=== PATIENT | female | born 1940 | race Caucasian/White ===

== ENCOUNTER 2018-09-27 16:54 | Inpatient (IN) | payer MEDICARE, OTHER ==
[~2018-09-27] VITALS: Ht 157.5 cm; Wt 61.4 kg
[~2018-09-27 16:54] MED LIST: ASPIRIN EC81 MG PO; CITALOPRAM HBR20 MG PO; DILTIAZEM HCL30 MG PO; FOLIC ACID1 MG PO; FUROSEMIDE40 MG PO; KEFLEX250 MG PO; LEVOTHYROXINE50 MCG PO; LISINOPRIL2.5 MG PO; LOPRESSOR25 MG PO; NORCO 5-325 TA1 EACH PO; OS-CAL 500+D T1 EACH PO; PANTOPRAZOLE SO40 MG PO; POTASSIUM CHLO20 ME1 PO; PREDNISONE5 MG PO; RANITIDINE HCL150 MG PO
--- OUTSIDE RECORDS SUMMARY | 2018-09-27 16:59 | XMS REPORT | Continuity of Care Document ---
Author Author [facility] Interface Address Unknown Phone Unavailable Problems Problem Status Onset Date Classification Date Reported Comments Source Chronic diastolic heart failure 12/30/2017 04/03/2018 [place] Influenza due to unidentified influenza virus with unspecified type of pneumonia 12/30/2017 04/03/2018 [facility] Hypertensive heart disease with heart failure 12/28/2017 03/30/2018 [facility] FOLLOW UP Active 12/26/2017 [facility] HSOPITAL FOLLOW UP Active 12/06/2017 [facility] Discharge Diagnosis: Influenza 11/10/2017 11/20/2017 [facility] INFLUENZA Active 11/10/2017 [facility] FLU Active 11/10/2017 [facility] RIGHT KNEE PAIN Active 07/08/2017 [facility] ELEVATED INR RT KNEE Active 07/08/2017 [facility] SHORT OF BREATH Active 06/08/2017 [facility] J98.11 - ATELECTASIS Active 05/16/2017 [place] FOLLWO UP Active 04/25/2017 [facility] TAVR HOSPITAL FOLLOW UP Active 04/10/2017 [facility] AORTIC STENOSIS Active 04/06/2017 [facility] PRE ADMIT/*GEN ANESTHESIA*/TAVR CASE/*3D Active 04/06/2017 [facility] F/U Active 04/04/2017 [facility] AORTIC STEONOSIS; NICMP Active 03/21/2017 [facility] LUNG OPACITIES, PULM NODULE Active 03/20/2017 [facility] CHF Active 03/08/2017 [facility] Aortic stenosis Active Problem 05/11/2018 [facility], [facility] Atrial fibrillation Resolved Problem 05/11/2018 [facility], [place] [place] [facility] Cardiomyopathy Resolved Problem 05/11/2018 [facility], [facility] [place] [facility] History of breast cancer Active Problem 05/11/2018 [facility] Hypertension Active Problem 05/11/2018 [facility], [place], [facility] Hypothyroidism Active Problem 05/11/2018 [facility], [place], [facility] Rheumatoid arthritis Active Problem 05/11/2018 [facility] Scoliosis Resolved Problem 05/11/2018 [facility] HTN (<span ID="[id number]">Confirmed</span>) Resolved Problem 05/11/2018 [place],[facility] Hypothyroid Resolved Problem 05/11/2018 [place],[facility] Breast cancer Resolved Problem 05/11/2018 [place],[facility] RA (<span ID="[id number]">Confirmed</span>) Resolved Problem 05/11/2018 [place],[facility] Allergic rhinitis Active Problem 05/11/2018 [facility] Chronic heart failure Active Problem 05/11/2018 [facility] Pneumonia Active Problem 05/11/2018 [facility] Mild protein-calorie malnutrition Active Problem 05/11/2018 [facility] Restrictive lung disease Active Problem 05/11/2018 [facility] Tracheobronchopathia-osteochondroplastica Active Problem 05/11/2018 [facility] Aortic stenosis<sup>1</sup> Resolved Problem 05/11/2018 TAVR done march [facility] CHF (<span ID="[id number]">Confirmed</span>) Resolved Problem 05/11/2018 [facility] Sjogrens syndrome<sup>2</sup> Resolved Problem 05/11/2018 Dry eyes and mouth [facility], [place],[facility] Sjogren's syndrome Resolved Problem 05/11/2018 [facility], [place] Rheumatoid arthritis, unspecified 04/03/2018 [facility] Personal history of malignant neoplasm of breast 04/03/2018 [facility] Personal history of antineoplastic chemotherapy 04/03/2018 [facility] Acute on chronic diastolic heart failure 03/30/2018 [facility] Acute respiratory failure with hypoxia 03/30/2018 [facility] Dependence on supplemental oxygen 03/30/2018 [facility] skilled nursing use of anticoagulants 03/30/2018 [facility] Persistent atrial fibrillation 03/30/2018 [facility] Chronic atrial fibrillation 03/30/2018 [facility] Iron deficiency anemia, unspecified 03/30/2018 [facility] Final: Influenza due to unidentified influenza virus with other respiratory manifestations 11/20/2017 [facility] NONRHEUMATIC AORTIC (VALVE) STENOSIS Active [facility] ENCNTR FOR GENERAL ADULT MEDICAL EXAM W/ Active [facility] HEART FAILURE, UNSPECIFIED Active [facility] ABNORMAL COAGULATION PROFILE Active [facility] FLU DUE TO UNIDENTIFIED INFLUENZA VIRUS Active [facility] Medications Medication Details Route Status Patient Instructions Ordering Provider Order Date Source temazepam 15 mg oral capsule 15 mg=1 cap, PO, Bedtime, 0 Refill(s) Active 05/08/2018 [facility] potassium chloride 20 mEq oral tablet, extended release 20 mEq=1 tab, PO, BID, 0 Refill(s) Active 05/08/2018 [facility] Furosemide 40 MG Oral Tablet 40 mg=1 tab, PO, TID, 0 Refill(s) Active 05/08/2018 [facility] apixaban 5 MG Oral Tablet [Eliquis] 5 mg, PO, Q12H, 0 Refill(s) Active 05/08/2018 [facility] torsemide 20 mg oral tablet See Instructions, Take two tabs in the morning and one tab in the evening., # 90 tab, 1 Refill(s), Pharmacy: [facility] #[id number] Active 02/22/2018 [facility] metoprolol 25 mg oral tablet, extended release 25 mg=1 tab, PO, Daily, # 30 tab, 3 Refill(s), Pharmacy: [facility] #[id number] Active 02/19/2018 [facility] Symbicort 160/4.5 inhalation aerosol with adapter 2 puff, INHALER, BID, rinse mouth and throat after use, # 1 ea, 11 Refill(s), Pharmacy: [facility] #[id number] Active 12/26/2017 [facility] ferrous gluconate 325 mg oral tablet 325 mg=1 tab, PO, BID, # 60 tab, 5 Refill(s), Pharmacy: [facility] #[id number] Active 12/24/2017 [facility] torsemide 20 mg oral tablet See Instructions, Take two tabs in the morning and one tab in the evening., # 90 tab, 1 Refill(s), Pharmacy: [facility] #[id number] No Longer Active 12/22/2017 [facility] budesonide-formoterol 80 mcg-4.5 mcg/inh inhalation aerosol with adapter 2 inhalation, Route: INHALATION, Drug Form: AERO/A, RBID, Start date: 11/17/17 18:14:00 RN DIABETES, Duration: 30 day, Stop date: 12/17/17 8:00:00 CSTNotes: (Same as: Symbicort) WASTE: Aerosol - Return to Pharmacy Inactive 11/18/2017 [facility] Fluticasone propionate 0.1 MG/ACTUAT / salmeterol 0.05 MG/ACTUAT Dry Powder Inhaler 1 inhalation, INHALER, RBID, # 60 ea, 1 Refill(s) Active 11/18/2017 [facility] Fluticasone propionate 0.1 MG/ACTUAT / salmeterol 0.05 MG/ACTUAT Dry Powder Inhaler 1 inhalation, INHALER, RBID, # 28 ea, 1 Refill(s) Inactive 11/18/2017 [facility] Fluticasone propionate 0.1 MG/ACTUAT / salmeterol 0.05 MG/ACTUAT Dry Powder Inhaler 1 inhalation, Route: INHALER, Dosing Weight 53.818, kg, RBID, Start date: 11/17/17 18:01:00 RN DIABETES, Duration: 30 day, Stop date: 12/17/17 8:00:00 RN DIABETES Inactive 11/18/2017 [facility] Warfarin 4 mg, Route: PO, Drug form: TAB, Q5PM, Dosing Weight 53.818, kg, Start date: 11/15/17 17:00:00 RN DIABETES, Duration: 1 doses or times, Stop date: 11/15/17 17:00:00 RN DIABETES Inactive 11/15/2017 [facility] Dextromethorphan Hydrobromide 2 MG/ML / Guaifenesin 20 MG/ML Oral Solution 10 mL, PO, Q6H, X 7 day, # 280 mL, 0 Refill(s) Active 11/15/2017 [facility] Acetaminophen 325 MG / Hydrocodone Bitartrate 5 MG Oral Tablet [[place] 5/325] 1 tab, Route: PO, Drug Form: TAB, Dosing Weight 53.818, kg, ONCE, Start date: 11/14/17 22:12:00 RN DIABETES, Stop date: 11/14/17 22:12:00 CSTNotes: (Same as: [place] 325/5) Do not exceed 4gm/day of acetaminophen. Inactive 11/15/2017 [facility] Acetaminophen 325 MG / Oxycodone Hydrochloride 5 MG Oral Tablet 1 tab, Route: PO, Drug Form: TAB, Dosing Weight 53.818, kg, ONCE, PRN Pain Score 1-3, Start date: 11/13/17 22:46:00 CSTNotes: Do not exceed 4gm/day of acetaminophen. (Same as: Percocet-5/325) Inactive 11/14/2017 [facility] Warfarin 3 mg, 1 tab, Route: PO, Drug form: TAB, Q5PM, Dosing Weight 53.818, kg, Start date: 11/13/17 17:00:00 RN DIABETES, Duration: 1 doses or times, Stop date: 11/13/17 17:00:00 CSTNotes: Nurse to ensure documentation of patient education per anticoagulation policy. Avoid large intake of vitamin-K containing foods diet. (Same As: Coumadin) WASTE: F/P - P Waste Black; E - P Waste Black Inactive 11/13/2017 [facility] Ciprofloxacin 500 mg, Route: PO, Daily, Dosing Weight 53.818, kg, Start date: 11/13/17 9:00:00 RN DIABETES, Duration: 3 day, Stop date: 11/15/17 9:00:00 RN DIABETES, ABX Indication: Urinary Tract Infection No Longer Active 11/13/2017 [facility] Benadryl 25 mg, 1 cap, Route: PO, Drug form: CAP, ONCE, Dosing Weight 53.818, kg, Start date: 11/13/17 0:53:00 RN DIABETES, Stop date: 11/13/17 0:53:00 CSTNotes: (Same as: Benadryl) Inactive 11/13/2017 [facility] dextromethorphan extended release 60 mg, Route: PO, Drug form: ER Suspension, Q12H, Dosing Weight 53.818, kg, Start date: 11/12/17 21:00:00 RN DIABETES, Duration: 30 day, Stop date: 12/12/17 9:00:00 RN DIABETES Inactive 11/13/2017 [facility] Mucinex 600 mg, 1 tab, Route: PO, Drug form: ERTAB, Q12H, Dosing Weight 53.818, kg, Start date: 11/12/17 21:00:00 RN DIABETES, Duration: 30 day, Stop date: 12/12/17 9:00:00 CSTNotes: (Same as: Guaifenesin LA, Humibid LA, Mucinex) "Do Not Crush" Take medication with plenty of water. Inactive 11/13/2017 [facility] Acetaminophen 325 MG / Hydrocodone Bitartrate 5 MG Oral Tablet [[place] 5/325] 1 tab, Route: PO, Drug Form: TAB, Dosing Weight 53.818, kg, ONCE, Start date: 11/12/17 20:57:00 RN DIABETES, Stop date: 11/12/17 20:57:00 CSTNotes: (Same as: [place] 325/5) Do not exceed 4gm/day of acetaminophen. Inactive 11/13/2017 [facility] Robitussin DM 10 ml, Route: PO, Drug Form: SYRP, Dosing Weight 53.818, kg, Q6H, Start date: 11/12/17 20:00:00 RN DIABETES, Duration: 30 day, Stop date: 12/12/17 18:00:00 CSTNotes: (dextromethorphan-guaifenesin 10-100mg/5m l 10 ml oral SOLN ud) (Same as: Robitussin DM) No Longer Active 11/13/2017 [facility] Budesonide 0.25 mg, 2 mL, Route: NEB, Drug form: SUSP, RBID, Dosing Weight 53.818, kg, Start date: 11/12/17 17:22:00 RN DIABETES, Duration: 30 day, Stop date: 12/12/17 8:00:00 CSTNotes: (Same As: Pulmicort respule). No Longer Active 11/12/2017 [facility] Warfarin 3 mg, 1 tab, Route: PO, Drug form: TAB, Q5PM, Dosing Weight 53.818, kg, Start date: 11/12/17 17:00:00 RN DIABETES, Duration: 1 doses or times, Stop date: 11/12/17 17:00:00 CSTNotes: Nurse to ensure documentation of patient education per anticoagulation policy. Avoid large intake of vitamin-K containing foods diet. (Same As: Coumadin) WASTE: F/P - P Waste Black; E - P Waste Black Inactive 11/12/2017 [facility] Tamiflu 75 mg, 1 cap, Route: PO, Drug form: CAP, BID, Dosing Weight 53.818, kg, Start date: 11/12/17 17:00:00 RN DIABETES, Duration: 3 day, Stop date: 11/15/17 9:00:00 CSTNotes: Take with food. Same as: Tamiflu) No Longer Active 11/12/2017 [facility] Tylenol 325 mg, 1 tab, Route: PO, Drug form: TAB, Q6H, Dosing Weight 53.818, kg, PRN Pain Score 1-3, Start date: 11/12/17 13:39:00 RN DIABETES, Duration: 30 day, Stop date: 12/12/17 13:38:00 CSTNotes: Do not exceed 4 gm/day. (Same as: Tylenol) No Longer Active 11/12/2017 [facility] Cipro 250 mg, 1 tab, Route: PO, Drug form: TAB, [id number], Start date: 11/12/17 12:00:00 RN DIABETES, Duration: 3 day, Stop date: 11/15/17 0:00:00 RN DIABETES, ABX Indication: Urinary Tract InfectionNotes: May interfere w/enteral feedings - Take 1 hr before or 2 hrs after antacids, dairy pdt & minerals. On empty stomach. No Longer Active 11/12/2017 [facility] Albuterol 0.833 MG/ML / Ipratropium [place] 0.167 MG/ML Inhalant Solution [DuoNeb] 3 ml, Route: NEB, Drug Form: SOLN, Dosing Weight 53.818, kg, RQ6H, PRN Respiratory Protocol, Start date: 11/12/17 11:32:00 RN DIABETES, Duration: 30 day, Stop date: 12/12/17 11:31:00 CSTNotes: (Same as: Duoneb) No Longer Active 11/12/2017 [facility] Acetaminophen 325 MG / Hydrocodone Bitartrate 5 MG Oral Tablet [[place] 5/325] 1 tab, Route: PO, Drug Form: TAB, Dosing Weight 53.818, kg, ONCE, PRN Pain Score 1-3, Start date: 11/11/17 22:59:00 CSTNotes: (Same as: [place] 325/5) Do not exceed 4gm/day of acetaminophen. Inactive 11/12/2017 [facility] Warfarin 2 mg, 1 tab, Route: PO, Drug form: TAB, Q5PM, Dosing Weight 53.818, kg, Start date: 11/11/17 17:00:00 RN DIABETES, Duration: 1 doses or times, Stop date: 11/11/17 17:00:00 CSTNotes: Nurse to ensure documentation of patient education per anticoagulation policy. Avoid large intake of vitamin-K containing foods diet. (Same As: Coumadin) WASTE: F/P - P Waste Black; E - P Waste Black Inactive 11/11/2017 [facility] Prednisone 5 mg, 1 tab, Route: PO, Drug form: TAB, Daily, Dosing Weight 54.545, kg, Start date: 11/11/17 9:00:00 RN DIABETES, Duration: 30 day, Stop date: 12/10/17 9:00:00 CSTNotes: Take with food. No Longer Active 11/11/2017 [facility] potassium chloride 20 mEq oral tablet, extended release 20 mEq, 1 tab, Route: PO, Drug form: ERTAB, Daily, Dosing Weight 54.545, kg, Start date: 11/11/17 9:00:00 RN DIABETES, Duration: 30 day, Stop date: 12/10/17 9:00:00 CSTNotes: (Same as: K-Dur 20) "Do Not Crush" With food and full glass of water No Longer Active 11/11/2017 [facility] pantoprazole 40 mg, 1 tab, Route: PO, Drug form: ECTAB, Daily, Dosing Weight 54.545, kg, Start date: 11/11/17 9:00:00 RN DIABETES, Duration: 30 day, Stop date: 12/10/17 9:00:00 CSTNotes: Tablet should not be chewed or cr ushed. (Same as: Protonix) No Longer Active 11/11/2017 [facility] Azithromycin 500 mg, 2 tab, Route: PO, Drug form: TAB, Daily, Dosing Weight 54.545, kg, Start date: 11/11/17 9:00:00 RN DIABETES, Stop date: 11/14/17 9:00:00 RN DIABETES, ABX Indication: BacteremiaNotes: Take 1 hour before or 2 hours after meals. (Same As: Zithromax) No Longer Active 11/11/2017 [facility] 24 HR Metoprolol Tartrate 25 MG Extended Release Tablet [Toprol] 25 mg, 1 tab, Route: PO, Drug form: ERTAB, Daily, Start date: 11/11/17 9:00:00 RN DIABETES, Duration: 30 day, Stop date: 12/10/17 9:00:00 CSTNotes: (Same as: Toprol XL) Do Not Crush No Longer Active 11/11/2017 [facility] Thyroxine 25 microgram, 1 tab, Route: PO, Drug form: TAB, Daily, Dosing Weight 54.545, kg, Start date: 11/11/17 9:00:00 RN DIABETES, Duration: 30 day, Stop date: 12/10/17 9:00:00 CSTNotes: Take 1 hour before or 2 hours after meal; Enteral feeds may interefere with the absorption of this medication. (Same as:Levothroid) No Longer Active 11/11/2017 [facility] Folic Acid 1 mg, 1 tab, Route: PO, Drug form: TAB, Daily, Dosing Weight 54.545, kg, Start date: 11/11/17 9:00:00 RN DIABETES, Duration: 30 day, Stop date: 12/10/17 9:00:00 CSTNotes: (Same as: Folvite) No Longer Active 11/11/2017 [facility] Citalopram 10 mg, 1 tab, Route: PO, Drug form: TAB, Daily, Dosing Weight 54.545, kg, Start date: 11/11/17 9:00:00 RN DIABETES, Duration: 30 day, Stop date: 12/10/17 9:00:00 RN DIABETES No Longer Active 11/11/2017 [facility] calcium-vitamin D 500 mg-200 intl units oral tablet 1 tab, Route: PO, Drug Form: TAB, Dosing Weight 54.545, kg, BID, Start date: 11/11/17 9:00:00 RN DIABETES, Duration: 30 day, Stop date: 12/10/17 17:00:00 CSTNotes: (Same As: Ana-D, OsCal-D, Oyster Calcium) No Longer Active 11/11/2017 [facility] aspirin 81 mg tablet, enteric coated 81 mg, 1 tab, Route: PO, Drug form: ECTAB, Daily, Dosing Weight 54.545, kg, Start date: 11/11/17 9:00:00 RN DIABETES, Duration: 30 day, Stop date: 12/10/17 9:00:00 CSTNotes: Do not crush or chew. (Same As: Ecotrin) No Longer Active 11/11/2017 [facility] Amiodarone 200 mg, 1 tab, Route: PO, Drug form: TAB, Daily, Dosing Weight 54.545, kg, Start date: 11/11/17 9:00:00 RN DIABETES, Duration: 30 day, Stop date: 12/10/17 9:00:00 CSTNotes: (Same as: Cordarone) No Longer Active 11/11/2017 [facility] Acetaminophen 325 MG / Hydrocodone Bitartrate 5 MG Oral Tablet [[place] 5/325] 1 tab, Route: PO, Drug Form: TAB, Dosing Weight 53.818, kg, ONCE, PRN Pain Score 1-3, Start date: 11/11/17 2:15:00 CSTNotes: (Same as: [place] 325/5) Do not exceed 4gm/day of acetaminophen. Inactive 11/11/2017 [facility] Acetaminophen 325 MG / Hydrocodone Bitartrate 5 MG Oral Tablet [[place] 5/325] 1 tab, Route: PO, Drug Form: TAB, Dosing Weight 53.818, kg, ONCE, Start date: 11/11/17 1:43:00 RN DIABETES, Stop date: 11/11/17 1:43:00 CSTNotes: (Same as: [place] 325/5) Do not exceed 4gm/day of acetaminophen. Inactive 11/11/2017 [facility] Tamiflu 30 mg, 1 cap, Route: PO, Drug form: CAP, Daily, Dosing Weight 54.545, kg, CrCl > 30 to 60 ml/hr, Start date: 11/10/17 18:30:00 RN DIABETES, Duration: 5 day, Stop date: 11/15/17 9:00:00 CSTNotes: Same as: Tamilfu Take with Food No Longer Active 11/11/2017 [facility] azithromycin 500 mg oral tablet 500 mg, 2 tab, Route: PO, Drug form: TAB, ONCE, Dosing Weight 54.545, kg, Start date: 11/10/17 18:09:00 RN DIABETES, Stop date: 11/10/17 18:09:00 RN DIABETES, ABX Indication: ED - Suspected SepsisNotes: Take 1 hour before or 2 hours after meals. (Same As: Zithromax) Inactive 11/11/2017 [facility] Coumadin 2 mg, 1 tab, Route: PO, Drug form: TAB, ONCE, Dosing Weight 54.545, kg, Start date: 11/10/17 17:59:00 RN DIABETES, Stop date: 11/10/17 17:59:00 CSTNotes: Nurse to ensure documentation of patient education per a nticoagulation policy. Avoid large intake of vitamin-K containing foods diet. (Same As: Coumadin) WASTE: F/P - P Waste Black; E - P Waste Black Inactive 11/10/2017 [facility] Levofloxacin 750 mg, 150 mL, Route: IVPB, Drug form: SOLN, ONCE, Dosing Weight 54.545, kg, Start date: 11/10/17 16:52:00 RN DIABETES, Stop date: 11/10/17 16:52:00 RN DIABETES, ABX Indication: PneumoniaNotes: (Same as:Levaquin) Inactive 11/10/2017 [facility] Calcium Chloride 0.0014 MEQ/ML / Potassium Chloride 0.004 MEQ/ML / Sodium Chloride 0.103 MEQ/ML / Sodium Lactate 0.028 MEQ/ML Injectable Solution 500 mL, 500 ml/hr, Infuse Over: 1 hr, Route: IV, 500, Drug form: INJ, ONCE, Priority: STAT, Dosing Weight 54.545 kg, Start date: 11/10/17 16:52:00 RN DIABETES, Stop date: 11/10/17 16:52:00 RN DIABETES Inactive 11/10/2017 [facility] Saline Flush 0.9% 10 mL, Route: IVP, Drug Form: INJ, Dosing Weight 54.545, kg, PRN, PRN Line Flush, Start date: 11/10/17 15:56:00 RN DIABETES, Duration: 30 day, Stop date: 12/10/17 15:55:00 CSTNotes: (Same as: BD Posiflush) No Longer Active 11/10/2017 [facility] metoprolol 25 mg oral tablet, extended release 25 mg=1 tab, PO, Daily, X 30 day, # 30 tab, 3 Refill(s), Pharmacy: [facility] #[id number] No Longer Active 10/25/2017 [facility] warfarin 2 mg oral tablet 1 tab ud pharmacy clinic; use dosing paper, PO, Daily, # 30 tab, 2 Refill(s), Pharmacy: [facility] #[id number] Active 10/25/2017 [facility] potassium chloride 20 mEq oral tablet, extended release 20 mEq=1 tab, PO, Daily, # 30 tab, 3 Refill(s), other Active 07/10/2017 [facility] metoprolol 25 mg oral tablet, extended release 25 mg=1 tab, PO, Daily, # 30 tab, 3 Refill(s) Active 07/10/2017 [facility] warfarin 2 mg oral tablet 2 mg=1 tab, PO, Daily, # 30 tab, 3 Refill(s) Active 07/10/2017 [facility] Acetaminophen 325 MG / Hydrocodone Bitartrate 5 MG Oral Tablet [[place] 5/325] 1 tab, Route: PO, Drug Form: TAB, Dosing Weight 55.409, kg, Q6H, PRN Pain Score 1-3, Start date: 07/09/17 17:13:00 CDT, Duration: 30 day, Stop date: 08/08/17 17:12:00 CDTNotes: (Same as: [place] 325/5) Do not exceed 4gm/day of acetaminophen. No Longer Active 07/09/2017 [facility] Demadex 10 mg, 1 tab, Route: PO, Drug form: TAB, QPM, Start date: 07/09/17 17:00:00 CDT, Duration: 30 day, Stop date: 08/07/17 17:00:00 CDTNotes: (Same As: Demadex) No Longer Active 07/09/2017 [facility] Demadex 20 mg, 2 tab, Route: PO, Drug form: TAB, QAM, Start date: 07/09/17 9:00:00 CDT, Duration: 30 day, Stop date: 08/07/17 9:00:00 CDTNotes: (Same As: Demadex) No Longer Active 07/09/2017 [facility] torsemide Route: PO, Drug form: TAB, BID, Dosing Weight 56.364, kg, Start date: 07/09/17 9:00:00 CDT, Duration: 30 day, Stop date: 08/07/17 17:00:00 CDT No Longer Active 07/09/2017 [facility] Prednisone 5 mg, 1 tab, Route: PO, Drug form: TAB, Daily, Dosing Weight 56.364, kg, Start date: 07/09/17 9:00:00 CDT, Duration: 30 day, Stop date: 08/07/17 9:00:00 CDTNotes: Take with food. No Longer Active 07/09/2017 [facility] potassium chloride 20 mEq oral tablet, extended release 20 mEq, 1 tab, Route: PO, Drug form: ERTAB, BID, Dosing Weight 56.364, kg, Start date: 07/09/17 9:00:00 CDT, Duration: 30 day, Stop date: 08/07/17 17:00:00 CDTNotes: (Same as: K-Dur 20) "Do Not Crush" With food and full glass of water No Longer Active 07/09/2017 [facility] pantoprazole 40 mg, 1 tab, Route: PO, Drug form: ECTAB, Daily, Dosing Weight 56.364, kg, Start date: 07/09/17 9:00:00 CDT, Duration: 30 day, Stop date: 08/07/17 9:00:00 CDTNotes: Tablet should not be chewed or cr ushed. (Same as: Protonix) No Longer Active 07/09/2017 [facility] 24 HR Metoprolol Tartrate 25 MG Extended Release Tablet [Toprol] 25 mg, 1 tab, Route: PO, Drug form: ERTAB, Daily, Start date: 07/09/17 9:00:00 CDT, Duration: 30 day, Stop date: 08/07/17 9:00:00 CDTNotes: (Same as: Toprol XL) Do Not Crush No Longer Active 07/09/2017 [facility] Folic Acid 1 mg, 1 tab, Route: PO, Drug form: TAB, Daily, Dosing Weight 56.364, kg, Start date: 07/09/17 9:00:00 CDT, Duration: 30 day, Stop date: 08/07/17 9:00:00 CDTNotes: (Same as: Folvite) No Longer Active 07/09/2017 [facility] Citalopram 10 mg, 1 tab, Route: PO, Drug form: TAB, Daily, Dosing Weight 56.364, kg, Start date: 07/09/17 9:00:00 CDT, Duration: 30 day, Stop date: 08/07/17 9:00:00 CDT No Longer Active 07/09/2017 [facility] Amiodarone 200 mg, 1 tab, Route: PO, Drug form: TAB, Daily, Dosing Weight 56.364, kg, Start date: 07/09/17 9:00:00 CDT, Duration: 30 day, Stop date: 08/07/17 9:00:00 CDTNotes: (Same as: Cordarone) No Longer Active 07/09/2017 [facility] calcium (as carbonate)-vitamin D 500 mg-400 intl units oral tablet 1 tab, Route: PO, Drug Form: TAB, Dosing Weight 56.364, kg, BID-Meals, Start date: 07/09/17 8:00:00 CDT, Duration: 30 day, Stop date: 08/07/17 17:00:00 CDTNotes: (calcium carbonate-vit D 500mg-400unit TAB) Same as: Oyster- D, OsCal-D No Longer Active 07/09/2017 [facility] Thyroxine 25 microgram, 1 tab, Route: PO, Drug form: TAB, Q630AM, Dosing Weight 56.364, kg, Start date: 07/09/17 6:30:00 CDT, Duration: 30 day, Stop date: 08/07/17 6:30:00 CDTNotes: Take 1 hour before or 2 hours after meal; Enteral feeds may interefere with the absorption of this medication. (Same as:Levothroid) No Longer Active 07/09/2017 [facility] magic mouth wash 15 mL, Route: PO, Drug Form: SUSP, Dosing Weight 55.256, kg, BID, PRN Mouth Pain, Start date: 07/08/17 22:54:00 CDT, Duration: 30 day, Stop date: 08/07/17 22:53:00 CDTNotes: diphen elix/mag-al liq/lido visc 1:1:1 90ml susp No Longer Active 07/09/2017 [facility] Blistex Lip [place] 1 appl, Route: TOP, Drug Form: STIC, Dosing Weight 55.256, kg, BID, PRN Mouth Pain, Start date: 07/08/17 22:53:00 CDT, Duration: 30 day, Stop date: 08/07/17 22:52:00 CDT No Longer Active 07/09/2017 [facility] Ambien 5 mg, 1 tab, Route: PO, Drug form: TAB, Bedtime, Dosing Weight 55.256, kg, PRN Insomnia, Start date: 07/08/17 21:26:00 CDT, Duration: 30 day, Stop date: 08/07/17 21:25:00 CDTNotes: (Same As: Ambien) No Longer Active 07/09/2017 [facility] melatonin 5 mg tablet 5 mg, 1 tab, Route: PO, Drug Form: TAB, Dosing Weight 56.364, kg, Bedtime, Start date: 07/08/17 21:00:00 CDT, Duration: 30 day, Stop date: 08/06/17 21:00:00 CDTNotes: (Same as: Melatonin) Inactive 07/09/2017 [facility] Calcium Gluconate 3 gm, 30 mL, Route: IVPB, PRN, Dosing Weight 56.364, kg, PRN Abnormal Lab Result, For NON-ICU Patients Only., Start date: 07/08/17 20:38:00 CDT, Duration: 30 day, Stop date: 08/07/17 20:37:00 CDTNotes: WASTE: F/P - Sink; E - Municipal Trash Bin No Longer Active 07/09/2017 [facility] Magnesium Sulfate 2 gm, 50 mL, Route: IVPB, Drug form: INJ, PRN, Dosing Weight 56.364, kg, PRN Abnormal Lab Result, For NON-ICU Patients Only., Start date: 07/08/17 20:38:00 CDT, Duration: 30 day, Stop date: 08/07/17 20:37:00 CDTNotes: WASTE: F/P - Sink; E - Municipal Trash Bin No Longer Active 07/09/2017 [facility] sodium phosphate 30 mmol, 10 mL, Route: IVPB, PRN, Dosing Weight 56.364, kg, PRN Abnormal Lab Result, For NON-ICU Patients Only., Start date: 07/08/17 20:38:00 CDT, Duration: 30 day, Stop date: 08/07/17 20:37:00 CDT No Longer Active 07/09/2017 [facility] Magnesium Oxide 800 mg, 2 tab, Route: PO, Drug form: TAB, PRN, Dosing Weight 56.364, kg, PRN Abnormal Lab Result, For NON-ICU Patients Only., Start date: 07/08/17 20:38:00 CDT, Duration: 30 day, Stop date: 08/07/17 20:37:00 CDTNotes: (Same as: Mag-Ox 400) Magnesium oxide [id number] elemental magnesium Dose=____mg magnesium oxide (___mg elemental magnesium) No Longer Active 07/09/2017 [facility] potassium phosphate 15 mmol, 5 mL, Route: IVPB, PRN, Dosing Weight 56.364, kg, PRN Abnormal Lab Result, For NON-ICU Patients Only., Start date: 07/08/17 20:38:00 CDT, Duration: 30 day, Stop date: 08/07/17 20:37:00 CDTNotes: (Same as: K Phosphate.) 1 mMol phoshate has 1.47 mEq potassium Infuse over 4 hours No Longer Active 07/09/2017 [facility] potassium phosphate-sodium phosphate 250 mg-280 mg-160 mg oral powder for reconstitution 2 pkt, Route: PO, Drug Form: PDR/REC, Dosing Weight 56.364, kg, PRN, PRN Abnormal Lab Result, For NON-ICU Patients Only, Start date: 07/08/17 20:38:00 CDT, Duration: 30 day, Stop date: 08/07/17 20:37:00 CDTNotes: (Same as: Phos-NaK) Each 1.5 gm pkt has 250mg phosphorous. Mix w/2.5oz water and stir. No Longer Active 07/09/2017 [facility] Potassium Chloride 10 mEq, 50 mL, Route: IVPB, Drug form: INJ, PRN, Dosing Weight 56.364, kg, PRN Abnormal Lab Result, For NON-ICU Patients Only, Start date: 07/08/17 20:38:00 CDT, Duration: 30 day, Stop date: 08/07/17 20:37:00 CDTNotes: (Same as: KCL) Infuse over 2 hours. No Longer Active 07/09/2017 [facility] Acetaminophen 325 MG / Hydrocodone Bitartrate 5 MG Oral Tablet [[place] 5/325] 1 tab, Route: PO, Drug Form: TAB, Dosing Weight 56.364, kg, ONCE, Start date: 07/08/17 18:01:00 CDT, Stop date: 07/08/17 18:01:00 CDT Inactive 07/08/2017 [facility] Vitamin K1 1 mg, 1 mL, Route: PO, Drug form: SUSP, ONCE, Dosing Weight 56.364, kg, Start date: 07/08/17 15:26:00 CDT, Duration: 1 doses or times, Stop date: 07/08/17 15:26:00 CDTNotes: Same as: Vitamin K, [place] Combine FILTERED phytonadione injection (total 50 mg/5 mL)with Simple Syrup (45mL) in roc bottle. Shake well prior to dispensing. Expiration: 90 days at [facility] Inactive 07/08/2017 [facility] metoprolol 25 mg oral tablet, extended release 25 mg=1 tab, PO, Daily, # 30 tab, 3 Refill(s), Pharmacy: [id number] Active 06/27/2017 [facility] torsemide 10 mg, 1 tab, Route: PO, Drug form: TAB, Q5PM, Dosing Weight 56.989, kg, Start date: 06/12/17 17:00:00 CDT, Duration: 30 day, Stop date: 07/11/17 17:00:00 CDTNotes: (Same As: Demadex) Inactive 06/12/2017 [facility] Coumadin 4 mg, 2 tab, Route: PO, Drug form: TAB, Q5PM, Dosing Weight 56.989, kg, Start date: 06/12/17 17:00:00 CDT, Duration: 1 doses or times, Stop date: 06/12/17 17:00:00 CDTNotes: Nurse to ensure documentation of patient education per anticoagulation policy. Avoid large intake of vitamin-K containing foods diet. (Same As: Coumadin) WASTE: F/P - P Waste Black; E - P Waste Black Inactive 06/12/2017 [facility] AMIODarone 200 mg oral tablet 200 mg=1 tab, PO, BID, # 60 tab, 3 Refill(s) Active 06/12/2017 [facility] potassium chloride 20 mEq oral tablet, extended release 20 mEq=1 tab, PO, BID, # 60 tab, 2 Refill(s) Active 06/12/2017 [facility] predniSONE 5 mg oral tablet 5 mg=1 tab, PO, Daily, 0 Refill(s) Active 06/12/2017 [facility] torsemide 10 mg oral tablet See Instructions, 2 tab (20mg QAM) 1 tab (10mg PO QPM), # 90 tab, 2 Refill(s) Active 06/12/2017 [facility] Warfarin Sodium 4 MG Oral Tablet [Coumadin] 4 mg, PO, Q5PM, # 60 tab, 1 Refill(s) Active 06/12/2017 [facility] torsemide 20 mg, 1 tab, Route: PO, Drug form: TAB, Daily, Dosing Weight 56.989, kg, Start date: 06/12/17 9:00:00 CDT, Duration: 30 day, Stop date: 07/11/17 9:00:00 CDTNotes: (Same As: Demadex) Inactive 06/12/2017 [facility] magic mouth wash 15 mL, Route: S&SPIT, Drug Form: SUSP, Dosing Weight 56.989, kg, Q6H, PRN Mouth Pain, Start date: 06/12/17 8:34:00 CDT, Duration: 30 day, Stop date: 07/12/17 8:33:00 CDTNotes: diphen elix/mag-al liq/lido visc 1:1:1 90ml susp Inactive 06/12/2017 [facility] Diphenhydramine 25 mg, 0.5 mL, Route: IVP, Drug form: INJ, ONCE, Dosing Weight 56.989, kg, PRN Itching, Start date: 06/11/17 23:58:00 CDTNotes: (Same as: Benadryl) No Longer Active 06/12/2017 [facility] Warfarin 4 mg, 2 tab, Route: PO, Drug form: TAB, Q5PM, Dosing Weight 56.989, kg, Start date: 06/11/17 17:00:00 CDT, Duration: 1 doses or times, Stop date: 06/11/17 17:00:00 CDTNotes: Nurse to ensure documentation of patient education per anticoagulation policy. Avoid large intake of vitamin-K containing foods diet. (Same As: Coumadin) WASTE: F/P - P Waste Black; E - P Waste Black Inactive 06/11/2017 [facility] Amiodarone 200 mg, 1 tab, Route: PO, Drug form: TAB, BID, Dosing Weight 56.989, kg, Start date: 06/11/17 17:00:00 CDT, Duration: 30 day, Stop date: 07/11/17 9:00:00 CDTNotes: (Same as: Cordarone) No Longer Active 06/11/2017 [facility] Furosemide 60 mg, 6 mL, Route: IVP, Drug form: INJ, BID, Dosing Weight 56.989, kg, Start date: 06/11/17 9:00:00 CDT, Duration: 30 day, Stop date: 07/10/17 17:00:00 CDTNotes: (Same as: Lasix) Inactive 06/11/2017 [facility] Warfarin 2.5 mg, 1 tab, Route: PO, Drug form: TAB, Q5PM, Dosing Weight 56.989, kg, Start date: 06/10/17 21:00:00 CDT, Duration: 1 doses or times, Stop date: 06/10/17 21:00:00 CDTNotes: Nurse to ensure documentation of patient education per anticoagulation policy. Avoid large intake of vitamin-K containing foods diet. (Same As: Coumadin) WASTE: F/P - P Waste Black; E - P Waste Black Inactive 06/11/2017 [facility] AMIODarone INJ 900 mg + D5W 500 ml INJ 482 mL 900 mg, 18 mL, Rate: 1 mg/min for 6 hours, then reduce to 0.5 mg/min, Dosing Weight 56.989, kg, Route: IV, Total Volume: 500, Start Date: 06/10/17 12:54:00 CDT, Duration: 30 day, Stop date: 07/10/17 12:53:00 CDT, Replace Every: 24 hrNotes: Central administration only for concentration > 2 mg/ml. Use Glass Bottle or Non PVC Bag "Use 0.22 micron in-line filter" MEDICATION WASTE Product Size: 900 mg Product Wasted: ___ mg No Longer Active 06/10/2017 [facility] Amiodarone 150 mg, 3 mL, Route: IVPB, Drug form: INJ, ONCE, Dosing Weight 56.989, kg, Start date: 06/10/17 12:53:00 CDT, Stop date: 06/10/17 12:53:00 CDTNotes: Central administration only for concentrations > 2 mg/ml. "Recommendation: Use an in-line filter during administration for continuous infusions to reduce the incidence of phlebitis" (Same as Codarone) MEDICATION WASTE Product Size: 150 mg Product Wasted: ___ mg Inactive 06/10/2017 [facility] Docusate 100 mg, 1 cap, Route: PO, Drug form: CAP, BID, Dosing Weight 56.989, kg, Start date: 06/09/17 17:00:00 CDT, Duration: 30 day, Stop date: 07/09/17 9:00:00 CDTNotes: (Same as: Colace) (Do Not Crush) No Longer Active 06/09/2017 [facility] Thyroxine 25 microgram, 1 tab, Route: PO, Drug form: TAB, Q630AM, Dosing Weight 56.989, kg, Start date: 06/09/17 16:30:00 CDT, Duration: 30 day, Stop date: 07/09/17 6:30:00 CDTNotes: Take 1 hour before or 2 hours after meal; Enteral feeds may interefere with the absorption of this medication. (Same as:Levothroid) No Longer Active 06/09/2017 [facility] Folic Acid 1 mg, 1 tab, Route: PO, Drug form: TAB, Daily, Dosing Weight 56.989, kg, Start date: 06/09/17 16:30:00 CDT, Duration: 30 day, Stop date: 07/09/17 9:00:00 CDTNotes: (Same as: Folvite) No Longer Active 06/09/2017 [facility] pantoprazole 40 mg, 1 tab, Route: PO, Drug form: ECTAB, Before Breakfast, Dosing Weight 56.989, kg, Start date: 06/09/17 16:30:00 CDT, Duration: 30 day, Stop date: 07/09/17 7:30:00 CDTNotes: Tablet should not be chewed or crushed. (Same as: Protonix) No Longer Active 06/09/2017 [facility] sennosides, [facility] 17.2 mg, 2 tab, Route: PO, Drug Form: TAB, Dosing Weight 56.989, kg, Daily, Start date: 06/09/17 13:00:00 CDT, Duration: 30 day, Stop date: 07/09/17 9:00:00 CDTNotes: (Same as: Senokot) No Longer Active 06/09/2017 [facility] Bisacodyl 10 mg, 1 supp, Route: MA, Drug form: SUPP, Daily, Dosing Weight 56.989, kg, PRN Constipation, Start date: 06/09/17 10:38:00 CDT, Duration: 30 day, Stop date: 07/09/17 10:37:00 CDTNotes: (Same As: Dulcolax, Bisco-Lax) No Longer Active 06/09/2017 [facility] Streptococcus pneumoniae serotype 1 capsular antigen diphtheria [id number] protein conjugate vaccine / Streptococcus pneumoniae serotype 14 capsular antigen diphtheria [id number] protein conjugate vaccine / Streptococcus pneumoniae serotype 18C capsular antigen d 0.5 mL, Route: IM, Drug Form: INJ, Daily, Start date: 06/09/17 9:00:00 CDT, Duration: 1 doses or times, Stop date: 06/09/17 9:00:00 CDTNotes: Shake well prior to use (Same as: Prevnar 13) Inactive 06/09/2017 [facility] Prednisone 5 mg, 1 tab, Route: PO, Drug form: TAB, Daily, Dosing Weight 58.182, kg, Start date: 06/09/17 9:00:00 CDT, Duration: 30 day, Stop date: 07/08/17 9:00:00 CDTNotes: Take with food. No Longer Active 06/09/2017 [facility] aspirin 81 mg tablet, enteric coated 81 mg, 1 tab, Route: PO, Drug form: ECTAB, Daily, Dosing Weight 58.182, kg, Start date: 06/09/17 9:00:00 CDT, Duration: 30 day, Stop date: 07/08/17 9:00:00 CDTNotes: Do not crush or chew. (Same As: Ecotrin) No Longer Active 06/09/2017 [facility] Atenolol 25 mg, Route: PO, Daily, Dosing Weight 58.182, kg, Start date: 06/09/17 9:00:00 CDT, Duration: 30 day, Stop date: 07/08/17 9:00:00 CDT No Longer Active 06/09/2017 [facility] Acetaminophen 325 MG / Hydrocodone Bitartrate 5 MG Oral Tablet [[place] 5/325] 1 tab, Route: PO, Drug Form: TAB, Dosing Weight 56.989, kg, Q6H, PRN Pain Score 1-3, Start date: 06/09/17 1:09:00 CDT, Duration: 30 day, Stop date: 07/09/17 1:08:00 CDTNotes: (Same as: [place] 325/5) Do not exceed 4gm/day of acetaminophen. No Longer Active 06/09/2017 [facility] Eliquis 5 mg, 1 tab, Route: PO, Drug form: TAB, BID, Dosing Weight 58.182, kg, Start date: 06/08/17 21:00:00 CDT, Duration: 30 day, Stop date: 07/08/17 9:00:00 CDTNotes: Same as: Eliquis No Longer Active 06/09/2017 [facility] Lasix 60 mg, 6 mL, Route: IV, Drug form: INJ, TID, Dosing Weight 58.182, kg, Start date: 06/08/17 17:00:00 CDT, Duration: 30 day, Stop date: 07/08/17 13:00:00 CDTNotes: (Same as: Lasix) MEDICATION WASTE Product Size: 40 mg Product Wasted: ___ mg No Longer Active 06/08/2017 [facility] Magnesium Sulfate 1 gm, 100 mL, Route: IVPB, Drug form: INJ, PRN, Dosing Weight 58.182, kg, PRN Abnormal Lab Result, For NON-ICU Patients Only., Start date: 06/08/17 16:01:00 CDT, Duration: 30 day, Stop date: 07/08/17 16:00:00 CDTNotes: WASTE: F/P - Sink; E - Municipal Trash Bin No Longer Active 06/08/2017 [facility] potassium phosphate 15 mmol, 5 mL, Route: IVPB, PRN, Dosing Weight 58.182, kg, PRN Abnormal Lab Result, For NON-ICU Patients Only., Start date: 06/08/17 16:01:00 CDT, Duration: 30 day, Stop date: 07/08/17 16:00:00 CDTNotes: (Same as: K Phosphate.) 1 mMol phoshate has 1.47 mEq potassium Infuse over 4 hours No Longer Active 06/08/2017 [facility] sodium phosphate 15 mmol, 5 mL, Route: IVPB, PRN, Dosing Weight 58.182, kg, PRN Abnormal Lab Result, For NON-ICU Patients Only., Start date: 06/08/17 16:01:00 CDT, Duration: 30 day, Stop date: 07/08/17 16:00:00 CDT No Longer Active 06/08/2017 [facility] potassium phosphate-sodium phosphate 250 mg-280 mg-160 mg oral powder for reconstitution 2 pkt, Route: PO, Drug Form: PDR/REC, Dosing Weight 58.182, kg, PRN, PRN Abnormal Lab Result, For NON-ICU Patients Only, Start date: 06/08/17 16:01:00 CDT, Duration: 30 day, Stop date: 07/08/17 16:00:00 CDTNotes: (Same as: Phos-NaK) Each 1.5 gm pkt has 250mg phosphorous. Mix w/2.5oz water and stir. No Longer Active 06/08/2017 [facility] Potassium Chloride 20 mEq, 1 tab, Route: PO, Drug form: ERTAB, PRN, Dosing Weight 58.182, kg, PRN Abnormal Lab Result, For NON-ICU Patients Only, Start date: 06/08/17 16:01:00 CDT, Duration: 30 day, Stop date: 07/08/17 16:00:00 CDTNotes: (Same as: K-Dur 20) "Do Not Crush" With food and full glass of water No Longer Active 06/08/2017 [facility] Magnesium Oxide 800 mg, 2 tab, Route: PO, Drug form: TAB, PRN, Dosing Weight 58.182, kg, PRN Abnormal Lab Result, For NON-ICU Patients Only., Start date: 06/08/17 16:01:00 CDT, Duration: 30 day, Stop date: 07/08/17 16:00:00 CDTNotes: (Same as: Mag-Ox 400) Magnesium oxide [id number] elemental magnesium Dose=____mg magnesium oxide (___mg elemental magnesium) No Longer Active 06/08/2017 [facility] Calcium Gluconate 2 gm, 20 mL, Route: IVPB, PRN, Dosing Weight 58.182, kg, PRN Abnormal Lab Result, For NON-ICU Patients Only., Start date: 06/08/17 16:01:00 CDT, Duration: 30 day, Stop date: 07/08/17 16:00:00 CDTNotes: WASTE: F/P - Sink; E - Municipal Trash Bin No Longer Active 06/08/2017 [facility] Lasix 40 mg, 4 mL, Route: IVP, Drug form: INJ, ONCE, Dosing Weight 58.182, kg, Priority: STAT, Start date: 06/08/17 14:38:00 CDT, Stop date: 06/08/17 14:38:00 CDTNotes: (Same as: Lasix) MEDICATION WASTE Product Size: 40 mg Product Wasted: _0__ mg Inactive 06/08/2017 [facility] melatonin 5 mg tablet 5 mg, 1 tab, Route: PO, Drug Form: TAB, Dosing Weight 57.727, kg, Bedtime, Start date: 04/08/17 21:00:00 CDT, Duration: 30 day, Stop date: 05/07/17 21:00:00 CDTNotes: (Same as: Melatonin) Inactive 04/09/2017 [facility] apixaban 5 MG Oral Tablet [Eliquis] 5 mg=1 tab, PO, BID, # 60 tab, 3 Refill(s) Active 04/08/2017 [facility] clopidogrel 75 mg oral tablet 75 mg=1 tab, PO, Daily, # 30 tab, 2 Refill(s) Inactive 04/08/2017 [facility] aspirin 81 mg tablet, enteric coated 81 mg=1 tab, PO, Daily, # 30 tab, 3 Refill(s) Active 04/08/2017 [facility] heparin 5,000 unit, 1 mL, Route: SUB-Q, Drug form: INJ, BID, Dosing Weight 57.727, kg, Start date: 04/08/17 9:00:00 CDT, Duration: 30 day, Stop date: 05/07/17 17:00:00 CDTNotes: porcine heparin Inactive 04/08/2017 [facility] Folic Acid 1 mg, 1 tab, Route: PO, Drug form: TAB, Daily, Dosing Weight 57.727, kg, Start date: 04/08/17 9:00:00 CDT, Stop date: 05/07/17 9:00:00 CDTNotes: (Same as: Folvite) Inactive 04/08/2017 [facility] Citalopram 10 mg, 1 tab, Route: PO, Drug form: TAB, Daily, Dosing Weight 57.727, kg, Start date: 04/08/17 9:00:00 CDT, Stop date: 05/07/17 9:00:00 CDT Inactive 04/08/2017 [facility] Atenolol 25 mg, 1 tab, Route: PO, Drug form: TAB, Daily, Dosing Weight 57.727, kg, Start date: 04/08/17 9:00:00 CDT, Stop date: 05/07/17 9:00:00 CDTNotes: (Same As:Tenormin) Inactive 04/08/2017 [facility] Prednisone 5 mg, 1 tab, Route: PO, Drug form: TAB, Daily, Dosing Weight 57.727, kg, Start date: 04/08/17 9:00:00 CDT, Stop date: 05/07/17 9:00:00 CDTNotes: Take with food. Inactive 04/08/2017 [facility] aspirin 81 mg tablet, enteric coated 81 mg, 1 tab, Route: PO, Drug form: ECTAB, Daily, Dosing Weight 57.727, kg, Start date: 04/08/17 9:00:00 CDT, Duration: 30 day, Stop date: 05/07/17 9:00:00 CDTNotes: Do not crush or chew. (Same As: Ecotrin) Inactive 04/08/2017 [facility] clopidogrel 75 mg, 1 tab, Route: PO, Drug form: TAB, Daily, Dosing Weight 57.727, kg, Start date: 04/08/17 9:00:00 CDT, Duration: 30 day, Stop date: 05/07/17 9:00:00 CDTNotes: (Same As: Plavix) Inactive 04/08/2017 [facility] Lisinopril 2.5 mg, 1 tab, Route: PO, Drug form: TAB, Daily, Dosing Weight 57.727, kg, Start date: 04/08/17 9:00:00 CDT, Stop date: 05/07/17 9:00:00 CDTNotes: (Same as: Prinivil) Inactive 04/08/2017 [facility] pantoprazole 40 mg, 1 tab, Route: PO, Drug form: ECTAB, Before Breakfast, Dosing Weight 57.727, kg, Start date: 04/08/17 7:30:00 CDT, Stop date: 05/07/17 7:30:00 CDTNotes: Tablet should not be chewed or crushed. (Same as: Protonix) Inactive 04/08/2017 [facility] Thyroxine 25 microgram, 1 tab, Route: PO, Drug form: TAB, Q630AM, Dosing Weight 57.727, kg, Start date: 04/08/17 6:30:00 CDT, Stop date: 05/07/17 6:30:00 CDTNotes: Take 1 hour before or 2 hours after meal; Enteral feeds may interefere with the absorption of this medication. (Same as:Levothroid) Inactive 04/08/2017 [facility] Nicardipine 40 mg, 200 mL, Rate: Titrate, Start Dose: 5 mg/hr, Titration: 2mg every 15 minutes PRN, Goal(s): maintain SBP 90 - 150 mmHg, Max Dose: 15mg/hr, Route: IV, Dosing Weight 57.727 kg, Total Volume: 200, Start date: 04/07/17 19:38:00 CDT, Duration: 30 day,...Notes: Same as: Cardene Concentration: (0.2 mg /1 ml ) No Longer Active 04/08/2017 [facility] Acetaminophen 325 mg, 1 tab, Route: PO, Drug form: TAB, Q4H, Dosing Weight 57.727, kg, PRN Pain 1-3/Temp > 100.4 F, Start date: 04/07/17 19:38:00 CDT, Duration: 30 day, Stop date: 05/07/17 19:37:00 CDTNotes: Do not exceed 4 gm/day. (Same as: Tylenol) No Longer Active 04/08/2017 [facility] Acetaminophen 325 MG / Hydrocodone Bitartrate 5 MG Oral Tablet 2 tab, Route: PO, Drug Form: TAB, Dosing Weight 57.727, kg, Q4H, PRN Pain Score 7-10, Start date: 04/07/17 19:38:00 CDT, Duration: 30 day, Stop date: 05/07/17 19:37:00 CDTNotes: (Same as: [place] 325/5) Do not exceed 4gm/day of acetaminophen. No Longer Active 04/08/2017 [facility] Sodium Chloride 0.154 MEQ/ML Injectable Solution 250 mL, 250 ml/hr, Infuse Over: 1 hr, Route: IV, 250, Drug form: INJ, ONCE, Dosing Weight 57.727 kg, Start date: 04/07/17 19:38:00 CDT, Duration: 1 doses or times, Stop date: 04/07/17 19:38:00 CDT Inactive 04/08/2017 [facility] Ondansetron 4 mg, 2 mL, Route: IVP, Drug form: INJ, ONCE, Dosing Weight 57.727, kg, PRN Nausea & Vomiting, Start date: 04/07/17 19:05:00 CDTNotes: (Same as: Zofran) MEDICATION WASTE Product Size: 4 mg Product Wasted: _0__ mg Inactive 04/08/2017 [facility] Naloxone 0.4 mg, 1 mL, Route: IVP, Drug form: INJ, Q2MIN, Dosing Weight 57.727, kg, PRN Narcotic Reversal, Start date: 04/07/17 19:05:00 CDT, Duration: 8 doses or times, Stop date: Limited # of timesNotes: Same as Narcan Inactive 04/08/2017 [facility] Flumazenil 0.2 mg, 2 mL, Route: IVP, Drug form: INJ, PRN, Dosing Weight 57.727, kg, PRN Benzodiazepine Reversal, Initial dose, Start date: 04/07/17 19:05:00 CDT, Duration: 30 day, Stop date: 05/07/17 19:04:00 C DTNotes: (Same as: Romazicon) Inactive 04/08/2017 [facility] Acetaminophen 1,000 mg, 100 mL, Route: IV, Drug form: INJ, ONCE, Dosing Weight 57.727, kg, PRN Pain Score 1-3, Start date: 04/07/17 19:05:00 CDT, Duration: 1 doses or times, Stop date: Limited # of timesNotes: Infuse over 15 minutes Do not exceed 4gm/day of acetaminophen MEDICATION WASTE Product Size: 1000 mg Product Wasted: _0__ mg Inactive 04/08/2017 [facility] sodium chloride 0.9% 1000 ml INJ 1,000 mL 1,000 mL, Rate: 75 ml/hr, Infuse over: 13.3 hr, Route: IV, Dosing Weight 57.727 kg, Total Volume: 1,000, Start date: 04/07/17 11:11:00 CDT, Duration: 30 day, Stop date: 05/07/17 11:10:00 CDT No Longer Active 04/07/2017 [facility] predniSONE 5 mg oral tablet 5 mg=1 tab, PO, Daily, Give with food., # 7 tab, 0 Refill(s) Active 03/21/2017 [facility] pantoprazole 40 mg oral enteric coated tablet 40 mg=1 tab, PO, Daily, # 30 tab, 0 Refill(s) Active 03/21/2017 [facility] Melatonin 5 mg oral capsule 5 mg=1 cap, PO, Bedtime, 0 Refill(s) Active 03/21/2017 [facility] Calcium 600 +D oral tablet 1 tab, PO, BID, # 90 tab, 0 Refill(s) Active 03/21/2017 [facility] Hydroco/Apap Hydroco/Apap, 5/325 mg, PRN, Refill(s) 0 Active 03/21/2017 [facility] levothyroxine 25 mcg (0.025 mg) oral tablet 25 microgram=1 tab, PO, Daily, # 30 tab, 0 Refill(s) Active 03/21/2017 [facility] potassium chloride 20 mEq oral tablet, extended release 20 mEq=1 tab, PO, Daily, # 30 tab, 3 Refill(s) Active 03/21/2017 [facility] Furosemide 20 MG Oral Tablet 20 mg=1 tab, PO, Daily, # 30 tab, 0 Refill(s) Active 03/21/2017 [facility] lisinopril 2.5 mg oral tablet 2.5 mg=1 tab, PO, PRN, # 30 tab, 0 Refill(s) Active 03/21/2017 [facility] Citalopram 10 mg oral tablet 10 mg=1 tab, PO, Daily, 0 Refill(s) Active 03/21/2017 [facility] Atenolol 25 mg, PO, Daily, 0 Refill(s) Active 03/21/2017 [facility] Folic Acid 1 MG Oral Tablet 1 mg=1 tab, PO, Daily, # 30 tab, 0 Refill(s) Active 03/21/2017 [facility] Allergies, Adverse Reactions, Alerts Substance Category Reaction Severity Reaction type Status Date Reported Comments Source penicillins Assertion Drug allergy Active [facility] Immunizations Immunization Date Given Site Status Last Updated Comments Source influenza virus vaccine, inactivated 09/03/2017 completed Gundermann- [place]attig [facility], [place] pneumococcal 13-valent vaccine 06/12/2017 Left deltoid completed Malia [facility], [place],[facility] Heart Failure Results Order Name Results Value Reference Range Date Interpretation Comments Source Chest 2 views DX Chest 2 views DX EXAM: XR CHEST 2 VIEWS DATE: 12/26/2017 1:40 PM RN DIABETES INDICATION: - I50.32 Chronic diastolic (congestive) heart failure COMPARISON: CXR 12/22/2017 TECHNIQUE: PA and lateral chest radiographs FINDINGS: Lines and tubes: Redemonstrated prosthetic aortic valve. Lungs and pleura: No significant change in loss of left hemithorax volume with elevation of left hemidiaphragm. Persistent patchy perihilar opacities. Blunting of the bilateral costophrenic angles. No definite pneumothorax. Heart and mediastinum: The cardiac silhouette is unchanged. Bones: Persistent degenerative changes of the thoracolumbar spine with kyphoplasty changes. Soft tissues: Bilateral axillary surgical clips. IMPRESSION: No significant interval changes in prominent perihilar opacities, which could represent chronic edema and fibrotic changes vs infectious/inflammatory changes. Mild blunting of the bilateral costophrenic angles could relate to pleural thickening versus a component of possible trace effusion. 12/26/2017 - - Read by: Harvey Oviedo MD Dictated Date/time: 12/26/17 13:56 Electronically Signed by: Harvey Oviedo MD 12/26/17 14:01 FINAL REPORT [place] Chest 2 views DX Chest 2 views DX EXAM: XR CHEST 2 VIEWS DATE: 12/22/2017 5:38 PM RN DIABETES INDICATION: - I50.32 Chronic diastolic (congestive) heart failure COMPARISON: None. TECHNIQUE: PA and lateral chest radiographs FINDINGS: Lines, tubes and hardware: Unchanged surgical clip. Lungs and pleura: No significant change in patchy perihilar predominantly interstitial opacities, which may be infectious/inflammatory or fibrotic. Scarring at the left lung base is also again seen. Pulmonary vascularity is normal. Heart and mediastinum: Unchanged. Bones: No acute bony abnormality is identified. IMPRESSION: Unchanged patchy perihilar predominantly interstitial opacities, which may be infectious/inflammatory or fibrotic. 12/22/2017 - - Read by: Zane Currie MD Dictated Date/time: 12/23/17 07:39 Electronically Signed by: Zane Currie MD 12/23/17 07:41 FINAL REPORT [place] Chest 1view DX Chest 1view DX EXAM: XR CHEST 1 VIEW DATE: 11/17/2017 9:39 AM RN DIABETES INDICATION: - destaturation, COPD TECHNIQUE: AP chest DISCUSSION: Small pleural effusions. Patchy perihilar alveolar and interstitial opacities are again demonstrated, which could represent edema, inflammatory changes or infection. The cardiac silhouette is stable; a TAVR is in place. Augmentation of the spine at multiple levels. IMPRESSION: No significant interval changes 11/17/2017 - - Read by: Phu Myles MD Dictated Date/time: 11/17/17 13:42 Electronically Signed by: Phu Myles MD 11/17/17 13:49 FINAL REPORT [facility] CHEM PANEL Phosphorus 2.5 mg/dL 2.5 - 4.5 11/17/2017 [facility] CHEM PANEL Magnesium Lvl 2.1 mg/dL 1.8 - 2.4 11/17/2017 [facility] ELECTROLYTES AGAP 9.8 meq/L 10.0 - 20.0 11/17/2017 [facility] ELECTROLYTES eGFR 87 mL/min/1.73m2 11/17/2017 Result Comment: The eGFR is calculated using the CKD-EPI formula. In most young, healthy individuals the eGFR will be >90 mL/min/1.73m2. The eGFR declines with age. An eGFR of 60-89 may be normal in some populations, particularly the elderly, for whom the CKD-EPI formula has not been extensively validated. Use of the eGFR is not recommended in the following populations: Individuals with unstable creatinine concentrations, including patients and those with serious co-morbid conditions. Patients with extremes in muscle mass or diet. The data above are obtained from the National Kidney Disease Education Program (NKDEP) which additionally recommends that when the eGFR is used in patients with extremes of body mass index for purposes of drug dosing, the eGFR should be multiplied by the estimated BMI. [facility] ELECTROLYTES CO2 30 meq/L 24 - 32 11/17/2017 [facility] ELECTROLYTES Calcium Lvl 8.2 mg/dL 8.5 - 10.5 11/17/2017 [facility] ELECTROLYTES Glucose Lvl 81 mg/dL 70 - 99 11/17/2017 [facility] ELECTROLYTES BUN 16 mg/dL 7 - 22 11/17/2017 [facility] ELECTROLYTES Creatinine Lvl 0.60 mg/dL 0.50 - 1.40 11/17/2017 [facility] ELECTROLYTES Sodium Lvl 139 meq/L 135 - 145 11/17/2017 [facility] ELECTROLYTES Potassium Lvl 3.8 meq/L 3.5 - 5.1 11/17/2017 [facility] ELECTROLYTES Chloride Lvl 103 meq/L 95 - 109 11/17/2017 [facility] HEMATOLOGY MPV 8.7 fL 7.4 - 10.4 11/17/2017 [facility] HEMATOLOGY Platelet 193 K/CMM 133 - 450 11/17/2017 [facility] HEMATOLOGY WBC 3.6 K/CMM 3.7 - 10.4 11/17/2017 [facility] HEMATOLOGY RBC 4.35 M/CMM 4.20 - 5.40 11/17/2017 [facility] HEMATOLOGY Hgb 10.1 g/dL 12.0 - 16.0 11/17/2017 [facility] HEMATOLOGY Hct 32.1 % 36.0 - 48.0 11/17/2017 [facility] HEMATOLOGY MCH 23.1 pg 27.0 - 31.0 11/17/2017 [facility] HEMATOLOGY MCV 73.8 fL 80.0 - 98.0 11/17/2017 [facility] HEMATOLOGY RDW 21.2 % 11.5 - 14.5 11/17/2017 [facility] HEMATOLOGY MCHC 31.3 g/dL 32.0 - 36.0 11/17/2017 [facility] HEMATOLOGY Microcyte 2+ *ABN* (11/17/17 2:26 AM) None Seen 11/17/2017 [facility] HEMATOLOGY Monocytes # 0.4 K/CMM 0.0 - 0.8 11/17/2017 [facility] HEMATOLOGY Anisocyte 1+ *ABN* (11/17/17 2:26 AM) None Seen 11/17/2017 [facility] HEMATOLOGY Lymphocytes # 0.5 K/CMM 1.0 - 5.5 11/17/2017 [facility] HEMATOLOGY Segs-Bands # 2.7 K/CMM 1.5 - 8.1 11/17/2017 [facility] HEMATOLOGY Basophils 0.6 % 0.0 - 1.0 11/17/2017 [facility] HEMATOLOGY Eosinophils 1.1 % 0.0 - 4.0 11/17/2017 [facility] HEMATOLOGY Segs 75.0 % 45.0 - 75.0 11/17/2017 [facility] HEMATOLOGY Lymphocytes 13.5 % 20.0 - 40.0 11/17/2017 [facility] HEMATOLOGY Monocytes 9.8 % 2.0 - 12.0 11/17/2017 [facility] HEMATOLOGY PTT 57.9 s 22.9 - 35.8 11/16/2017 [facility] HEMATOLOGY INR 3.03 0.85 - 1.17 11/16/2017 [facility] HEMATOLOGY PT 31.8 s 12.0 - 14.7 11/16/2017 [facility] ELECTROLYTES AGAP 9.1 meq/L 10.0 - 20.0 11/16/2017 [facility] ELECTROLYTES eGFR 88 mL/min/1.73m2 11/16/2017 Result Comment: The eGFR is calculated using the CKD-EPI formula. In most young, healthy individuals the eGFR will be >90 mL/min/1.73m2. The eGFR declines with age. An eGFR of 60-89 may be normal in some populations, particularly the elderly, for whom the CKD-EPI formula has not been extensively validated. Use of the eGFR is not recommended in the following populations: Individuals with unstable creatinine concentrations, including patients and those with serious co-morbid conditions. Patients with extremes in muscle mass or diet. The data above are obtained from the National Kidney Disease Education Program (NKDEP) which additionally recommends that when the eGFR is used in patients with extremes of body mass index for purposes of drug dosing, the eGFR should be multiplied by the estimated BMI. [facility] ELECTROLYTES Calcium Lvl 8.3 mg/dL 8.5 - 10.5 11/16/2017 [facility] ELECTROLYTES CO2 33 meq/L 24 - 32 11/16/2017 [facility] ELECTROLYTES Chloride Lvl 102 meq/L 95 - 109 11/16/2017 [facility] ELECTROLYTES Glucose Lvl 72 mg/dL 70 - 99 11/16/2017 [facility] ELECTROLYTES Creatinine Lvl 0.58 mg/dL 0.50 - 1.40 11/16/2017 [facility] ELECTROLYTES BUN 14 mg/dL 7 - 22 11/16/2017 [facility] ELECTROLYTES Potassium Lvl 4.1 meq/L 3.5 - 5.1 11/16/2017 [facility] ELECTROLYTES Sodium Lvl 140 meq/L 135 - 145 11/16/2017 [facility] HEMATOLOGY RDW 21.1 % 11.5 - 14.5 11/16/2017 [facility] HEMATOLOGY MCH 23.1 pg 27.0 - 31.0 11/16/2017 [facility] HEMATOLOGY MCHC 31.4 g/dL 32.0 - 36.0 11/16/2017 [facility] HEMATOLOGY Platelet 150 K/CMM 133 - 450 11/16/2017 [facility] HEMATOLOGY MPV 8.7 fL 7.4 - 10.4 11/16/2017 [facility] HEMATOLOGY RBC 4.51 M/CMM 4.20 - 5.40 11/16/2017 [facility] HEMATOLOGY Hgb 10.4 g/dL 12.0 - 16.0 11/16/2017 [facility] HEMATOLOGY WBC 2.9 K/CMM 3.7 - 10.4 11/16/2017 [facility] HEMATOLOGY MCV 73.7 fL 80.0 - 98.0 11/16/2017 [facility] HEMATOLOGY Hct 33.2 % 36.0 - 48.0 11/16/2017 [facility] HEMATOLOGY Anisocyte 1+ *ABN* (11/16/17 3:29 AM) None Seen 11/16/2017 [facility] HEMATOLOGY Microcyte 2+ *ABN* (11/16/17 3:29 AM) None Seen 11/16/2017 [facility] HEMATOLOGY Lymphocytes # 0.4 K/CMM 1.0 - 5.5 11/16/2017 [facility] HEMATOLOGY Monocytes # 0.3 K/CMM 0.0 - 0.8 11/16/2017 [facility] HEMATOLOGY Segs-Bands # 2.1 K/CMM 1.5 - 8.1 11/16/2017 [facility] HEMATOLOGY Monocytes 10.7 % 2.0 - 12.0 11/16/2017 [facility] HEMATOLOGY Eosinophils 0.7 % 0.0 - 4.0 11/16/2017 [facility] HEMATOLOGY Basophils 0.6 % 0.0 - 1.0 11/16/2017 [facility] HEMATOLOGY Lymphocytes 14.3 % 20.0 - 40.0 11/16/2017 [facility] HEMATOLOGY Segs 73.7 % 45.0 - 75.0 11/16/2017 [facility] HEMATOLOGY INR 3.03 0.85 - 1.17 11/15/2017 [facility] HEMATOLOGY PT 31.8 s 12.0 - 14.7 11/15/2017 [facility] CHEM PANEL Magnesium Lvl 2.0 mg/dL 1.8 - 2.4 11/15/2017 [facility] CHEM PANEL eGFR 87 mL/min/1.73m2 11/15/2017 Result Comment: The eGFR is calculated using the CKD-EPI formula. In most young, healthy individuals the eGFR will be >90 mL/min/1.73m2. The eGFR declines with age. An eGFR of 60-89 may be normal in some populations, particularly the elderly, for whom the CKD-EPI formula has not been extensively validated. Use of the eGFR is not recommended in the following populations: Individuals with unstable creatinine concentrations, including patients and those with serious co-morbid conditions. Patients with extremes in muscle mass or diet. The data above are obtained from the National Kidney Disease Education Program (NKDEP) which additionally recommends that when the eGFR is used in patients with extremes of body mass index for purposes of drug dosing, the eGFR should be multiplied by the estimated BMI. [facility] CHEM PANEL Calcium Lvl 8.0 mg/dL 8.5 - 10.5 11/15/2017 [facility] CHEM PANEL CO2 31 meq/L 24 - 32 11/15/2017 [facility] CHEM PANEL Creatinine Lvl 0.60 mg/dL 0.50 - 1.40 11/15/2017 [facility] CHEM PANEL Sodium Lvl 138 meq/L 135 - 145 11/15/2017 [facility] CHEM PANEL Glucose Lvl 76 mg/dL 70 - 99 11/15/2017 [facility] CHEM PANEL BUN 15 mg/dL 7 - 22 11/15/2017 [facility] CHEM PANEL Potassium Lvl 4.3 meq/L 3.5 - 5.1 11/15/2017 [facility] CHEM PANEL Chloride Lvl 101 meq/L 95 - 109 11/15/2017 [facility] CHEM PANEL AGAP 10.3 meq/L 10.0 - 20.0 11/15/2017 [facility] CHEM PANEL Phosphorus 2.4 mg/dL 2.5 - 4.5 11/15/2017 [facility] HEMATOLOGY MCH 23.0 pg 27.0 - 31.0 11/15/2017 [facility] HEMATOLOGY MCV 74.3 fL 80.0 - 98.0 11/15/2017 [facility] HEMATOLOGY MCHC 30.9 g/dL 32.0 - 36.0 11/15/2017 [facility] HEMATOLOGY Hct 33.7 % 36.0 - 48.0 11/15/2017 [facility] HEMATOLOGY RBC 4.54 M/CMM 4.20 - 5.40 11/15/2017 [facility] HEMATOLOGY WBC 3.2 K/CMM 3.7 - 10.4 11/15/2017 [facility] HEMATOLOGY MPV 8.7 fL 7.4 - 10.4 11/15/2017 [facility] HEMATOLOGY Platelet 138 K/CMM 133 - 450 11/15/2017 [facility] HEMATOLOGY RDW 21.0 % 11.5 - 14.5 11/15/2017 [facility] HEMATOLOGY Hgb 10.4 g/dL 12.0 - 16.0 11/15/2017 [facility] HEMATOLOGY Microcyte 1+ *ABN* (11/15/17 4:58 AM) None Seen 11/15/2017 [facility] HEMATOLOGY Monocytes # 0.4 K/CMM 0.0 - 0.8 11/15/2017 [facility] HEMATOLOGY Basophils 0.7 % 0.0 - 1.0 11/15/2017 [facility] HEMATOLOGY Lymphocytes # 0.4 K/CMM 1.0 - 5.5 11/15/2017 [facility] HEMATOLOGY Segs-Bands # 2.4 K/CMM 1.5 - 8.1 11/15/2017 [facility] HEMATOLOGY Segs 75.0 % 45.0 - 75.0 11/15/2017 [facility] HEMATOLOGY Monocytes 11.7 % 2.0 - 12.0 11/15/2017 [facility] HEMATOLOGY Lymphocytes 12.2 % 20.0 - 40.0 11/15/2017 [facility] HEMATOLOGY Eosinophils 0.4 % 0.0 - 4.0 11/15/2017 [facility] Chest 1view DX Chest 1view DX EXAM: XR CHEST 1 VIEW DATE: 11/15/2017 4:55 AM RN DIABETES INDICATION: - shortness of breath COMPARISON: 11/10/2017 TECHNIQUE: AP chest FINDINGS: Lines, tubes and hardware: Changes of TAVR are noted. Lungs and pleura: Small bilateral pleural effusions are present, greater on the right. Bilateral interstitial and airspace opacities are seen in both lower lungs, possibly representing edema, atelectasis, aspiration, or infection. A chronic process is suspected given the similar appearance compared to prior studies dated back from May 2017. The upper lungs are grossly clear. No definite pneumothorax is seen. Heart and mediastinum: The cardiomediastinal silhouette is stable. Bones: The osseous structures are demineralized. Chronic right-sided rib fractures are noted. Changes of kyphoplasty are seen in the lower thoracic spine. IMPRESSION: 1. Bibasilar interstitial and airspace opacities, possibly representing edema, atelectasis, aspiration, or infection. A chronic process is suspected given the similar appearance dating back to May 2017. 2. Small bilateral pleural effusions, greater on the right. 11/15/2017 - - Read by: Mike Rojo MD Dictated Date/time: 11/15/17 11:14 Electronically Signed by: Mike Rojo MD 11/15/17 11:16 FINAL REPORT [facility] CHEM PANEL Phosphorus 2.6 mg/dL 2.5 - 4.5 11/13/2017 [facility] CHEM PANEL Magnesium Lvl 2.3 mg/dL 1.8 - 2.4 11/13/2017 [facility] HEMATOLOGY Anisocyte 1+ *ABN* (11/13/17 1:05 AM) None Seen 11/13/2017 [facility] HEMATOLOGY INR 2.00 0.85 - 1.17 11/13/2017 [facility] HEMATOLOGY PT 22.9 s 12.0 - 14.7 11/13/2017 [facility] PARATHYROID PROFILE Ca Ion WB 1.12 mMol/L 1.05 - 1.25 11/13/2017 [facility] PARATHYROID PROFILE Ca Norm WB 1.06 mMol/L 1.05 - 1.25 11/13/2017 [facility] HEMATOLOGY PTT 52.7 s 22.9 - 35.8 11/11/2017 [facility] VIRAL - SEROLOGY Influ A Positive 1 *ABN* (11/10/17 6:02 PM) Negative 11/11/2017 Result Comment: "Significant Findings called to JUAN FISCHER_ at 11/10/2017 19:13_ by VN_. Read Back OK." [facility] VIRAL - SEROLOGY Influ B Negative (11/10/17 6:02 PM) Negative 11/11/2017 [facility] URINE AND STOOL UA Bacteria Many /HPF None Seen /HPF 11/10/2017 [facility] URINE AND STOOL UA Mucus Rare /LPF None Seen /LPF 11/10/2017 [facility] URINE AND STOOL UA RBC 6-10 /HPF 0 - 2 11/10/2017 [facility] URINE AND STOOL UA WBC 21-50 /HPF None Seen /HPF 11/10/2017 [facility] URINE AND STOOL UA Sq Epi Rare /LPF Few /LPF 11/10/2017 [facility] URINE AND STOOL UA Urobilinogen 0.2 EU/dL 0.1 - 1.0 11/10/2017 [facility] URINE AND STOOL UA Nitrite Negative (11/10/17 5:48 PM) Negative 11/10/2017 [facility] URINE AND STOOL UA Ketones Negative *NA* (11/10/17 5:48 PM) Negative 11/10/2017 [facility] URINE AND STOOL UA Bili Negative *NA* (11/10/17 5:48 PM) Negative 11/10/2017 [facility] URINE AND STOOL UA Blood Large *ABN* (11/10/17 5:48 PM) Negative 11/10/2017 [facility] URINE AND STOOL UA Leuk Est Large *ABN* (11/10/17 5:48 PM) Negative 11/10/2017 [facility] URINE AND STOOL UA Turbidity Slight Cloudy (11/10/17 5:48 PM) Clear 11/10/2017 [facility] URINE AND STOOL UA Protein Negative (11/10/17 5:48 PM) Negative 11/10/2017 [facility] URINE AND STOOL UA Glucose Negative (11/10/17 5:48 PM) Negative 11/10/2017 [facility] URINE AND STOOL UA Color Yellow *NA* (11/10/17 5:48 PM) Yellow 11/10/2017 [facility] URINE AND STOOL UA Spec Grav 1.020 <=1.030 11/10/2017 [facility] URINE AND STOOL UA pH 6.0 5.0 - 8.0 11/10/2017 [facility] CARDIAC ENZYMES Total CK 56 unit/L 12 - 191 11/10/2017 [facility] CARDIAC ENZYMES Troponin-I null 0.00 - 0.40 11/10/2017 [facility] CHEM PANEL Lactic Acid Lvl 1.3 mMol/L 0.5 - 2.2 11/10/2017 [facility] CHEM PANEL Bili Total 0.6 mg/dL 0.2 - 1.3 11/10/2017 [facility] CHEM PANEL AST 81 unit/L 0 - 37 11/10/2017 [facility] CHEM PANEL ALT 47 unit/L 0 - 65 11/10/2017 [facility] CHEM PANEL Alk Phos 172 unit/L 39 - 136 11/10/2017 [facility] CHEM PANEL Albumin Lvl 2.6 g/dL 3.5 - 5.0 11/10/2017 [facility] CHEM PANEL Total Protein 8.0 g/dL 6.4 - 8.4 11/10/2017 [facility] CHEM PANEL Globulin 5.4 g/dL 2.7 - 4.2 11/10/2017 [facility] CHEM PANEL A/G Ratio 0.5 0.7 - 1.6 11/10/2017 [facility] CHEM PANEL B/C Ratio 23 6 - 25 11/10/2017 [facility] CHEM PANEL Procalcitonin Lvl 0.66 ng/mL 0.00 - 0.10 11/10/2017 [facility] HEMATOLOGY Hypochrom 1+ (11/10/17 4:09 PM) None Seen 11/10/2017 [facility] HEMATOLOGY Target Cell Moderate *ABN* (11/10/17 4:09 PM) None Seen 11/10/2017 [facility] HEMATOLOGY Plt Morph Normal (11/10/17 4:09 PM) 11/10/2017 [facility] HEMATOLOGY PTT 50.7 s 22.9 - 35.8 11/10/2017 [facility] Chest 1view DX Chest 1view DX EXAM: XR CHEST 1 VIEW DATE: 11/10/2017 3:56 PM RN DIABETES INDICATION: Shortness of breath COMPARISON: CXR 1 view 07/08/2017; chest CT 06/10/2017 TECHNIQUE: AP chest FINDINGS: TAVR noted. Cardiac silhouette is mildly enlarged. Pericardial calcifications present on the right inferior margin. Mild prominence of the central pulmonary vasculature is identified. Mild atherosclerotic disease of the thoracic aorta is present. Ectatic and tortuous thoracic aorta is unchanged. Mediastinal and hilar contours are stable. Bronchial thickening and diffuse interstitial prominence in the mid and lower lung zones noted. Peripheral septal thickening present. Mild bibasilar subsegmental atelectasis present. Possible trace pleural effusions noted. No pneumothorax identified. Mild elevation of the left hemidiaphragm noted. Osteopenia present. Vertebroplasty noted in the thoracic spine with chronic compression fractures. Moderate-severe degenerative disc disease noted. IMPRESSION: Interval increased mild interstitial pulmonary edema. Minor bibasilar subsegmental atelectasis. Stable cardiomegaly. Pericardial calcifications. 11/10/2017 - - This report was dictated by a [employer] Preparer/Fellow. I have personally reviewed the images as well as the Resident's interpretation and agree with the findings. Read by: David Granda MD Resident: David Granda MD Dictated Date/time: 11/10/17 16:36 Electronically Signed by: David Tesfaye MD 11/10/17 17:20 FINAL REPORT [facility] CHEM PANEL Magnesium Lvl 2.5 mg/dL 1.8 - 2.4 07/10/2017 [facility] CHEM PANEL eGFR 45 mL/min/1.73m2 07/10/2017 Result Comment: The eGFR is calculated using the CKD-EPI formula. In most young, healthy individuals the eGFR will be >90 mL/min/1.73m2. The eGFR declines with age. An eGFR of 60-89 may be normal in some populations, particularly the elderly, for whom the CKD-EPI formula has not been extensively validated. Use of the eGFR is not recommended in the following populations: Individuals with unstable creatinine concentrations, including patients and those with serious co-morbid conditions. Patients with extremes in muscle mass or diet. The data above are obtained from the National Kidney Disease Education Program (NKDEP) which additionally recommends that when the eGFR is used in patients with extremes of body mass index for purposes of drug dosing, the eGFR should be multiplied by the estimated BMI. [facility] CHEM PANEL Bili Total 0.5 mg/dL 0.2 - 1.3 07/10/2017 [facility] CHEM PANEL Albumin Lvl 2.3 g/dL 3.5 - 5.0 07/10/2017 [facility] CHEM PANEL Total Protein 7.1 g/dL 6.4 - 8.4 07/10/2017 [facility] CHEM PANEL Calcium Lvl 8.8 mg/dL 8.5 - 10.5 07/10/2017 [facility] CHEM PANEL Alk Phos 62 unit/L 39 - 136 07/10/2017 [facility] CHEM PANEL AST 20 unit/L 0 - 37 07/10/2017 [facility] CHEM PANEL ALT 13 unit/L 0 - 65 07/10/2017 [facility] CHEM PANEL Potassium Lvl 4.5 meq/L 3.5 - 5.1 07/10/2017 [facility] CHEM PANEL CO2 30 meq/L 24 - 32 07/10/2017 [facility] CHEM PANEL Chloride Lvl 104 meq/L 95 - 109 07/10/2017 [facility] CHEM PANEL Sodium Lvl 140 meq/L 135 - 145 07/10/2017 [facility] CHEM PANEL Creatinine Lvl 1.16 mg/dL 0.50 - 1.40 07/10/2017 [facility] CHEM PANEL BUN 25 mg/dL 7 - 22 07/10/2017 [facility] CHEM PANEL Glucose Lvl 81 mg/dL 70 - 99 07/10/2017 [facility] CHEM PANEL B/C Ratio 22 6 - 25 07/10/2017 [facility] CHEM PANEL AGAP 10.5 meq/L 10.0 - 20.0 07/10/2017 [facility] CHEM PANEL A/G Ratio 0.5 0.7 - 1.6 07/10/2017 [facility] CHEM PANEL Globulin 4.8 g/dL 2.7 - 4.2 07/10/2017 [facility] CHEM PANEL Phosphorus 2.6 mg/dL 2.5 - 4.5 07/10/2017 [facility] HEMATOLOGY RBC 4.03 M/CMM 4.20 - 5.40 07/10/2017 [facility] HEMATOLOGY MCV 73.3 fL 80.0 - 98.0 07/10/2017 [facility] HEMATOLOGY Hct 29.5 % 36.0 - 48.0 07/10/2017 [facility] HEMATOLOGY Hgb 9.5 g/dL 12.0 - 16.0 07/10/2017 [facility] HEMATOLOGY WBC 5.0 K/CMM 3.7 - 10.4 07/10/2017 [facility] HEMATOLOGY RDW 19.3 % 11.5 - 14.5 07/10/2017 [facility] HEMATOLOGY MCHC 32.2 g/dL 32.0 - 36.0 07/10/2017 [facility] HEMATOLOGY MPV 7.4 fL 7.4 - 10.4 07/10/2017 [facility] HEMATOLOGY Platelet 185 K/CMM 133 - 450 07/10/2017 [facility] HEMATOLOGY MCH 23.6 pg 27.0 - 31.0 07/10/2017 [facility] HEMATOLOGY PT 28.8 s 12.0 - 14.7 07/10/2017 [facility] HEMATOLOGY INR 2.66 0.85 - 1.17 07/10/2017 [facility] HEMATOLOGY PTT 52.7 s 22.9 - 35.8 07/10/2017 [facility] HEMATOLOGY Monocytes # 0.6 K/CMM 0.0 - 0.8 07/10/2017 [facility] HEMATOLOGY Eosinophils # 0.1 K/CMM 0.0 - 0.5 07/10/2017 [facility] HEMATOLOGY Lymphocytes # 0.6 K/CMM 1.0 - 5.5 07/10/2017 [facility] HEMATOLOGY Segs-Bands # 3.7 K/CMM 1.5 - 8.1 07/10/2017 [facility] HEMATOLOGY Basophils 0.6 % 0.0 - 1.0 07/10/2017 [facility] HEMATOLOGY Microcyte 2+ *ABN* (07/10/17 4:07 AM) None Seen 07/10/2017 [facility] HEMATOLOGY Eosinophils 2.3 % 0.0 - 4.0 07/10/2017 [facility] HEMATOLOGY Monocytes 11.9 % 2.0 - 12.0 07/10/2017 [facility] HEMATOLOGY Lymphocytes 11.0 % 20.0 - 40.0 07/10/2017 [facility] HEMATOLOGY Segs 74.2 % 45.0 - 75.0 07/10/2017 [facility] ANEMIA STUDY Ferritin Lvl 36 ng/mL 5 - 204 07/09/2017 [facility] ANEMIA STUDY UIBC 224 ug/dl 110 - 370 07/09/2017 [facility] ANEMIA STUDY % Satur Fe 12 % 12 - 57 07/09/2017 [facility] ANEMIA STUDY TIBC 254 ug/dl 228 - 428 07/09/2017 [facility] ANEMIA STUDY Iron 30 ug/dl 30 - 160 07/09/2017 [facility] CHEM PANEL Phosphorus 2.8 mg/dL 2.5 - 4.5 07/09/2017 [facility] CHEM PANEL Magnesium Lvl 2.3 mg/dL 1.8 - 2.4 07/09/2017 [facility] CHEM PANEL eGFR 58 mL/min/1.73m2 07/09/2017 Result Comment: The eGFR is calculated using the CKD-EPI formula. In most young, healthy individuals the eGFR will be >90 mL/min/1.73m2. The eGFR declines with age. An eGFR of 60-89 may be normal in some populations, particularly the elderly, for whom the CKD-EPI formula has not been extensively validated. Use of the eGFR is not recommended in the following populations: Individuals with unstable creatinine concentrations, including patients and those with serious co-morbid conditions. Patients with extremes in muscle mass or diet. The data above are obtained from the National Kidney Disease Education Program (NKDEP) which additionally recommends that when the eGFR is used in patients with extremes of body mass index for purposes of drug dosing, the eGFR should be multiplied by the estimated BMI. [facility] CHEM PANEL AST 23 unit/L 0 - 37 07/09/2017 [facility] CHEM PANEL ALT 16 unit/L 0 - 65 07/09/2017 [facility] CHEM PANEL Sodium Lvl 138 meq/L 135 - 145 07/09/2017 [facility] CHEM PANEL Potassium Lvl 4.1 meq/L 3.5 - 5.1 07/09/2017 [facility] CHEM PANEL Total Protein 7.2 g/dL 6.4 - 8.4 07/09/2017 [facility] CHEM PANEL Albumin Lvl 2.3 g/dL 3.5 - 5.0 07/09/2017 [facility] CHEM PANEL Calcium Lvl 8.7 mg/dL 8.5 - 10.5 07/09/2017 [facility] CHEM PANEL B/C Ratio 28 6 - 25 07/09/2017 [facility] CHEM PANEL AGAP 11.1 meq/L 10.0 - 20.0 07/09/2017 [facility] CHEM PANEL Alk Phos 66 unit/L 39 - 136 07/09/2017 [facility] CHEM PANEL Bili Total 0.5 mg/dL 0.2 - 1.3 07/09/2017 [facility] CHEM PANEL Globulin 4.9 g/dL 2.7 - 4.2 07/09/2017 [facility] CHEM PANEL A/G Ratio 0.5 0.7 - 1.6 07/09/2017 [facility] CHEM PANEL BUN 26 mg/dL 7 - 22 07/09/2017 [facility] CHEM PANEL Creatinine Lvl 0.94 mg/dL 0.50 - 1.40 07/09/2017 [facility] CHEM PANEL Glucose Lvl 76 mg/dL 70 - 99 07/09/2017 [facility] CHEM PANEL Chloride Lvl 101 meq/L 95 - 109 07/09/2017 [facility] CHEM PANEL CO2 30 meq/L 24 - 32 07/09/2017 [facility] HEMATOLOGY Microcyte 2+ *ABN* (07/09/17 5:09 AM) None Seen 07/09/2017 [facility] HEMATOLOGY Lymphocytes # 0.6 K/CMM 1.0 - 5.5 07/09/2017 [facility] HEMATOLOGY Eosinophils # 0.1 K/CMM 0.0 - 0.5 07/09/2017 [facility] HEMATOLOGY Basophils 0.4 % 0.0 - 1.0 07/09/2017 [facility] HEMATOLOGY Eosinophils 2.0 % 0.0 - 4.0 07/09/2017 [facility] HEMATOLOGY Segs-Bands # 4.0 K/CMM 1.5 - 8.1 07/09/2017 [facility] HEMATOLOGY Monocytes # 0.5 K/CMM 0.0 - 0.8 07/09/2017 [facility] HEMATOLOGY Lymphocytes 11.5 % 20.0 - 40.0 07/09/2017 [facility] HEMATOLOGY Segs 76.3 % 45.0 - 75.0 07/09/2017 [facility] HEMATOLOGY Monocytes 9.8 % 2.0 - 12.0 07/09/2017 [facility] HEMATOLOGY PTT 72.1 s 22.9 - 35.8 07/09/2017 [facility] HEMATOLOGY INR 4.81 0.85 - 1.17 07/09/2017 Result Comment: Critical Result(s) called to wilberbry geiger at 07/09/2017 06:46 bysss. Read back OK. [facility] HEMATOLOGY PT 45.7 s 12.0 - 14.7 07/09/2017 [facility] HEMATOLOGY MPV 7.5 fL 7.4 - 10.4 07/09/2017 [facility] HEMATOLOGY Platelet 200 K/CMM 133 - 450 07/09/2017 [facility] HEMATOLOGY WBC 5.2 K/CMM 3.7 - 10.4 07/09/2017 [facility] HEMATOLOGY MCV 73.5 fL 80.0 - 98.0 07/09/2017 [facility] HEMATOLOGY RDW 19.1 % 11.5 - 14.5 07/09/2017 [facility] HEMATOLOGY MCHC 31.4 g/dL 32.0 - 36.0 07/09/2017 [facility] HEMATOLOGY Hgb 9.7 g/dL 12.0 - 16.0 07/09/2017 [facility] HEMATOLOGY Hct 31.0 % 36.0 - 48.0 07/09/2017 [facility] HEMATOLOGY RBC 4.22 M/CMM 4.20 - 5.40 07/09/2017 [facility] HEMATOLOGY MCH 23.1 pg 27.0 - 31.0 07/09/2017 [facility] CARDIAC ENZYMES BNP 215 pg/mL <=100 pg/mL 07/09/2017 [facility] CHEM PANEL eGFR 37 mL/min/1.73m2 07/08/2017 Result Comment: The eGFR is calculated using the CKD-EPI formula. In most young, healthy individuals the eGFR will be >90 mL/min/1.73m2. The eGFR declines with age. An eGFR of 60-89 may be normal in some populations, particularly the elderly, for whom the CKD-EPI formula has not been extensively validated. Use of the eGFR is not recommended in the following populations: Individuals with unstable creatinine concentrations, including patients and those with serious co-morbid conditions. Patients with extremes in muscle mass or diet. The data above are obtained from the National Kidney Disease Education Program (NKDEP) which additionally recommends that when the eGFR is used in patients with extremes of body mass index for purposes of drug dosing, the eGFR should be multiplied by the estimated BMI. [facility] CHEM PANEL CO2 32 meq/L 24 - 32 07/08/2017 [facility] CHEM PANEL Calcium Lvl 9.3 mg/dL 8.5 - 10.5 07/08/2017 [facility] CHEM PANEL Chloride Lvl 98 meq/L 95 - 109 07/08/2017 [facility] CHEM PANEL Potassium Lvl 4.7 meq/L 3.5 - 5.1 07/08/2017 Result Comment: Specimen Slightly Hemolyzed. [facility] CHEM PANEL Creatinine Lvl 1.35 mg/dL 0.50 - 1.40 07/08/2017 [facility] CHEM PANEL Sodium Lvl 137 meq/L 135 - 145 07/08/2017 [facility] CHEM PANEL BUN 33 mg/dL 7 - 22 07/08/2017 [facility] CHEM PANEL Glucose Lvl 101 mg/dL 70 - 99 07/08/2017 [facility] CHEM PANEL AGAP 11.7 meq/L 10.0 - 20.0 07/08/2017 [facility] HEMATOLOGY PTT 84.9 s 22.9 - 35.8 07/08/2017 [facility] HEMATOLOGY INR 7.25 0.85 - 1.17 07/08/2017 Result Comment: Rechecked, Critical Result(s) called to Floyd Sanon at 07/08/2017 14:05_ by TC_. Read back OK. [facility] HEMATOLOGY PT 63.0 s 12.0 - 14.7 07/08/2017 [facility] HEMATOLOGY MCV 73.1 fL 80.0 - 98.0 07/08/2017 [facility] HEMATOLOGY Hct 33.5 % 36.0 - 48.0 07/08/2017 [facility] HEMATOLOGY Hgb 10.3 g/dL 12.0 - 16.0 07/08/2017 [facility] HEMATOLOGY MPV 7.5 fL 7.4 - 10.4 07/08/2017 [facility] HEMATOLOGY Platelet 210 K/CMM 133 - 450 07/08/2017 [facility] HEMATOLOGY RDW 18.9 % 11.5 - 14.5 07/08/2017 [facility] HEMATOLOGY RBC 4.58 M/CMM 4.20 - 5.40 07/08/2017 [facility] HEMATOLOGY MCHC 30.9 g/dL 32.0 - 36.0 07/08/2017 [facility] HEMATOLOGY MCH 22.6 pg 27.0 - 31.0 07/08/2017 [facility] HEMATOLOGY WBC 7.2 K/CMM 3.7 - 10.4 07/08/2017 [facility] HEMATOLOGY Microcyte 2+ *ABN* (07/08/17 1:34 PM) None Seen 07/08/2017 [facility] HEMATOLOGY Target Cell See Note 2 (07/08/17 1:34 PM) None Seen 07/08/2017 Result Comment: Few [facility] HEMATOLOGY Hypochrom See Note 1 (07/08/17 1:34 PM) None Seen 07/08/2017 Result Comment: Slight [facility] HEMATOLOGY Plt Morph Normal (07/08/17 1:34 PM) 07/08/2017 [facility] HEMATOLOGY Lymphocytes 6.0 % 20.0 - 40.0 07/08/2017 [facility] HEMATOLOGY Segs 83.0 % 45.0 - 75.0 07/08/2017 [facility] HEMATOLOGY Lymphocytes # 0.4 K/CMM 1.0 - 5.5 07/08/2017 [facility] HEMATOLOGY Segs-Bands # 6.0 K/CMM 1.5 - 8.1 07/08/2017 [facility] HEMATOLOGY Eosinophils # 0.1 K/CMM 0.0 - 0.5 07/08/2017 [facility] HEMATOLOGY Monocytes # 0.7 K/CMM 0.0 - 0.8 07/08/2017 [facility] HEMATOLOGY Anisocyte 1+ *ABN* (07/08/17 1:34 PM) None Seen 07/08/2017 [facility] HEMATOLOGY Monocytes 9.5 % 2.0 - 12.0 07/08/2017 [facility] HEMATOLOGY Eosinophils 0.9 % 0.0 - 4.0 07/08/2017 [facility] HEMATOLOGY Basophils 0.6 % 0.0 - 1.0 07/08/2017 [facility] Wrist complete DX Wrist complete DX EXAM: XR WRIST 3 VIEWS DATE: 07/08/2017 2:45 PM CDT INDICATION: - pain, swelling COMPARISON: None TECHNIQUE: PA, lateral and oblique radiographs of the wrist Laterality: Left FINDINGS: Generalized diminished bone mineral density. No acute bone abnormality identified. No arthritic changes identified. Soft tissue swelling of the wrist. IMPRESSION: Soft tissue swelling without acute bone abnormality identified. 07/08/2017 - - Read by: Floyd Rahman MD Dictated Date/time: 07/08/17 15:55 Electronically Signed by: Floyd Rahman MD 07/08/17 15:56 FINAL REPORT [facility] Knee 3 views DX Knee 3 views DX EXAM: XR RIGHT KNEE 3 VIEWS DATE: 07/08/2017 1:28 PM CDT INDICATION: - pain, swelling COMPARISON: None. TECHNIQUE: 3 views of the knee. FINDINGS: No acute fracture or malalignment is identified. Severe joint space narrowing, lateral compartment greater than medial with remodeling of the left tibial plateau articular surface and subchondral sclerosis. Small tricompartmental osteophytes. Small suprapatellar joint space fluid. Mild medial knee soft tissue swelling. IMPRESSION: 1. No acute fracture or malalignment. 2. Severe osteoarthrosis of the knee. 3. Small supra patellar joint space fluid. 4. Mild medial knee soft tissue swelling. [place] SECTION: ER 07/08/2017 - - This report was dictated by a [employer] Preparer/Fellow. I have personally reviewed the images as well as the Resident's interpretation and agree with the findings. Read by: Tj Cox MD Resident: González Morales (Fellow Dictated Date/time: 07/08/17 14:33 Electronically Signed by: James Anthony MD 07/08/17 15:07 FINAL REPORT [facility] Chest 1view DX Chest 1view DX EXAM: XR CHEST 1 VIEW DATE: 07/08/2017 1:41 PM CDT INDICATION: - crackles COMPARISON: CT chest 06/10/2017 and chest x-ray 06/08/2017 TECHNIQUE: AP chest FINDINGS: Lines, tubes and hardware: Status post TAVR. Surgical clips are present within the bilateral axilla. Lungs and pleura: Low lung volumes. Bilateral interstitial opacities, slightly improved from the prior chest x-ray. No acute focal consolidation. Chronic blunting of the bilateral costophrenic sulci is unchanged consistent with scarring versus pleural thickening. Heart and mediastinum: The cardiomediastinal silhouette is stable. The aorta is tortuous. Calcifications are present in the aortic knob. Bones: No acute bony abnormality is identified. IMPRESSION: 1. No acute cardiopulmonary abnormality. 2. Slight interval improvement in the bilateral interstitial opacities which may represent chronic interstitial edema. [place] SECTION: ER 07/08/2017 - - This report was dictated by a [employer] Preparer/Fellow. I have personally reviewed the images as well as the Resident's interpretation and agree with the findings. Read by: Tj Cox MD Resident: Tj Cox MD Dictated Date/time: 07/08/17 14:05 Electronically Signed by: James Anthony MD 07/08/17 14:17 FINAL REPORT [facility] ELECTROLYTES AGAP 10.8 meq/L 10.0 - 20.0 06/12/2017 [facility] ELECTROLYTES Creatinine Lvl 0.99 mg/dL 0.50 - 1.40 06/12/2017 [facility] ELECTROLYTES Chloride Lvl 95 meq/L 95 - 109 06/12/2017 [facility] ELECTROLYTES Potassium Lvl 3.8 meq/L 3.5 - 5.1 06/12/2017 [facility] ELECTROLYTES Glucose Lvl 82 mg/dL 70 - 99 06/12/2017 [facility] ELECTROLYTES BUN 37 mg/dL 7 - 22 06/12/2017 [facility] ELECTROLYTES eGFR 54 mL/min/1.73m2 06/12/2017 Result Comment: The eGFR is calculated using the CKD-EPI formula. In most young, healthy individuals the eGFR will be >90 mL/min/1.73m2. The eGFR declines with age. An eGFR of 60-89 may be normal in some populations, particularly the elderly, for whom the CKD-EPI formula has not been extensively validated. Use of the eGFR is not recommended in the following populations: Individuals with unstable creatinine concentrations, including patients and those with serious co-morbid conditions. Patients with extremes in muscle mass or diet. The data above are obtained from the National Kidney Disease Education Program (NKDEP) which additionally recommends that when the eGFR is used in patients with extremes of body mass index for purposes of drug dosing, the eGFR should be multiplied by the estimated BMI. [facility] ELECTROLYTES Sodium Lvl 136 meq/L 135 - 145 06/12/2017 [facility] ELECTROLYTES Calcium Lvl 8.9 mg/dL 8.5 - 10.5 06/12/2017 [facility] ELECTROLYTES CO2 34 meq/L 24 - 32 06/12/2017 [facility] HEMATOLOGY Eosinophils 2.6 % 0.0 - 4.0 06/12/2017 [facility] HEMATOLOGY Basophils 0.5 % 0.0 - 1.0 06/12/2017 [facility] HEMATOLOGY Eosinophils # 0.1 K/CMM 0.0 - 0.5 06/12/2017 [facility] HEMATOLOGY Monocytes # 0.7 K/CMM 0.0 - 0.8 06/12/2017 [facility] HEMATOLOGY Lymphocytes # 0.6 K/CMM 1.0 - 5.5 06/12/2017 [facility] HEMATOLOGY Monocytes 14.5 % 2.0 - 12.0 06/12/2017 [facility] HEMATOLOGY Segs-Bands # 3.2 K/CMM 1.5 - 8.1 06/12/2017 [facility] HEMATOLOGY Lymphocytes 12.3 % 20.0 - 40.0 06/12/2017 [facility] HEMATOLOGY Microcyte 1+ *ABN* (06/12/17 5:14 AM) None Seen 06/12/2017 [facility] HEMATOLOGY Segs 70.1 % 45.0 - 75.0 06/12/2017 [facility] HEMATOLOGY MPV 7.3 fL 7.4 - 10.4 06/12/2017 [facility] HEMATOLOGY Platelet 153 K/CMM 133 - 450 06/12/2017 [facility] HEMATOLOGY RDW 19.4 % 11.5 - 14.5 06/12/2017 [facility] HEMATOLOGY Hgb 10.4 g/dL 12.0 - 16.0 06/12/2017 [facility] HEMATOLOGY RBC 4.36 M/CMM 4.20 - 5.40 06/12/2017 [facility] HEMATOLOGY MCH 23.8 pg 27.0 - 31.0 06/12/2017 [facility] HEMATOLOGY MCV 75.2 fL 80.0 - 98.0 06/12/2017 [facility] HEMATOLOGY MCHC 31.6 g/dL 32.0 - 36.0 06/12/2017 [facility] HEMATOLOGY Hct 32.8 % 36.0 - 48.0 06/12/2017 [facility] HEMATOLOGY WBC 4.6 K/CMM 3.7 - 10.4 06/12/2017 [facility] HEMATOLOGY PTT 32.7 s 22.9 - 35.8 06/12/2017 [facility] HEMATOLOGY PT 15.1 s 12.0 - 14.7 06/12/2017 [facility] HEMATOLOGY INR 1.17 0.85 - 1.17 06/12/2017 [facility] CHEM PANEL eGFR 53 mL/min/1.73m2 06/11/2017 Result Comment: The eGFR is calculated using the CKD-EPI formula. In most young, healthy individuals the eGFR will be >90 mL/min/1.73m2. The eGFR declines with age. An eGFR of 60-89 may be normal in some populations, particularly the elderly, for whom the CKD-EPI formula has not been extensively validated. Use of the eGFR is not recommended in the following populations: Individuals with unstable creatinine concentrations, including patients and those with serious co-morbid conditions. Patients with extremes in muscle mass or diet. The data above are obtained from the National Kidney Disease Education Program (NKDEP) which additionally recommends that when the eGFR is used in patients with extremes of body mass index for purposes of drug dosing, the eGFR should be multiplied by the estimated BMI. [facility] CHEM PANEL Creatinine Lvl 1.01 mg/dL 0.50 - 1.40 06/11/2017 [facility] CHEM PANEL CO2 35 meq/L 24 - 32 06/11/2017 [facility] CHEM PANEL Chloride Lvl 89 meq/L 95 - 109 06/11/2017 [facility] CHEM PANEL Potassium Lvl 3.6 meq/L 3.5 - 5.1 06/11/2017 [facility] CHEM PANEL BUN 38 mg/dL 7 - 22 06/11/2017 [facility] CHEM PANEL Glucose Lvl 88 mg/dL 70 - 99 06/11/2017 [facility] CHEM PANEL Sodium Lvl 130 meq/L 135 - 145 06/11/2017 [facility] CHEM PANEL Albumin Lvl 2.6 g/dL 3.5 - 5.0 06/11/2017 [facility] CHEM PANEL Total Protein 7.8 g/dL 6.4 - 8.4 06/11/2017 [facility] CHEM PANEL Calcium Lvl 8.9 mg/dL 8.5 - 10.5 06/11/2017 [facility] CHEM PANEL Bili Total 0.6 mg/dL 0.2 - 1.3 06/11/2017 [facility] CHEM PANEL Alk Phos 87 unit/L 39 - 136 06/11/2017 [facility] CHEM PANEL AST 29 unit/L 0 - 37 06/11/2017 [facility] CHEM PANEL ALT 17 unit/L 0 - 65 06/11/2017 [facility] CHEM PANEL A/G Ratio 0.5 0.7 - 1.6 06/11/2017 [facility] CHEM PANEL Globulin 5.2 g/dL 2.7 - 4.2 06/11/2017 [facility] CHEM PANEL B/C Ratio 38 6 - 25 06/11/2017 [facility] CHEM PANEL AGAP 9.6 meq/L 10.0 - 20.0 06/11/2017 [facility] CHEM PANEL Magnesium Lvl 2.4 mg/dL 1.8 - 2.4 06/11/2017 [facility] CHEM PANEL Phosphorus 3.3 mg/dL 2.5 - 4.5 06/11/2017 [facility] HEMATOLOGY Monocytes 12.4 % 2.0 - 12.0 06/11/2017 [facility] HEMATOLOGY Eosinophils 2.0 % 0.0 - 4.0 06/11/2017 [facility] HEMATOLOGY Segs 72.6 % 45.0 - 75.0 06/11/2017 [facility] HEMATOLOGY Lymphocytes 12.4 % 20.0 - 40.0 06/11/2017 [facility] HEMATOLOGY Lymphocytes # 0.6 K/CMM 1.0 - 5.5 06/11/2017 [facility] HEMATOLOGY Basophils 0.6 % 0.0 - 1.0 06/11/2017 [facility] HEMATOLOGY Eosinophils # 0.1 K/CMM 0.0 - 0.5 06/11/2017 [facility] HEMATOLOGY Segs-Bands # 3.7 K/CMM 1.5 - 8.1 06/11/2017 [facility] HEMATOLOGY Microcyte 1+ *ABN* (06/11/17 4:30 AM) None Seen 06/11/2017 [facility] HEMATOLOGY Monocytes # 0.6 K/CMM 0.0 - 0.8 06/11/2017 [facility] HEMATOLOGY PTT 29.8 s 22.9 - 35.8 06/11/2017 [facility] HEMATOLOGY PT 18.2 s 12.0 - 14.7 06/11/2017 [facility] HEMATOLOGY INR 1.48 0.85 - 1.17 06/11/2017 [facility] HEMATOLOGY MPV 7.5 fL 7.4 - 10.4 06/11/2017 [facility] HEMATOLOGY Platelet 144 K/CMM 133 - 450 06/11/2017 [facility] HEMATOLOGY MCHC 32.4 g/dL 32.0 - 36.0 06/11/2017 [facility] HEMATOLOGY RDW 19.4 % 11.5 - 14.5 06/11/2017 [facility] HEMATOLOGY MCV 74.9 fL 80.0 - 98.0 06/11/2017 [facility] HEMATOLOGY MCH 24.3 pg 27.0 - 31.0 06/11/2017 [facility] HEMATOLOGY Hct 33.4 % 36.0 - 48.0 06/11/2017 [facility] HEMATOLOGY RBC 4.46 M/CMM 4.20 - 5.40 06/11/2017 [facility] HEMATOLOGY Hgb 10.8 g/dL 12.0 - 16.0 06/11/2017 [facility] HEMATOLOGY WBC 5.1 K/CMM 3.7 - 10.4 06/11/2017 [facility] CHEM PANEL Magnesium Lvl 2.3 mg/dL 1.8 - 2.4 06/10/2017 [facility] CHEM PANEL Phosphorus 3.4 mg/dL 2.5 - 4.5 06/10/2017 [facility] ELECTROLYTES AGAP 11.0 meq/L 10.0 - 20.0 06/10/2017 [facility] ELECTROLYTES Globulin 5.4 g/dL 2.7 - 4.2 06/10/2017 [facility] ELECTROLYTES A/G Ratio 0.5 0.7 - 1.6 06/10/2017 [facility] ELECTROLYTES B/C Ratio 37 6 - 25 06/10/2017 [facility] ELECTROLYTES eGFR 53 mL/min/1.73m2 06/10/2017 Result Comment: The eGFR is calculated using the CKD-EPI formula. In most young, healthy individuals the eGFR will be >90 mL/min/1.73m2. The eGFR declines with age. An eGFR of 60-89 may be normal in some populations, particularly the elderly, for whom the CKD-EPI formula has not been extensively validated. Use of the eGFR is not recommended in the following populations: Individuals with unstable creatinine concentrations, including patients and those with serious co-morbid conditions. Patients with extremes in muscle mass or diet. The data above are obtained from the National Kidney Disease Education Program (NKDEP) which additionally recommends that when the eGFR is used in patients with extremes of body mass index for purposes of drug dosing, the eGFR should be multiplied by the estimated BMI. [facility] ELECTROLYTES Bili Total 0.6 mg/dL 0.2 - 1.3 06/10/2017 [facility] ELECTROLYTES Potassium Lvl 4.0 meq/L 3.5 - 5.1 06/10/2017 [facility] ELECTROLYTES Calcium Lvl 9.0 mg/dL 8.5 - 10.5 06/10/2017 [facility] ELECTROLYTES Chloride Lvl 94 meq/L 95 - 109 06/10/2017 [facility] ELECTROLYTES CO2 34 meq/L 24 - 32 06/10/2017 [facility] ELECTROLYTES Sodium Lvl 135 meq/L 135 - 145 06/10/2017 [facility] ELECTROLYTES Glucose Lvl 75 mg/dL 70 - 99 06/10/2017 [facility] ELECTROLYTES Creatinine Lvl 1.01 mg/dL 0.50 - 1.40 06/10/2017 [facility] ELECTROLYTES BUN 37 mg/dL 7 - 22 06/10/2017 [facility] ELECTROLYTES Alk Phos 94 unit/L 39 - 136 06/10/2017 [facility] ELECTROLYTES Total Protein 8.0 g/dL 6.4 - 8.4 06/10/2017 [facility] ELECTROLYTES Albumin Lvl 2.6 g/dL 3.5 - 5.0 06/10/2017 [facility] ELECTROLYTES ALT 20 unit/L 0 - 65 06/10/2017 [facility] ELECTROLYTES AST 35 unit/L 0 - 37 06/10/2017 [facility] HEMATOLOGY MPV 7.3 fL 7.4 - 10.4 06/10/2017 [facility] HEMATOLOGY MCHC 32.8 g/dL 32.0 - 36.0 06/10/2017 [facility] HEMATOLOGY Platelet 164 K/CMM 133 - 450 06/10/2017 [facility] HEMATOLOGY RDW 19.6 % 11.5 - 14.5 06/10/2017 [facility] HEMATOLOGY WBC 5.4 K/CMM 3.7 - 10.4 06/10/2017 [facility] HEMATOLOGY Hct 33.5 % 36.0 - 48.0 06/10/2017 [facility] HEMATOLOGY Hgb 11.0 g/dL 12.0 - 16.0 06/10/2017 [facility] HEMATOLOGY MCV 74.7 fL 80.0 - 98.0 06/10/2017 [facility] HEMATOLOGY MCH 24.5 pg 27.0 - 31.0 06/10/2017 [facility] HEMATOLOGY RBC 4.49 M/CMM 4.20 - 5.40 06/10/2017 [facility] HEMATOLOGY PTT 34.9 s 22.9 - 35.8 06/10/2017 [facility] HEMATOLOGY PT 21.7 s 12.0 - 14.7 06/10/2017 [facility] HEMATOLOGY INR 1.85 0.85 - 1.17 06/10/2017 [facility] HEMATOLOGY Segs 75.3 % 45.0 - 75.0 06/10/2017 [facility] HEMATOLOGY Microcyte 1+ *ABN* (06/10/17 4:17 AM) None Seen 06/10/2017 [facility] HEMATOLOGY Segs-Bands # 4.1 K/CMM 1.5 - 8.1 06/10/2017 [facility] HEMATOLOGY Monocytes # 0.6 K/CMM 0.0 - 0.8 06/10/2017 [facility] HEMATOLOGY Lymphocytes # 0.7 K/CMM 1.0 - 5.5 06/10/2017 [facility] HEMATOLOGY Eosinophils # 0.1 K/CMM 0.0 - 0.5 06/10/2017 [facility] HEMATOLOGY Monocytes 10.7 % 2.0 - 12.0 06/10/2017 [facility] HEMATOLOGY Lymphocytes 12.1 % 20.0 - 40.0 06/10/2017 [facility] HEMATOLOGY Eosinophils 1.6 % 0.0 - 4.0 06/10/2017 [facility] HEMATOLOGY Basophils 0.3 % 0.0 - 1.0 06/10/2017 [facility] Chest wo contrast CT Chest wo contrast CT EXAM: CT CHEST WITHOUT CONTRAST DATE: 06/09/2017 2:41 PM CDT INDICATION: Dyspnea on exertion - evaluation of JOSE R consolidation TECHNIQUE: Volumetric CT acquisition of the chest without contrast. Axial, sagittal and coronal reconstructions. Axial MIP images included. COMPARISON: CT chest, abdomen, pelvis dated 03/29/2017. DISCUSSION: A previous left upper lobe consolidation (03/29/2017) has resolved, consistent with resolution of pneumonia. No thoracic mass nor suspicious nodules identified at this time. Generalized prominence of the interstitial markings and trace pleural effusions, likely representing chronic interstitial edema. A couple of tiny nodules in the right middle lobe are demonstrated, which could represent intrapulmonary lymph nodes. Enlarged cardiac silhouette. Extensive coronary artery calcifications. No significant pericardial effusion. A TAVR is in place. Dilated ascending thoracic aorta and main pulmonary trunk. Stable appearance of the partially imaged upper abdomen compared to other prior exams. Small adrenal adenomas. Limited assessment of the abdomen without intravenous contrast. No thoracic lymphadenopathy. Markedly decreased bone mineral density with multilevel thoracic and lumbar spine compression deformities as well as evidence of prior vertebroplasty or kyphoplasty at multiple levels. Punctate thyroid calcification. IMPRESSION: 1. A previous left upper lobe consolidation (pneumonia) has resolved. 2. No evidence of intrathoracic mass. 3. Cardiomegaly. TAVR in place. 4. Prominent interstitial markings, which could represent chronic interstitial edema. RECOMMENDATIONS: None. 06/10/2017 - - Read by: Phu Myles MD Dictated Date/time: 06/11/17 06:38 Electronically Signed by: Phu Myles MD 06/11/17 06:48 FINAL REPORT [facility] CHEM PANEL ALT 18 unit/L 0 - 65 06/09/2017 [facility] CHEM PANEL Albumin Lvl 2.4 g/dL 3.5 - 5.0 06/09/2017 [facility] CHEM PANEL Alk Phos 83 unit/L 39 - 136 06/09/2017 [facility] CHEM PANEL AST 29 unit/L 0 - 37 06/09/2017 [facility] CHEM PANEL Total Protein 6.9 g/dL 6.4 - 8.4 06/09/2017 [facility] CHEM PANEL Bili Total 0.6 mg/dL 0.2 - 1.3 06/09/2017 [facility] CHEM PANEL B/C Ratio 36 6 - 25 06/09/2017 [facility] CHEM PANEL A/G Ratio 0.5 0.7 - 1.6 06/09/2017 [facility] CHEM PANEL Globulin 4.5 g/dL 2.7 - 4.2 06/09/2017 [facility] CHEM PANEL Magnesium Lvl 2.1 mg/dL 1.8 - 2.4 06/09/2017 [facility] CHEM PANEL Phosphorus 3.6 mg/dL 2.5 - 4.5 06/09/2017 [facility] CARDIAC ENZYMES BNP 367 pg/mL <=100 pg/mL 06/08/2017 [facility] CARDIAC ENZYMES Troponin-I null 0.00 - 0.40 06/08/2017 [facility] Chest 1view DX Chest 1view DX EXAM: XR CHEST 1 VIEW DATE: 06/08/2017 1:45 PM CDT INDICATION: Shortness of breath COMPARISON: None. TECHNIQUE: AP chest UT SECTION: ER FINDINGS: Lines, tubes and hardware: Postoperative changes related to prior TAVR are again noted. Again noted is cardiomegaly and tortuous aorta. Low lung volumes.. Extensive bilateral pulmonary interstitial opacities are again visualized not significantly changed since the earliest available chest radiograph dated 04/07/2017. This likely represents chronic interstitial lung disease. However superimposed acute process like edema or multifocal infection cannot be excluded. No pleural effusions. No definite pneumothorax. Bones and soft tissues are unchanged. Multiple surgical clips project over the axillary soft tissues. IMPRESSION: 1. Unchanged cardiomegaly and tortuous aorta 2. Low lung volumes with extensive bilateral pulmonary interstitial opacities, stable since 04/07/2017 likely represents chronic interstitial lung disease. However a superimposed acute process like edema or multifocal infection cannot be excluded. Please correlate clinically 06/08/2017 - - This report was dictated by a [employer] Preparer/Fellow. I have personally reviewed the images as well as the Resident's interpretation and agree with the findings. Read by: Tarun Yap MD Resident: Tarun Yap MD Dictated Date/time: 06/08/17 14:27 Electronically Signed by: Chino Pederson MD 06/08/17 14:37 FINAL REPORT [facility] Chest 2 views DX Chest 2 views DX EXAM: XR CHEST 2 VIEWS DATE: 05/16/2017 11:00 AM CDT INDICATION: - STAT Chest x-ray on 05/16/17 @ 11:00a.m. DX: atelectasis: Ordering pHysician: Dr. Ramirez / J98.11 Atelectasis ADDITIONAL INFORMATION: None. COMPARISON: Chest x-ray 04/25/2017. TECHNIQUE: PA and lateral chest radiographs. Number of images: 2 FINDINGS: Lines and tubes: None. Lungs and pleura: There is bilateral perihilar increased interstitial changes. There is elevation of left hemidiaphragm. Surgical clips overlie the right costophrenic angle with minimal blunting of the right costophrenic angle. There is a prosthetic aortic valve in place. There is stable right lower lobe increased vascular markings. Heart and mediastinum: The heart size is mildly enlarged The mediastinal contours are normal. There are dense distal RCA calcifications Bones: No acute bony abnormality is identified. Dense calcification is seen within the thoracolumbar vertebral bodies with associated collapse consistent with vertebroplasty. Soft Tissues: Unremarkable. IMPRESSION: 1. Stable bilateral perihilar interstitial changes with mild cardiomegaly and dense distal RCA calcifications. 2. Stable right costophrenic angle blunting that may represent pleural thickening. 3. Stable elevation of the left hemidiaphragm. 4. Mild pulmonary venous congestion. 05/16/2017 - - Read by: Gino Walls MD Dictated Date/time: 05/16/17 10:31 Electronically Signed by: Gino Walls MD 05/16/17 10:37 [facility]AL [facility] Chest 2 views DX Chest 2 views DX EXAM: XR CHEST 2 VIEWS DATE: 04/25/2017 12:00 PM CDT INDICATION: - STAT Chest x-ray : DX: short of breath: Ordering Physician: Dr. Ramirez COMPARISON: Chest radiograph dated 04/07/2017 TECHNIQUE: PA and lateral chest radiographs FINDINGS: Low lung volumes are present resulting in artifactual crowding of bronchovascular markings. Bilateral perihilar and lower lung zone streaky airspace opacities appear stable to slightly improved compared to the prior study of 04/07/2017. No new pulmonary or pleural-based abnormality is identified. The cardiomediastinal silhouette is normal. Atherosclerotic calcifications of the aortic arch. Status post total aortic valve replacement. No acute osseous abnormality is identified. Kyphotic configuration of the spine with multilevel vertebroplasty. Multilevel compression deformities are noted. IMPRESSION: 1. Slightly improved streaky perihilar and lower lung zone airspace opacities when compared to prior study of 04/07/2017. This may represent resolving pneumonia or other consolidation, but is nonspecific. Follow-up chest radiograph recommended in 4-6 weeks to document complete resolution. 2. Elevated left hemidiaphragm causing volume loss of the left lung. 04/25/2017 - - Read by: Joel Hernandez MD Dictated Date/time: 04/25/17 14:56 Electronically Signed by: Joel Hernandez MD 04/25/17 15:03 FINAL REPORT [facility] CARDIAC ENZYMES BNP 440 pg/mL <=100 pg/mL 04/08/2017 [facility] CHEM PANEL Magnesium Lvl 2.1 mg/dL 1.8 - 2.4 04/08/2017 [facility] ELECTROLYTES AGAP 13.1 meq/L 10.0 - 20.0 04/08/2017 [facility] ELECTROLYTES eGFR 88 mL/min/1.73m2 04/08/2017 Result Comment: The eGFR is calculated using the CKD-EPI formula. In most young, healthy individuals the eGFR will be >90 mL/min/1.73m2. The eGFR declines with age. An eGFR of 60-89 may be normal in some populations, particularly the elderly, for whom the CKD-EPI formula has not been extensively validated. Use of the eGFR is not recommended in the following populations: Individuals with unstable creatinine concentrations, including patients and those with serious co-morbid conditions. Patients with extremes in muscle mass or diet. The data above are obtained from the National Kidney Disease Education Program (NKDEP) which additionally recommends that when the eGFR is used in patients with extremes of body mass index for purposes of drug dosing, the eGFR should be multiplied by the estimated BMI. [facility] ELECTROLYTES Glucose Lvl 57 mg/dL 70 - 99 04/08/2017 [facility] ELECTROLYTES Calcium Lvl 7.6 mg/dL 8.5 - 10.5 04/08/2017 [facility] ELECTROLYTES Creatinine Lvl 0.59 mg/dL 0.50 - 1.40 04/08/2017 [facility] ELECTROLYTES Potassium Lvl 4.1 meq/L 3.5 - 5.1 04/08/2017 [facility] ELECTROLYTES Sodium Lvl 141 meq/L 135 - 145 04/08/2017 [facility] ELECTROLYTES CO2 24 meq/L 24 - 32 04/08/2017 [facility] ELECTROLYTES Chloride Lvl 108 meq/L 95 - 109 04/08/2017 [facility] ELECTROLYTES BUN 20 mg/dL 7 - 22 04/08/2017 [facility] HEMATOLOGY MPV 7.4 fL 7.4 - 10.4 04/08/2017 [facility] HEMATOLOGY Platelet 189 K/CMM 133 - 450 04/08/2017 [facility] HEMATOLOGY RDW 19.9 % 11.5 - 14.5 04/08/2017 [facility] HEMATOLOGY MCH 23.1 pg 27.0 - 31.0 04/08/2017 [facility] HEMATOLOGY MCHC 29.9 g/dL 32.0 - 36.0 04/08/2017 [facility] HEMATOLOGY MCV 77.4 fL 80.0 - 98.0 04/08/2017 [facility] HEMATOLOGY Hgb 9.4 g/dL 12.0 - 16.0 04/08/2017 [facility] HEMATOLOGY Hct 31.4 % 36.0 - 48.0 04/08/2017 [facility] HEMATOLOGY RBC 4.05 M/CMM 4.20 - 5.40 04/08/2017 [facility] HEMATOLOGY WBC 5.2 K/CMM 3.7 - 10.4 04/08/2017 [facility] HEMATOLOGY INR 1.13 0.85 - 1.17 04/08/2017 [facility] HEMATOLOGY PT 14.7 s 12.0 - 14.7 04/08/2017 [facility] HEMATOLOGY PTT 28.6 s 22.9 - 35.8 04/08/2017 [facility] HEMATOLOGY Basophils 0.6 % 0.0 - 1.0 04/08/2017 [facility] HEMATOLOGY Segs-Bands # 3.7 K/CMM 1.5 - 8.1 04/08/2017 [facility] HEMATOLOGY Microcyte 1+ *ABN* (04/08/17 5:13 AM) None Seen 04/08/2017 [facility] HEMATOLOGY Lymphocytes # 0.8 K/CMM 1.0 - 5.5 04/08/2017 [facility] HEMATOLOGY Monocytes # 0.6 K/CMM 0.0 - 0.8 04/08/2017 [facility] HEMATOLOGY Lymphocytes 14.6 % 20.0 - 40.0 04/08/2017 [facility] HEMATOLOGY Eosinophils 0.9 % 0.0 - 4.0 04/08/2017 [facility] HEMATOLOGY Monocytes 12.1 % 2.0 - 12.0 04/08/2017 [facility] HEMATOLOGY Segs 71.8 % 45.0 - 75.0 04/08/2017 [facility] CHEM PANEL Magnesium Lvl 2.1 mg/dL 1.8 - 2.4 04/08/2017 [facility] ELECTROLYTES AGAP 10.3 meq/L 10.0 - 20.0 04/08/2017 [facility] ELECTROLYTES eGFR 80 mL/min/1.73m2 04/08/2017 Result Comment: The eGFR is calculated using the CKD-EPI formula. In most young, healthy individuals the eGFR will be >90 mL/min/1.73m2. The eGFR declines with age. An eGFR of 60-89 may be normal in some populations, particularly the elderly, for whom the CKD-EPI formula has not been extensively validated. Use of the eGFR is not recommended in the following populations: Individuals with unstable creatinine concentrations, including patients and those with serious co-morbid conditions. Patients with extremes in muscle mass or diet. The data above are obtained from the National Kidney Disease Education Program (NKDEP) which additionally recommends that when the eGFR is used in patients with extremes of body mass index for purposes of drug dosing, the eGFR should be multiplied by the estimated BMI. [facility] ELECTROLYTES CO2 28 meq/L 24 - 32 04/08/2017 [facility] ELECTROLYTES Calcium Lvl 7.7 mg/dL 8.5 - 10.5 04/08/2017 [facility] ELECTROLYTES Sodium Lvl 143 meq/L 135 - 145 04/08/2017 [facility] ELECTROLYTES BUN 23 mg/dL 7 - 22 04/08/2017 [facility] ELECTROLYTES Creatinine Lvl 0.72 mg/dL 0.50 - 1.40 04/08/2017 [facility] ELECTROLYTES Potassium Lvl 4.3 meq/L 3.5 - 5.1 04/08/2017 [facility] ELECTROLYTES Chloride Lvl 109 meq/L 95 - 109 04/08/2017 [facility] ELECTROLYTES Glucose Lvl 74 mg/dL 70 - 99 04/08/2017 [facility] HEMATOLOGY MCHC 31.3 g/dL 32.0 - 36.0 04/08/2017 [facility] HEMATOLOGY MCH 23.4 pg 27.0 - 31.0 04/08/2017 [facility] HEMATOLOGY MCV 74.8 fL 80.0 - 98.0 04/08/2017 [facility] HEMATOLOGY Hct 30.7 % 36.0 - 48.0 04/08/2017 [facility] HEMATOLOGY RDW 19.8 % 11.5 - 14.5 04/08/2017 [facility] HEMATOLOGY MPV 7.0 fL 7.4 - 10.4 04/08/2017 [facility] HEMATOLOGY Platelet 205 K/CMM 133 - 450 04/08/2017 [facility] HEMATOLOGY WBC 5.9 K/CMM 3.7 - 10.4 04/08/2017 [facility] HEMATOLOGY RBC 4.11 M/CMM 4.20 - 5.40 04/08/2017 [facility] HEMATOLOGY Hgb 9.6 g/dL 12.0 - 16.0 04/08/2017 [facility] HEMATOLOGY PTT 31.3 s 22.9 - 35.8 04/08/2017 [facility] HEMATOLOGY PT 15.5 s 12.0 - 14.7 04/08/2017 [facility] HEMATOLOGY INR 1.20 0.85 - 1.17 04/08/2017 [facility] HEMATOLOGY Segs 73.3 % 45.0 - 75.0 04/08/2017 [facility] HEMATOLOGY Monocytes 11.7 % 2.0 - 12.0 04/08/2017 [facility] HEMATOLOGY Lymphocytes 13.4 % 20.0 - 40.0 04/08/2017 [facility] HEMATOLOGY Eosinophils 1.0 % 0.0 - 4.0 04/08/2017 [facility] HEMATOLOGY Segs-Bands # 4.4 K/CMM 1.5 - 8.1 04/08/2017 [facility] HEMATOLOGY Basophils 0.6 % 0.0 - 1.0 04/08/2017 [facility] HEMATOLOGY Microcyte 1+ *ABN* (04/07/17 8:43 PM) None Seen 04/08/2017 [facility] HEMATOLOGY Eosinophils # 0.1 K/CMM 0.0 - 0.5 04/08/2017 [facility] HEMATOLOGY Lymphocytes # 0.8 K/CMM 1.0 - 5.5 04/08/2017 [facility] HEMATOLOGY Monocytes # 0.7 K/CMM 0.0 - 0.8 04/08/2017 [facility] Chest 1view DX Chest 1view DX EXAM: XR CHEST 1 VIEW DATE: 04/07/2017 INDICATION: Arrhythmias - s/p TAVR . No prior radiographs are available for comparison. Comparison is made with a CTA of the chest dated 03/29/2017. FINDINGS: The patient has had vertebroplasties at several thoracic levels. She has a TAVR. Cardiac silhouette is enlarged. There is atherosclerotic calcification of the left sided aorta. Lung volumes are low. This produces spurious widening of the transverse diameter of the heart and mediastinum and crowding of the basal lung markings. This produces platelike atelectasis at both lung bases. Underlying consolidation is not excluded.. There is a poorly defined left perihilar alveolar opacity which on the prior chest CT was a regularly marginated and malignancy could not be excluded. I refer you to the chest CT report for further comments. IMPRESSION: There is a poorly defined left perihilar alveolar opacity which on the prior chest CT was a regularly marginated and malignancy could not be excluded. I refer you to the chest CT report for further comments. 04/07/2017 - - Read by: Anabel Davis MD Dictated Date/time: 04/08/17 11:11 Electronically Signed by: Anabel Davis MD 04/08/17 11:15 FINAL REPORT [facility] BLOOD BANK RESULTS RBC product Product available (04/07/17 11:29 AM) 04/07/2017 [facility] BLOOD BANK RESULTS FFP product Product available (04/07/17 11:29 AM) 04/07/2017 [facility] BLOOD BANK RESULTS Antibody Scrn Negative (04/07/17 11:29 AM) 04/07/2017 [facility] BLOOD BANK RESULTS ABO/Rh A POS 04/07/2017 [facility] CHEM PANEL eGFR 61 mL/min/1.73m2 04/07/2017 Result Comment: The eGFR is calculated using the CKD-EPI formula. In most young, healthy individuals the eGFR will be >90 mL/min/1.73m2. The eGFR declines with age. An eGFR of 60-89 may be normal in some populations, particularly the elderly, for whom the CKD-EPI formula has not been extensively validated. Use of the eGFR is not recommended in the following populations: Individuals with unstable creatinine concentrations, including patients and those with serious co-morbid conditions. Patients with extremes in muscle mass or diet. The data above are obtained from the National Kidney Disease Education Program (NKDEP) which additionally recommends that when the eGFR is used in patients with extremes of body mass index for purposes of drug dosing, the eGFR should be multiplied by the estimated BMI. [facility] CHEM PANEL CO2 33 meq/L 24 - 32 04/07/2017 [facility] CHEM PANEL Calcium Lvl 9.0 mg/dL 8.5 - 10.5 04/07/2017 [facility] CHEM PANEL Potassium Lvl 4.7 meq/L 3.5 - 5.1 04/07/2017 [facility] CHEM PANEL Chloride Lvl 103 meq/L 95 - 109 04/07/2017 [facility] CHEM PANEL Sodium Lvl 141 meq/L 135 - 145 04/07/2017 [facility] CHEM PANEL BUN 28 mg/dL 7 - 22 04/07/2017 [facility] CHEM PANEL Creatinine Lvl 0.91 mg/dL 0.50 - 1.40 04/07/2017 [facility] CHEM PANEL Glucose Lvl 99 mg/dL 70 - 99 04/07/2017 [facility] CHEM PANEL AST 23 unit/L 0 - 37 04/07/2017 [facility] CHEM PANEL Total Protein 8.0 g/dL 6.4 - 8.4 04/07/2017 [facility] CHEM PANEL Bili Total 0.5 mg/dL 0.2 - 1.3 04/07/2017 [facility] CHEM PANEL Alk Phos 81 unit/L 39 - 136 04/07/2017 [facility] CHEM PANEL Albumin Lvl 3.4 g/dL 3.5 - 5.0 04/07/2017 [facility] CHEM PANEL ALT 21 unit/L 0 - 65 04/07/2017 [facility] CHEM PANEL B/C Ratio 31 6 - 25 04/07/2017 [facility] CHEM PANEL AGAP 9.7 meq/L 10.0 - 20.0 04/07/2017 [facility] CHEM PANEL A/G Ratio 0.7 0.7 - 1.6 04/07/2017 [facility] CHEM PANEL Globulin 4.6 g/dL 2.7 - 4.2 04/07/2017 [facility] HEMATOLOGY Microcyte 1+ *ABN* (04/07/17 11:29 AM) None Seen 04/07/2017 [facility] HEMATOLOGY Lymphocytes # 0.8 K/CMM 1.0 - 5.5 04/07/2017 [facility] HEMATOLOGY Monocytes # 0.4 K/CMM 0.0 - 0.8 04/07/2017 [facility] HEMATOLOGY Segs-Bands # 3.5 K/CMM 1.5 - 8.1 04/07/2017 [facility] HEMATOLOGY Lymphocytes 17.0 % 20.0 - 40.0 04/07/2017 [facility] HEMATOLOGY Segs 73.3 % 45.0 - 75.0 04/07/2017 [facility] HEMATOLOGY Basophils 0.8 % 0.0 - 1.0 04/07/2017 [facility] HEMATOLOGY Monocytes 8.5 % 2.0 - 12.0 04/07/2017 [facility] HEMATOLOGY Eosinophils 0.4 % 0.0 - 4.0 04/07/2017 [facility] HEMATOLOGY Platelet 290 K/CMM 133 - 450 04/07/2017 [facility] HEMATOLOGY MPV 6.8 fL 7.4 - 10.4 04/07/2017 [facility] HEMATOLOGY RDW 20.0 % 11.5 - 14.5 04/07/2017 [facility] HEMATOLOGY MCH 23.4 pg 27.0 - 31.0 04/07/2017 [facility] HEMATOLOGY MCHC 31.3 g/dL 32.0 - 36.0 04/07/2017 [facility] HEMATOLOGY MCV 74.7 fL 80.0 - 98.0 04/07/2017 [facility] HEMATOLOGY Hgb 11.2 g/dL 12.0 - 16.0 04/07/2017 [facility] HEMATOLOGY Hct 35.9 % 36.0 - 48.0 04/07/2017 [facility] HEMATOLOGY WBC 4.8 K/CMM 3.7 - 10.4 04/07/2017 [facility] HEMATOLOGY RBC 4.81 M/CMM 4.20 - 5.40 04/07/2017 [facility] HEMATOLOGY PT 14.1 s 12.0 - 14.7 04/07/2017 [facility] HEMATOLOGY PTT 27.7 s 22.9 - 35.8 04/07/2017 [facility] HEMATOLOGY INR 1.07 0.85 - 1.17 04/07/2017 [facility] Chest/Abd/Pelvis TAVR CTA Chest/Abd/Pelvis TAVR CTA EXAM: CTA CHEST WITH AND WITHOUT CONTRAST EXAM: CTA ABDOMEN AND PELVIS WITH AND WITHOUT CONTRAST DATE: 03/29/2017 8:18 AM CDT INDICATION: Chest pain - Aortic Stenosis ADDITIONAL INFORMATION: The patient has a history of breast carcinoma and is status post bilateral mastectomy. COMPARISON: None. TECHNIQUE: Volumetric CT acquisition of the chest, abdomen and pelvis during precontrast, arterial and venous phases. Axial, coronal and sagittal reconstructions. MIP reformats are created at the acquisition workstation. FINDINGS: Aorta and proximal branches: There is no evidence of intramural or periaortic hematoma. The innominate, proximal subclavian, and common carotid arteries are normal in branching order and size. There is a common origin of the right the brachiocephalic artery and left common carotid artery. The celiac trunk, SMA, and JACKELIN are patent. Single renal arteries are present bilaterally both of which are patent. The infrarenal abdominal aorta is within normal limits. The iliac vessels and proximal femoral arteries are normal. The aorta contains extensive atherosclerotic plaque, and measures: 3.7 cm at the ascending aorta at the level of the pulmonary artery, 2.4 cm at the mid arch, 2.6 cm at the descending aorta at the level of the main pulmonary artery, 2.4 cm at the level of the aortic hiatus, 1.9 cm at the level of the renal arteries 1.5 cm just proximal to the iliac bifurcation Right pelvis: 0.8 cm at the mid right common iliac 0.7 cm at the right external iliac artery 0.7 cm at the right common femoral artery at the level of the femoral head Left pelvis: 0.9 cm at the mid left common iliac 0.7 cm at the left external iliac artery 0.7 cm left femoral artery at the level of the femoral head Lines/tubes: None. Heart and mediastinum: There is a calcified nodule in the right thyroid. No mediastinal, hilar or axillary lymphadenopathy is seen. There is cardiomegaly and calcifications of the pericardium. Pleura: The pleural spaces are clear. Lungs and Airways: There is a 4.7 x 2.7 cm upper lobe opacity in the left lung with ill-defined margins. There is also a smaller opacity which measures 0.7 cm at the right lower lobe best seen on image 56, series 9 and another small nodule 2mm seen on image 38, series 9. There are also diffuse side interstitial haziness at the lung bases bilaterally and a calcified granuloma in the right lower lobe. ABDOMEN/PELVIS: Hepatobiliary: There is a small 0.9 cm lesion which is seen on the early arterial phase on the image 154, series 8. It is not visible in the venous phase and is suggestive of a hemangioma. There is a 1.9 x 1.0 ill-defined lesion in the left lobe of the liver. No biliary ductal dilatation. There are also postoperative changes compatible with a cholecystectomy. Spleen: No splenomegaly. Pancreas: No focal masses or ductal dilatation. Adrenals: There are bilateral adrenal nodules, the right one measures 0.9 cm and the left one 1.0 cm. Kidneys/Ureters: No hydronephrosis, stones, or solid mass lesions. Pelvic Organs/Bladder: Unremarkable. Peritoneum/Retroperitoneum: No free air or fluid. Lymph nodes: No lymphadenopathy. Vessels: Unremarkable. Patent main portal vein measuring up to 1.3 cm. GastrointestinaI Tract: No distention. BONES AND SOFT TISSUE: There are postoperative changes compatible with bilateral mastectomy. There is diffuse osteopenia, multiple chronic compression fractures and status post kyphoplasty at multiple thoracic vertebral bodies and scoliosis. IMPRESSION: 1. Atherosclerotic disease of the aorta without aneurysmal dilatation or dissection. 2. Calcification of the aortic valve, calcification of the coronary arteries and pericardium. 3. Left upper lobe lung opacity and right lower lobe opacity and small nodule. These could represent infection or malignancy. If clinically there is no suspicion for infection then endobronchial biopsy of the left upper lobe opacity should be considered as an upper lobe bronchus is directed towards this area. If this would fail then percutaneous biopsy should be considered. 4. Small liver lesion seen only on the arterial phase is suggestive of a hemangioma. 5. Ill-defined lesion at the left lobe of the liver seen in the venous phase but has some nodular enhancement. For further evaluation an ultrasound should be considered to rule out a vascular lesion versus a malignant lesion such as metastasis. 6. Small bilateral adrenal nodules most likely representing adenomas. 7. Status post bilateral mastectomy. 8. Diffuse osteopenia, scoliosis, degenerative changes in the spine and chronic compression fractures and status post kyphoplasty at multiple levels. 9. Calcified right thyroid nodule. For further evaluation an ultrasound of the thyroid is recommended. 10. Status post cholecystectomy. 03/29/2017 - - Read by: Susan Concepcion MD Dictated Date/time: 03/29/17 11:02 Electronically Signed by: Susan Concepcion MD 03/29/17 11:56 FINAL REPORT [facility] Heart/coronary art TAVR CTA Heart/coronary art TAVR CTA EXAM: CARDIAC COMPUTED TOMOGRAPHY ANGIOGRAPHY DATE: March 29, 2017 INDICATION: Aortic stenosis. COMPARISON: None TECHNIQUE: Contrast imaging was performed on a [employer] Aqu[employer] [address] scanner utilizing a single breath hold. Retrospective ECG gating was performed. Images were reformatted at 0.5 mm intervals and sent to an independent workstation for interpretation. 90 ml of Visipaque 320 IV contrast was delivered via an 18 gauge IV catheter utilizing a power injector at 5 cc/sec and followed by 50 cc of normal saline bolus as a chaser. OVERALL STUDY QUALITY: Fair FINDINGS: Aortic valve: Trileaflet, symmetrically and heavily calcified. Coronary Arteries: This patient has a right dominant system with the origin of the coronary arteries being normal. Left main: Normal caliber vessel, free of atheroma, bifurcating normally into the LAD and left circumflex arteries. LAD: Normal caliber vessel, with single calcified atheroma noted in the proximal segment, not resulting into a flow-limiting stenosis. The remaining of the vessel and its branches are free of atheroma. LCx: Normal caliber vessel, nondominant, with mild, partially calcified atheroma of the proximal segment of the vessel, not resulting into a flow-limiting stenosis.. The remaining of the vessel and its branches are free of atheroma. RCA: Relatively large caliber vessel, dominant, bifurcating normally into the PDA and posterolateral branches. There is partially calcified atheroma noted in the proximal segment of the vessel, which is not resulting into a flow-limiting stenosis. The remaining of the vessel and its branches are free of atheroma. Myocardium Appearance \\T\\ Function: Left ventricle is dilated, with moderate impairment of systolic function. Ejection Fraction: 35% KEW=151 cc DKQ=786 cc SV=78 cc Lung snow to the extent visualized in limited study: Please see radiologist interpretation for extra cardiac findings. IMPRESSION: Aortic valve disease. Nonobstructive coronary artery disease. 03/29/2017 - - Read by: Dre Oleary MD Dictated Date/time: 03/29/17 18:33 Electronically Signed by: Dre Oleary MD 03/29/17 18:36 FINAL REPORT [facility] Vital Signs Vital Sign Value Date Comments Source Height 152.4 cm 05/08/2018 [facility] BMI Calculated 24.74 05/08/2018 [facility] Weight 57.472 05/08/2018 [facility] Temperature Oral (F) 98.0 F 05/08/2018 [facility] Heart Rate 18 05/08/2018 [facility] Respitory Rate 67 05/08/2018 [facility] Height 58 cm 12/26/2017 [facility] BMI Calculated 164.31 12/26/2017 [facility] Weight 55.273 12/26/2017 [facility] Respitory Rate 18 12/26/2017 [facility] Temperature Oral (F) 97.8 F 12/26/2017 [facility] Heart Rate 72 12/26/2017 [facility] Systolic (mm Hg) 106 12/26/2017 [facility] Diastolic (mm Hg) 72 12/26/2017 [facility] Weight 56.364 12/22/2017 [facility] Height 152.4 cm 12/22/2017 [facility] BMI Calculated 24.27 12/22/2017 [facility] Systolic (mm Hg) 103 12/22/2017 [facility] Diastolic (mm Hg) 63 12/22/2017 [facility] Temperature Oral (F) 98.1 F 12/22/2017 [facility] Respitory Rate 17 12/22/2017 [facility] Heart Rate 71 12/22/2017 [facility] Systolic (mm Hg) 126 11/18/2017 [facility] Diastolic (mm Hg) 74 11/18/2017 [facility] Respitory Rate 18 11/18/2017 [facility] Temperature Oral (F) 97.3 F 11/17/2017 [facility] Systolic (mm Hg) 125 11/17/2017 [facility] Diastolic (mm Hg) 74 11/17/2017 [facility] Respitory Rate 20 11/17/2017 [facility] Systolic (mm Hg) 110 11/17/2017 [facility] Diastolic (mm Hg) 67 11/17/2017 [facility] Respitory Rate 18 11/17/2017 [facility] Temperature Oral (F) 98.7 F 11/17/2017 [facility] Temperature Oral (F) 97.8 F 11/17/2017 [facility] BMI Calculated 23.17 11/11/2017 [facility] Weight 53.818 11/11/2017 [facility] Height 152.4 cm 11/11/2017 [facility] BMI Calculated 21.99 11/10/2017 [facility] Weight 54.545 11/10/2017 [facility] Height 157.48 cm 11/10/2017 [facility] Heart Rate 59 11/10/2017 [facility] BMI Calculated 22.95 09/11/2017 [facility] Height 152.4 cm 09/11/2017 [facility] Weight 53.295 09/11/2017 [facility] Systolic (mm Hg) 123 09/11/2017 [facility] Diastolic (mm Hg) 74 09/11/2017 [facility] Temperature Oral (F) 97.1 F 09/11/2017 [facility] Respitory Rate 16 09/11/2017 [facility] Heart Rate 78 09/11/2017 [facility] Respitory Rate 31 07/10/2017 [facility] Systolic (mm Hg) 135 07/10/2017 [facility] Diastolic (mm Hg) 65 07/10/2017 [facility] Systolic (mm Hg) 135 07/10/2017 [facility] Diastolic (mm Hg) 65 07/10/2017 [facility] Respitory Rate 30 07/10/2017 [facility] Systolic (mm Hg) 121 07/10/2017 [facility] Diastolic (mm Hg) 50 07/10/2017 [facility] Respitory Rate 33 07/10/2017 [facility] Temperature Oral (F) 97.3 F 07/10/2017 [facility] Temperature Oral (F) 97.1 F 07/10/2017 [facility] Temperature Oral (F) 97.4 F 07/10/2017 [facility] BMI Calculated 23.86 07/09/2017 [facility] Height 152.4 cm 07/09/2017 [facility] Weight 55.409 07/09/2017 [facility] BMI Calculated 23.79 07/09/2017 [facility] Height 152.4 cm 07/09/2017 [facility] Weight 55.256 07/09/2017 [facility] Heart Rate 67 07/08/2017 [facility] Height 152.4 cm 06/27/2017 [facility] BMI Calculated 24.27 06/27/2017 [facility] Weight 56.364 06/27/2017 [facility] Heart Rate 76 06/27/2017 [facility] Respitory Rate 16 06/27/2017 [facility] Temperature Oral (F) 98 F 06/27/2017 [facility] Systolic (mm Hg) 115 06/27/2017 [facility] Diastolic (mm Hg) 61 06/27/2017 [facility] Respitory Rate 20 06/12/2017 [facility] Systolic (mm Hg) 117 06/12/2017 [facility] Diastolic (mm Hg) 58 06/12/2017 [facility] Systolic (mm Hg) 96 06/12/2017 [facility] Diastolic (mm Hg) 64 06/12/2017 [facility] Respitory Rate 18 06/12/2017 [facility] Systolic (mm Hg) 108 06/12/2017 [facility] Diastolic (mm Hg) 65 06/12/2017 [facility] Temperature Oral (F) 98.1 F 06/12/2017 [facility] Respitory Rate 16 06/12/2017 [facility] Temperature Oral (F) 98.7 F 06/12/2017 [facility] Temperature Oral (F) 97.8 F 06/12/2017 [facility] BMI Calculated 24.54 06/08/2017 [facility] Weight 56.989 06/08/2017 [facility] Height 152.4 cm 06/08/2017 [facility] BMI Calculated 25.05 06/08/2017 [facility] Weight 58.182 06/08/2017 [facility] Height 152.4 cm 06/08/2017 [facility] Heart Rate 92 06/08/2017 [facility] Height 152.91 cm 05/16/2017 [facility] Weight 60.045 05/16/2017 [facility] BMI Calculated 25.68 05/16/2017 [facility] Temperature Oral (F) 98.3 F 05/16/2017 [facility] Respitory Rate 18 05/16/2017 [facility] Heart Rate 88 05/16/2017 [facility] Systolic (mm Hg) 111 05/16/2017 [facility] Diastolic (mm Hg) 77 05/16/2017 [facility] Systolic (mm Hg) 108 04/25/2017 [facility] Diastolic (mm Hg) 65 04/25/2017 [facility] Respitory Rate 16 04/25/2017 [facility] Temperature Oral (F) 97.9 F 04/25/2017 [facility] Heart Rate 82 04/25/2017 [facility] BMI Calculated 25.55 04/25/2017 [facility] Weight 59.347 04/25/2017 [facility] Height 152.4 cm 04/25/2017 [facility] Systolic (mm Hg) 108 04/08/2017 [facility] Diastolic (mm Hg) 60 04/08/2017 [facility] Respitory Rate 21 04/08/2017 [facility] Systolic (mm Hg) 93 04/08/2017 [facility] Diastolic (mm Hg) 61 04/08/2017 [facility] Respitory Rate 22 04/08/2017 [facility] Temperature Oral (F) 98.3 F 04/08/2017 [facility] Respitory Rate 17 04/08/2017 [facility] Systolic (mm Hg) 97 04/08/2017 [facility] Diastolic (mm Hg) 52 04/08/2017 [facility] Temperature Oral (F) 97.1 F 04/08/2017 [facility] Temperature Oral (F) 97.6 F 04/08/2017 [facility] Height 152.4 cm 04/07/2017 [facility] Weight 57.727 04/07/2017 [facility] BMI Calculated 24.85 04/07/2017 [facility] Weight 56.818 04/04/2017 [facility] BMI Calculated 24.46 04/04/2017 [facility] Height 152.4 cm 04/04/2017 [facility] Systolic (mm Hg) 120 04/04/2017 [facility] Diastolic (mm Hg) 71 04/04/2017 [facility] Respitory Rate 19 04/04/2017 [facility] Heart Rate 95 04/04/2017 [facility] Temperature Oral (F) 97.8 F 04/04/2017 [facility] Systolic (mm Hg) 88 03/21/2017 [facility] Diastolic (mm Hg) 55 03/21/2017 [facility] Heart Rate 75 03/21/2017 [facility] Respitory Rate 16 03/21/2017 [facility] Temperature Oral (F) 96.8 F 03/21/2017 [facility] Height 152.4 cm 03/21/2017 [facility] BMI Calculated 25.44 03/21/2017 [facility] Weight 59.091 03/21/2017 [facility] Encounters Location Location Details Encounter Type Encounter Number Reason For Visit Attending Provider ADM Date DC Date Status Source [facility] Outpatient [id number] Fabianowajigustavo Damian 03/21/2017 03/22/2017 [facility] Outpatient [id number] Esperanza James 04/04/2017 04/05/2017 [facility] Inpatient [id number] Fabianowaalexei Damian 04/07/2017 04/08/2017 [facility] [id number] Esperanza James 04/25/2017 04/26/2017 [facility] Outpatient [id number] Fabianowajigustavo Damian 04/25/2017 04/26/2017 [facility] [id number] Esperanza James 05/16/2017 05/17/2017 [facility] Outpatient [id number] Fabianowajigustavo Damian 05/16/2017 05/17/2017 [facility] Inpatient [id number] Bradford Butler 06/08/2017 06/13/2017 [facility] Outpatient [id number] Biswajit Rickie 06/27/2017 06/28/2017 [facility] Inpatient [id number] Biswajit Rickie 07/08/2017 07/11/2017 [facility] Outpatient [id number] Biswajit Rickie 09/11/2017 09/12/2017 [facility] Phone Message [id number] 10/25/2017 10/27/2017 [facility] Inpatient [id number] Bradford Luke 11/10/2017 11/18/2017 [facility] Outpatient [id number] Bradford Luke 12/22/2017 12/23/2017 [facility] [id number] Sissy Villalba 12/22/2017 12/23/2017 [facility] [id number] Sissy Villalba 12/26/2017 12/27/2017 [facility] Outpatient [id number] Esperanza Aknti 12/26/2017 12/27/2017 [facility] Outpatient [id number] Esperanza [facility] 05/08/2018 05/09/2018 [facility] Procedures Procedure Code Date Perfomer Comments Source Cardiac catheterisation, left heart [id number] [facility] Cardiac catheterisation, right heart [id number] [facility] [place] Cardiac catheterisation, left heart [id number] [facility] Cardiac catheterisation, right heart [id number] [facility] Abdominal hysterectomy [id number] [facility] AVR - Aortic valve replacement [id number] [facility] Bilateral mastectomy [id number] [facility] Abdominal hysterectomy [id number] [facility] [place] AVR - Aortic valve replacement [id number] [facility] [place] Bilateral mastectomy [id number] [facility] [place] Abdominal hysterectomy [id number] [facility] AVR - Aortic valve replacement [id number] [facility] Bilateral mastectomy [id number] [facility] Cardiac catheterisation, left heart [id number] [facility] Cardiac catheterisation, right heart [id number] [facility]
--- OUTSIDE RECORDS SUMMARY | 2018-09-27 16:59 | XMS REPORT | Summary of Care ---
Author Author [facility] Organization [facility] Address Unknown Phone Unavailable Encounter KATIA Saxena(WILL) [id number] Date(s): 03/21/17 - 03/21/17 [facility] [address], [address] [place], [place] [address] Discharge Disposition: Home or Self Care Attending Physician: Marko Damian MD Referring Physician: Marko Damian MD Vital Signs Most recent to 1 oldest [Reference Range]: Height 152.4 cm (03/21/17 8:43 AM) Temperature Oral 96.8 DegF [96.4-99.1 DegF] (03/21/17 8:43 AM) Blood Pressure 88/55 mmHg [90-140/60-90 mmHg] *LOW* (03/21/17 8:43 AM) Respiratory Rate 16 BRMIN [14-20 BRMIN] (03/21/17 8:43 AM) Peripheral Pulse 75 bpm Rate [60-100 bpm] (03/21/17 8:43 AM) Weight 59.091 kg (03/21/17 8:43 AM) Body Mass Index 25.44 m2 (03/21/17 8:43 AM) Problem List Condition Effective Dates Status Health Status Informant Aortic Active stenosis(Confirmed) Atrial Active fibrillation(Confirm ed) Cardiomyopathy(Confi Active rmed) History of breast Active cancer(Confirmed) Hypertension(Confirm Active ed) Hypothyroidism(Confi Active rmed) Rheumatoid Active arthritis(Confirmed) Scoliosis(Confirmed) Active Allergies, Adverse Reactions, Alerts Substance Reaction Severity Status NKDA Active Medications atenolol 25 mg, PO, Daily, 0 Refill(s) Start Date: 03/21/17 Status: Ordered Calcium 600 +D oral tablet 1 tab, PO, BID, # 90 tab, 0 Refill(s) Start Date: 03/21/17 Status: Ordered Citalopram 10 mg oral tablet 10 mg=1 tab, PO, Daily, 0 Refill(s) Start Date: 03/21/17 Status: Ordered folic acid 1 mg oral tablet 1 mg=1 tab, PO, Daily, # 30 tab, 0 Refill(s) Start Date: 03/21/17 Status: Ordered furosemide 20 mg oral tablet 20 mg=1 tab, PO, Daily, # 30 tab, 0 Refill(s) Start Date: 03/21/17 Status: Ordered Hydroco/Apap Hydroco/Apap, 5/325 mg, PRN, Refill(s) 0 Start Date: 03/21/17 Status: Ordered levothyroxine 25 mcg (0.025 mg) oral tablet 25 microgram=1 tab, PO, Daily, # 30 tab, 0 Refill(s) Start Date: 03/21/17 Status: Ordered lisinopril 2.5 mg oral tablet 2.5 mg=1 tab, PO, PRN, # 30 tab, 0 Refill(s) Start Date: 03/21/17 Status: Ordered Melatonin 5 mg oral capsule 5 mg=1 cap, PO, Bedtime, 0 Refill(s) Start Date: 03/21/17 Status: Ordered pantoprazole 40 mg oral enteric coated tablet 40 mg=1 tab, PO, Daily, # 30 tab, 0 Refill(s) Start Date: 03/21/17 Status: Ordered potassium chloride 20 mEq oral tablet, extended release 20 mEq=1 tab, PO, Daily, # 30 tab, 3 Refill(s) Start Date: 03/21/17 Status: Ordered predniSONE 5 mg oral tablet 5 mg=1 tab, PO, Daily, Give with food., # 7 tab, 0 Refill(s) Start Date: 03/21/17 Stop Date: 03/28/17 Status: Ordered Results No data available for this section Immunizations No data available for this section Procedures No data available for this section Social History Social History Type Response Smoking Status Former smoker; Ready to change: No; Concerns about tobacco use in household: No; Exposure to Tobacco Smoke None; Cigarette Smoking Last 365 Days No; Reg Smoking Cessation Counseling No1 1Patient quit smoking in 1975 Assessment and Plan No data available for this section
--- OUTSIDE RECORDS SUMMARY | 2018-09-27 16:59 | XMS REPORT | Summary of Care ---
Author Author [facility] Organization [facility] Address Unknown Phone Unavailable Encounter KAITA Saxena(WILL) [id number] Date(s): 04/04/17 - 04/04/17 [facility] [address], [address] [place], [place] [address] Discharge Disposition: Home or Self Care Attending Physician: Esperanza Ramirez MD Referring Physician: Esperanza Ramirez MD Vital Signs Most recent to 1 oldest [Reference Range]: Height 152.4 cm (04/04/17 5:13 PM) Temperature Oral 97.8 DegF [96.4-99.1 DegF] (04/04/17 5:13 PM) Blood Pressure 120/71 mmHg [90-140/60-90 mmHg] (04/04/17 5:13 PM) Respiratory Rate 19 BRMIN [14-20 BRMIN] (04/04/17 5:13 PM) Peripheral Pulse 95 bpm Rate [60-100 bpm] (04/04/17 5:13 PM) Weight 56.818 kg (04/04/17 5:13 PM) Body Mass Index 24.46 m2 (04/04/17 5:13 PM) Problem List Condition Effective Dates Status Health Status Informant Aortic Active stenosis(Confirmed) Atrial Active fibrillation(Confirm ed) Cardiomyopathy(Confi Active rmed) History of breast Active cancer(Confirmed) Hypertension(Confirm Active ed) Hypothyroidism(Confi Active rmed) Rheumatoid Active arthritis(Confirmed) Scoliosis(Confirmed) Active Allergies, Adverse Reactions, Alerts Substance Reaction Severity Status NKDA Active Medications No data available for this section Results No data available for this section [...]
--- OUTSIDE RECORDS SUMMARY | 2018-09-27 17:00 | XMS REPORT | Summary of Care ---
Author Author [facility] Organization [facility] Address Unknown Phone Unavailable Encounter KATIA Saxena(WILL) [id number] Date(s): 04/07/17 - 04/08/17 [facility] [address] provided by [facility] [place] [address]- Discharge Disposition: Home or Self Care Attending Physician: Marko Damian MD Admitting Physician: Marko Damian MD Referring Physician: Marko Damian MD Vital Signs 1 2 3 Most recent to oldest [Reference Range]: 152.4 cm (04/07/17 11:09 AM) Height 60.545 kg (04/08/17 5:52 AM) Current Weight 98.3 DegF (04/08/17 11:54 AM) 97.1 DegF (04/08/17 7:51 AM) 97.6 DegF (04/08/17 5:52 AM) Temperature Oral [96.4-99.1 DegF] 108/60 mmHg (04/08/17 1:28 PM) 93/61 mmHg (04/08/17 12:00 PM) 97/52 mmHg (04/08/17 11:00 AM) Blood Pressure [90-140/60-90 mmHg] 21 BRMIN *HI* (04/08/17 1:28 PM) 22 BRMIN *HI* (04/08/17 12:00 PM) 17 BRMIN (04/08/17 11:00 AM) Respiratory Rate [14-20 BRMIN] 57.727 kg (04/07/17 11:09 AM) Weight 24.85 m2 (04/07/17 11:09 AM) Body Mass Index Problem List Condition Effective Dates Status Health Status Informant Atrial Resolved fibrillation(Confirm ed) Aortic Active stenosis(Confirmed) Aortic Resolved stenosis(Confirmed) Atrial Active fibrillation(Confirm ed) Cardiomyopathy(Confi Resolved rmed) Cardiomyopathy(Confi Active rmed) History of breast Active cancer(Confirmed) Hypertension(Confirm Active ed) HTN Resolved (hypertension)(Confi rmed) Hypothyroid(Confirme Resolved d) Hypothyroidism(Confi Active rmed) Breast Resolved cancer(Confirmed) RA (rheumatoid Resolved arthritis)(Confirmed ) Rheumatoid Active arthritis(Confirmed) Scoliosis(Confirmed) Resolved Scoliosis(Confirmed) Active Allergies, Adverse Reactions, Alerts Substance Reaction Severity Status penicillins Active Medications acetaminophen 325 mg, 1 tab, Route: PO, Drug form: TAB, Q4H, Dosing Weight 57.727, kg, PRN Sotero n 1-3/Temp > 100.4 F, Start date: 04/07/17 19:38:00 CDT, Duration: 30 day, Stop date: 05/07/17 19:37:00 CDT Notes: Do not exceed 4 gm/day. (Same as: Tylenol) Start Date: 04/07/17 Stop Date: 04/08/17 Status: Discontinued acetaminophen-hydrocodone 325 mg-5 mg oral tablet 2 tab, Route: PO, Drug Form: TAB, Dosing Weight 57.727, kg, Q4H, PRN Pain Score 7-10, Start date: 04/07/17 19:38:00 CDT, Duration: 30 day, Stop date: 05/07/17 1 9:37:00 CDT Notes: (Same as: [place] 325/5) Do not exceed 4gm/day of acetaminophen. Start Date: 04/07/17 Stop Date: 04/08/17 Status: Discontinued acetaminophen-hydrocodone 325 mg-5 mg oral tablet 1 tab, Route: PO, Drug Form: TAB, Dosing Weight 57.727, kg, Q4H, PRN Pain Score 4-6, Start date: 04/07/17 19:38:00 CDT, Duration: 30 day, Stop date: 05/07/17 19 :37:00 CDT Notes: (Same as: [place] 325/5) Do not exceed 4gm/day of acetaminophen. Start Date: 04/07/17 Stop Date: 04/08/17 Status: Discontinued ANES acetaminophen 1,000 mg, 100 mL, Route: IV, Drug form: INJ, ONCE, Dosing Weight 57.727, kg, PRN Pain Score 1-3, Start date: 04/07/17 19:05:00 CDT, Duration: 1 doses or times, Stop date: Limited # of times Notes: Infuse over 15 minutesDo not exceed 4gm/day of acetaminophen MEDICAT ION WASTE Product Size: 1000 mgProduct Wasted: _0__ mg Start Date: 04/07/17 Stop Date: 04/07/17 Status: Discontinued ANES flumazenil 0.2 mg, 2 mL, Route: IVP, Drug form: INJ, PRN, Dosing Weight 57.727, kg, PRN Ozzy zodiazepine Reversal, Initial dose, Start date: 04/07/17 19:05:00 CDT, Duration: 30 day, Stop date: 05/07/17 19:04:00 CDT Notes: (Same as: Romazicon) Start Date: 04/07/17 Stop Date: 04/07/17 Status: Discontinued ANES naloxone 0.4 mg, 1 mL, Route: IVP, Drug form: INJ, Q2MIN, Dosing Weight 57.727, kg, PRN N arcotic Reversal, Start date: 04/07/17 19:05:00 CDT, Duration: 8 doses or times, Stop date: Limited # of times Notes: Same as Narcan Start Date: 04/07/17 Stop Date: 04/07/17 Status: Discontinued ANES ondansetron 4 mg, 2 mL, Route: IVP, Drug form: INJ, ONCE, Dosing Weight 57.727, kg, PRN Naus ea & Vomiting, Start date: 04/07/17 19:05:00 CDT Notes: (Same as: Reed) MEDICATION WASTE Product Size: 4 mgProduct Was era: _0__ mg Start Date: 04/07/17 Stop Date: 04/07/17 Status: Discontinued aspirin 81 mg tablet, enteric coated 81 mg=1 tab, PO, Daily, # 30 tab, 3 Refill(s) Start Date: 04/08/17 Stop Date: 08/06/17 Status: Ordered aspirin 81 mg tablet, enteric coated 81 mg, 1 tab, Route: PO, Drug form: ECTAB, Daily, Dosing Weight 57.727, kg, Star t date: 04/08/17 9:00:00 CDT, Duration: 30 day, Stop date: 05/07/17 9:00:00 CDT Notes: Do not crush or chew.(Same As: Ecotrin) Start Date: 04/08/17 Stop Date: 04/08/17 Status: Discontinued atenolol 25 mg, 1 tab, Route: PO, Drug form: TAB, Daily, Dosing Weight 57.727, kg, Start date: 04/08/17 9:00:00 CDT, Stop date: 05/07/17 9:00:00 CDT Notes: (Same As:Tenormin) Start Date: 04/08/17 Stop Date: 04/08/17 Status: Discontinued citalopram 10 mg, 1 tab, Route: PO, Drug form: TAB, Daily, Dosing Weight 57.727, kg, Start date: 04/08/17 9:00:00 CDT, Stop date: 05/07/17 9:00:00 CDT Start Date: 04/08/17 Stop Date: 04/08/17 Status: Discontinued clopidogrel 75 mg, 1 tab, Route: PO, Drug form: TAB, Daily, Dosing Weight 57.727, kg, Start date: 04/08/17 9:00:00 CDT, Duration: 30 day, Stop date: 05/07/17 9:00:00 CDT Notes: (Same As: Plavix) Start Date: 04/08/17 Stop Date: 04/08/17 Status: Discontinued clopidogrel 75 mg oral tablet 75 mg=1 tab, PO, Daily, # 30 tab, 2 Refill(s) Start Date: 04/08/17 Stop Date: 04/08/17 Status: Discontinued Eliquis 5 mg oral tablet 5 mg=1 tab, PO, BID, # 60 tab, 3 Refill(s) Start Date: 04/08/17 Stop Date: 08/06/17 Status: Ordered folic acid 1 mg, 1 tab, Route: PO, Drug form: TAB, Daily, Dosing Weight 57.727, kg, Start d ate: 04/08/17 9:00:00 CDT, Stop date: 05/07/17 9:00:00 CDT Notes: (Same as: Folvite) Start Date: 04/08/17 Stop Date: 04/08/17 Status: Discontinued heparin 5,000 unit, 1 mL, Route: SUB-Q, Drug form: INJ, BID, Dosing Weight 57.727, kg, S tart date: 04/08/17 9:00:00 CDT, Duration: 30 day, Stop date: 05/07/17 17:00:00 CDT Notes: porcine heparin Start Date: 04/08/17 Stop Date: 04/08/17 Status: Discontinued levothyroxine 25 microgram, 1 tab, Route: PO, Drug form: TAB, Q630AM, Dosing Weight 57.727, kg , Start date: 04/08/17 6:30:00 CDT, Stop date: 05/07/17 6:30:00 CDT Notes: Take 1 hour before or 2 hours after meal; Enteral feeds may interefere wi th the absorption of this medication. (Same as:Levothroid) Start Date: 04/08/17 Stop Date: 04/08/17 Status: Discontinued lisinopril 2.5 mg, 1 tab, Route: PO, Drug form: TAB, Daily, Dosing Weight 57.727, kg, Start date: 04/08/17 9:00:00 CDT, Stop date: 05/07/17 9:00:00 CDT Notes: (Same as: Prinivil) Start Date: 04/08/17 Stop Date: 04/08/17 Status: Discontinued melatonin 5 mg tablet 5 mg, 1 tab, Route: PO, Drug Form: TAB, Dosing Weight 57.727, kg, Bedtime, Start date: 04/08/17 21:00:00 CDT, Duration: 30 day, Stop date: 05/07/17 21:00:00 CDT Notes: (Same as: Melatonin) Start Date: 04/08/17 Stop Date: 04/08/17 Status: Canceled niCARdipine 40 mg/ NS 200 ml IV Soln (premix) 40 mg 40 mg, 200 mL, Rate: Titrate, Start Dose: 5 mg/hr, Titration: 2mg every 15 minut es PRN, Goal(s): maintain SBP 90 - 150 mmHg, Max Dose: 15mg/hr, Route: IV, Dosin g Weight 57.727 kg, Total Volume: 200, Start date: 04/07/17 19:38:00 CDT, Durati on: 30 day,... Notes: Same as: CardeneConcentration: (0.2 mg /1 ml ) Start Date: 04/07/17 Stop Date: 04/08/17 Status: Discontinued pantoprazole 40 mg, 1 tab, Route: PO, Drug form: ECTAB, Before Breakfast, Dosing Weight 57.72 7, kg, Start date: 04/08/17 7:30:00 CDT, Stop date: 05/07/17 7:30:00 CDT Notes: Tablet should not be chewed or crushed.(Same as: Protonix) Start Date: 04/08/17 Stop Date: 04/08/17 Status: Discontinued predniSONE 5 mg, 1 tab, Route: PO, Drug form: TAB, Daily, Dosing Weight 57.727, kg, Start d ate: 04/08/17 9:00:00 CDT, Stop date: 05/07/17 9:00:00 CDT Notes: Take with food. Start Date: 04/08/17 Stop Date: 04/08/17 Status: Discontinued Sodium Chloride 0.9% (Bolus) IV 250 mL, 250 ml/hr, Infuse Over: 1 hr, Route: IV, 250, Drug form: INJ, ONCE, Dosi ng Weight 57.727 kg, Start date: 04/07/17 19:38:00 CDT, Duration: 1 doses or gina es, Stop date: 04/07/17 19:38:00 CDT Start Date: 04/07/17 Stop Date: 04/07/17 Status: Completed sodium chloride 0.9% 1000 ml INJ 1,000 mL 1,000 mL, Rate: 75 ml/hr, Infuse over: 13.3 hr, Route: IV, Dosing Weight 57.727 kg, Total Volume: 1,000, Start date: 04/07/17 11:11:00 CDT, Duration: 30 day, St op date: 05/07/17 11:10:00 CDT Start Date: 04/07/17 Stop Date: 04/08/17 Status: Discontinued sodium chloride 0.9% 1000 ml INJ 750 mL 750 mL, Rate: 75 ml/hr, Infuse over: 10 hr, Route: IV, Dosing Weight 57.727 kg, Total Volume: 750, Start date: 04/07/17 19:38:00 CDT, Duration: 10 hr, Stop date : 04/08/17 5:37:00 CDT Start Date: 04/07/17 Stop Date: 04/08/17 Status: Completed Results BLOOD BANK RESULTS 1 2 3 Most recent to oldest [Reference Range]: A POS *Unknown* (04/07/17 11:29 AM) ABO/Rh Negative (04/07/17 11:29 AM) Antibody Scrn Product available (04/07/17 11:29 AM) FFP product Product available (04/07/17 11:29 AM) RBC product ELECTROLYTES 1 2 3 Most recent to oldest [Reference Range]: 141 mEq/L (04/08/17 5:13 AM) 143 mEq/L (04/07/17 8:43 PM) 141 mEq/L (04/07/17 11:29 AM) Sodium Lvl [135-145 mEq/L] 4.1 mEq/L (04/08/17 5:13 AM) 4.3 mEq/L (04/07/17 8:43 PM) 4.7 mEq/L (04/07/17 11:29 AM) Potassium Lvl [3.5-5.1 mEq/L] 108 mEq/L (04/08/17 5:13 AM) 109 mEq/L (04/07/17 8:43 PM) 103 mEq/L (04/07/17 11:29 AM) Chloride Lvl [95-109 mEq/L] 24 mEq/L (04/08/17 5:13 AM) 28 mEq/L (04/07/17 8:43 PM) 33 mEq/L *HI* (04/07/17 11:29 AM) CO2 [24-32 mEq/L] 13.1 mEq/L (04/08/17 5:13 AM) 10.3 mEq/L (04/07/17 8:43 PM) 9.7 mEq/L *LOW* (04/07/17 11:29 AM) AGAP [10.0-20.0 mEq/L] CHEM PANEL 1 2 3 Most recent to oldest [Reference Range]: 0.59 mg/dL (04/08/17 5:13 AM) 0.72 mg/dL (04/07/17 8:43 PM) 0.91 mg/dL (04/07/17 11:29 AM) Creatinine Lvl [0.50-1.40 mg/dL] 88 mL/min/1.73m2 1 *NA* (04/08/17 5:13 AM) 80 mL/min/1.73m2 2 *NA* (04/07/17 8:43 PM) 61 mL/min/1.73m2 3 *NA* (04/07/17 11:29 AM) eGFR 20 mg/dL (04/08/17 5:13 AM) 23 mg/dL *HI* (04/07/17 8:43 PM) 28 mg/dL *HI* (04/07/17 11:29 AM) BUN [7-22 mg/dL] 31 *HI* (04/07/17 11:29 AM) B/C Ratio [6-25] 57 mg/dL *LOW* (04/08/17 5:13 AM) 74 mg/dL (04/07/17 8:43 PM) 99 mg/dL (04/07/17 11:29 AM) Glucose Lvl [70-99 mg/dL] 8.0 g/dL (04/07/17 11:29 AM) Total Protein [6.4-8.4 g/dL] 3.4 g/dL *LOW* (04/07/17 11:29 AM) Albumin Lvl [3.5-5.0 g/dL] 4.6 g/dL *HI* (04/07/17 11:29 AM) Globulin [2.7-4.2 g/dL] 0.7 (04/07/17 11:29 AM) A/G Ratio [0.7-1.6] 7.6 mg/dL *LOW* (04/08/17 5:13 AM) 7.7 mg/dL *LOW* (04/07/17 8:43 PM) 9.0 mg/dL (04/07/17 11:29 AM) Calcium Lvl [8.5-10.5 mg/dL] 2.1 mg/dL (04/08/17 5:13 AM) 2.1 mg/dL (04/07/17 8:43 PM) Magnesium Lvl [1.8-2.4 mg/dL] 21 unit/L (04/07/17 11:29 AM) ALT [0-65 unit/L] 23 unit/L (04/07/17 11:29 AM) AST [0-37 unit/L] 81 unit/L (04/07/17 11:29 AM) Alk Phos [39-136 unit/L] 0.5 mg/dL (04/07/17 11:29 AM) Bili Total [0.2-1.3 mg/dL] 1Result Comment: The eGFR is calculated using the [...] from the National Kidney Disease Education Program ( NKDEP) which additionally recommends that when the eGFR is used in patients with extremes of body mass index for purposes of drug dosing, the eGFR should be mul tiplied by the estimated BMI. 2Result Comment: The eGFR is calculated using the [...] from the National Kidney Disease Education Program ( NKDEP) which additionally recommends that when the eGFR is used in patients with extremes of body mass index for purposes of drug dosing, the eGFR should be mul tiplied by the estimated BMI. 3Result Comment: The eGFR is calculated using the [...] from the National Kidney Disease Education Program ( NKDEP) which additionally recommends that when the eGFR is used in patients with extremes of body mass index for purposes of drug dosing, the eGFR should be mul tiplied by the estimated BMI. CARDIAC ENZYMES 1 2 3 Most recent to oldest [Reference Range]: 440 pg/mL *HI* (04/08/17 5:13 AM) BNP [<=100 pg/mL] HEMATOLOGY 1 2 3 Most recent to oldest [Reference Range]: 5.2 K/CMM (04/08/17 5:13 AM) 5.9 K/CMM (04/07/17 8:43 PM) 4.8 K/CMM (04/07/17 11:29 AM) WBC [3.7-10.4 K/CMM] 4.05 M/CMM *LOW* (04/08/17 5:13 AM) 4.11 M/CMM *LOW* (04/07/17 8:43 PM) 4.81 M/CMM (04/07/17 11:29 AM) RBC [4.20-5.40 M/CMM] 9.4 g/dL *LOW* (04/08/17 5:13 AM) 9.6 g/dL *LOW* (04/07/17 8:43 PM) 11.2 g/dL *LOW* (04/07/17 11:29 AM) Hgb [12.0-16.0 g/dL] 31.4 % *LOW* (04/08/17 5:13 AM) 30.7 % *LOW* (04/07/17 8:43 PM) 35.9 % *LOW* (04/07/17 11:29 AM) Hct [36.0-48.0 %] 77.4 fL *LOW* (04/08/17 5:13 AM) 74.8 fL *LOW* (04/07/17 8:43 PM) 74.7 fL *LOW* (04/07/17 11:29 AM) MCV [80.0-98.0 fL] 23.1 pg *LOW* (04/08/17 5:13 AM) 23.4 pg *LOW* (04/07/17 8:43 PM) 23.4 pg *LOW* (04/07/17 11:29 AM) MCH [27.0-31.0 pg] 29.9 g/dL *LOW* (04/08/17 5:13 AM) 31.3 g/dL *LOW* (04/07/17 8:43 PM) 31.3 g/dL *LOW* (04/07/17 11:29 AM) MCHC [32.0-36.0 g/dL] 19.9 % *HI* (04/08/17 5:13 AM) 19.8 % *HI* (04/07/17 8:43 PM) 20.0 % *HI* (04/07/17 11:29 AM) RDW [11.5-14.5 %] 189 K/CMM (04/08/17 5:13 AM) 205 K/CMM (04/07/17 8:43 PM) 290 K/CMM (04/07/17 11:29 AM) Platelet [133-450 K/CMM] 7.4 fL (04/08/17 5:13 AM) 7.0 fL *LOW* (04/07/17 8:43 PM) 6.8 fL *LOW* (04/07/17 11:29 AM) MPV [7.4-10.4 fL] 71.8 % (04/08/17 5:13 AM) 73.3 % (04/07/17 8:43 PM) 73.3 % (04/07/17 11:29 AM) Segs [45.0-75.0 %] 14.6 % *LOW* (04/08/17 5:13 AM) 13.4 % *LOW* (04/07/17 8:43 PM) 17.0 % *LOW* (04/07/17 11:29 AM) Lymphocytes [20.0-40.0 %] 12.1 % *HI* (04/08/17 5:13 AM) 11.7 % (04/07/17 8:43 PM) 8.5 % (04/07/17 11:29 AM) Monocytes [2.0-12.0 %] 0.9 % (04/08/17 5:13 AM) 1.0 % (04/07/17 8:43 PM) 0.4 % (04/07/17 11:29 AM) Eosinophils [0.0-4.0 %] 0.6 % (04/08/17 5:13 AM) 0.6 % (04/07/17 8:43 PM) 0.8 % (04/07/17 11:29 AM) Basophils [0.0-1.0 %] 3.7 K/CMM (04/08/17 5:13 AM) 4.4 K/CMM (04/07/17 8:43 PM) 3.5 K/CMM (04/07/17 11:29 AM) Segs-Bands # [1.5-8.1 K/CMM] 0.8 K/CMM *LOW* (04/08/17 5:13 AM) 0.8 K/CMM *LOW* (04/07/17 8:43 PM) 0.8 K/CMM *LOW* (04/07/17 11:29 AM) Lymphocytes # [1.0-5.5 K/CMM] 0.6 K/CMM (04/08/17 5:13 AM) 0.7 K/CMM (04/07/17 8:43 PM) 0.4 K/CMM (04/07/17 11:29 AM) Monocytes # [0.0-0.8 K/CMM] 0.1 K/CMM (04/07/17 8:43 PM) Eosinophils # [0.0-0.5 K/CMM] 1+ *ABN* (04/08/17 5:13 AM) 1+ *ABN* (04/07/17 8:43 PM) 1+ *ABN* (04/07/17 11:29 AM) Microcyte [None Seen] 14.7 seconds (04/08/17 5:13 AM) 15.5 seconds *HI* (04/07/17 8:43 PM) 14.1 seconds (04/07/17 11:29 AM) PT [12.0-14.7 seconds] 1.13 (04/08/17 5:13 AM) 1.20 *HI* (04/07/17 8:43 PM) 1.07 (04/07/17 11:29 AM) INR [0.85-1.17] 28.6 seconds (04/08/17 5:13 AM) 31.3 seconds (04/07/17 8:43 PM) 27.7 seconds (04/07/17 11:29 AM) PTT [22.9-35.8 seconds] Immunizations No data available for this section Procedures Procedure Date Related Diagnosis Body Site Cardiac catheterisation, left heart Cardiac catheterisation, right heart Social History Social History Type Response Smoking Status Former smoker; Ready to change: No; Concerns about tobacco use in household: No; Exposure to Tobacco Smoke None; Cigarette Smoking Last 365 Days No; Reg Smoking Cessation Counseling No1 1Patient quit smoking in 1975 Assessment and Plan Extracted from: Title: Cardiovascular Admission H&P Author: Simran Lima MD Date: 04/08/17 * Patient: KATHY CLEMENTS Age: 76 years Sex: Female : 1940 Associated Diagnoses: None Author: Simran Lima MD Basic Information Source of history: Self, Medical record. History limitation: None. Chief Complaint Pt. here for planned TAVR. Underwent procedure this afternoon. History of Present Illness 76-year-old woman with NICMP (LVEF 25-30%), permanent atrial fibrillation, h/o breast cancer status post chemotherapy (last treatment in 05/2016; no radiation) and double mastectomy in 02/2016, rheumatoid arthritis on prednisone, hypertension, hypothyroidism, and scoliosis, found to have symptomatic aortic stenosis (TITI 0.8 cm, mean gradient 35 mmHg), admitted for planned TAVR procedure. As ouptatinet was having progressive shortness of breath and associated orthopnea and leg edema. ECHO showed severe aortic stenosis as well as reduced EF 25-30%. She underwent dobutamine echo which showed elevated gradients across aortic valve, qualifying her for TAVR. She underwent tavr today, uneventful with 26mm Yuliet 3 valve. Patient seen on the floor. Wants to sleep. C/o some back pain. She was evaluated preop by pulm for a left upper lobe consolidation, likely pneumonia. No fevers/chills or cough. Review of Systems Constitutional: Negative. Ear/Nose/Mouth/Throat: Negative. Respiratory: Negative. Cardiovascular: Negative. Gastrointestinal: Negative. Hematology/Lymphatics: Negative. Immunologic: Negative. Musculoskeletal: Back pain. Neurologic: Negative. Psychiatric: Negative. Health Status Allergies: Allergic Reactions (All) Severity Not Documented Penicillins- No reactions were documented. Canceled/Inactive Reactions (All) Severity Not Documented NKDA- No reactions were documented., Allergies (1) ActiveReaction penicillinsNone Documented Current medications: (Selected) Inpatient Medications Ordered acetaminophen-hydrocodone 325 mg-5 mg oral tablet: 1 tab, PO, Q4H, PRN: Pain Score 4-6 acetaminophen-hydrocodone 325 mg-5 mg oral tablet: 2 tab, PO, Q4H, PRN: Pain Score 7-10 acetaminophen: 325 mg, 1 tab, PO, Q4H, PRN: Pain 1-3/Temp > 100.4 F aspirin 81 mg tablet, enteric coated: 81 mg, 1 tab, PO, Daily atenolol: 25 mg, 1 tab, PO, Daily citalopram: 10 mg, 1 tab, PO, Daily clopidogrel: 75 mg, 1 tab, PO, Daily folic acid: 1 mg, 1 tab, PO, Daily levothyroxine: 25 microgram, 1 tab, PO, Q630AM melatonin 5 mg tablet: 5 mg, 1 tab, PO, Bedtime pantoprazole: 40 mg, 1 tab, PO, Before Breakfast sodium chloride 0.9% 1000 ml INJ 1,000 mL: 75 ml/hr, IV, Stop: 05/07/17 11:10:00 CDT sodium chloride 0.9% 1000 ml INJ 750 mL: 75 ml/hr, IV, Stop: 04/08/17 5:37:00 CDT Documented Medications Suspended Calcium 600 +D oral tablet: 1 tab, PO, BID, 90 tab, 0 Refill(s) Citalopram 10 mg oral tablet: 10 mg, 1 tab, PO, Daily, 0 Refill(s) Hydroco/Apap: 5/325 mg, PRN, 0 Refill(s) Melatonin 5 mg oral capsule: 5 mg, 1 cap, PO, Bedtime, 0 Refill(s) atenolol: 25 mg, PO, Daily, 0 Refill(s) folic acid 1 mg oral tablet: 1 mg, 1 tab, PO, Daily, 30 tab, 0 Refill(s) furosemide 20 mg oral tablet: 20 mg, 1 tab, PO, Daily, 30 tab, 0 Refill(s) levothyroxine 25 mcg (0.025 mg) oral tablet: 25 microgram, 1 tab, PO, Daily, 30 tab, 0 Refill(s) lisinopril 2.5 mg oral tablet: 2.5 mg, 1 tab, PO, PRN, 30 tab, 0 Refill(s) pantoprazole 40 mg oral enteric coated tablet: 40 mg, 1 tab, PO, Daily, 30 tab, 0 Refill(s) potassium chloride 20 mEq oral tablet, extended release: 20 mEq, 1 tab, PO, Daily, 30 tab, 3 Refill(s) predniSONE 5 mg oral tablet: 5 mg, 1 tab, PO, Daily, for 7 day, Give with food., 7 tab, 0 Refill(s), Medications (13) Active Scheduled: (8) aspirin 81 mg ECT 81 mg 1 tab, PO, Daily atenolol 25 mg tab 25 mg 1 tab, PO, Daily citalopram 10 mg TAB 10 mg 1 tab, PO, Daily clopidogrel 75 mg TAB 75 mg 1 tab, PO, Daily folic acid 1 mg TAB 1 mg 1 tab, PO, Daily levothyroxine 25 microgram TAB 25 microgram 1 tab, PO, Q630AM melatonin 5 mg tab 5 mg 1 tab, PO, Bedtime pantoprazole 40 mg ECT 40 mg 1 tab, PO, Before Breakfast Continuous: (2) sodium chloride 0.9% 1000 ml INJ 1,000 mL 1,000 mL, IV, 75 ml/hr sodium chloride 0.9% 1000 ml INJ 750 mL 750 mL, IV, 75 ml/hr PRN: (3) acetaminophen 325 mg TABLET 325 mg 1 tab, PO, Q4H acetaminophen-hydrocodone 325 mg-5 mg tab 1 tab, PO, Q4H acetaminophen-hydrocodone 325 mg-5 mg tab 2 tab, PO, Q4H Problem list: All Problems Aortic stenosis / SNOMED CT 1735075447 / Confirmed Atrial fibrillation / SNOMED CT 55533781 / Confirmed Cardiomyopathy / SNOMED CT 448989490 / Confirmed History of breast cancer / SNOMED CT 9632321314 / Confirmed Hypertension / SNOMED CT 84566982 / Confirmed Hypothyroidism / SNOMED CT 80403872 / Confirmed Rheumatoid arthritis / SNOMED CT 785481640 / Confirmed Scoliosis / SNOMED CT 091906347 / Confirmed, Active Problems (8) Aortic stenosis Atrial fibrillation Cardiomyopathy History of breast cancer Hypertension Hypothyroidism Rheumatoid arthritis Scoliosis Physical Examination VS/Measurements Measurements from flowsheet : Measurements 04/07/2017 11:09 Heparin Dosing Weight (kg) 50.39 04/07/2017 11:09 Height 152.4 cm Height Collection Method Stated Weight 57.727 kg Dosing Weight Difference Percent 1.6 % Dosing Weight Collection Method Measured Body Surface Area 1.5633 m2 Body Mass Index 24.85 m2 , Vital Signs (last 24 hrs) Last Charted Temp Abaaxewb38.9 DegF (APRIL 07 23:00) Heart Rate Cbhrzz79 bpm (APRIL 07:41) Resp Rate 17 BRMIN (APRIL 07:41) SBPL 84mmHg (APRIL 07:) DBPL 52mmHg (APRIL 07:41) DlN963 % (APRIL 07:) Clkgft68.727 kg (APRIL 07:) Nwvzvj685.4 cm (APRIL 07 11:) BMI24.85 (APRIL 07 11:) General: Alert and oriented, No acute distress. Eye: Pupils are equal, round and reactive to light. HENT: Normocephalic. Neck: Supple, Non-tender. Respiratory: Bibasilar crackles. Cardiovascular: Normal rate, Regular rhythm, Normal peripheral perfusion, No edema. Gastrointestinal: Soft, Non-tender. Integumentary: Warm, [place], B/L groin sites - soft. no ecchymosis.. Neurologic: Alert, Oriented. Psychiatric: Cooperative. Review / Management Results review: Labs (Last four charted values) WBC 5.9(APRIL 07)4.8(APRIL 07) Hgb L 9.6(APRIL 07)L 11.2(APRIL 07) Hct L 30.7(APRIL 07)L 35.9(APRIL 07) Plt 205(APRIL 07)290(APRIL 07) Na 143(APRIL 07)141(APRIL 07) K 4.3(APRIL 07)4.7(APRIL 07) CO2 28(APRIL 07)H 33(APRIL 07) Cl 109(APRIL 07)103(APRIL 07) Cr 0.72(APRIL 07)0.91(APRIL 07) BUN H 23(APRIL 07)H 28(APRIL 07) Glucose Random 74(APRIL 07)99(APRIL 07) Mg 2.1(APRIL 07) Ca L 7.7(APRIL 07)9.0(APRIL 07) PT H 15.5(APRIL 07)14.1(APRIL 07) INR H 1.20(APRIL 07)1.07(APRIL 07) PTT 31.3(APRIL 07)27.7(APRIL 07). Impression and Plan 76-year-old woman with NICMP (LVEF 25-30%), permanent atrial fibrillation, h/o breast cancer status post chemotherapy (last treatment in 05/2016; no radiation) and double mastectomy in 02/2016, rheumatoid arthritis on prednisone, hypertension, hypothyroidism, severe aortic stenosis, admitted for TAVR - #Severe aortic stenosis s/p TAVR with 26mm Yuliet 3 valve - uncomplicated procedure. - c/w ASA and Plavix. - ECHO in AM to evaluate valve position and function. - monitor groin sites overnight. - BP control. #Permanent Atrial fibrillation - on atenolol. Restart with holding parameter. Is rate controlled. #NICMP 25-30% - compensated on exam. - Will evaluate in am to resum diuretics. - on atenolol and lisinopril low dose. #Rheumatoid arthritis - c/w PO prednisone. #Hypothyroidism - Synthroid 25mcg daily. #dvt ppx - sq heparin. PT/OT. Addendum Staff: by I have seen and examined the patient on 04/08/17 as well as formulated the assessment and shanti Christensen above with Dr. Paul. Christophe LAWSON I have reviewed all pertinent laboratory and imaging studies. on 04/08/2017 Christophe Christensen MD 08:28 Extracted from: Title: TAVR Operative Report Author: Chauncey Morin MD Date: 04/07/17 PROCEDURES PERFORMED: 1. Transcatheter aortic valve replacement with an 26mm Connor Yuliet 3 pericardial tissue heart valve via the right femoral artery. 2. Ascending aortic angiogram. 3. Placement of temporary pacing wire. 4. Abdominal aortic angiogram. 5. Proglide closure of the right femoral artery. 6. A 5-Kittitian Mynx closure of the left femoral arteriotomy. INDICATIONS FOR PROCEDURE: Patient is an 76-year-old female with severe symptomatic aortic stenosis who was referred to Dr. Damian for transcatheter aortic valve replacement. Patient currently has [place] Heart Association class III symptoms. PREPROCEDURE DIAGNOSIS: Severe symptomatic aortic stenosis. POSTPROCEDURE DIAGNOSIS: Successful placement of an Connor [employer] 26mm Yuliet 3 bioprosthetic aortic valve. OPERATORS: 1. Compounder, Dr. Marko Damian. 2. Cardiac surgeon, Dr. Lisy Castillo. 3. Interventional Replenisher, Dr. Chauncey Morin. PROCEDURE NOTE: After obtaining informed consent, patient was brought to the cardiac catheterization laboratory where patient was placed under monitored anesthesia care. The patient was prepped and draped in normal sterile fashion. After this, using 20 mL of 1% Xylocaine, both groins were locally anesthetized. Using a micropuncture needle, the left femoral artery was cannulated with a 5-Kittitian sheath and the left femoral veins were cannulated twice with two 6-Kittitian sheaths. The right femoral artery was cannulated with a 6-Kittitian sheath. After this, a wire was placed through the 6-Kittitian sheath. The sheath was then removed and a two Proglide devices were used to predeploy sutures into the artery. These sutures were mated and placed to the side. After this, a wire was placed through the Proglide device, the Proglide device was removed and exchanged for a 14-Kittitian [employer] sheath. After the sheath was sutured in place dilator was removed. Heparin was then given to achieve a therapeutic ACT. On the left femoral venous sheath, a 6-Kittitian pacing wire was placed on the intraventricular septum. Pacing thresholds and capture were confirmed. After this, a pigtail catheter was then taken up the 5-Kittitian sheath, placed in the noncoronary cusp and then an ascending aortic angiogram was done aligning all 3 cusps. After this, through the 14-Kittitian sheath, an AL1 catheter was taken to the aortic root and used to cross the aortic valve and exchanged over a J-wire. Over this J-wire, a pigtail catheter was placed. Simultaneous aortic and left ventricular pressures were measured and the mean gradient across the aortic valve was 37.68mmHg. The catheter was removed over an extra stiff Amplatz wire. After this, a 26 mm [employer] pericardial tissue heart valve, serial #[id number], model #[id number], was then advanced across the valve and under rapid ventricular pacing the valve was deployed. After this, delivery system was removed. An aortic angiogram demonstrated excellent placement of the valve. After this, the previous placed Perclose sutures were used to close the arteriotomy. Abdominal aortic angiogram from the left femoral artery through the pigtail was performed to demonstrate no residual leak. Prior to removing the catheters simultaneous pressures were remeasured across the aortic valve and the mean gradient across the aortic valve was 1.62 mmHg. After this, the left femoral artery had a 5-Kittitian Mynx placed with removal of venous sheaths after protamine was given for heparin reversal. There were no complications. Estimated blood loss was less than 30 cc. IMPRESSION: Successful placement of a 26mm [employer] Yuliet 3 pericardial tissue heart valve. PLAN: Patient will go to the post-anesthesia care unit for recovery and then taken to the HF IMU. Dr. Damian was present for the entire procedure and assisted in the critical portions of the procedure. Addendum Staff: I was present during the entire procedure on 04/07/17, performed all ross/critical by Rickie, slime and agree with the assessment and plan above. Marko Damian MD MD on 04/09/2017 11:32
--- OUTSIDE RECORDS SUMMARY | 2018-09-27 17:00 | XMS REPORT | Summary of Care ---
Author Author [facility] Organization [facility] Address Unknown Phone Unavailable Encounter KATIA Saxena(WILL) [id number] Date(s): 06/27/17 - 06/27/17 [facility] [address], [address] [place], [place] [address] Discharge Disposition: Home or Self Care Attending Physician: Marko Damian MD Referring Physician: Marko Damian MD Vital Signs Most recent to 1 oldest [Reference Range]: Height 152.4 cm (06/27/17 11:49 AM) Temperature Oral 98 DegF [96.4-99.1 DegF] (06/27/17 11:49 AM) Blood Pressure 115/61 mmHg [90-140/60-90 mmHg] (06/27/17 11:49 AM) Respiratory Rate 16 BRMIN [14-20 BRMIN] (06/27/17 11:49 AM) Peripheral Pulse 76 bpm Rate [60-100 bpm] (06/27/17 11:49 AM) Weight 56.364 kg (06/27/17 11:49 AM) Body Mass Index 24.27 m2 (06/27/17 11:49 AM) Problem List Condition Effective Dates Status Health Status Informant Atrial Resolved fibrillation(Confirm ed) Allergic Active rhinitis(Confirmed) Aortic Active stenosis(Confirmed) Aortic Resolved stenosis(Confirmed) Atrial Active fibrillation(Confirm ed) Cardiomyopathy(Confi Resolved rmed) Cardiomyopathy(Confi Active rmed) Chronic heart Active failure(Confirmed) History of breast Active cancer(Confirmed) Hypertension(Confirm Active ed) HTN Resolved (hypertension)(Confi rmed) Hypothyroid(Confirme Resolved d) Hypothyroidism(Confi Active rmed) Breast Resolved cancer(Confirmed) Pneumonia(Confirmed) Active Mild protein-calorie Active malnutrition(Confirm ed) Restrictive lung Active disease(Confirmed) RA (rheumatoid Resolved arthritis)(Confirmed ) Rheumatoid Active arthritis(Confirmed) Scoliosis(Confirmed) Resolved Scoliosis(Confirmed) Active Tracheobronchopathia Active -osteochondroplastic a(Confirmed) Allergies, Adverse Reactions, Alerts Substance Reaction Severity Status penicillins Active Medications metoprolol 25 mg oral tablet, extended release 25 mg=1 tab, PO, Daily, # 30 tab, 3 Refill(s), Pharmacy: [id number] Start Date: 06/27/17 Stop Date: 10/25/17 Status: Ordered Results No data available for this section Immunizations Given and Recorded Vaccine Date Status Refusal Reason pneumococcal 13-valent vaccine 06/12/17 Given Procedures Procedure Date Related Diagnosis Body Site Abdominal hysterectomy AVR - Aortic valve replacement Bilateral mastectomy Cardiac catheterisation, left heart Cardiac catheterisation, right heart Social History Social History Type Response Smoking Status Former smoker; Type: Cigarettes; Ready to change: No; Concerns about tobacco use in household: No; Exposure to Tobacco Smoke None; Cigarette Smoking Last 365 Days No; Reg Smoking Cessation Counseling No1 1Patient quit smoking in 1975 Assessment and Plan No data available for this section
--- OUTSIDE RECORDS SUMMARY | 2018-09-27 17:00 | XMS REPORT | Summary of Care ---
Author Author [facility] Organization [facility] Address Unknown Phone Unavailable Encounter KATIA Saxena(WILL) [id number] Date(s): 04/25/17 - 04/25/17 [facility] [address], [address] [place], [place] [address] Discharge Disposition: Home or Self Care Attending Physician: Esperanza Ramirez MD Referring Physician: Marko Damian MD Vital Signs Most recent to 1 oldest [Reference Range]: Height 152.4 cm (04/25/17 12:40 PM) Temperature Oral 97.9 DegF [96.4-99.1 DegF] (04/25/17 12:40 PM) Blood Pressure 108/65 mmHg [90-140/60-90 mmHg] (04/25/17 12:40 PM) Respiratory Rate 16 BRMIN [14-20 BRMIN] (04/25/17 12:40 PM) Peripheral Pulse 82 bpm Rate [60-100 bpm] (04/25/17 12:40 PM) Weight 59.347 kg (04/25/17 12:40 PM) Body Mass Index 25.55 m2 (04/25/17 12:40 PM) Problem List Condition Effective Dates Status [...] Substance Reaction Severity Status penicillins Active Medications No Known Medications Results No data available for this section [...]
--- OUTSIDE RECORDS SUMMARY | 2018-09-27 17:00 | XMS REPORT | Summary of Care ---
Author Author [facility] Organization [facility] Address Unknown Phone Unavailable Encounter KATIA Saxena(WILL) [id number] Date(s): 09/11/17 - 09/11/17 [facility] [address], [address] [place], [place] [address] Discharge Disposition: Home or Self Care Attending Physician: Marko Damian MD Referring Physician: Marko Damian MD Vital Signs Most recent to 1 oldest [Reference Range]: Height 152.4 cm (09/11/17 12:53 PM) Temperature Oral 97.1 DegF [96.4-99.1 DegF] (09/11/17 12:53 PM) Blood Pressure 123/74 mmHg [90-140/60-90 mmHg] (09/11/17 12:53 PM) Respiratory Rate 16 BRMIN [14-20 BRMIN] (09/11/17 12:53 PM) Peripheral Pulse 78 bpm Rate [60-100 bpm] (09/11/17 12:53 PM) Weight 53.295 kg (09/11/17 12:53 PM) Body Mass Index 22.95 m2 (09/11/17 12:53 PM) Problem List Condition Effective Dates Status Health Status Informant Atrial Resolved fibrillation(Confirm ed) Allergic Active rhinitis(Confirmed) Aortic Active stenosis(Confirmed) Aortic Resolved stenosis(Confirmed)1 Atrial Active fibrillation(Confirm ed) Cardiomyopathy(Confi Resolved rmed) Cardiomyopathy(Confi Active rmed) Chronic heart Active failure(Confirmed) CHF (congestive Resolved heart failure)(Confirmed) History of breast Active cancer(Confirmed) Hypertension(Confirm Active ed) HTN Resolved (hypertension)(Confi rmed) Hypothyroid(Confirme Resolved d) Hypothyroidism(Confi Active rmed) Breast Resolved cancer(Confirmed) Pneumonia(Confirmed) Active Mild protein-calorie Active malnutrition(Confirm ed) Restrictive lung Active disease(Confirmed) RA (rheumatoid Resolved arthritis)(Confirmed ) Rheumatoid Active arthritis(Confirmed) Scoliosis(Confirmed) Resolved Scoliosis(Confirmed) Active Sjogrens Resolved syndrome(Confirmed)2 Sjogren's Resolved syndrome(Confirmed) Tracheobronchopathia Active -osteochondroplastic a(Confirmed) 1TAVR done march 2Dry eyes and mouth Allergies, Adverse Reactions, Alerts Substance Reaction Severity [...]
--- OUTSIDE RECORDS SUMMARY | 2018-09-27 17:00 | XMS REPORT | Summary of Care ---
Author Author [facility] [place] Organization [facility] [place] Address Unknown Phone Unavailable Encounter HQ Hemanth(FIN) [id number] Date(s): 04/25/17 - 04/25/17 [facility] [place] [address] [place] [phone] Discharge Disposition: Home or Self Care Attending Physician: Esperanza Ramirez MD Vital Signs No data available for this section Problem List Condition Effective Dates Status Health [...] Reaction Severity Status penicillins Active Medications No data available for this [...]
--- OUTSIDE RECORDS SUMMARY | 2018-09-27 17:00 | XMS REPORT | Summary of Care ---
Author Author [facility] [place] Organization [facility] [place] Address Unknown Phone Unavailable Encounter [facility] Hemanth(FIN) [id number] Date(s): 05/16/17 - 05/16/17 [facility] [place] [address] [place] [phone] Discharge Disposition: Home or Self Care Attending [...]
--- OUTSIDE RECORDS SUMMARY | 2018-09-27 17:00 | XMS REPORT | Summary of Care ---
Author Author [facility] Organization [facility] Address Unknown Phone Unavailable Encounter KATIA Saxena(WILL) [id number] Date(s): 05/16/17 - 05/16/17 [facility] [address], [address] [place], [place] [address] Discharge Disposition: Home or Self Care Attending Physician: Marko Damian MD Referring Physician: Marko Damian MD Vital Signs Most recent to 1 oldest [Reference Range]: Height 152.91 cm (05/16/17 6:34 PM) Temperature Oral 98.3 DegF [96.4-99.1 DegF] (05/16/17 6:34 PM) Blood Pressure 111/77 mmHg [90-140/60-90 mmHg] (05/16/17 6:34 PM) Respiratory Rate 18 BRMIN [14-20 BRMIN] (05/16/17 6:34 PM) Peripheral Pulse 88 bpm Rate [60-100 bpm] (05/16/17 6:34 PM) Weight 60.045 kg (05/16/17 6:34 PM) Body Mass Index 25.68 m2 (05/16/17 6:34 PM) Problem List Condition Effective Dates Status [...]
--- OUTSIDE RECORDS SUMMARY | 2018-09-27 17:00 | XMS REPORT | Summary of Care ---
Author Author [facility] Organization [facility] Address Unknown Phone Unavailable Encounter KATIA Saxena(WILL) [id number] Date(s): 06/08/17 - 06/12/17 [facility] [address] [employer] provided by [employer] [facility] [employer] [place] [address]- Discharge Disposition: Home or Self Care Attending Physician: Bradford Butler MD Admitting Physician: Bradford Butler MD Vital Signs 1 2 3 Most recent to oldest [Reference Range]: 152.4 cm (06/08/17 6:46 PM) 152.4 cm (06/08/17 12:15 PM) Height 55.994 kg (06/12/17 5:04 AM) 58.835 kg (06/09/17 5:14 AM) 56.989 kg (06/08/17 6:41 PM) Current Weight 98.1 DegF (06/12/17 4:00 PM) 98.7 DegF (06/12/17 11:00 AM) 97.8 DegF (06/12/17 7:00 AM) Temperature Oral [96.4-99.1 DegF] 117/58 mmHg (06/12/17 6:00 PM) 96/64 mmHg (06/12/17 5:00 PM) 108/65 mmHg (06/12/17 4:00 PM) Blood Pressure [90-140/60-90 mmHg] 20 BRMIN (06/12/17 6:00 PM) 18 BRMIN (06/12/17 4:00 PM) 16 BRMIN (06/12/17 2:00 PM) Respiratory Rate [14-20 BRMIN] 92 bpm (06/08/17 12:15 PM) Peripheral Pulse Rate [60-100 bpm] 56.989 kg (06/08/17 6:46 PM) 58.182 kg (06/08/17 12:15 PM) Weight 24.54 m2 (06/08/17 6:46 PM) 25.05 m2 (06/08/17 12:15 PM) Body Mass Index Problem List Condition Effective Dates Status Health Status Informant Atrial Resolved fibrillation(Confirm ed) Aortic Active stenosis(Confirmed) Aortic Resolved stenosis(Confirmed) Atrial Active fibrillation(Confirm ed) Cardiomyopathy(Confi Resolved rmed) Cardiomyopathy(Confi Active rmed) History of breast Active cancer(Confirmed) Hypertension(Confirm Active ed) HTN Resolved (hypertension)(Confi rmed) Hypothyroid(Confirme Resolved d) Hypothyroidism(Confi Active rmed) Breast Resolved cancer(Confirmed) Mild protein-calorie Active malnutrition(Confirm ed) RA (rheumatoid Resolved arthritis)(Confirmed ) Rheumatoid Active arthritis(Confirmed) Scoliosis(Confirmed) Resolved Scoliosis(Confirmed) Active Allergies, Adverse Reactions, Alerts Substance Reaction Severity Status penicillins Active Medications AMIODarone 200 mg, 1 tab, Route: PO, Drug form: TAB, BID, Dosing Weight 56.989, kg, Start d ate: 06/11/17 17:00:00 CDT, Duration: 30 day, Stop date: 07/11/17 9:00:00 CDT Notes: (Same as: Cordarone) Start Date: 06/11/17 Stop Date: 06/12/17 Status: Discontinued AMIODarone + D5W 97 mL 150 mg, 3 mL, Route: IVPB, Drug form: INJ, ONCE, Dosing Weight 56.989, kg, Start date: 06/10/17 12:53:00 CDT, Stop date: 06/10/17 12:53:00 CDT Notes: Central administration only for concentrations > 2 mg/ml."Recommendation: Use an in-line filter during administration for continuous infusions to reduce the incidence of phlebitis"(Same as Codarone) MEDICATION WASTE Product Size: 150 mgProduct Wasted: ___ mg Start Date: 06/10/17 Stop Date: 06/10/17 Status: Completed AMIODarone 200 mg oral tablet 200 mg=1 tab, PO, BID, # 60 tab, 3 Refill(s) Start Date: 06/12/17 Stop Date: 10/10/17 Status: Ordered AMIODarone INJ 900 mg + D5W 500 ml INJ 482 mL 900 mg, 18 mL, Rate: 1 mg/min for 6 hours, then reduce to 0.5 mg/min, Dosing Richard ght 56.989, kg, Route: IV, Total Volume: 500, Start Date: 06/10/17 12:54:00 CDT, Duration: 30 day, Stop date: 07/10/17 12:53:00 CDT, Replace Every: 24 hr Notes: Central administration only for concentration > 2 mg/ml. Use Glass Bottle or Non PVC Bag"Use 0.22 micron in-line filter" MEDICATION WASTE Product Size: 900 mgProduct Wasted: ___ mg Start Date: 06/10/17 Stop Date: 06/11/17 Status: Discontinued aspirin 81 mg tablet, enteric coated 81 mg, 1 tab, Route: PO, Drug form: ECTAB, Daily, Dosing Weight 58.182, kg, Star t date: 06/09/17 9:00:00 CDT, Duration: 30 day, Stop date: 07/08/17 9:00:00 CDT Notes: Do not crush or chew.(Same As: Ecotrin) Start Date: 06/09/17 Stop Date: 06/12/17 Status: Discontinued atenolol 25 mg, Route: PO, Daily, Dosing Weight 58.182, kg, Start date: 06/09/17 9:00:00 CDT, Duration: 30 day, Stop date: 07/08/17 9:00:00 CDT Start Date: 06/09/17 Stop Date: 06/08/17 Status: Canceled bisacodyl 10 mg, 1 supp, Route: AL, Drug form: SUPP, Daily, Dosing Weight 56.989, kg, PRN Constipation, Start date: 06/09/17 10:38:00 CDT, Duration: 30 day, Stop date: 10:37:00 CDT Notes: (Same As: Dulcolax, Bisco-Lax) Start Date: 06/09/17 Stop Date: 06/12/17 Status: Discontinued calcium gluconate + sodium chloride 0.9% INJ 80 mL 2 gm, 20 mL, Route: IVPB, PRN, Dosing Weight 58.182, kg, PRN Abnormal Lab Result , For NON-ICU Patients Only., Start date: 06/08/17 16:01:00 CDT, Duration: 30 da y, Stop date: 07/08/17 16:00:00 CDT Notes: WASTE: F/P - Sink; E - Municipal Trash Bin Start Date: 06/08/17 Stop Date: 06/12/17 Status: Discontinued calcium gluconate + sodium chloride 0.9% INJ 80 mL 3 gm, 30 mL, Route: IVPB, PRN, Dosing Weight 58.182, kg, PRN Abnormal Lab Result , For NON-ICU Patients Only., Start date: 06/08/17 16:01:00 CDT, Duration: 30 da y, Stop date: 07/08/17 16:00:00 CDT Notes: WASTE: F/P - Sink; E - Municipal Trash Bin Start Date: 06/08/17 Stop Date: 06/12/17 Status: Discontinued Coumadin 4 mg, 2 tab, Route: PO, Drug form: TAB, Q5PM, Dosing Weight 56.989, kg, Start da te: 06/12/17 17:00:00 CDT, Duration: 1 doses or times, Stop date: 06/12/17 17:00 :00 CDT Notes: Nurse to ensure documentation of patient education per anticoagulation po licy.Avoid large intake of vitamin-K containing foods diet.(Same As: Coumadin)WA FABIAN: F/P - P Waste Black; E - P Waste Black Start Date: 06/12/17 Stop Date: 06/12/17 Status: Completed Coumadin 4 mg oral tablet 4 mg, PO, Q5PM, # 60 tab, 1 Refill(s) Start Date: 06/12/17 Status: Ordered diphenhydrAMINE 25 mg, 0.5 mL, Route: IVP, Drug form: INJ, ONCE, Dosing Weight 56.989, kg, PRN I tching, Start date: 06/11/17 23:58:00 CDT Notes: (Same as: Benadryl) Start Date: 06/11/17 Stop Date: 06/12/17 Status: Completed docusate 100 mg, 1 cap, Route: PO, Drug form: CAP, BID, Dosing Weight 56.989, kg, Start d ate: 06/09/17 17:00:00 CDT, Duration: 30 day, Stop date: 07/09/17 9:00:00 CDT Notes: (Same as: Colace) (Do Not Crush) Start Date: 06/09/17 Stop Date: 06/12/17 Status: Discontinued Eliquis 5 mg, 1 tab, Route: PO, Drug form: TAB, BID, Dosing Weight 58.182, kg, Start vishal e: 06/08/17 21:00:00 CDT, Duration: 30 day, Stop date: 07/08/17 9:00:00 CDT Notes: Same as: Eliquis Start Date: 06/08/17 Stop Date: 06/10/17 Status: Discontinued folic acid 1 mg, 1 tab, Route: PO, Drug form: TAB, Daily, Dosing Weight 56.989, kg, Start d ate: 06/09/17 16:30:00 CDT, Duration: 30 day, Stop date: 07/09/17 9:00:00 CDT Notes: (Same as: Folvite) Start Date: 06/09/17 Stop Date: 06/12/17 Status: Discontinued furosemide 60 mg, 6 mL, Route: IVP, Drug form: INJ, BID, Dosing Weight 56.989, kg, Start da te: 06/11/17 9:00:00 CDT, Duration: 30 day, Stop date: 07/10/17 17:00:00 CDT Notes: (Same as: Lasix) Start Date: 06/11/17 Stop Date: 06/11/17 Status: Discontinued Lasix 40 mg, 4 mL, Route: IVP, Drug form: INJ, ONCE, Dosing Weight 58.182, kg, Priorit y: STAT, Start date: 06/08/17 14:38:00 CDT, Stop date: 06/08/17 14:38:00 CDT Notes: (Same as: Lasix) MEDICATION WASTE Product Size: 40 mgProduct Was era: _0__ mg Start Date: 06/08/17 Stop Date: 06/08/17 Status: Completed Lasix 60 mg, 6 mL, Route: IV, Drug form: INJ, TID, Dosing Weight 58.182, kg, Start vishal e: 06/08/17 17:00:00 CDT, Duration: 30 day, Stop date: 07/08/17 13:00:00 CDT Notes: (Same as: Lasix) MEDICATION WASTE Product Size: 40 mgProduct Was era: ___ mg Start Date: 06/08/17 Stop Date: 06/10/17 Status: Discontinued levothyroxine 25 microgram, 1 tab, Route: PO, Drug form: TAB, Q630AM, Dosing Weight 56.989, kg , Start date: 06/09/17 16:30:00 CDT, Duration: 30 day, Stop date: 07/09/17 6:30: 00 CDT Notes: Take 1 hour before or 2 hours after meal; Enteral feeds may interefere wi th the absorption of this medication. (Same as:Levothroid) Start Date: 06/09/17 Stop Date: 06/12/17 Status: Discontinued magic mouth wash 15 mL, Route: S&SPIT, Drug Form: SUSP, Dosing Weight 56.989, kg, Q6H, PRN Mouth Pain, Start date: 06/12/17 8:34:00 CDT, Duration: 30 day, Stop date: 07/12/17 8:33:00 CDT Notes: diphen elix/mag-al liq/lido visc 1:1:1 90ml susp Start Date: 06/12/17 Stop Date: 06/12/17 Status: Discontinued magnesium oxide 800 mg, 2 tab, Route: PO, Drug form: TAB, PRN, Dosing Weight 58.182, kg, PRN Abn ormal Lab Result, For NON-ICU Patients Only., Start date: 06/08/17 16:01:00 CDT, Duration: 30 day, Stop date: 07/08/17 16:00:00 CDT Notes: (Same as: Mag-Ox 400)Magnesium oxide [id number] elemental magnesiumDose= ____mg magnesium oxide (___mg elemental magnesium) Start Date: 06/08/17 Stop Date: 06/12/17 Status: Discontinued magnesium sulfate 1 gm, 100 mL, Route: IVPB, Drug form: INJ, PRN, Dosing Weight 58.182, kg, PRN Ab normal Lab Result, For NON-ICU Patients Only., Start date: 06/08/17 16:01:00 CDT , Duration: 30 day, Stop date: 07/08/17 16:00:00 CDT Notes: WASTE: F/P - Sink; E - Municipal Trash Bin Start Date: 06/08/17 Stop Date: 06/12/17 Status: Discontinued magnesium sulfate 2 gm, 50 mL, Route: IVPB, Drug form: INJ, PRN, Dosing Weight 58.182, kg, PRN Abn ormal Lab Result, For NON-ICU Patients Only., Start date: 06/08/17 16:01:00 CDT, Duration: 30 day, Stop date: 07/08/17 16:00:00 CDT Notes: WASTE: F/P - Sink; E - Municipal Trash Bin Start Date: 06/08/17 Stop Date: 06/12/17 Status: Discontinued [place] 5/325 oral tablet 1 tab, Route: PO, Drug Form: TAB, Dosing Weight 56.989, kg, Q6H, PRN Pain Score 1-3, Start date: 06/09/17 1:09:00 CDT, Duration: 30 day, Stop date: 07/09/17 1:0 8:00 CDT Notes: (Same as: [place] 325/5) Do not exceed 4gm/day of acetaminophen. Start Date: 06/09/17 Stop Date: 06/12/17 Status: Discontinued pantoprazole 40 mg, 1 tab, Route: PO, Drug form: ECTAB, Before Breakfast, Dosing Weight 56.98 9, kg, Start date: 06/09/17 16:30:00 CDT, Duration: 30 day, Stop date: 07/09/17 7:30:00 CDT Notes: Tablet should not be chewed or crushed.(Same as: Protonix) Start Date: 06/09/17 Stop Date: 06/12/17 Status: Discontinued pneumococcal 13-valent vaccine 0.5 mL, Route: IM, Drug Form: INJ, Daily, Start date: 06/09/17 9:00:00 CDT, Dura tion: 1 doses or times, Stop date: 06/09/17 9:00:00 CDT Notes: Shake well prior to use (Same as: Prevnar 13) Start Date: 06/09/17 Stop Date: 06/09/17 Status: Completed potassium chloride 20 mEq, 1 tab, Route: PO, Drug form: ERTAB, PRN, Dosing Weight 58.182, kg, PRN A bnormal Lab Result, For NON-ICU Patients Only, Start date: 06/08/17 16:01:00 CDT , Duration: 30 day, Stop date: 07/08/17 16:00:00 CDT Notes: (Same as: K-Dur 20)"Do Not Crush" With food and full glass of water Start Date: 06/08/17 Stop Date: 06/12/17 Status: Discontinued potassium chloride 20 mEq, 15 mL, Route: NJ, Drug form: LIQ, PRN, Dosing Weight 58.182, kg, PRN Abn ormal Lab Result, For NON-ICU Patients Only, Start date: 06/08/17 16:01:00 CDT, Duration: 30 day, Stop date: 07/08/17 16:00:00 CDT Notes: (Same as: Potassium Chloride) Start Date: 06/08/17 Stop Date: 06/12/17 Status: Discontinued potassium chloride 10 mEq, 100 mL, Route: IVPB, Drug form: INJ, PRN, Dosing Weight 58.182, kg, PRN Abnormal Lab Result, For NON-ICU Patients Only, Start date: 06/08/17 16:01:00 CD T, Duration: 30 day, Stop date: 07/08/17 16:00:00 CDT Notes: Infuse at a rate of 10 mEq/hr.(Same as: KCL) Start Date: 06/08/17 Stop Date: 06/12/17 Status: Discontinued potassium chloride 20 mEq oral tablet, extended release 20 mEq=1 tab, PO, BID, # 60 tab, 2 Refill(s) Start Date: 06/12/17 Status: Ordered potassium phosphate + sodium chloride 0.9% INJ 250 mL 15 mmol, 5 mL, Route: IVPB, PRN, Dosing Weight 58.182, kg, PRN Abnormal Lab Resu lt, For NON-ICU Patients Only., Start date: 06/08/17 16:01:00 CDT, Duration: 30 day, Stop date: 07/08/17 16:00:00 CDT Notes: (Same as: K Phosphate.) 1 mMol phoshate has 1.47 mEq potassium Infuse o ed 4 hours Start Date: 06/08/17 Stop Date: 06/12/17 Status: Discontinued potassium phosphate + sodium chloride 0.9% INJ 250 mL 30 mmol, 10 mL, Route: IVPB, PRN, Dosing Weight 58.182, kg, PRN Abnormal Lab Res ult, For NON-ICU Patients Only., Start date: 06/08/17 16:01:00 CDT, Duration: 30 day, Stop date: 07/08/17 16:00:00 CDT Notes: (Same as: K Phosphate.) 1 mMol phoshate has 1.47 mEq potassium Infuse o ed 4 hours Start Date: 06/08/17 Stop Date: 06/12/17 Status: Discontinued potassium phosphate-sodium phosphate 250 mg-280 mg-160 mg oral powder for recons titution 2 pkt, Route: PO, Drug Form: PDR/REC, Dosing Weight 58.182, kg, PRN, PRN Abnorma l Lab Result, For NON-ICU Patients Only, Start date: 06/08/17 16:01:00 CDT, Dura tion: 30 day, Stop date: 07/08/17 16:00:00 CDT Notes: (Same as: Phos-NaK) Each 1.5 gm pkt has 250mg phosphorous. Mix w/2.5oz w ater and stir. Start Date: 06/08/17 Stop Date: 06/12/17 Status: Discontinued predniSONE 5 mg, 1 tab, Route: PO, Drug form: TAB, Daily, Dosing Weight 58.182, kg, Start d ate: 06/09/17 9:00:00 CDT, Duration: 30 day, Stop date: 07/08/17 9:00:00 CDT Notes: Take with food. Start Date: 06/09/17 Stop Date: 06/12/17 Status: Discontinued predniSONE 5 mg oral tablet 5 mg=1 tab, PO, Daily, 0 Refill(s) Start Date: 06/12/17 Status: Ordered senna 17.2 mg, 2 tab, Route: PO, Drug Form: TAB, Dosing Weight 56.989, kg, Daily, Star t date: 06/09/17 13:00:00 CDT, Duration: 30 day, Stop date: 07/09/17 9:00:00 CDT Notes: (Same as: Senokot) Start Date: 06/09/17 Stop Date: 06/12/17 Status: Discontinued sodium phosphate + sodium chloride 0.9% INJ 250 mL 15 mmol, 5 mL, Route: IVPB, PRN, Dosing Weight 58.182, kg, PRN Abnormal Lab Resu lt, For NON-ICU Patients Only., Start date: 06/08/17 16:01:00 CDT, Duration: 30 day, Stop date: 07/08/17 16:00:00 CDT Start Date: 06/08/17 Stop Date: 06/12/17 Status: Discontinued sodium phosphate + sodium chloride 0.9% INJ 250 mL 30 mmol, 10 mL, Route: IVPB, PRN, Dosing Weight 58.182, kg, PRN Abnormal Lab Res ult, For NON-ICU Patients Only., Start date: 06/08/17 16:01:00 CDT, Duration: 30 day, Stop date: 07/08/17 16:00:00 CDT Start Date: 06/08/17 Stop Date: 06/12/17 Status: Discontinued torsemide 10 mg, 1 tab, Route: PO, Drug form: TAB, Q5PM, Dosing Weight 56.989, kg, Start d ate: 06/12/17 17:00:00 CDT, Duration: 30 day, Stop date: 07/11/17 17:00:00 CDT Notes: (Same As: Demadex) Start Date: 06/12/17 Stop Date: 06/12/17 Status: Discontinued torsemide 20 mg, 1 tab, Route: PO, Drug form: TAB, Daily, Dosing Weight 56.989, kg, Start date: 06/12/17 9:00:00 CDT, Duration: 30 day, Stop date: 07/11/17 9:00:00 CDT Notes: (Same As: Demadex) Start Date: 06/12/17 Stop Date: 06/12/17 Status: Discontinued torsemide 10 mg oral tablet See Instructions, 2 tab (20mg QAM) 1 tab (10mg PO QPM), # 90 tab, 2 Refill(s) Start Date: 06/12/17 Status: Ordered warfarin 4 mg, 2 tab, Route: PO, Drug form: TAB, Q5PM, Dosing Weight 56.989, kg, Start da te: 06/11/17 17:00:00 CDT, Duration: 1 doses or times, Stop date: 06/11/17 17:00 :00 CDT Notes: Nurse to ensure documentation of patient education per anticoagulation po licy.Avoid large intake of vitamin-K containing foods diet.(Same As: Coumadin)RI FABIAN: F/P - P Waste Black; E - P Waste Black Start Date: 06/11/17 Stop Date: 06/11/17 Status: Completed warfarin 2.5 mg, 1 tab, Route: PO, Drug form: TAB, Q5PM, Dosing Weight 56.989, kg, Start date: 06/10/17 21:00:00 CDT, Duration: 1 doses or times, Stop date: 06/10/17 21: 00:00 CDT Notes: Nurse to ensure documentation of patient education per anticoagulation po licy.Avoid large intake of vitamin-K containing foods diet.(Same As: Coumadin)RI FABIAN: F/P - P Waste Black; E - P Waste Black Start Date: 06/10/17 Stop Date: 06/10/17 Status: Completed Results ELECTROLYTES 1 2 3 Most recent to oldest [Reference Range]: 136 mEq/L (06/12/17 5:14 AM) 130 mEq/L *LOW* (06/11/17 4:30 AM) 135 mEq/L (06/10/17 4:17 AM) Sodium Lvl [135-145 mEq/L] 3.8 mEq/L (06/12/17 5:14 AM) 3.6 mEq/L (06/11/17 4:30 AM) 4.0 mEq/L (06/10/17 4:17 AM) Potassium Lvl [3.5-5.1 mEq/L] 95 mEq/L (06/12/17 5:14 AM) 89 mEq/L *LOW* (06/11/17 4:30 AM) 94 mEq/L *LOW* (06/10/17 4:17 AM) Chloride Lvl [95-109 mEq/L] 34 mEq/L *HI* (06/12/17 5:14 AM) 35 mEq/L *HI* (06/11/17 4:30 AM) 34 mEq/L *HI* (06/10/17 4:17 AM) CO2 [24-32 mEq/L] 10.8 mEq/L (06/12/17 5:14 AM) 9.6 mEq/L *LOW* (06/11/17 4:30 AM) 11.0 mEq/L (06/10/17 4:17 AM) AGAP [10.0-20.0 mEq/L] CHEM PANEL 1 2 3 Most recent to oldest [Reference Range]: 0.99 mg/dL (06/12/17 5:14 AM) 1.01 mg/dL (06/11/17 4:30 AM) 1.01 mg/dL (06/10/17 4:17 AM) Creatinine Lvl [0.50-1.40 mg/dL] 54 mL/min/1.73m2 1 *NA* (06/12/17 5:14 AM) 53 mL/min/1.73m2 2 *NA* (06/11/17 4:30 AM) 53 mL/min/1.73m2 3 *NA* (06/10/17 4:17 AM) eGFR 37 mg/dL *HI* (06/12/17 5:14 AM) 38 mg/dL *HI* (06/11/17 4:30 AM) 37 mg/dL *HI* (06/10/17 4:17 AM) BUN [7-22 mg/dL] 38 *HI* (06/11/17 4:30 AM) 37 *HI* (06/10/17 4:17 AM) 36 *HI* (06/09/17 5:11 AM) B/C Ratio [6-25] 82 mg/dL (06/12/17 5:14 AM) 88 mg/dL (06/11/17 4:30 AM) 75 mg/dL (06/10/17 4:17 AM) Glucose Lvl [70-99 mg/dL] 7.8 g/dL (06/11/17 4:30 AM) 8.0 g/dL (06/10/17 4:17 AM) 6.9 g/dL (06/09/17 5:11 AM) Total Protein [6.4-8.4 g/dL] 2.6 g/dL *LOW* (06/11/17 4:30 AM) 2.6 g/dL *LOW* (06/10/17 4:17 AM) 2.4 g/dL *LOW* (06/09/17 5:11 AM) Albumin Lvl [3.5-5.0 g/dL] 5.2 g/dL *HI* (06/11/17 4:30 AM) 5.4 g/dL *HI* (06/10/17 4:17 AM) 4.5 g/dL *HI* (06/09/17 5:11 AM) Globulin [2.7-4.2 g/dL] 0.5 *LOW* (06/11/17 4:30 AM) 0.5 *LOW* (06/10/17 4:17 AM) 0.5 *LOW* (06/09/17 5:11 AM) A/G Ratio [0.7-1.6] 8.9 mg/dL (06/12/17 5:14 AM) 8.9 mg/dL (06/11/17 4:30 AM) 9.0 mg/dL (06/10/17 4:17 AM) Calcium Lvl [8.5-10.5 mg/dL] 3.3 mg/dL (06/11/17 4:30 AM) 3.4 mg/dL (06/10/17 4:17 AM) 3.6 mg/dL (06/09/17 5:11 AM) Phosphorus [2.5-4.5 mg/dL] 2.4 mg/dL (06/11/17 4:30 AM) 2.3 mg/dL (06/10/17 4:17 AM) 2.1 mg/dL (06/09/17 5:11 AM) Magnesium Lvl [1.8-2.4 mg/dL] 17 unit/L (06/11/17 4:30 AM) 20 unit/L (06/10/17 4:17 AM) 18 unit/L (06/09/17 5:11 AM) ALT [0-65 unit/L] 29 unit/L (06/11/17 4:30 AM) 35 unit/L (06/10/17 4:17 AM) 29 unit/L (06/09/17 5:11 AM) AST [0-37 unit/L] 87 unit/L (06/11/17 4:30 AM) 94 unit/L (06/10/17 4:17 AM) 83 unit/L (06/09/17 5:11 AM) Alk Phos [39-136 unit/L] 0.6 mg/dL (06/11/17 4:30 AM) 0.6 mg/dL (06/10/17 4:17 AM) 0.6 mg/dL (06/09/17 5:11 AM) Bili Total [0.2-1.3 mg/dL] 1Result Comment: [...] 3 Most recent to oldest [Reference Range]: <0.02 ng/mL (06/08/17 1:50 PM) Troponin-I [0.00-0.40 ng/mL] 367 pg/mL *HI* (06/08/17 1:50 PM) BNP [<=100 pg/mL] HEMATOLOGY 1 2 3 Most recent to oldest [Reference Range]: 4.6 K/CMM (06/12/17 5:14 AM) 5.1 K/CMM (06/11/17 4:30 AM) 5.4 K/CMM (06/10/17 4:17 AM) WBC [3.7-10.4 K/CMM] 4.36 M/CMM (06/12/17 5:14 AM) 4.46 M/CMM (06/11/17 4:30 AM) 4.49 M/CMM (06/10/17 4:17 AM) RBC [4.20-5.40 M/CMM] 10.4 g/dL *LOW* (06/12/17 5:14 AM) 10.8 g/dL *LOW* (06/11/17 4:30 AM) 11.0 g/dL *LOW* (06/10/17 4:17 AM) Hgb [12.0-16.0 g/dL] 32.8 % *LOW* (06/12/17 5:14 AM) 33.4 % *LOW* (06/11/17 4:30 AM) 33.5 % *LOW* (06/10/17 4:17 AM) Hct [36.0-48.0 %] 75.2 fL *LOW* (06/12/17 5:14 AM) 74.9 fL *LOW* (06/11/17 4:30 AM) 74.7 fL *LOW* (06/10/17:17 AM) MCV [80.0-98.0 fL] 23.8 pg *LOW* (06/12/17 5:14 AM) 24.3 pg *LOW* (06/11/17 4:30 AM) 24.5 pg *LOW* (06/10/17:17 AM) MCH [27.0-31.0 pg] 31.6 g/dL *LOW* (06/12/17 5:14 AM) 32.4 g/dL (06/11/17 4:30 AM) 32.8 g/dL (06/10/17 4:17 AM) MCHC [32.0-36.0 g/dL] 19.4 % *HI* (06/12/17 5:14 AM) 19.4 % *HI* (06/11/17 4:30 AM) 19.6 % *HI* (06/10/17:17 AM) RDW [11.5-14.5 %] 153 K/CMM (06/12/17 5:14 AM) 144 K/CMM (06/11/17 4:30 AM) 164 K/CMM (06/10/17 4:17 AM) Platelet [133-450 K/CMM] 7.3 fL *LOW* (06/12/17 5:14 AM) 7.5 fL (06/11/17 4:30 AM) 7.3 fL *LOW* (06/10/17:17 AM) MPV [7.4-10.4 fL] 70.1 % (06/12/17 5:14 AM) 72.6 % (06/11/17 4:30 AM) 75.3 % *HI* (06/10/17:17 AM) Segs [45.0-75.0 %] 12.3 % *LOW* (06/12/17 5:14 AM) 12.4 % *LOW* (06/11/17 4:30 AM) 12.1 % *LOW* (06/10/17 4:17 AM) Lymphocytes [20.0-40.0 %] 14.5 % *HI* (06/12/17 5:14 AM) 12.4 % *HI* (06/11/17 4:30 AM) 10.7 % (06/10/17 4:17 AM) Monocytes [2.0-12.0 %] 2.6 % (06/12/17 5:14 AM) 2.0 % (06/11/17 4:30 AM) 1.6 % (06/10/17 4:17 AM) Eosinophils [0.0-4.0 %] 0.5 % (06/12/17 5:14 AM) 0.6 % (06/11/17 4:30 AM) 0.3 % (06/10/17 4:17 AM) Basophils [0.0-1.0 %] 3.2 K/CMM (06/12/17 5:14 AM) 3.7 K/CMM (06/11/17 4:30 AM) 4.1 K/CMM (06/10/17 4:17 AM) Segs-Bands # [1.5-8.1 K/CMM] 0.6 K/CMM *LOW* (06/12/17 5:14 AM) 0.6 K/CMM *LOW* (06/11/17 4:30 AM) 0.7 K/CMM *LOW* (06/10/17 4:17 AM) Lymphocytes # [1.0-5.5 K/CMM] 0.7 K/CMM (06/12/17 5:14 AM) 0.6 K/CMM (06/11/17 4:30 AM) 0.6 K/CMM (06/10/17 4:17 AM) Monocytes # [0.0-0.8 K/CMM] 0.1 K/CMM (06/12/17 5:14 AM) 0.1 K/CMM (06/11/17 4:30 AM) 0.1 K/CMM (06/10/17 4:17 AM) Eosinophils # [0.0-0.5 K/CMM] 1+ *ABN* (06/12/17 5:14 AM) 1+ *ABN* (06/11/17 4:30 AM) 1+ *ABN* (06/10/17 4:17 AM) Microcyte [None Seen] 15.1 seconds *HI* (06/12/17 5:14 AM) 18.2 seconds *HI* (06/11/17 4:30 AM) 21.7 seconds *HI* (06/10/17 4:17 AM) PT [12.0-14.7 seconds] 1.17 (06/12/17 5:14 AM) 1.48 *HI* (06/11/17 4:30 AM) 1.85 *HI* (06/10/17 4:17 AM) INR [0.85-1.17] 32.7 seconds (06/12/17 5:14 AM) 29.8 seconds (06/11/17 4:30 AM) 34.9 seconds (06/10/17 4:17 AM) PTT [22.9-35.8 seconds] Immunizations Given and Recorded Vaccine Date Status [...] 1977 Assessment and Plan Extracted from: Title: AHF Progress Note Author: Turner Pena MD Date: 06/12/17 Impression and Plan 76 yo with NICM (LVEF now 40% on 05/16/17), 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 # Acute on chronic systolic heart failure exacerbation - change lasix to torsemide 20mg/10mg - echo done 06/09: EF 35-40%, no AI. Systolic function decreased from previous echo. - continue aspirin, hold BB/BIANCA in setting of acute decompensation and low-normal BPs # Atrial fibrillation - switch amiodarone drip to 200 mg PO BID - will not be able to afford Eliquis after one month, will switch to warfarin. - warfarin dosed tonight. # RA - continue pred 5 daily (home medication) # JOSE R consolidation - follows with pulmonary, stable from previous CTs - Pulmonary consulted - CT chest done: JOSE R consolidation has resolved DVT: warfarin Dispo: IM--discharge today Extracted from: Title: AHF Admission Note Author: Doris Benson MD Date: 06/08/17 Patient: KATHY CLEMENTS Age: 76 years Sex: Female : 1940 Associated Diagnoses: None Author: Doris Benson MD Basic Information Referral source Chief Complaint 06/08/2017 12:15 general weakness, sob and decreased urine output for one week. 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 NYHA class III-IV. Worsening orthopnea and lower extremity swelling. Increased her lasix to 40 po daily since last clinic visit on 04/2017 but feels it is not enough. Has been compliant with diet and medications. Denies chest pain, palpitations. No other complaints. Review of Systems 10 point ROS negative except per HPI Health Status Allergies: Allergic Reactions (All) Severity Not Documented Penicillins- No reactions were documented. Canceled/Inactive Reactions (All) Severity Not Documented NKDA- No reactions were documented., Allergies (1) ActiveReaction penicillinsNone Documented Current medications: Home Medications (13) Active aspirin 81 mg tablet, enteric coated 81 mg=1 tab, PO, Daily atenolol 25 mg, PO, Daily Calcium 600 +D oral tablet 1 tab, PO, BID Citalopram 10 mg oral tablet 10 mg=1 tab, PO, Daily Eliquis 5 mg oral tablet 5 mg=1 tab, PO, BID folic acid 1 mg oral tablet 1 mg=1 tab, PO, Daily furosemide 20 mg oral tablet 20 mg=1 tab, PO, Daily levothyroxine 25 mcg (0.025 mg) oral tablet 25 microgram=1 tab, PO, Daily lisinopril 2.5 mg oral tablet 2.5 mg=1 tab, PO, PRN Melatonin 5 mg oral capsule 5 mg=1 cap, PO, Bedtime pantoprazole 40 mg oral enteric coated tablet 40 mg=1 tab, PO, Daily potassium chloride 20 mEq oral tablet, extended release 20 mEq=1 tab, PO, Daily predniSONE 5 mg oral tablet 5 mg=1 tab, PO, Daily , Medications (15) Active Scheduled: (2) furosemide 10mg/ml INJ 4ml VL 60 mg 6 mL, IV, TID pneumococcal 13-valent conjugate vaccine SUSP 0.5 mL, IM, Daily Continuous: (0) PRN: (13) calcium gluconate 100mg/ml 10ml VL + sodium chloride 0.9% INJ 80 mL 2 gm 20 mL, IVPB, PRN calcium gluconate 100mg/ml 10ml VL + sodium chloride 0.9% INJ 80 mL 3 gm 30 mL, IVPB, PRN magnesium oxide (242 mg elemental) tab 800 mg 2 tab, PO, PRN magnesium sulfate 1gm/100ml D5W premix 1 gm 100 mL, IVPB, PRN magnesium sulfate 2 gm/H20 50ml soln 2 gm 50 mL, IVPB, PRN potassium chloride 10 mEq/100 ml PB 10 mEq 100 mL, IVPB, PRN potassium chloride 20 mEq ERT 20 mEq 1 tab, PO, PRN potassium chloride 20mEq/15ml LIQ ud 20 mEq 15 mL, NJ, PRN potassium phosphate 3mmol/1ml 15ml VL + sodium chloride 0.9% INJ 250 mL 15 mmol 5 mL, IVPB, PRN potassium phosphate 3mmol/1ml 15ml VL + sodium chloride 0.9% INJ 250 mL 30 mmol 10 mL, IVPB, PRN potassium phosphate-sodium phosphate 1.5 gm pkt 2 pkt, PO, PRN sodium phosphate 3 mmol/1 ml 15 ml vial + sodium chloride 0.9% INJ 250 mL 15 mmol 5 mL, IVPB, PRN sodium phosphate 3 mmol/1 ml 15 ml vial + sodium chloride 0.9% INJ 250 mL 30 mmol 10 mL, IVPB, PRN Problem list: All Problems Aortic stenosis / SNOMED CT 2276345938 / Confirmed Atrial fibrillation / SNOMED CT 70935757 / Confirmed Cardiomyopathy / SNOMED CT 604138758 / Confirmed History of breast cancer / SNOMED CT 1978002408 / Confirmed Hypertension / SNOMED CT 06146426 / Confirmed Hypothyroidism / SNOMED CT 70099332 / Confirmed Rheumatoid arthritis / SNOMED CT 288484638 / Confirmed Scoliosis / SNOMED CT 970981766 / Confirmed, Active Problems (8) Aortic stenosis Atrial fibrillation Cardiomyopathy History of breast cancer Hypertension Hypothyroidism Rheumatoid arthritis Scoliosis Histories Past Medical History: Resolved Aortic stenosis (410458563): Resolved. Atrial fibrillation (7537684043): Resolved. Cardiomyopathy (331719567): Resolved. Breast cancer (012707663): Resolved. HTN (hypertension) (8837330084): Resolved. Hypothyroid (017398891): Resolved. RA (rheumatoid arthritis) (120174832): Resolved. Scoliosis (847383319): Resolved. Family History: History is unknown. Procedure history (This Hospitalization): Cardiac catheterisation, right heart (000359678). Cardiac catheterisation, left heart (024915739). Physical Examination VS/Measurements Measurements from flowsheet : Measurements 06/08/2017 12:19 Heparin Dosing Weight (kg) 50.57 06/08/2017 12:15 Height 152.4 cm Height Collection Method Stated Weight 58.182 kg Dosing Weight Difference Percent -3.103 % Dosing Weight Collection Method Estimated Body Surface Area 1.5694 m2 Body Mass Index 25.05 m2 , Vital Signs (last 24 hrs) Last Charted Temp Oral98.3 DegF (JUN 08:) Heart Rate Gynxkj52 bpm (JUN 08:) Resp Rate H 22BRMIN (JUN 08) SAZ897 mmHg (JUN 08:) DBP60 mmHg (JUN 08:) BnX605 % (JUN 08) Eahvyy90.182 kg (JUN 08) Bjeoqm886.4 cm (JUN 08) BMI25.05 (JUN 08) , VitalsTmp(F)OmrurWQFRHpT5CYY8 06/08 17:30----54845/413132 2.0L/m 06/08 16:08----16408/466074 2.0L/m 06/08 15:02----09865/384880--- 06/08 14:14----8395/930945--- 06/08 12:1598.69429/243172--- 24 Hr Tmax: 98.3F (36.83c) at 06/08 12:15Vital Signs are the last 5 in the past 48 hours. Intake and Output I/O Intake OutputBalance 06/08/20177a-3p 0.00 0.00 0.00 3p-11p 0.00 370.00 -370.00As of 17:45 11p-7a 0.00 0.00 0.00 Totals 0.00 370.00 -370.00 06/07/20177a-3p 0.00 0.00 0.00 3p-11p 0.00 0.00 0.00 11p-7a 0.00 0.00 0.00 Totals 0.00 0.00 0.00 06/06/20177a-3p 0.00 0.00 0.00 3p-11p 0.00 0.00 0.00 11p-7a 0.00 0.00 0.00 Totals 0.00 0.00 0.00 General: Alert and oriented, No acute distress. HENT: Tympanic membranes are clear, Normal hearing, Oral mucosa is moist. Neck: pos HJR. Respiratory: crackles to mid lung snow. Cardiovascular: irregular but rate controlled. Gastrointestinal: Soft, Non-tender. Musculoskeletal Normal range of motion. Normal strength. Integumentary: Warm. Neurologic: Alert, Oriented, Normal sensory. Psychiatric: Cooperative, Appropriate mood & affect. Objective VS/Measurements Measurements from flowsheet : Measurements 06/08/2017 12:19 Heparin Dosing Weight (kg) 50.57 06/08/2017 12:15 Height 152.4 cm Height Collection Method Stated Weight 58.182 kg Dosing Weight Difference Percent -3.103 % Dosing Weight Collection Method Estimated Body Surface Area 1.5694 m2 Body Mass Index 25.05 m2 , Vital Signs (last 24 hrs) Last Charted Temp Oral98.3 DegF (JUN 08:) Heart Rate Bbbaya00 bpm (JUN 08:30) Resp Rate H 22BRMIN (JUN 08:30) RCK527 mmHg (JUN 08:30) DBP60 mmHg (JUN 08:30) JcU868 % (JUN 08:30) Kkndol93.182 kg (JUN 08:) Qzavds478.4 cm (JUN 08) BMI25.05 (MAXINE 20 12:15) Review / Management Results review: Labs (Last four charted values) WBC 6.1(JUN 08) Hgb L 10.0(JUN 08) Hct L 31.7(JUN 08) Plt 146(JUN 08) Na 138(JUN 08) K 4.7(JUN 08) CO2 28(JUN 08) Cl 101(JUN 08) Cr 1.00(JUN 08) BUN H 30(JUN 08) Glucose Random 93(JUN 08) Ca 8.6(JUN 08) Troponin <0.02(JUN 08). Laboratory Results Radiology results Discussed with radiologist Cardiology Results Left ventricular ejection fraction: 06/08/2017 17:30 Oxygen Therapy ModeNasal cannula SpO2 Lines and Tubes: Lines, Tubes, and Drains: 06/08/2017 16:25 Peripheral Lines: Antecubital Right 20 gauge Over the needle catheter . 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 # Acute on chronic systolic heart failure exacerbation - start lasix 60 IV TID - repeat echo to evaluate valve and ventricular function - continue aspirin, hold BB/BIANCA in setting of acute decompensation and low-normal BPs # Atrial fibrillation - not rhythm controlled - rates in 60s, hold BB tonight but likely can resume in AM if volume status improves - continue eliquis, will not be able to afford it after one month and will need to switch to coumadin # RA - continue pred 5 daily (home medication) # JOSE R consolidation - follows with pulmonary, stable from previous CTs - can obtain CT chest when more euvolemic as she was to get one next week for further evaluation DVT: eliquis Dispo: IMU Addendum Cardiology Attend Attestation: by Jean-Paul, I have seen and examined the patient with Dr. Benson on 06/08/17. I have reviewed Fernando LAWSON all the clinical information, lab investigation and imaging data. I agree with the above on findings, assessment and plan. 06/09/2017 18:26 Addendum atrial fibrillation, permanent by Doris Hi MD on 06/11/2017 18:29
--- OUTSIDE RECORDS SUMMARY | 2018-09-27 17:01 | XMS REPORT | Summary of Care ---
Author Author [facility] Organization [facility] Address Unknown Phone Unavailable Encounter HQ Hemanth(WILL) [id number] Date(s): 11/10/17 - 11/17/17 [facility] [address] [employer] provided by [facility] [place] [address]- Final: Influenza due to unidentified influenza virus with other respiratory george festations Discharge Diagnosis: Influenza Discharge Disposition: Home or Self Care Attending Physician: Bradford Butler MD Admitting Physician: Bradford Butler MD Vital Signs 1 2 3 Most recent to oldest [Reference Range]: 152.4 cm (11/10/17 9:46 PM) 157.48 cm (11/10/17 3:08 PM) Height 52.841 kg (11/17/17 5:42 AM) 51.364 kg (11/16/17 6:02 AM) 52.301 kg (11/15/17 6:02 AM) Current Weight 97.3 DegF (11/17/17 5:21 PM) 98.7 DegF (11/17/17 12:19 PM) 97.8 DegF (11/17/17 8:35 AM) Temperature Oral [96.4-99.1 DegF] 126/74 mmHg (11/17/17 6:00 PM) 125/74 mmHg (11/17/17 5:00 PM) 110/67 mmHg (11/17/17 4:00 PM) Blood Pressure [90-140/60-90 mmHg] 18 BRMIN (11/17/17 6:00 PM) 20 BRMIN (11/17/17 5:00 PM) 18 BRMIN (11/17/17 4:00 PM) Respiratory Rate [14-20 BRMIN] 59 bpm *LOW* (11/10/17 3:08 PM) Peripheral Pulse Rate [60-100 bpm] 53.818 kg (11/10/17 9:46 PM) 54.545 kg (11/10/17 3:08 PM) Weight 23.17 m2 (11/10/17 9:46 PM) 21.99 m2 (11/10/17 3:08 PM) Body Mass Index Problem List Condition [...] Substance Reaction Severity Status penicillins Active Medications acetaminophen-oxycodone 325 mg-5 mg oral tablet 1 tab, Route: PO, Drug Form: TAB, Dosing Weight 53.818, kg, ONCE, PRN Pain Score 1-3, Start date: 11/13/17 22:46:00 PROGRESSIVE CARE UNIT REGISTERED NURSE Notes: Do not exceed 4gm/day of acetaminophen. (Same as: Percocet-5/325) Start Date: 11/13/17 Stop Date: 11/13/17 Status: Completed AMIODarone 200 mg, 1 tab, Route: PO, Drug form: TAB, Daily, Dosing Weight 54.545, kg, Start date: 11/11/17 9:00:00 PROGRESSIVE CARE UNIT REGISTERED NURSE, Duration: 30 day, Stop date: 12/10/17 9:00:00 PROGRESSIVE CARE UNIT REGISTERED NURSE Notes: (Same as: Cordarone) Start Date: 11/11/17 Stop Date: 11/17/17 Status: Discontinued aspirin 81 mg tablet, enteric coated 81 mg, 1 tab, Route: PO, Drug form: ECTAB, Daily, Dosing Weight 54.545, kg, Star t date: 11/11/17 9:00:00 PROGRESSIVE CARE UNIT REGISTERED NURSE, Duration: 30 day, Stop date: 12/10/17 9:00:00 PROGRESSIVE CARE UNIT REGISTERED NURSE Notes: Do not crush or chew.(Same As: Ecotrin) Start Date: 11/11/17 Stop Date: 11/17/17 Status: Discontinued azithromycin 500 mg, 2 tab, Route: PO, Drug form: TAB, Daily, Dosing Weight 54.545, kg, Start date: 11/11/17 9:00:00 PROGRESSIVE CARE UNIT REGISTERED NURSE, Stop date: 11/14/17 9:00:00 PROGRESSIVE CARE UNIT REGISTERED NURSE, ABX Indication: Ba cteremia Notes: Take 1 hour before or 2 hours after meals.(Same As: Zithromax) Start Date: 11/11/17 Stop Date: 11/14/17 Status: Completed azithromycin 500 mg oral tablet 500 mg, 2 tab, Route: PO, Drug form: TAB, ONCE, Dosing Weight 54.545, kg, Start date: 11/10/17 18:09:00 PROGRESSIVE CARE UNIT REGISTERED NURSE, Stop date: 11/10/17 18:09:00 PROGRESSIVE CARE UNIT REGISTERED NURSE, ABX Indication: E D - Suspected Sepsis Notes: Take 1 hour before or 2 hours after meals.(Same As: Zithromax) Start Date: 11/10/17 Stop Date: 11/10/17 Status: Completed Benadryl 25 mg, 1 cap, Route: PO, Drug form: CAP, ONCE, Dosing Weight 53.818, kg, Start d ate: 11/13/17 0:53:00 PROGRESSIVE CARE UNIT REGISTERED NURSE, Stop date: 11/13/17 0:53:00 PROGRESSIVE CARE UNIT REGISTERED NURSE Notes: (Same as: Benadryl) Start Date: 11/13/17 Stop Date: 11/13/17 Status: Completed budesonide 0.25 mg, 2 mL, Route: NEB, Drug form: SUSP, RBID, Dosing Weight 53.818, kg, Star t date: 11/12/17 17:22:00 PROGRESSIVE CARE UNIT REGISTERED NURSE, Duration: 30 day, Stop date: 12/12/17 8:00:00 PROGRESSIVE CARE UNIT REGISTERED NURSE Notes: (Same As: Pulmicort respule). Start Date: 11/12/17 Stop Date: 11/14/17 Status: Discontinued budesonide-formoterol 80 mcg-4.5 mcg/inh inhalation aerosol with adapter 2 inhalation, Route: INHALATION, Drug Form: AERO/A, RBID, Start date: 11/17/17 1 8:14:00 PROGRESSIVE CARE UNIT REGISTERED NURSE, Duration: 30 day, Stop date: 12/17/17 8:00:00 PROGRESSIVE CARE UNIT REGISTERED NURSE Notes: (Same as: Symbicort)WASTE: Aerosol - Return to Pharmacy Start Date: 11/17/17 Stop Date: 11/17/17 Status: Discontinued calcium-vitamin D 500 mg-200 intl units oral tablet 1 tab, Route: PO, Drug Form: TAB, Dosing Weight 54.545, kg, BID, Start date: 9:00:00 PROGRESSIVE CARE UNIT REGISTERED NURSE, Duration: 30 day, Stop date: 12/10/17 17:00:00 PROGRESSIVE CARE UNIT REGISTERED NURSE Notes: (Same As: Ana-D, OsCal-D, Oyster Calcium) Start Date: 11/11/17 Stop Date: 11/17/17 Status: Discontinued Cipro 250 mg, 1 tab, Route: PO, Drug form: TAB, [id number], Start date: 11/12/17 12:00:00 PROGRESSIVE CARE UNIT REGISTERED NURSE, Duration: 3 day, Stop date: 11/15/17 0:00:00 PROGRESSIVE CARE UNIT REGISTERED NURSE, ABX Indication: Urinary Tract Infection Notes: May interfere w/enteral feedings - Take 1 hr before or 2 hrs after antac ids, dairy pdt & minerals. On empty stomach. Start Date: 11/12/17 Stop Date: 11/15/17 Status: Completed ciprofloxacin 500 mg, Route: PO, Daily, Dosing Weight 53.818, kg, Start date: 11/13/17 9:00:00 PROGRESSIVE CARE UNIT REGISTERED NURSE, Duration: 3 day, Stop date: 11/15/17 9:00:00 PROGRESSIVE CARE UNIT REGISTERED NURSE, ABX Indication: Urinary Tract Infection Start Date: 11/13/17 Stop Date: 11/12/17 Status: Discontinued citalopram 10 mg, 1 tab, Route: PO, Drug form: TAB, Daily, Dosing Weight 54.545, kg, Start date: 11/11/17 9:00:00 PROGRESSIVE CARE UNIT REGISTERED NURSE, Duration: 30 day, Stop date: 12/10/17 9:00:00 PROGRESSIVE CARE UNIT REGISTERED NURSE Start Date: 11/11/17 Stop Date: 11/17/17 Status: Discontinued Coumadin 2 mg, 1 tab, Route: PO, Drug form: TAB, ONCE, Dosing Weight 54.545, kg, Start da te: 11/10/17 17:59:00 PROGRESSIVE CARE UNIT REGISTERED NURSE, Stop date: 11/10/17 17:59:00 PROGRESSIVE CARE UNIT REGISTERED NURSE Notes: Nurse to ensure documentation of patient education per anticoagulation po licy.Avoid large intake of vitamin-K containing foods diet.(Same As: Coumadin)[place] FABIAN: F/P - P Waste Black; E - P Waste Black Start Date: 11/10/17 Stop Date: 11/10/17 Status: Completed dextromethorphan extended release 60 mg, Route: PO, Drug form: ER Suspension, Q12H, Dosing Weight 53.818, kg, Star t date: 11/12/17 21:00:00 PROGRESSIVE CARE UNIT REGISTERED NURSE, Duration: 30 day, Stop date: 12/12/17 9:00:00 PROGRESSIVE CARE UNIT REGISTERED NURSE Start Date: 11/12/17 Stop Date: 11/12/17 Status: Canceled dextromethorphan-guaiFENesin 20 mg-200 mg/10 mL oral liquid 10 mL, PO, Q6H, X 7 day, # 280 mL, 0 Refill(s) Start Date: 11/15/17 Stop Date: 11/22/17 Status: Ordered DuoNeb inhalation solution 3 ml, Route: NEB, Drug Form: SOLN, Dosing Weight 53.818, kg, RQ6H, PRN Respirato ry Protocol, Start date: 11/12/17 11:32:00 PROGRESSIVE CARE UNIT REGISTERED NURSE, Duration: 30 day, Stop date: 11:31:00 PROGRESSIVE CARE UNIT REGISTERED NURSE Notes: (Same as: Duoneb) Start Date: 11/12/17 Stop Date: 11/17/17 Status: Discontinued fluticasone-salmeterol 100 mcg-50 mcg MDI 1 inhalation, Route: INHALER, Dosing Weight 53.818, kg, RBID, Start date: 18:01:00 PROGRESSIVE CARE UNIT REGISTERED NURSE, Duration: 30 day, Stop date: 12/17/17 8:00:00 PROGRESSIVE CARE UNIT REGISTERED NURSE Start Date: 11/17/17 Stop Date: 11/17/17 Status: Discontinued fluticasone-salmeterol 100 mcg-50 mcg MDI 1 inhalation, INHALER, RBID, # 28 ea, 1 Refill(s) Start Date: 11/17/17 Stop Date: 11/17/17 Status: Discontinued fluticasone-salmeterol 100 mcg-50 mcg MDI 1 inhalation, INHALER, RBID, # 60 ea, 1 Refill(s) Start Date: 11/17/17 Stop Date: 01/16/18 Status: Ordered folic acid 1 mg, 1 tab, Route: PO, Drug form: TAB, Daily, Dosing Weight 54.545, kg, Start d ate: 11/11/17 9:00:00 PROGRESSIVE CARE UNIT REGISTERED NURSE, Duration: 30 day, Stop date: 12/10/17 9:00:00 PROGRESSIVE CARE UNIT REGISTERED NURSE Notes: (Same as: Folvite) Start Date: 11/11/17 Stop Date: 11/17/17 Status: Discontinued Lactated Ringers (Bolus) IV 500 mL, 500 ml/hr, Infuse Over: 1 hr, Route: IV, 500, Drug form: INJ, ONCE, Prio rity: STAT, Dosing Weight 54.545 kg, Start date: 11/10/17 16:52:00 PROGRESSIVE CARE UNIT REGISTERED NURSE, Stop vishal e: 11/10/17 16:52:00 PROGRESSIVE CARE UNIT REGISTERED NURSE Start Date: 11/10/17 Stop Date: 11/10/17 Status: Completed levofloxacin 750 mg, 150 mL, Route: IVPB, Drug form: SOLN, ONCE, Dosing Weight 54.545, kg, St art date: 11/10/17 16:52:00 PROGRESSIVE CARE UNIT REGISTERED NURSE, Stop date: 11/10/17 16:52:00 PROGRESSIVE CARE UNIT REGISTERED NURSE, ABX Indicatio n: Pneumonia Notes: (Same as:Levaquin) Start Date: 11/10/17 Stop Date: 11/10/17 Status: Discontinued levothyroxine 25 microgram, 1 tab, Route: PO, Drug form: TAB, Daily, Dosing Weight 54.545, kg, Start date: 11/11/17 9:00:00 PROGRESSIVE CARE UNIT REGISTERED NURSE, Duration: 30 day, Stop date: 12/10/17 9:00:00 PROGRESSIVE CARE UNIT REGISTERED NURSE Notes: Take 1 hour before or 2 hours after meal; Enteral feeds may interefere wi th the absorption of this medication. (Same as:Levothroid) Start Date: 11/11/17 Stop Date: 11/17/17 Status: Discontinued Mucinex 600 mg, 1 tab, Route: PO, Drug form: ERTAB, Q12H, Dosing Weight 53.818, kg, Star t date: 11/12/17 21:00:00 PROGRESSIVE CARE UNIT REGISTERED NURSE, Duration: 30 day, Stop date: 12/12/17 9:00:00 PROGRESSIVE CARE UNIT REGISTERED NURSE Notes: (Same as: Guaifenesin LA, Humibid LA, Mucinex)"Do Not Crush" Take medica tion with plenty of water. Start Date: 11/12/17 Stop Date: 11/12/17 Status: Canceled Conrad 5/325 oral tablet 1 tab, Route: PO, Drug Form: TAB, Dosing Weight 53.818, kg, ONCE, Start date: 20:57:00 PROGRESSIVE CARE UNIT REGISTERED NURSE, Stop date: 11/12/17 20:57:00 PROGRESSIVE CARE UNIT REGISTERED NURSE Notes: (Same as: Conrad 325/5) Do not exceed 4gm/day of acetaminophen. Start Date: 11/12/17 Stop Date: 11/12/17 Status: Completed Conrad 5/325 oral tablet 1 tab, Route: PO, Drug Form: TAB, Dosing Weight 53.818, kg, ONCE, Start date: 22:12:00 PROGRESSIVE CARE UNIT REGISTERED NURSE, Stop date: 11/14/17 22:12:00 PROGRESSIVE CARE UNIT REGISTERED NURSE Notes: (Same as: Conrad 325/5) Do not exceed 4gm/day of acetaminophen. Start Date: 11/14/17 Stop Date: 11/14/17 Status: Completed Conrad 5/325 oral tablet 1 tab, Route: PO, Drug Form: TAB, Dosing Weight 53.818, kg, ONCE, Start date: 1:43:00 PROGRESSIVE CARE UNIT REGISTERED NURSE, Stop date: 11/11/17 1:43:00 PROGRESSIVE CARE UNIT REGISTERED NURSE Notes: (Same as: Conrad 325/5) Do not exceed 4gm/day of acetaminophen. Start Date: 11/11/17 Stop Date: 11/11/17 Status: Completed Conrad 5/325 oral tablet 1 tab, Route: PO, Drug Form: TAB, Dosing Weight 53.818, kg, ONCE, PRN Pain Score 1-3, Start date: 11/11/17 2:15:00 PROGRESSIVE CARE UNIT REGISTERED NURSE Notes: (Same as: Conrad 325/5) Do not exceed 4gm/day of acetaminophen. Start Date: 11/11/17 Stop Date: 11/11/17 Status: Completed Conrad 5/325 oral tablet 1 tab, Route: PO, Drug Form: TAB, Dosing Weight 53.818, kg, ONCE, PRN Pain Score 1-3, Start date: 11/11/17 22:59:00 PROGRESSIVE CARE UNIT REGISTERED NURSE Notes: (Same as: Conrad 325/5) Do not exceed 4gm/day of acetaminophen. Start Date: 11/11/17 Stop Date: 11/11/17 Status: Completed pantoprazole 40 mg, 1 tab, Route: PO, Drug form: ECTAB, Daily, Dosing Weight 54.545, kg, Star t date: 11/11/17 9:00:00 PROGRESSIVE CARE UNIT REGISTERED NURSE, Duration: 30 day, Stop date: 12/10/17 9:00:00 PROGRESSIVE CARE UNIT REGISTERED NURSE Notes: Tablet should not be chewed or crushed.(Same as: Protonix) Start Date: 11/11/17 Stop Date: 11/17/17 Status: Discontinued potassium chloride 20 mEq oral tablet, extended release 20 mEq, 1 tab, Route: PO, Drug form: ERTAB, Daily, Dosing Weight 54.545, kg, Sta rt date: 11/11/17 9:00:00 PROGRESSIVE CARE UNIT REGISTERED NURSE, Duration: 30 day, Stop date: 12/10/17 9:00:00 PROGRESSIVE CARE UNIT REGISTERED NURSE Notes: (Same as: K-Dur 20)"Do Not Crush" With food and full glass of water Start Date: 11/11/17 Stop Date: 11/13/17 Status: Discontinued predniSONE 5 mg, 1 tab, Route: PO, Drug form: TAB, Daily, Dosing Weight 54.545, kg, Start d ate: 11/11/17 9:00:00 PROGRESSIVE CARE UNIT REGISTERED NURSE, Duration: 30 day, Stop date: 12/10/17 9:00:00 PROGRESSIVE CARE UNIT REGISTERED NURSE Notes: Take with food. Start Date: 11/11/17 Stop Date: 11/17/17 Status: Discontinued Robitussin-DM 10 ml, Route: PO, Drug Form: SYRP, Dosing Weight 53.818, kg, Q6H, Start date: 20:00:00 PROGRESSIVE CARE UNIT REGISTERED NURSE, Duration: 30 day, Stop date: 12/12/17 18:00:00 PROGRESSIVE CARE UNIT REGISTERED NURSE Notes: (dextromethorphan-guaifenesin 10-100mg/5ml 10 ml oral SOLN ud) (Same as: Robitussin DM) Start Date: 11/12/17 Stop Date: 11/17/17 Status: Discontinued Saline Flush 0.9% 10 mL, Route: IVP, Drug Form: INJ, Dosing Weight 54.545, kg, PRN, PRN Line Flush , Start date: 11/10/17 15:56:00 PROGRESSIVE CARE UNIT REGISTERED NURSE, Duration: 30 day, Stop date: 12/10/17 15:55 :00 PROGRESSIVE CARE UNIT REGISTERED NURSE Notes: (Same as: BD Posiflush) Start Date: 11/10/17 Stop Date: 11/17/17 Status: Discontinued TamiFLU 30 mg, 1 cap, Route: PO, Drug form: CAP, Daily, Dosing Weight 54.545, kg, CrCl > 30 to 60 ml/hr, Start date: 11/10/17 18:30:00 PROGRESSIVE CARE UNIT REGISTERED NURSE, Duration: 5 day, Stop date: 11/15/17 9:00:00 PROGRESSIVE CARE UNIT REGISTERED NURSE Notes: Same as: TamilfuTake with Food Start Date: 11/10/17 Stop Date: 11/12/17 Status: Discontinued TamiFLU 75 mg, 1 cap, Route: PO, Drug form: CAP, BID, Dosing Weight 53.818, kg, Start da te: 11/12/17 17:00:00 PROGRESSIVE CARE UNIT REGISTERED NURSE, Duration: 3 day, Stop date: 11/15/17 9:00:00 PROGRESSIVE CARE UNIT REGISTERED NURSE Notes: Take with food.Same as: Tamiflu) Start Date: 11/12/17 Stop Date: 11/15/17 Status: Completed Toprol-XL 25 mg oral tablet, extended release 25 mg, 1 tab, Route: PO, Drug form: ERTAB, Daily, Start date: 11/11/17 9:00:[address], Duration: 30 day, Stop date: 12/10/17 9:00:00 PROGRESSIVE CARE UNIT REGISTERED NURSE Notes: (Same as: Toprol XL) Do Not Crush Start Date: 11/11/17 Stop Date: 11/17/17 Status: Discontinued Tylenol 325 mg, 1 tab, Route: PO, Drug form: TAB, Q6H, Dosing Weight 53.818, kg, PRN Sotero n Score 1-3, Start date: 11/12/17 13:39:00 PROGRESSIVE CARE UNIT REGISTERED NURSE, Duration: 30 day, Stop date: 13:38:00 PROGRESSIVE CARE UNIT REGISTERED NURSE Notes: Do not exceed 4 gm/day. (Same as: Tylenol) Start Date: 11/12/17 Stop Date: 11/17/17 Status: Discontinued warfarin 3 mg, 1 tab, Route: PO, Drug form: TAB, Q5PM, Dosing Weight 53.818, kg, Start da te: 11/12/17 17:00:00 PROGRESSIVE CARE UNIT REGISTERED NURSE, Duration: 1 doses or times, Stop date: 11/12/17 17:00 :00 PROGRESSIVE CARE UNIT REGISTERED NURSE Notes: Nurse to ensure documentation of patient education per anticoagulation po licy.Avoid large intake of vitamin-K containing foods diet.(Same As: Coumadin)[place] FABIAN: F/P - P Waste Black; E - P Waste Black Start Date: 11/12/17 Stop Date: 11/12/17 Status: Completed warfarin 4 mg, Route: PO, Drug form: TAB, Q5PM, Dosing Weight 53.818, kg, Start date: 17:00:00 PROGRESSIVE CARE UNIT REGISTERED NURSE, Duration: 1 doses or times, Stop date: 11/15/17 17:00:00 PROGRESSIVE CARE UNIT REGISTERED NURSE Start Date: 11/15/17 Stop Date: 11/15/17 Status: Deleted warfarin 3 mg, 1 tab, Route: PO, Drug form: TAB, Q5PM, Dosing Weight 53.818, kg, Start da te: 11/13/17 17:00:00 PROGRESSIVE CARE UNIT REGISTERED NURSE, Duration: 1 doses or times, Stop date: 11/13/17 17:00 :00 PROGRESSIVE CARE UNIT REGISTERED NURSE Notes: Nurse to ensure documentation of patient education per anticoagulation po licy.Avoid large intake of vitamin-K containing foods diet.(Same As: Coumadin)[place] FABIAN: F/P - P Waste Black; E - P Waste Black Start Date: 11/13/17 Stop Date: 11/13/17 Status: Completed warfarin 2 mg, 1 tab, Route: PO, Drug form: TAB, Q5PM, Dosing Weight 53.818, kg, Start da te: 11/11/17 17:00:00 PROGRESSIVE CARE UNIT REGISTERED NURSE, Duration: 1 doses or times, Stop date: 11/11/17 17:00 :00 PROGRESSIVE CARE UNIT REGISTERED NURSE Notes: Nurse to ensure documentation of patient education per anticoagulation po licy.Avoid large intake of vitamin-K containing foods diet.(Same As: Coumadin)[place] FABIAN: F/P - P Waste Black; E - P Waste Black Start Date: 11/11/17 Stop Date: 11/11/17 Status: Completed Results ELECTROLYTES 1 2 3 Most recent to oldest [Reference Range]: 139 mEq/L (11/17/17 2:26 AM) 140 mEq/L (11/16/17 3:29 AM) 138 mEq/L (11/15/17 4:58 AM) Sodium Lvl [135-145 mEq/L] 3.8 mEq/L (11/17/17 2:26 AM) 4.1 mEq/L (11/16/17 3:29 AM) 4.3 mEq/L (11/15/17 4:58 AM) Potassium Lvl [3.5-5.1 mEq/L] 103 mEq/L (11/17/17 2:26 AM) 102 mEq/L (11/16/17 3:29 AM) 101 mEq/L (11/15/17 4:58 AM) Chloride Lvl [95-109 mEq/L] 30 mEq/L (11/17/17 2:26 AM) 33 mEq/L *HI* (11/16/17 3:29 AM) 31 mEq/L (11/15/17 4:58 AM) CO2 [24-32 mEq/L] 9.8 mEq/L *LOW* (11/17/17 2:26 AM) 9.1 mEq/L *LOW* (11/16/17 3:29 AM) 10.3 mEq/L (11/15/17 4:58 AM) AGAP [10.0-20.0 mEq/L] CHEM PANEL 1 2 3 Most recent to oldest [Reference Range]: 0.60 mg/dL (11/17/17 2:26 AM) 0.58 mg/dL (11/16/17 3:29 AM) 0.60 mg/dL (11/15/17 4:58 AM) Creatinine Lvl [0.50-1.40 mg/dL] 87 mL/min/1.73m2 1 *NA* (11/17/17 2:26 AM) 88 mL/min/1.73m2 2 *NA* (11/16/17 3:29 AM) 87 mL/min/1.73m2 3 *NA* (11/15/17 4:58 AM) eGFR 16 mg/dL (11/17/17 2:26 AM) 14 mg/dL (11/16/17 3:29 AM) 15 mg/dL (11/15/17 4:58 AM) BUN [7-22 mg/dL] 23 (11/10/17 4:24 PM) B/C Ratio [6-25] 81 mg/dL (11/17/17 2:26 AM) 72 mg/dL (11/16/17 3:29 AM) 76 mg/dL (11/15/17 4:58 AM) Glucose Lvl [70-99 mg/dL] 8.0 g/dL (11/10/17 4:24 PM) Total Protein [6.4-8.4 g/dL] 2.6 g/dL *LOW* (11/10/17 4:24 PM) Albumin Lvl [3.5-5.0 g/dL] 5.4 g/dL *HI* (11/10/17 4:24 PM) Globulin [2.7-4.2 g/dL] 0.5 *LOW* (11/10/17 4:24 PM) A/G Ratio [0.7-1.6] 8.2 mg/dL *LOW* (11/17/17 2:26 AM) 8.3 mg/dL *LOW* (11/16/17 3:29 AM) 8.0 mg/dL *LOW* (11/15/17 4:58 AM) Calcium Lvl [8.5-10.5 mg/dL] 2.5 mg/dL (11/17/17 2:26 AM) 2.4 mg/dL *LOW* (11/15/17 4:58 AM) 2.6 mg/dL (11/13/17 1:05 AM) Phosphorus [2.5-4.5 mg/dL] 2.1 mg/dL (11/17/17 2:26 AM) 2.0 mg/dL (11/15/17 4:58 AM) 2.3 mg/dL (11/13/17 1:05 AM) Magnesium Lvl [1.8-2.4 mg/dL] 47 unit/L (11/10/17 4:24 PM) ALT [0-65 unit/L] 81 unit/L *HI* (11/10/17 4:24 PM) AST [0-37 unit/L] 172 unit/L *HI* (11/10/17 4:24 PM) Alk Phos [39-136 unit/L] 0.6 mg/dL (11/10/17 4:24 PM) Bili Total [0.2-1.3 mg/dL] 1.3 mMol/L (11/10/17 4:24 PM) Lactic Acid Lvl [0.5-2.2 mMol/L] 0.66 ng/mL *HI* (11/10/17 4:24 PM) Procalcitonin Lvl [0.00-0.10 ng/mL] 1Result Comment: The eGFR is calculated using [...] 3 Most recent to oldest [Reference Range]: 56 unit/L (11/10/17 4:24 PM) Total CK [12-191 unit/L] <0.02 ng/mL (11/10/17 4:24 PM) Troponin-I [0.00-0.40 ng/mL] PARATHYROID PROFILE 1 2 3 Most recent to oldest [Reference Range]: 1.12 mMol/L (11/13/17 1:05 AM) Ca Ion WB [1.05-1.25 mMol/L] 1.06 mMol/L (11/13/17 1:05 AM) Ca Norm WB [1.05-1.25 mMol/L] URINE AND STOOL 1 2 3 Most recent to oldest [Reference Range]: Slight Cloudy (11/10/17 5:48 PM) UA Turbidity [Clear] Yellow *NA* (11/10/17 5:48 PM) UA Color [Yellow] 6.0 (11/10/17 5:48 PM) UA pH [5.0-8.0] 1.020 (11/10/17 5:48 PM) UA Spec Grav [<=1.030] Negative (11/10/17 5:48 PM) UA Glucose [Negative] Large *ABN* (11/10/17 5:48 PM) UA Blood [Negative] Negative *NA* (11/10/17 5:48 PM) UA Ketones [Negative] Negative (11/10/17 5:48 PM) UA Protein [Negative] 0.2 EU/dL (11/10/17 5:48 PM) UA Urobilinogen [0.1-1.0 EU/dL] Negative *NA* (11/10/17 5:48 PM) UA Bili [Negative] Large *ABN* (11/10/17 5:48 PM) UA Leuk Est [Negative] Negative (11/10/17 5:48 PM) UA Nitrite [Negative] 21-50 /HPF *ABN* (11/10/17 5:48 PM) UA WBC [None Seen /HPF] 6-10 /HPF *ABN* (11/10/17 5:48 PM) UA RBC [0-2 /HPF] Many /HPF (11/10/17 5:48 PM) UA Bacteria [None Seen /HPF] Rare /LPF (11/10/17 5:48 PM) UA Sq Epi [Few /LPF] Rare /LPF (11/10/17 5:48 PM) UA Mucus [None Seen /LPF] HEMATOLOGY 1 2 3 Most recent to oldest [Reference Range]: 3.6 K/CMM *LOW* (11/17/17 2:26 AM) 2.9 K/CMM *LOW* (11/16/17 3:29 AM) 3.2 K/CMM *LOW* (11/15/17 4:58 AM) WBC [3.7-10.4 K/CMM] 4.35 M/CMM (11/17/17 2:26 AM) 4.51 M/CMM (11/16/17 3:29 AM) 4.54 M/CMM (11/15/17 4:58 AM) RBC [4.20-5.40 M/CMM] 10.1 g/dL *LOW* (11/17/17 2:26 AM) 10.4 g/dL *LOW* (11/16/17 3:29 AM) 10.4 g/dL *LOW* (11/15/17 4:58 AM) Hgb [12.0-16.0 g/dL] 32.1 % *LOW* (11/17/17 2:26 AM) 33.2 % *LOW* (11/16/17 3:29 AM) 33.7 % *LOW* (11/15/17 4:58 AM) Hct [36.0-48.0 %] 73.8 fL *LOW* (11/17/17 2:26 AM) 73.7 fL *LOW* (11/16/17 3:29 AM) 74.3 fL *LOW* (11/15/17 4:58 AM) MCV [80.0-98.0 fL] 23.1 pg *LOW* (11/17/17 2:26 AM) 23.1 pg *LOW* (11/16/17 3:29 AM) 23.0 pg *LOW* (11/15/17 4:58 AM) MCH [27.0-31.0 pg] 31.3 g/dL *LOW* (11/17/17 2:26 AM) 31.4 g/dL *LOW* (11/16/17 3:29 AM) 30.9 g/dL *LOW* (11/15/17 4:58 AM) MCHC [32.0-36.0 g/dL] 21.2 % *HI* (11/17/17 2:26 AM) 21.1 % *HI* (11/16/17 3:29 AM) 21.0 % *HI* (11/15/17 4:58 AM) RDW [11.5-14.5 %] 193 K/CMM (11/17/17 2:26 AM) 150 K/CMM (11/16/17 3:29 AM) 138 K/CMM (11/15/17 4:58 AM) Platelet [133-450 K/CMM] 8.7 fL (11/17/17 2:26 AM) 8.7 fL (11/16/17 3:29 AM) 8.7 fL (11/15/17 4:58 AM) MPV [7.4-10.4 fL] 75.0 % (11/17/17 2:26 AM) 73.7 % (11/16/17 3:29 AM) 75.0 % (11/15/17 4:58 AM) Segs [45.0-75.0 %] 13.5 % *LOW* (11/17/17 2:26 AM) 14.3 % *LOW* (11/16/17 3:29 AM) 12.2 % *LOW* (11/15/17 4:58 AM) Lymphocytes [20.0-40.0 %] 9.8 % (11/17/17 2:26 AM) 10.7 % (11/16/17 3:29 AM) 11.7 % (11/15/17 4:58 AM) Monocytes [2.0-12.0 %] 1.1 % (11/17/17 2:26 AM) 0.7 % (11/16/17 3:29 AM) 0.4 % (11/15/17 4:58 AM) Eosinophils [0.0-4.0 %] 0.6 % (11/17/17 2:26 AM) 0.6 % (11/16/17 3:29 AM) 0.7 % (11/15/17 4:58 AM) Basophils [0.0-1.0 %] 2.7 K/CMM (11/17/17 2:26 AM) 2.1 K/CMM (11/16/17 3:29 AM) 2.4 K/CMM (11/15/17 4:58 AM) Segs-Bands # [1.5-8.1 K/CMM] 0.5 K/CMM *LOW* (11/17/17 2:26 AM) 0.4 K/CMM *LOW* (11/16/17 3:29 AM) 0.4 K/CMM *LOW* (11/15/17 4:58 AM) Lymphocytes # [1.0-5.5 K/CMM] 0.4 K/CMM (11/17/17 2:26 AM) 0.3 K/CMM (11/16/17 3:29 AM) 0.4 K/CMM (11/15/17 4:58 AM) Monocytes # [0.0-0.8 K/CMM] 1+ *ABN* (11/17/17 2:26 AM) 1+ *ABN* (11/16/17 3:29 AM) 1+ *ABN* (11/13/17 1:05 AM) Anisocyte [None Seen] 1+ (11/10/17 4:09 PM) Hypochrom [None Seen] 2+ *ABN* (11/17/17 2:26 AM) 2+ *ABN* (11/16/17 3:29 AM) 1+ *ABN* (11/15/17 4:58 AM) Microcyte [None Seen] Moderate *ABN* (11/10/17 4:09 PM) Target Cell [None Seen] Normal (11/10/17 4:09 PM) Plt Morph 31.8 seconds *HI* (11/16/17 3:31 AM) 31.8 seconds *HI* (11/15/17 3:00 PM) 22.9 seconds *HI* (11/13/17 1:05 AM) PT [12.0-14.7 seconds] 3.03 *HI* (11/16/17 3:31 AM) 3.03 *HI* (11/15/17 3:00 PM) 2.00 *HI* (11/13/17 1:05 AM) INR [0.85-1.17] 57.9 seconds *HI* (11/16/17 3:31 AM) 52.7 seconds *HI* (11/11/17 2:19 AM) 50.7 seconds *HI* (11/10/17 4:09 PM) PTT [22.9-35.8 seconds] VIRAL - SEROLOGY 1 2 3 Most recent to oldest [Reference Range]: Positive 1 *ABN* (11/10/17 6:02 PM) Influ A [Negative] Negative (11/10/17 6:02 PM) Influ B [Negative] 1Result Comment: "Significant Findings called to JUAN FISCHER_ at 11/10/2017 19:13_ by VN_. Read Back OK." Immunizations Given and Recorded Vaccine Date Status [...] Extracted from: Title: AHF Progress Note Author: Isra Thakkar MD Date: 11/17/17 Impression and Plan 77 year-old woman with past medical history of NICMP with LVEF 35-40%, severe aortic stenosis s/p TAVR in 03/2017, atrial fibrillation, history of breast cancer s/p chemotherapy (last treatment in 05/2016; no radiation) and double mastectomy (02/2016), rheumatoid arthritis (on Prednisone), scoliosis, hypertension and hypothyroidism. She presented on the day of admission with fever and nonproductive cough. She presented from her assisted living facility to a acute care center and was diagnosed with Influenza A. She was then transferred to our ED for further managemnet. # Influenza A Pneumonia -Supportive care, finished tamiflu x 5 days -Afebrile today -Pulmonary consulted-Started budesonide, robitussin DM -finished Azithromycin x 3 days (last day 11/14) -hypoxia- failed 6 minutes walk test, pulmonary f/u for home O2. 4 LPM #UTI - UCx with GNR, finished 3 day course of Ciprofloxacin. # s/p TAVR -TTE reviewed showing normal LVEF with well seated AV without paravalvular leak or AI. # A-fib -Continue coumadin, INR daily #RA -Continue prednisone #PPX -Coumadin as above, PPI Dispo: IMU. Previously in assisted living- will plan to discharge to same assisted living facility. awaitng bed arrangement. Extracted from: Title: ME pulmonology consultation Author: Ned Goodwin DO Date: 11/12/17 Impression and Plan Impression: Influenza A pneumonia Complicated cystitis Aortic stenosis status post TAVR Atrial fibrillation Systolic heart failure and acute exacerbation Rheumatoid arthritis Recommendations: -Continue Tamiflu for 5 days -Zithromax 500 mg 3 days -Cipro for at least 7 days for Acute cystitis -Gentle diuresis due to some pulmonary edema seen on chest x-ray - dextromethorphan and and budesonide [id number] for cough -dvt ppx - supportive care Lines, Tubes, and Drains: 11/10/2017 16:24 Peripheral Lines: Antecubital Right 20 gauge Over the needle catheter Quality Bundle: Lines and tubes reviewed. Indicated for access, blood products administration, vasopressor administration, and hemodynamic monitoring, Furthermore, rae is indicated to prevent skin breakdown along with measuring of is/os. This patient was seen today with Dr.Alisha Lamont Goodwin DO PCCM Fellow PGY5 Extracted from: Title: Cardiovascular Admission H&P Author: Bradford Butler MD Date: 11/10/17 * Impression and Plan # Inluenza Supportive care, tamiflu ordered, Z pac for poss bacterial component #Fever likely 2/2 influnza, Cultures sent and C-diff given report of diarrhea at home # s/p TAVR Pt reports functional improvement, JVD on exam, TTE ordered to assess further # A-fib Cont coumadin, F/U INR and dose coumadin daily #RA Cont prednisone #PPX Couamdin as above, PPI Cardiology Staff Attestation; I have seen and examined the patient with Dr Serrato on 11/10/2017. I have reviewed all the clinical information, lab investigations, radiographic and other imaging data. I agree with findings, assessment and plan as outlined. Treatment plan was formulated under my direct supervision.
--- OUTSIDE RECORDS SUMMARY | 2018-09-27 17:01 | XMS REPORT | Summary of Care ---
Author Author [facility] Organization [facility] Address Unknown Phone Unavailable Encounter KATIA Saxena(WILL) [id number] Date(s): 10/25/17 - 10/26/17 [facility] [address], [address] Vital Signs No data available for this [...] Substance Reaction Severity Status penicillins Active Medications warfarin 2 mg oral tablet 1 tab ud pharmacy clinic; use dosing paper, PO, Daily, # 30 tab, 2 Refill(s), Ph armacy: [facility] #[id number] Start Date: 10/25/17 Status: Ordered Results No data [...]
--- OUTSIDE RECORDS SUMMARY | 2018-09-27 17:01 | XMS REPORT | Summary of Care ---
Author Author [facility] Organization [facility] Address Unknown Phone Unavailable Encounter KATIA Saxena(FIN) [id number] Date(s): 12/26/17 - 12/26/17 [facility] [address], [address] [place] [address]- Encounter Diagnosis Influenza due to unidentified influenza virus with unspecified type of pneumonia (Final) - 12/29/17 Rheumatoid arthritis, unspecified (Final) - Personal history of malignant neoplasm of breast (Final) - Personal history of antineoplastic chemotherapy (Final) - Discharge Disposition: Home or Self Care Attending Physician: Esperanza Ramirez MD Referring Physician: Esperanza Ramirez MD Vital Signs Most recent to 1 oldest [Reference Range]: Height 58 cm (12/26/17 2:46 PM) Temperature Oral 97.8 DegF [96.4-99.1 DegF] (12/26/17 2:46 PM) Blood Pressure 106/72 mmHg [90-140/60-90 mmHg] (12/26/17 2:46 PM) Respiratory Rate 18 BRMIN [14-20 BRMIN] (12/26/17 2:46 PM) Peripheral Pulse 72 bpm Rate [60-100 bpm] (12/26/17 2:46 PM) Weight 55.273 kg (12/26/17 2:46 PM) Body Mass Index 164.31 m2 (12/26/17 2:46 PM) Problem List Condition Effective Dates Status [...] day, # 30 tab, 3 Refill(s), Pharmacy: [facility] #[id number] Start Date: 10/25/17 Stop Date: 02/19/18 Status: Completed metoprolol 25 mg oral tablet, extended release 25 mg=1 tab, PO, Daily, # 30 tab, 3 Refill(s), Pharmacy: [facility] #[id number] Start Date: 02/19/18 Stop Date: 06/19/18 Status: Ordered Symbicort 160/4.5 inhalation aerosol with adapter 2 puff, INHALER, BID, rinse mouth and throat after use, # 1 ea, 11 Refill(s), Ph armacy: [facility] #[id number] Start Date: 12/26/17 Status: Ordered torsemide 20 mg oral tablet See Instructions, Take two tabs in the morning and one tab in the evening., # 90 tab, 1 Refill(s), Pharmacy: [facility] #[id number] Start Date: 02/22/18 Status: Ordered Results No data available for this section Immunizations Given and Recorded Vaccine Date Status Refusal Reason influenza virus vaccine, inactivated 09/03/17 Recorded pneumococcal 13-valent vaccine 06/12/17 Given Procedures Procedure Date Related Diagnosis Body Site Status Abdominal hysterectomy Completed AVR - Aortic valve replacement Completed Bilateral mastectomy Completed Cardiac catheterisation, left heart Completed Cardiac catheterisation, right heart Completed Social History Social History Type Response Smoking Status Former smoker; Type: Cigarettes; Ready to change: No; Concerns about tobacco use in household: No; Exposure to Tobacco Smoke None; Cigarette Smoking Last 365 Days No; Reg Smoking Cessation Counseling No1 entered on: 12/26/17 1Patient quit smoking in 1975 Assessment and Plan No data available for this section
--- OUTSIDE RECORDS SUMMARY | 2018-09-27 17:01 | XMS REPORT | Summary of Care ---
Author Author [facility] Organization [facility] Address Unknown Phone Unavailable Encounter KATIA Saxena(FIN) [id number] Date(s): 12/26/17 - 12/26/17 [facility] [address], [address] [place] [address]- Encounter Diagnosis Influenza due to unidentified influenza [...] day, # 30 tab, 3 Refill(s), Pharmacy: [facility] #[id number] Start Date: 10/25/17 Stop Date: 02/19/18 Status: Completed metoprolol 25 mg oral tablet, extended release 25 mg=1 tab, PO, Daily, # 30 tab, 3 Refill(s), Pharmacy: [facility] #[id number] Start Date: 02/19/18 Stop Date: 06/19/18 Status: Ordered Symbicort 160/4.5 inhalation aerosol with adapter 2 puff, INHALER, BID, rinse mouth and throat after use, # 1 ea, 11 Refill(s), Ph armacy: [facility] #[id number] Start Date: 12/26/17 Status: Ordered torsemide 20 mg oral tablet See Instructions, Take two tabs in the morning and one tab in the evening., # 90 tab, 1 Refill(s), Pharmacy: [facility] #[id number] Start Date: 02/22/18 Status: Ordered Results [...]
--- OUTSIDE RECORDS SUMMARY | 2018-09-27 17:01 | XMS REPORT | Summary of Care ---
Author Author [facility] Organization [facility] Address Unknown Phone Unavailable Encounter KATIA Saxena(WILL) [id number] Date(s): 05/08/18 - 05/08/18 [facility] [address], [address] [place], [place] [address] Discharge Disposition: Home or Self Care Attending Physician: Esperanza Ramirez MD Referring Physician: Esperanza Ramirez MD Vital Signs Most recent to 1 oldest [Reference Range]: Height 152.4 cm (05/08/18 8:30 AM) Temperature Oral 98.0 DegF [96.4-99.1 DegF] (05/08/18 8:30 AM) Respiratory Rate 67 BRMIN [14-20 BRMIN] *HI* (05/08/18 8:30 AM) Peripheral Pulse 18 bpm Rate [60-100 bpm] *LOW* (05/08/18 8:30 AM) Weight 57.472 kg (05/08/18 8:30 AM) Body Mass Index 24.74 m2 (05/08/18 8:30 AM) Problem List Condition Effective Dates Status [...] Substance Reaction Severity Status penicillins Active Medications Eliquis 5 mg oral tablet 5 mg, PO, Q12H, 0 Refill(s) Start Date: 05/08/18 Status: Ordered furosemide 40 mg oral tablet 40 mg=1 tab, PO, TID, 0 Refill(s) Start Date: 05/08/18 Status: Ordered potassium chloride 20 mEq oral tablet, extended release 20 mEq=1 tab, PO, BID, 0 Refill(s) Start Date: 05/08/18 Status: Ordered temazepam 15 mg oral capsule 15 mg=1 cap, PO, Bedtime, 0 Refill(s) Start Date: 05/08/18 Status: Ordered Results No data available for [...] Reg Smoking Cessation Counseling No1 entered on: 05/08/18 1Patient quit smoking in 1975 Assessment and Plan No data available for this section
--- OUTSIDE RECORDS SUMMARY | 2018-09-27 17:01 | XMS REPORT | Summary of Care ---
Author Author [facility] [place] Organization [facility] [place] Address Unknown Phone Unavailable Encounter HQ Hemanth(FIN) [id number] Date(s): 12/26/17 - 12/26/17 [facility] [place] [address] [place] [phone] Encounter Diagnosis Chronic diastolic (congestive) heart failure (Final) - 12/29/17 Discharge Disposition: Home or Self Care Attending Physician: Sissy Villalba CLINICAL TRIALS ASSISTANT Vital Signs No data available for this [...]
--- OUTSIDE RECORDS SUMMARY | 2018-09-27 17:01 | XMS REPORT | Summary of Care ---
Author Author [facility] [place] Organization [facility] [place] Address Unknown Phone Unavailable Encounter [facility] Hemanth(FIN) [id number] Date(s): 12/22/17 - 12/22/17 [facility] [place] [address] [place] [phone] Encounter Diagnosis Chronic diastolic (congestive) heart failure (Final) - 12/27/17 Discharge Disposition: Home or Self Care Attending Physician: Sissy Villalba MAINTENANCE CONSTRUCTION HELPER Vital Signs No data available for this [...]
--- OUTSIDE RECORDS SUMMARY | 2018-09-27 17:01 | XMS REPORT | Summary of Care ---
Author Author [facility] Organization [facility] Address Unknown Phone Unavailable Encounter KATIA Saxena(WILL) [id number] Date(s): 12/22/17 - 12/22/17 [facility] [address], [address] [place] [address]- Encounter Diagnosis Hypertensive heart disease with heart failure (Final) - 12/27/17 Acute on chronic diastolic (congestive) heart failure (Final) - Acute respiratory failure with hypoxia (Final) - Dependence on supplemental oxygen (Final) - senior living (current) use of anticoagulants (Final) - Persistent atrial fibrillation (Final) - Chronic atrial fibrillation (Final) - Iron deficiency anemia, unspecified (Final) - Discharge Disposition: Home or Self Care Attending Physician: Bradford Butler MD Referring Physician: Bradford Butler MD Vital Signs Most recent to 1 oldest [Reference Range]: Height 152.4 cm (12/22/17 1:49 PM) Temperature Oral 98.1 DegF [96.4-99.1 DegF] (12/22/17 1:49 PM) Blood Pressure 103/63 mmHg [90-140/60-90 mmHg] (12/22/17 1:49 PM) Respiratory Rate 17 BRMIN [14-20 BRMIN] (12/22/17 1:49 PM) Peripheral Pulse 71 bpm Rate [60-100 bpm] (12/22/17 1:49 PM) Weight 56.364 kg (12/22/17 1:49 PM) Body Mass Index 24.27 m2 (12/22/17 1:49 PM) Problem List Condition Effective Dates Status [...] Substance Reaction Severity Status penicillins Active Medications ferrous gluconate 325 mg oral tablet 325 mg=1 tab, PO, BID, # 60 tab, 5 Refill(s), Pharmacy: [facility] #[id number] Start Date: 12/23/17 Status: Ordered torsemide 20 mg oral tablet See Instructions, Take two tabs in the morning and one tab in the evening., # 90 tab, 1 Refill(s), Pharmacy: [facility] #[id number] Start Date: 12/22/17 Stop Date: 02/22/18 Status: Completed Results No data available for this section [...]
[2018-09-27 17:59] LABS: BASOPHILS % 0.3 % (0.0-1.0); EOSINOPHILS % 0.5 % (0.0-6.0); HEMATOCRIT 35.2 % (34.2-44.1); HEMOGLOBIN 10.6 g/dL (12.0-16.0); LYMPHOCYTES # (AUTO) 0.3 (1.0-3.2); LYMPHOCYTES % 5.1 % (18.0-39.1); MEAN CORPUSCULAR HEMOGLOBIN 26.7 pg (28-32); MEAN CORPUSCULAR HGB CONC 30.1 g/dL (31-35); MEAN CORPUSCULAR VOLUME 88.7 fL (81-99); MONOCYTES # (AUTO) 0.6 (0.2-0.8); MONOCYTES % 8.6 % (4.4-11.3); NEUTROPHILS # (AUTO) 5.6 (2.1-6.9); NEUTROPHILS % 84.3 % (38.7-80.0); PLATELET COUNT 202 x10e3/uL (140-360); RED BLOOD COUNT 3.97 x10e6/uL (3.6-5.1); RED CELL DISTRIBUTION WIDTH 16.8 % (11.7-14.4)
[2018-09-27 18:10] LABS: ALBUMIN 2.5 g/dL (3.5-5.0); ALBUMIN/GLOBULIN RATIO 0.6 (0.8-2.0); CALCIUM 8.8 mg/dL (8.4-10.2); CREATININE, SERUM 1.58 mg/dL (0.57-1.11)
--- NOTE | 2018-09-27 18:47 | Diagnostic Imaging Report ---
2 frontal view of the chest. HISTORY: Shortness of breath COMPARISON: Chest radiograph March 03, 2017, images from CT of the chest March 01, 2017. DISCUSSION: Portable technique, limits sensitivity of the exam. Overlying monitoring leads. Tubes/Lines: None Lungs and pleura: Low lung volumes result in bibasilar vascular crowding, accentuation of the pulmonary interstitial markings, central pulmonary vasculature, and the cardiac silhouette. Allowing for these limitations, the findings are as follows: Persistent elevation of the left hemidiaphragm. Markedly increased diffuse pulmonary interstitial markings. Trace bilateral pleural effusions with adjacent atelectasis. Heart and mediastinum: The cardiac silhouette is predominantly obscured. The central pulmonary vascular. Enlarged. Bones: No acute osseous lesion is identified, given this limited exam. IMPRESSION: 1. Findings remain compatible with central pulmonary vascular congestion and moderate pulmonary edema. 2. Unchanged elevation of the left hemidiaphragm. Signed by: Dr. Simón Marshall D.O., M.M.M. on 09/27/2018 6:43 PM
[2018-09-27] MEDS ORDERED: FUROSEMIDE INJ 10 MG/ML 4 ML VIAL ONE (19:11)
[2018-09-27] MEDS ORDERED: FUROSEMIDE INJ 10 MG/ML 4 ML VIAL IV ONE (19:15)
[2018-09-27 20:21] LABS: CREATINE KINASE MB 0.9 ng/mL (0-5.0)
[2018-09-27] MEDS ORDERED: ACETAMINOPHEN/CODEINE 300MG - 30MG TAB PO PRN (21:00)
[2018-09-27] MEDS ORDERED: AMIODARONE HCL200 MG PO (21:01)
[2018-09-27] MEDS ORDERED: ASPIR-LOW81 MG PO (21:01)
[2018-09-27] MEDS ORDERED: FERROUS SULFAT324 MG PO (21:01)
[2018-09-27] MEDS ORDERED: eliquis PO (21:04)
[2018-09-27] MEDS ORDERED: CETIRIZINE HCL10 MG PO (21:04)
[2018-09-27] MEDS ORDERED: FUROSEMIDE40 MG PO (21:04)
[2018-09-27] MEDS ORDERED: PRESERVISION A1 EACH PO (21:11)
[2018-09-27] MEDS ORDERED: METOPROLOL SUCC25 MG PO (21:11)
[2018-09-27] MEDS ORDERED: MONTELUKAST SOD10 MG PO (21:11)
[2018-09-27] MEDS ORDERED: MELATONIN3 MG PO (21:11)
[2018-09-27] MEDS ORDERED: TORSEMIDE10 MG PO ×2 (21:11)
[2018-09-27] MEDS ORDERED: TEMAZEPAM15 MG PO (21:11)
[2018-09-27] MEDS ORDERED: ZOFRAN ODT4 MG SL (21:13)
[2018-09-27] MEDS ORDERED: BISACODYL5 MG PO (21:13)
[2018-09-27] MEDS ORDERED: TYLENOL WITH C1 EACH PO (21:13)
[2018-09-27] MEDS ORDERED: ACETAMINOPHEN325 M1 PO (21:13)
--- OUTSIDE RECORDS SUMMARY | 2018-09-27 21:13 | XMS REPORT ---
Author Author [facility] Address Unknown Phone Unavailable Care Team Providers Care Safe Technician Name Role Phone Nadege ARAUJO Unavailable Unavailable Problems This patient has no known problems. Allergies, Adverse Reactions, Alerts This patient has no known allergies or adverse reactions. Medications This patient has no known medications. Results Test Description Test Time Test Comments Text Results Atomic Results Result Comments CHEST SINGLE (PORTABLE) 2018-09-27 18:14:00 [place] [address] Patient Name: KATHY CLEMENTS MR #: [id number] : 1940 Age/Sex: 78/F Req #: [id number] Adm Physician: Ordered by: PARAS ARAUJO MD Report #: [id number] Location: ER Room/Bed: Procedure: [id number] DX/CHEST SINGLE (PORTABLE) Exam Date: 09/27/18 Exam Time: 1800 REPORT STATUS: Signed 2 frontal view of the chest. HISTORY: Shortness of breath COMPARISON: Chest radiograph March 03, 2017, images from CT of the chest March 01, 2017. DISCUSSION: Portable technique, limits sensitivity of the exam. Overlying monitoring leads. Tubes/Lines: None Lungs and pleura: Low lung volumes result in bibasilar vascular crowding, accentuation of the pulmonary interstitial markings, central pulmonary vasculature, and the cardiac silhouette. Allowing for these limitations, the findings are as follows: Persistent elevation of the left hemidiaphragm. Markedly increased diffuse pulmonary interstitial markings. Trace bilateral pleural effusions with adjacent atelectasis. Heart and mediastinum: The cardiac silhouette is predominantly obscured. The central pulmonary vascular. Enlarged. Bones: No acute osseous lesion is identified, given this limited exam. IMPRESSION: 1. Findings remain compatible with central pulmonary vascular congestion and moderate pulmonary edema. 2. Unchanged elevation of the left hemidiaphragm. Signed by: Dr. Patricia Marshall D.O., M.M.M. on 09/27/2018 6:43 PM Dictated By: PATRICIA MARSHALL DO 42 Transcribed By: GERARDO on 09/27/181842 COPY TO: PARAS ARAUJO MD
[2018-09-27] MEDS ORDERED: BISACODYL 5 MG TAB EC PO PRN (21:15)
[2018-09-27] MEDS: ACETAMINOPHEN/CODEINE 300MG - 30MG TAB PO PRN (21:18)
[2018-09-27] MEDS ORDERED: APIXABAN 5 MG TABLET PO ONE (22:00)
[2018-09-27 22:19] VITALS: BP 98/53
[2018-09-27 23:35] VITALS: BP 115/62
[2018-09-28 00:40] VITALS: BP 115/62
[2018-09-28 03:10] LABS: CREATINE KINASE MB 0.8 ng/mL (0-5.0)
[2018-09-28 04:00] VITALS: BP 106/55
[2018-09-28 05:38] LABS: BASOPHILS % 0.3 % (0.0-1.0); EOSINOPHILS # (AUTO) 0.1 (0.0-0.4); EOSINOPHILS % 2.3 % (0.0-6.0); HEMATOCRIT 33.4 % (34.2-44.1); LYMPHOCYTES # (AUTO) 0.4 (1.0-3.2); LYMPHOCYTES % 6.5 % (18.0-39.1); MEAN CORPUSCULAR HGB CONC 29.9 g/dL (31-35); MONOCYTES # (AUTO) 0.7 (0.2-0.8); MONOCYTES % 10.7 % (4.4-11.3); NEUTROPHILS # (AUTO) 4.9 (2.1-6.9); NEUTROPHILS % 79.4 % (38.7-80.0); PLATELET COUNT 171 x10e3/uL (140-360); RED BLOOD COUNT 3.84 x10e6/uL (3.6-5.1); RED CELL DISTRIBUTION WIDTH 16.6 % (11.7-14.4)
[2018-09-28] MEDS: LEVOTHYROXINE SODIUM 50 MCG TAB PO SCH (05:49)
[2018-09-28 06:05] LABS: CREATINE KINASE MB 0.8 ng/mL (0-5.0)
[2018-09-28 06:43] LABS: ALBUMIN 2.3 g/dL (3.5-5.0); ALBUMIN/GLOBULIN RATIO 0.5 (0.8-2.0); ANION GAP 17.5 mmol/L (8-16); CALCIUM 8.5 mg/dL (8.4-10.2); CREATININE, SERUM 1.29 mg/dL (0.57-1.11); POTASSIUM 3.5 mmol/L (3.5-5.1)
[2018-09-28] MEDS ORDERED: NON-FORMULARY MEDICATION (Cetirizine Hcl 10 MG) PO SCH (09:00)
[2018-09-28] MEDS ORDERED: CALCIUM CARBONATE PO SCH (09:00)
[2018-09-28] MEDS ORDERED: VITAMIN D3 PO SCH (09:00)
[2018-09-28] MEDS ORDERED: NON-FORMULARY MEDICATION (Vit A/Vit C/Vit E/Zinc/Copper (Preservision Areds Softgel) 1 CAP PO SCH (09:00)
[2018-09-28 09:01] LABS: ANISOCYTOSIS SLIGHT; EOSINOPHILS % (MANUAL) 3 % (0-7); HYPOCHROMASIA SLIGHT; LYMPHOCYTES % (MANUAL) 6 % (19-48); METAMYELOCYTES % (MANUAL) 1 % (0-0); MONOCYTES % (MANUAL) 17 % (3.4-9.0); NEUTROPHILS % (MANUAL) 71 % (40-74); PLATELET ESTIMATE ADEQUATE; PLATELET MORPHOLOGY COMMENT NORMAL; RBC MORPHOLOGY COMMENT NORMAL
[2018-09-28] MEDS: AMIODARONE HCL 200 MG TAB PO SCH (10:00)
[2018-09-28] MEDS: TORSEMIDE 10 MG TAB PO SCH ×2 (10:00→21:12)
[2018-09-28] MEDS: CITALOPRAM HYDROBROMIDE 20 MG TAB PO SCH (10:00)
[2018-09-28] MEDS: ASPIRIN 81 MG CHEW TAB PO SCH (10:00)
[2018-09-28] MEDS: LORATADINE 10 MG TAB PO SCH (10:00)
[2018-09-28] MEDS: FUROSEMIDE INJ 10 MG/ML 4 ML VIAL IV SCH ×2 (10:00→17:22)
[2018-09-28] MEDS: APIXABAN 5 MG TABLET PO SCH (10:01)
[2018-09-28] MEDS: FOLIC ACID 1 MG TAB PO SCH (10:01)
[2018-09-28] MEDS: METOPROLOL SUCCINATE 25 MG TAB XL PO SCH (10:01)
[2018-09-28] MEDS: OCUVITE PRESERVISION TABLET PO SCH (10:01)
[2018-09-28] MEDS: FERROUS SULFATE 325 MG TAB PO SCH (10:01)
[2018-09-28] MEDS: PANTOPRAZOLE SOD 40 MG TABEC PO SCH (10:01)
[2018-09-28] MEDS: OYST-CAL-D 500MG TABLET PO SCH ×2 (10:01→17:22)
[2018-09-28] MEDS: POTASSIUM CHLORIDE 20 MEQ TAB CR PO SCH ×2 (10:01→17:22)
[2018-09-28] MEDS: PREDNISONE 5 MG TAB PO SCH (10:01)
[2018-09-28 10:03] VITALS: BP 113/54
--- NOTE | 2018-09-28 11:53 | History and Physical ---
PRIMARY CARE PHYSICIAN: Unknown. CHIEF COMPLAINT: Shortness of breath, cough and leg swelling. HISTORY OF PRESENT ILLNESS: This is an 78-year-old woman with a history of systolic congestive heart failure and severe aortic stenosis, now developing shortness of breath, leg swelling and cough, prompting a visit to the hospital. The patient also states that she tripped over her oxygen line and had trauma to her face in the recent past and had a fracture of her sinus bones. PAST MEDICAL HISTORY: Hypertension, systolic congestive heart failure, left ventricular ejection fraction 25% to 30% in February 2017, rheumatoid arthritis, scoliosis, hypothyroidism, atrial fibrillation, atrial flutter, cigarette use--quit in 1975, breast cancer status post bilateral mastectomy, Sjogren's syndrome. PAST SURGICAL HISTORY: Bilateral mastectomy. ALLERGIES: PER ELECTRONIC MEDICAL RECORD. FAMILY HISTORY/SOCIAL HISTORY: The patient is a resident at [facility]. She is . She has 3 children. Quit cigarettes in 1975. MEDICATIONS: Per electronic medical record. REVIEW OF SYSTEMS: Denies any dizziness or chest pain. Denies any fever, chills, sweats, nausea, vomiting, diarrhea. Denies any headache or vision changes. Denies any leg pain. PHYSICAL EXAMINATION VITAL SIGNS: Reviewed. GENERAL: A tired-appearing woman resting in bed. HEENT: Anicteric. Pupils are responsive to light. No oral lesions. CARDIOVASCULAR: Normal S1 and S2. LUNGS: She has crackles bilaterally. She has reduced breath sounds at the bases. ABDOMEN: Soft, nontender, nondistended. EXTREMITIES: Trace edema of the lower extremities. No calf tenderness. SKIN: Dry. PSYCHIATRIC: Flat affect. NEUROLOGIC: Alert, oriented times 3, moving all extremities. LABS: Reviewed. MEDICATIONS: Reviewed. ASSESSMENT: This is an 78-year-old woman. 1. Acute exacerbation of systolic congestive heart failure. 2. Pulmonary edema secondary to systolic congestive heart failure exacerbation. 3. Acute respiratory failure requiring nonrebreather overnight. 4. Rheumatoid arthritis. 5. Hypothyroidism. 6. Atrial fibrillation/atrial flutter, which is chronic. 7. Severe aortic stenosis. 8. Hypertension. 9. Physical deconditioning. 10. Sjogren's syndrome. 11. Lupus. 12. Acute kidney injury versus chronic kidney disease, stage 2. PLAN 1. Diurese the patient. 2. Control heart rhythm if possible. 3. Continue prednisone, as the patient has Sjogren's syndrome and lupus. 4. Obtain brain natriuretic peptide for monitoring. 5. May have mild contraction ankylosis at this time. 6. Monitor renal function. 7. Physical therapy consultation. 8. Follow up cardiology recommendations. 9. Code status DNR. 10. Prophylaxis: Continue apixaban and PPI. 11. Disposition: Monitor closely as described above. Job#: [id number]
--- NOTE | 2018-09-28 14:17 | Consultation ---
DATE OF CONSULTATION: September 28, 2018 CARDIOLOGY CONSULTATION REFERRING PHYSICIAN: Dr. Tom Warren. REASON FOR CONSULTATION: Shortness of breath. HISTORY OF PRESENT ILLNESS: Ms. Cheung is a pleasant 78-year-old woman with a history of rheumatoid arthritis, hypertension, hypothyroidism, severe chronic systolic heart failure, history of aortic stenosis in the past with aortic valve replacement (MOISES), history of breast cancer status post bilateral mastectomy, and history of atrial fibrillation as well as scoliosis, who presents via the emergency department to [facility] with worsening dyspnea over the past several days. She was initiated on diuretics with symptomatic improvement. She denies any chest pain. She is noted to be in AFib; however, adequately rate controlled. REVIEW OF SYSTEMS: A 12-system review negative except for as noted above. Denies syncope or lightheadedness. PAST MEDICAL HISTORY: As per HPI. ALLERGIES: TO PENICILLIN. SOCIAL HISTORY: No smoking, alcohol or drugs. FAMILY HISTORY: Noncontributory. CARDIOVASCULAR MEDICATIONS 1. Prednisone 5 mg daily. 1. Aspirin 81 mg daily. 2. Torsemide 20 mg daily. 3. Protonix 40 mg daily. 4. Metoprolol succinate 25 mg daily. 5. Amiodarone 200 mg daily. 6. Eliquis 2.5 mg twice a day. PHYSICAL EXAMINATION VITAL SIGNS: Temperature 98.4, heart rate 58, respiratory rate 20, blood pressure 113/54, O2 sat 93% on nasal cannula. BMI of 26.2. GENERAL: No acute distress. Alert. NECK: No JVD. CHEST: Clear to auscultation. CARDIOVASCULAR: Irregularly irregular rate and rhythm. Normal S1 and S2. No S3 or S4. Systolic ejection murmur 2/6. ABDOMEN: Soft, nontender. EXTREMITIES: Trace edema. STUDIES: Reviewed. Sodium 142, potassium 3.5, chloride 94, bicarbonate 34, BUN 28, creatinine 1.29, glucose 61. White blood cells 6.1, hemoglobin 10, platelets 171. AST 26, ALT 12, alk phos 61. ASSESSMENT 1. Yxbab-dv-lzcfzoc systolic heart failure. 2. Status post aortic valve replacement for aortic stenosis. 3. Atrial fibrillation on Eliquis. 4. Hypertension. 5. Dyslipidemia. 6. Hypothyroidism. RECOMMENDATIONS: Continue current cardiovascular medications. Patient overall improving on furosemide 40 mg b.i.d. Continue. Replete electrolytes as needed. Obtain echocardiogram. Keep on telemetry. Job#: [id number] EV
[2018-09-28 14:46] VITALS: BP 102/50
[2018-09-28 14:47] LABS: CREATINE KINASE MB 0.9 ng/mL (0-5.0)
[2018-09-28 16:15] VITALS: BP 113/58
[2018-09-28 20:00] VITALS: BP 102/54
[2018-09-28] MEDS: MELATONIN 3 MG TAB PO SCH (21:00)
[2018-09-28] MEDS: TEMAZEPAM 15 MG CAP PO SCH (21:12)
[2018-09-28] MEDS: MONTELUKAST SODIUM 10 MG TAB PO SCH (21:12)
[2018-09-29] VITALS: BP 104/55
[2018-09-29] MEDS: ACETAMINOPHEN/CODEINE 300MG - 30MG TAB PO PRN (00:27)
[2018-09-29 04:00] VITALS: BP 130/53
[2018-09-29] MEDS: LEVOTHYROXINE SODIUM 50 MCG TAB PO SCH (06:00)
[2018-09-29] MEDS ORDERED: CHLORASEPTIC SPRAY 177 ML BTL MM PRN (08:15)
[2018-09-29 08:39] VITALS: BP 108/54
[2018-09-29] MEDS: TORSEMIDE 10 MG TAB PO SCH ×2 (09:00→20:40)
[2018-09-29] MEDS: METOPROLOL SUCCINATE 25 MG TAB XL PO SCH (09:00)
[2018-09-29] MEDS: APIXABAN 5 MG TABLET PO SCH ×2 (09:30→20:40)
[2018-09-29] MEDS: LORATADINE 10 MG TAB PO SCH (09:30)
[2018-09-29] MEDS: PREDNISONE 5 MG TAB PO SCH (09:30)
[2018-09-29] MEDS: CITALOPRAM HYDROBROMIDE 20 MG TAB PO SCH (09:30)
[2018-09-29] MEDS: AMIODARONE HCL 200 MG TAB PO SCH (09:30)
[2018-09-29] MEDS: ASPIRIN 81 MG CHEW TAB PO SCH (09:30)
[2018-09-29] MEDS: POTASSIUM CHLORIDE 20 MEQ TAB CR PO SCH ×2 (09:30→17:10)
[2018-09-29] MEDS: FOLIC ACID 1 MG TAB PO SCH (09:30)
[2018-09-29] MEDS: FUROSEMIDE INJ 10 MG/ML 4 ML VIAL IV SCH ×2 (09:30→17:10)
[2018-09-29] MEDS: OYST-CAL-D 500MG TABLET PO SCH ×2 (09:30→17:10)
[2018-09-29] MEDS: FERROUS SULFATE 325 MG TAB PO SCH (09:30)
[2018-09-29] MEDS: OCUVITE PRESERVISION TABLET PO SCH (09:30)
[2018-09-29] MEDS: PANTOPRAZOLE SOD 40 MG TABEC PO SCH (09:30)
[2018-09-29 09:38] LABS: ANION GAP 12.4 mmol/L (8-16); CALCIUM 8.8 mg/dL (8.4-10.2); CREATININE, SERUM 1.19 mg/dL (0.57-1.11); POTASSIUM 3.4 mmol/L (3.5-5.1)
[2018-09-29 12:22] VITALS: BP 93/55
[2018-09-29] MEDS: ACETAMINOPHEN 325 MG TAB PO PRN (12:27)
--- NOTE | 2018-09-29 15:34 | Progress Note ---
DATE: September 29, 2018 CARDIOLOGY PROGRESS NOTE SUBJECTIVE: Shortness of breath still present this morning; however, feels slightly better this afternoon. OBJECTIVE VITAL SIGNS: Temperature 96.6, heart rate 78, respiratory rate 22, blood pressure 93/55, O2 sat 95% on 2 liters per minute nasal cannula. GENERAL: No acute distress. Alert. NECK: No JVD. CHEST: Multiple rales to the right than left. CARDIOVASCULAR: Irregularly irregular rate and rhythm. Normal S1 and S2. Systolic ejection murmur 2/6. No S3, no S4. ABDOMEN: Soft. EXTREMITIES: Trace edema. CARDIOVASCULAR MEDICATIONS: Reviewed. 1. Eliquis 2.5 mg daily, will switch to twice daily. 2. Amiodarone 200 mg daily. 3. Metoprolol succinate 25 mg daily. 4. Aspirin 81 mg daily. STUDIES: Reviewed. Creatinine 1.1, potassium 3.4, bicarbonate is 40, BUN 2, creatinine ratio is 23. TELEMETRY: In atrial flutter alternating with sinus rhythm. ASSESSMENT 1. Rbkde-cm-fsgfgxa systolic heart failure. 2. Status post aortic valve replacement for aortic stenosis. 3. Atrial fibrillation/atrial flutter, on anticoagulation with Eliquis. 4. Hypertension. 5. Dyslipidemia. 6. Hypothyroidism. RECOMMENDATIONS 1. Continue diuretics. 2. Hold the parameters for antihypertensives. Discussed with nursing staff. 3. Repeat chest x-ray and echocardiogram. Job#: [id number] RADHA
[2018-09-29 16:47] VITALS: BP 114/56
--- NOTE | 2018-09-29 16:52 | Diagnostic Imaging Report ---
EXAM: XR CHEST 2 VIEWS DATE: 09/29/2018 2:57 PM INDICATION: Shortness of breath COMPARISON: 09/27/2018, no comparison FINDINGS: Lines and Tubes: None Heart and Mediastinum: The heart is enlarged. TAVR changes noted. Aortic vascular calcifications. Lungs and Pleura: Moderate bilateral groundglass and alveolar opacities with probable effusions. Bones and Soft Tissues: Multiple vertebral plasty changes. IMPRESSION: 1. Moderate to severe volume overload with superimposed pneumonia possible. Signed by: Dr. Kev Lindsay MD on 09/29/2018 4:49 PM
[2018-09-29 20:00] VITALS: BP 105/59
[2018-09-29] MEDS: MELATONIN 3 MG TAB PO SCH (20:40)
[2018-09-29] MEDS: TEMAZEPAM 15 MG CAP PO SCH (20:41)
[2018-09-29] MEDS: MONTELUKAST SODIUM 10 MG TAB PO SCH (20:41)
[2018-09-30] VITALS: BP 116/56
[2018-09-30] MEDS: ACETAMINOPHEN/CODEINE 300MG - 30MG TAB PO PRN (02:56)
[2018-09-30 04:00] VITALS: BP 101/58
[2018-09-30 05:35] LABS: BASOPHILS % 0.3 % (0.0-1.0); EOSINOPHILS # (AUTO) 0.2 (0.0-0.4); EOSINOPHILS % 2.5 % (0.0-6.0); HEMATOCRIT 33.6 % (34.2-44.1); HEMOGLOBIN 10.1 g/dL (12.0-16.0); LYMPHOCYTES # (AUTO) 0.5 (1.0-3.2); LYMPHOCYTES % 5.8 % (18.0-39.1); MEAN CORPUSCULAR HEMOGLOBIN 26.6 pg (28-32); MEAN CORPUSCULAR HGB CONC 30.1 g/dL (31-35); MEAN CORPUSCULAR VOLUME 88.4 fL (81-99); MONOCYTES # (AUTO) 0.8 (0.2-0.8); MONOCYTES % 9.5 % (4.4-11.3); NEUTROPHILS # (AUTO) 6.5 (2.1-6.9); NEUTROPHILS % 81.3 % (38.7-80.0); PLATELET COUNT 159 x10e3/uL (140-360); RED CELL DISTRIBUTION WIDTH 16.9 % (11.7-14.4)
[2018-09-30] MEDS: LEVOTHYROXINE SODIUM 50 MCG TAB PO SCH (05:39)
[2018-09-30 06:00] LABS: ANION GAP 11.5 mmol/L (8-16); CALCIUM 8.8 mg/dL (8.4-10.2); CREATININE, SERUM 1.02 mg/dL (0.57-1.11); POTASSIUM 3.5 mmol/L (3.5-5.1)
[2018-09-30 07:43] VITALS: BP 105/55
[2018-09-30] MEDS: ACETAMINOPHEN 325 MG TAB PO PRN (08:05)
[2018-09-30] MEDS: LORATADINE 10 MG TAB PO SCH (08:08)
[2018-09-30] MEDS: ASPIRIN 81 MG CHEW TAB PO SCH (08:08)
[2018-09-30] MEDS: CITALOPRAM HYDROBROMIDE 20 MG TAB PO SCH (08:08)
[2018-09-30] MEDS: FUROSEMIDE INJ 10 MG/ML 4 ML VIAL IV SCH ×2 (08:08→17:19)
[2018-09-30] MEDS: AMIODARONE HCL 200 MG TAB PO SCH (08:08)
[2018-09-30] MEDS: TORSEMIDE 10 MG TAB PO SCH ×2 (08:09→21:25)
[2018-09-30] MEDS: PANTOPRAZOLE SOD 40 MG TABEC PO SCH (08:09)
[2018-09-30] MEDS: ACETAZOLAMIDE 250 MG TAB PO SCH ×2 (08:09→21:25)
[2018-09-30] MEDS: FOLIC ACID 1 MG TAB PO SCH (08:09)
[2018-09-30] MEDS: PREDNISONE 5 MG TAB PO SCH (08:09)
[2018-09-30] MEDS: OYST-CAL-D 500MG TABLET PO SCH ×2 (08:09→17:19)
[2018-09-30] MEDS: OCUVITE PRESERVISION TABLET PO SCH (08:09)
[2018-09-30] MEDS: FERROUS SULFATE 325 MG TAB PO SCH (08:09)
[2018-09-30] MEDS: APIXABAN 5 MG TABLET PO SCH ×2 (08:09→21:25)
[2018-09-30] MEDS: POTASSIUM CHLORIDE 20 MEQ TAB CR PO SCH ×2 (08:09→17:19)
[2018-09-30] MEDS: METOPROLOL SUCCINATE 25 MG TAB XL PO SCH (08:10)
[2018-09-30 11:11] LABS: LYMPHOCYTES % (MANUAL) 8 % (19-48); MONOCYTES % (MANUAL) 7 % (3.4-9.0); NEUTROPHILS % (MANUAL) 85 % (40-74); PLATELET ESTIMATE ADEQUATE; PLATELET MORPHOLOGY COMMENT NORMAL; RBC MORPHOLOGY COMMENT NORMAL
[2018-09-30 11:57] VITALS: BP 106/53
[2018-09-30 16:38] VITALS: BP 108/55
--- NOTE | 2018-09-30 17:27 | Progress Note ---
DATE: September 30, 2018 CARDIOLOGY PROGRESS NOTE SUBJECTIVE: Breathing is somewhat better today. No chest pain. OBJECTIVE VITAL SIGNS: Temperature is 98.1, heart rate 66, respiratory rate 21, blood pressure 106/53, O2 sat 91% on 2 liters per minute nasal cannula. GENERAL: No acute distress. Alert. NECK: No JVD. CHEST: Decreased breath sounds in bilateral bases and scattered rales and right lower lung field improved from yesterday. CARDIOVASCULAR: Regular rate and rhythm. Normal S1 and S2. No S3 or S4. ABDOMEN: Soft. EXTREMITIES: No edema. Warm distal extremities. Heel protector is in place. CARDIOVASCULAR MEDICATIONS 1. Acetazolamide 250 mg every 12 hours. 2. Eliquis 2.5 mg every 12 hours. 3. KCl 20 mEq b.i.d. 4. Aspirin 81 mg daily. 5. Amiodarone 200 mg daily. 6. Furosemide 40 mg IV b.i.d. 7. Torsemide 10 mg q.h.s. and 20 mg in the a.m. 8. Metoprolol succinate 25 mg daily. STUDIES: Reviewed. White blood cell 7.9, hemoglobin 10, platelets 159. Sodium 140, potassium 3.5, chloride 91, bicarbonate 41, BUN 25, creatinine 1.02, glucose 83. TELEMETRY: In normal sinus rhythm. Echocardiogram with normal function aortic valve bioprosthesis and mild improvement in left ventricular systolic function, LVEF of 40% to 45%. Chest x-ray with moderate to severe volume overload with superimposed pneumonia possible. ASSESSMENT 1. Acute respiratory distress. 2. Kuzna-bq-zspnbeo systolic heart failure. 3. Status post transcatheter aortic valve replacement for aortic stenosis. 4. Paroxysmal atrial fibrillation/atrial flutter, on anticoagulation with Eliquis. 5. Hypertension. 6. Dyslipidemia. 7. Hypothyroidism. RECOMMENDATIONS 1. Continue current cardiovascular medications. 2. Approaching euvolemic state on clinical exam. Some rales persist if by tomorrow, continues to have issues with infiltrates on x-ray in spite of current diuretic therapy, consider empiric treatment for pneumonia. Patient has elevated BUN to creatinine ratio and contraction ankylosis at this point. Continue rest of cardiovascular medications. Job#: [id number] MARIAN
[2018-09-30 20:00] VITALS: BP 103/53
[2018-09-30] MEDS: MELATONIN 3 MG TAB PO SCH (21:00)
[2018-09-30] MEDS: TEMAZEPAM 15 MG CAP PO SCH (21:25)
[2018-09-30] MEDS: MONTELUKAST SODIUM 10 MG TAB PO SCH (21:26)
[2018-10-01] VITALS (8 sets, daily range): BP systolic 91–112; BP diastolic 53–64
[2018-10-01] MEDS: ACETAMINOPHEN/CODEINE 300MG - 30MG TAB PO PRN ×2 (01:25→13:15)
[2018-10-01] MEDS: LEVOTHYROXINE SODIUM 50 MCG TAB PO SCH (06:23)
[2018-10-01] MEDS: ASPIRIN 81 MG CHEW TAB PO SCH (10:00)
[2018-10-01] MEDS: PANTOPRAZOLE SOD 40 MG TABEC PO SCH (10:00)
[2018-10-01] MEDS: METOPROLOL SUCCINATE 25 MG TAB XL PO SCH (10:00)
[2018-10-01] MEDS: APIXABAN 5 MG TABLET PO SCH ×2 (10:00→21:05)
[2018-10-01] MEDS: FERROUS SULFATE 325 MG TAB PO SCH (10:00)
[2018-10-01] MEDS: POTASSIUM CHLORIDE 20 MEQ TAB CR PO SCH ×2 (10:00→17:40)
[2018-10-01] MEDS: LORATADINE 10 MG TAB PO SCH (10:00)
[2018-10-01] MEDS: ACETAZOLAMIDE 250 MG TAB PO SCH ×2 (10:00→21:05)
[2018-10-01] MEDS: PREDNISONE 5 MG TAB PO SCH (10:00)
[2018-10-01] MEDS: FOLIC ACID 1 MG TAB PO SCH (10:00)
[2018-10-01] MEDS: OYST-CAL-D 500MG TABLET PO SCH ×2 (10:00→17:40)
[2018-10-01] MEDS: CITALOPRAM HYDROBROMIDE 20 MG TAB PO SCH (10:00)
[2018-10-01] MEDS: OCUVITE PRESERVISION TABLET PO SCH (10:00)
[2018-10-01] MEDS: TORSEMIDE 10 MG TAB PO SCH ×2 (10:00→21:05)
[2018-10-01] MEDS: FUROSEMIDE INJ 10 MG/ML 4 ML VIAL IV SCH ×2 (10:00→18:30)
[2018-10-01] MEDS: AMIODARONE HCL 200 MG TAB PO SCH (10:00)
--- NOTE | 2018-10-01 12:45 | Progress Note ---
DATE: October 01, 2018 CARDIOLOGY PROGRESS NOTE SUBJECTIVE: No complaints. Shortness of breath slightly improved. OBJECTIVE VITAL SIGNS: Temperature 96.4, heart rate 76, respiratory rate 18, O2 sat 94%, blood pressure 106/59. GENERAL: In no acute distress. Alert. CHEST: With rales noted in bilateral bases, more pronounced on the left. CARDIOVASCULAR: Irregularly irregular rate and rhythm. Normal S1 and S2. Systolic ejection murmur 1/6. No S3, no S4. ABDOMEN: Soft, nontender. EXTREMITIES: Trace edema. CARDIOVASCULAR MEDICATIONS: Reviewed. 1. Prednisone 5 mg daily. 2. Furosemide 40 mg b.i.d. 3. Aspirin 81 mg daily. 4. Torsemide 20 mg morning and 10 mg nightly. 5. Eliquis 2.5 mg every 12 hours. 6. Metoprolol succinate 25 mg daily. STUDIES: Reviewed. Potassium is 3.5, creatinine 1.02. Hemoglobin 10.1, platelets 159. AST 26, ALT 12. ASSESSMENT 1. Atrial fibrillation with controlled ventricular response. 2. Chest x-ray with persistent infiltrates concerning for pneumonia versus pulmonary edema. 3. Ngugb-av-dzgxonk systolic heart failure. 4. Rheumatoid arthritis. RECOMMENDATIONS 1. Continue current cardiovascular medications with monitoring ins and outs, urine output and renal function and electrolytes. 2. Given elevated ECF-ml-fijrztiefz ratio and contraction alkalosis and persistent chest x-ray infiltrates, somewhat concerning for pneumonia. Will discuss with primary service. Defer decision on antibiotic coverage to primary service. Job#: [id number] EV
[2018-10-01] MEDS: LEVOFLOXACIN 500MG/D5W 100ML 100 ML IV SCH (13:00)
[2018-10-01] MEDS: TEMAZEPAM 15 MG CAP PO SCH (21:06)
[2018-10-01] MEDS: MONTELUKAST SODIUM 10 MG TAB PO SCH (21:06)
[2018-10-01] MEDS: MELATONIN 3 MG TAB PO SCH (21:57)
[2018-10-02] VITALS (7 sets, daily range): BP systolic 97–110; BP diastolic 53–61
[2018-10-02] MEDS: ACETAMINOPHEN/CODEINE 300MG - 30MG TAB PO PRN (04:07)
[2018-10-02] MEDS: LEVOTHYROXINE SODIUM 50 MCG TAB PO SCH (05:32)
[2018-10-02] MEDS: FERROUS SULFATE 325 MG TAB PO SCH (09:46)
[2018-10-02] MEDS: OYST-CAL-D 500MG TABLET PO SCH ×2 (09:46→18:00)
[2018-10-02] MEDS: LORATADINE 10 MG TAB PO SCH (09:46)
[2018-10-02] MEDS: ACETAZOLAMIDE 250 MG TAB PO SCH ×2 (09:46→21:00)
[2018-10-02] MEDS: APIXABAN 5 MG TABLET PO SCH ×2 (09:46→21:00)
[2018-10-02] MEDS: POTASSIUM CHLORIDE 20 MEQ TAB CR PO SCH ×2 (09:46→18:00)
[2018-10-02] MEDS: PANTOPRAZOLE SOD 40 MG TABEC PO SCH (09:46)
[2018-10-02] MEDS: ASPIRIN 81 MG CHEW TAB PO SCH (09:46)
[2018-10-02] MEDS: AMIODARONE HCL 200 MG TAB PO SCH (09:46)
[2018-10-02] MEDS: METOPROLOL SUCCINATE 25 MG TAB XL PO SCH (09:46)
[2018-10-02] MEDS: PREDNISONE 5 MG TAB PO SCH (09:46)
[2018-10-02] MEDS: OCUVITE PRESERVISION TABLET PO SCH (09:46)
[2018-10-02] MEDS: FUROSEMIDE INJ 10 MG/ML 4 ML VIAL IV SCH ×2 (09:46→18:00)
[2018-10-02] MEDS: CITALOPRAM HYDROBROMIDE 20 MG TAB PO SCH (09:46)
[2018-10-02] MEDS: FOLIC ACID 1 MG TAB PO SCH (09:46)
[2018-10-02] MEDS: TORSEMIDE 10 MG TAB PO SCH ×2 (09:46→21:00)
[2018-10-02] MEDS: LEVOFLOXACIN 500MG/D5W 100ML 100 ML IV SCH (12:23)
--- NOTE | 2018-10-02 15:17 | Progress Note ---
DATE: October 02, 2018 CARDIOLOGY PROGRESS NOTE SUBJECTIVE: Shortness of breath is somewhat better. Fatigue. However, no chest pain. OBJECTIVE VITAL SIGNS: Temperature 98.2, heart rate 84, blood pressure 105/61, respiratory rate 18, O2 sat 98%. GENERAL: In no acute distress. Alert. NECK: No JVD. CHEST: With decreased breath sounds and scattered rales at the bases bilaterally. CARDIOVASCULAR: Irregularly irregular rate and rhythm. Normal S1 and S2. No S3 or S4. Systolic ejection murmur /6. ABDOMEN: Soft, nontender. EXTREMITIES: Trace edema. CARDIOVASCULAR MEDICATIONS: Reviewed. 1. Kcl 20 mEq b.i.d. 2. Ferrous sulfate 324 mg daily. 3. Prednisone 5 mg daily. 4. Aspirin 81 mg daily. 5. Furosemide 20 mg in the morning and 10 mg nightly. 6. Apixaban or Eliquis 2.5 mg every 12 hours. 7. Metoprolol succinate 25 mg daily. 8. Acetazolamide 250 mg every 12 hours. STUDIES: Reviewed. Potassium is 3.5, creatinine 1.02. Hemoglobin 10.1, platelets 159. Normal transaminases. ASSESSMENT 1. Pneumonia. 2. Fioln-jj-usmgniv systolic heart failure. 3. Aortic stenosis, status post transcatheter aortic valve replacement. 4. Atrial fibrillation/atrial flutter. 5. Rheumatoid arthritis. 6. Hypertension. 7. Dyslipidemia. RECOMMENDATIONS: Continue current cardiovascular medications. Patient is showing clinical signs of improvement both on physical exam as well as subjectively. Continue care. Job#: [id number]
[2018-10-02] MEDS: MONTELUKAST SODIUM 10 MG TAB PO SCH (21:00)
[2018-10-02] MEDS: MELATONIN 3 MG TAB PO SCH (21:00)
[2018-10-02] MEDS: TEMAZEPAM 15 MG CAP PO SCH (21:00)
[2018-10-03] VITALS (8 sets, daily range): BP systolic 91–130; BP diastolic 51–84
[2018-10-03] MEDS: ACETAMINOPHEN/CODEINE 300MG - 30MG TAB PO PRN ×2 (05:04→15:02)
[2018-10-03] MEDS: LEVOTHYROXINE SODIUM 50 MCG TAB PO SCH (05:43)
[2018-10-03 06:02] LABS: BASOPHILS % 0.3 % (0.0-1.0); EOSINOPHILS # (AUTO) 0.2 (0.0-0.4); EOSINOPHILS % 2.5 % (0.0-6.0); HEMATOCRIT 35.8 % (34.2-44.1); HEMOGLOBIN 10.6 g/dL (12.0-16.0); LYMPHOCYTES # (AUTO) 0.5 (1.0-3.2); LYMPHOCYTES % 6.6 % (18.0-39.1); MEAN CORPUSCULAR HEMOGLOBIN 26.6 pg (28-32); MEAN CORPUSCULAR HGB CONC 29.6 g/dL (31-35); MEAN CORPUSCULAR VOLUME 89.7 fL (81-99); MONOCYTES # (AUTO) 0.9 (0.2-0.8); MONOCYTES % 11.7 % (4.4-11.3); NEUTROPHILS # (AUTO) 5.7 (2.1-6.9); NEUTROPHILS % 78.1 % (38.7-80.0); PLATELET COUNT 149 x10e3/uL (140-360); RED BLOOD COUNT 3.99 x10e6/uL (3.6-5.1); RED CELL DISTRIBUTION WIDTH 17.1 % (11.7-14.4)
[2018-10-03 06:13] LABS: ANION GAP 11.6 mmol/L (8-16); CALCIUM 8.9 mg/dL (8.4-10.2); CREATININE, SERUM 1.47 mg/dL (0.57-1.11); POTASSIUM 3.6 mmol/L (3.5-5.1)
[2018-10-03] MEDS ORDERED: FUROSEMIDE40 MG PO (07:26)
[2018-10-03] MEDS ORDERED: LORATADINE10 MG PO (07:26)
[2018-10-03] MEDS ORDERED: Calcium Carbonate PO (07:26)
[2018-10-03] MEDS: METOPROLOL SUCCINATE 25 MG TAB XL PO SCH (09:00)
[2018-10-03] MEDS: TORSEMIDE 10 MG TAB PO SCH (10:00)
[2018-10-03] MEDS: ACETAZOLAMIDE 250 MG TAB PO SCH (10:00)
[2018-10-03] MEDS: OYST-CAL-D 500MG TABLET PO SCH ×2 (10:00→21:13)
[2018-10-03] MEDS: POTASSIUM CHLORIDE 20 MEQ TAB CR PO SCH ×2 (10:00→21:00)
[2018-10-03] MEDS: PREDNISONE 5 MG TAB PO SCH (10:00)
[2018-10-03] MEDS: OCUVITE PRESERVISION TABLET PO SCH (10:00)
[2018-10-03] MEDS: CITALOPRAM HYDROBROMIDE 20 MG TAB PO SCH (10:00)
[2018-10-03] MEDS: FOLIC ACID 1 MG TAB PO SCH (10:00)
[2018-10-03] MEDS: APIXABAN 5 MG TABLET PO SCH ×2 (10:00→21:13)
[2018-10-03] MEDS: ASPIRIN 81 MG CHEW TAB PO SCH (10:00)
[2018-10-03] MEDS: AMIODARONE HCL 200 MG TAB PO SCH (10:00)
[2018-10-03] MEDS: PANTOPRAZOLE SOD 40 MG TABEC PO SCH (10:00)
[2018-10-03] MEDS: LORATADINE 10 MG TAB PO SCH (10:00)
[2018-10-03] MEDS: FERROUS SULFATE 325 MG TAB PO SCH (10:00)
--- NOTE | 2018-10-03 11:38 | Progress Note ---
DATE: October 03, 2018 CARDIOLOGY PROGRESS NOTE SUBJECTIVE: No complaints today. OBJECTIVE VITALS: Temperature 96.7, heart rate 73, respiratory rate 20, blood pressure 114/56, O2 sat 98% on nasal cannula. GENERAL: In no acute distress. Alert. NECK: No JVD. CHEST: Decreased breath sounds and scattered rales in the bases. CARDIOVASCULAR: Irregular rate and rhythm. Normal S1 and S2. No S3 or S4. ABDOMEN: Soft, nontender. EXTREMITIES: No edema. CARDIOVASCULAR MEDICATIONS: Reviewed. 1. Eliquis 2.5 mg every 12 hours. 2. Diamox 250 mg every 12 hours. 3. Furosemide 40 mg IV b.i.d. 4. Torsemide 20 mg daily. STUDIES: Reviewed. White cells 7.2, hemoglobin 10.6, platelets 149. Creatinine 1.47, up from 1.02. Potassium is 3.6, sodium 139, bicarbonate 38, BUN 37. ASSESSMENT 1. Acute kidney injury. 2. Pneumonia. 3. Ssmpz-tt-fcvmbdp systolic heart failure. 4. Aortic stenosis, status post transcatheter aortic valve replacement. 5. Atrial fibrillation/atrial flutter. 6. Rheumatoid arthritis. 7. Dyslipidemia. RECOMMENDATIONS: Discontinue furosemide. Liberalize salt intake today. Suspect acute kidney injury might be related to prerenal state. Monitor potassium. Continue the rest of the cardiovascular medications. Job#: [id number]
[2018-10-03] MEDS ORDERED: SODIUM CHLORIDE 0.9% 250ML 250 ML ONE (12:09)
[2018-10-03] MEDS: LEVOFLOXACIN 500MG/D5W 100ML 100 ML IV SCH (13:00)
[2018-10-03] MEDS: TEMAZEPAM 15 MG CAP PO SCH (21:13)
[2018-10-03] MEDS: MELATONIN 3 MG TAB PO SCH (21:13)
[2018-10-03] MEDS: MONTELUKAST SODIUM 10 MG TAB PO SCH (21:13)
[2018-10-04] VITALS: BP 101/56
[2018-10-04 01:40] VITALS: BP 102/56
[2018-10-04 04:00] VITALS: BP 105/55
[2018-10-04 07:09] LABS: ANION GAP 8.6 mmol/L (8-16); CREATININE, SERUM 1.08 mg/dL (0.57-1.11); MAGNESIUM 2.2 MG/DL (1.3-2.1); PHOSPHORUS 2.8 MG/DL (2.3-4.7); POTASSIUM 3.6 mmol/L (3.5-5.1)
[2018-10-04 08:58] VITALS: BP 111/55
[2018-10-04] MEDS: FERROUS SULFATE 325 MG TAB PO SCH (09:00)
[2018-10-04] MEDS: APIXABAN 5 MG TABLET PO SCH (09:00)
[2018-10-04] MEDS: METOPROLOL SUCCINATE 25 MG TAB XL PO SCH (09:00)
[2018-10-04] MEDS: PANTOPRAZOLE SOD 40 MG TABEC PO SCH (09:00)
[2018-10-04] MEDS: OCUVITE PRESERVISION TABLET PO SCH (09:00)
[2018-10-04] MEDS ORDERED: FUROSEMIDE 40 MG TAB PO SCH (09:00)
[2018-10-04] MEDS: OYST-CAL-D 500MG TABLET PO SCH (09:00)
[2018-10-04] MEDS: ASPIRIN 81 MG CHEW TAB PO SCH (09:00)
[2018-10-04] MEDS: POTASSIUM CHLORIDE 20 MEQ TAB CR PO SCH (09:00)
[2018-10-04] MEDS: LORATADINE 10 MG TAB PO SCH (09:00)
[2018-10-04] MEDS: PREDNISONE 5 MG TAB PO SCH (09:00)
[2018-10-04] MEDS: AMIODARONE HCL 200 MG TAB PO SCH (09:00)
[2018-10-04] MEDS: FOLIC ACID 1 MG TAB PO SCH (09:00)
[2018-10-04] MEDS: CITALOPRAM HYDROBROMIDE 20 MG TAB PO SCH (09:00)
[2018-10-04 12:49] VITALS: BP 109/58
[2018-10-04] MEDS: LEVOFLOXACIN 500MG/D5W 100ML 100 ML IV SCH (12:53)
== END 2018-10-04 15:39 | DRG 291 ==
LOC: ER 16:54 → ERHOLD 20:58 → MED/SURG 22:30
PROVIDERS: ADMIT Internal Medicine; ATTEND Internal Medicine
DX: I13.0 Hypertensive heart and chronic kidney disease with heart failure and stage 1 through stage 4 chronic kidney disease, or unspecified chronic kidney disease (principal); I50.23 Acute on chronic systolic (congestive) heart failure; J96.20 Acute and chronic respiratory failure, unspecified whether with hypoxia or hypercapnia; J18.9 Pneumonia, unspecified organism; I48.92 Unspecified atrial flutter; N18.2 Chronic kidney disease, stage 2 (mild); M06.9 Rheumatoid arthritis, unspecified; E03.9 Hypothyroidism, unspecified; I35.0 Nonrheumatic aortic (valve) stenosis; M35.00 Sjogren syndrome, unspecified; M32.9 Systemic lupus erythematosus, unspecified; I48.2 Chronic atrial fibrillation; Z79.01 Long term (current) use of anticoagulants; E78.5 Hyperlipidemia, unspecified; I48.0 Paroxysmal atrial fibrillation; Z95.2 Presence of prosthetic heart valve
CPT/HCPCS: 36415; 51700; 71045; 71046; 80048; 80053; 82550; 82553; 83735; 83880; 84100; 84484; 85025; 93005; 93306; 96374; 97139; 99284; J1940; J1956; J7050; J7512

== ENCOUNTER 2018-11-02 15:04 | Inpatient (IN) | payer MEDICARE, OTHER ==
[~2018-11-02] VITALS: Ht 152.4 cm; Wt 59.9 kg
[~2018-11-02 15:04] MED LIST changes: +ACETAMINOPHEN325 M1 PO; +AMIODARONE HCL200 MG PO; +ASPIR-LOW81 MG PO; +BISACODYL5 MG PO; +CETIRIZINE HCL10 MG PO; +Calcium Carbonate PO; +FERROUS SULFAT324 MG PO; +LORATADINE10 MG PO; +MELATONIN3 MG PO; +METOPROLOL SUCC25 MG PO; +MONTELUKAST SOD10 MG PO; +PRESERVISION A1 EACH PO; +TEMAZEPAM15 MG PO; +TORSEMIDE10 MG PO; +TYLENOL WITH C1 EACH PO; +ZOFRAN ODT4 MG SL; +eliquis PO
--- OUTSIDE RECORDS SUMMARY | 2018-11-02 15:09 | XMS REPORT | Continuity of Care Document ---
Author Author [facility] Interface Address Unknown Phone Unavailable Problems Problem Status Onset Date Classification Date Reported Comments Source Chronic diastolic heart failure 12/30/2017 04/03/2018 [place] [place] Influenza due to unidentified influenza virus with unspecified type of pneumonia 12/30/2017 04/03/2018 [facility] Hypertensive heart disease with heart failure 12/28/2017 03/30/2018 [facility] FOLLOW UP Active 12/26/2017 [facility] HSOPITAL FOLLOW UP Active 12/06/2017 [facility] Discharge Diagnosis: Influenza 11/10/2017 11/20/2017 [facility] INFLUENZA Active 11/10/2017 [facility] FLU Active 11/10/2017 [facility] RIGHT KNEE PAIN Active 07/08/2017 [facility] ELEVATED INR RT KNEE Active 07/08/2017 [facility] SHORT OF BREATH Active 06/08/2017 [facility] J98.11 - ATELECTASIS Active 05/16/2017 [place] FOLLWO UP Active 04/25/2017 [facility] TAVR HOSPITAL FOLLOW UP Active 04/10/2017 [facility] AORTIC STENOSIS Active 04/06/2017 [facility] PRE ADMIT/*GEN ANESTHESIA*/TAVR CASE/*3D Active 04/06/2017 [facility] F/U Active 04/04/2017 [facility] AORTIC STEONOSIS; NICMP Active 03/21/2017 [facility] LUNG OPACITIES, PULM NODULE Active 03/20/2017 [facility] CHF Active 03/08/2017 [facility] Aortic stenosis Active Problem 05/11/2018 [facility], [facility] Atrial fibrillation Resolved Problem 05/11/2018 [facility], [facility] Cardiomyopathy Resolved Problem 05/11/2018 [facility], [facility] History of breast cancer Active Problem 05/11/2018 [facility] Hypertension Active Problem 05/11/2018 [facility], [place] [place], [facility] Hypothyroidism Active Problem 05/11/2018 [facility], [place], [facility] Rheumatoid arthritis Active Problem 05/11/2018 [facility] Scoliosis Resolved Problem 05/11/2018 [facility] HTN (<span [id number]">Confirmed</span>) Resolved Problem 05/11/2018 [place],[facility] Hypothyroid Resolved Problem 05/11/2018 [place],[facility] Breast cancer Resolved Problem 05/11/2018 [place],[facility] RA (<span ID="[id number]">Confirmed</span>) Resolved Problem 05/11/2018 [place],[facility] Allergic rhinitis Active Problem 05/11/2018 [facility] Chronic heart failure Active Problem 05/11/2018 [facility] Pneumonia Active Problem 05/11/2018 [facility] Mild protein-calorie malnutrition Active Problem 05/11/2018 [facility] Restrictive lung disease Active Problem 05/11/2018 [facility] Tracheobronchopathia-osteochondroplastica Active Problem 05/11/2018 [facility] Aortic stenosis<sup>1</sup> Resolved Problem 05/11/[address] [facility] CHF (<span ID="[id number]">Confirmed</span>) Resolved Problem 05/11/2018 [facility] Sjogrens syndrome<sup>2</sup> Resolved Problem 05/11/[address] [facility], [place],[facility] Sjogren's syndrome Resolved Problem 05/11/2018 [facility], [place],[facility] Rheumatoid arthritis, unspecified 04/03/2018 [facility] Personal history of malignant neoplasm of breast 04/03/2018 [facility] Personal history of antineoplastic chemotherapy 04/03/2018 [facility] Acute on chronic diastolic heart failure 03/30/2018 [facility] Acute respiratory failure with hypoxia 03/30/2018 [facility] Dependence on supplemental oxygen 03/30/2018 [facility] penitentiary use of anticoagulants 03/30/2018 [facility] Persistent atrial fibrillation 03/30/2018 [facility] Chronic atrial fibrillation 03/30/2018 [facility] Iron deficiency anemia, unspecified 03/30/2018 [facility] Final: Influenza due to unidentified influenza virus with other respiratory manifestations 11/20/2017 [facility] NONRHEUMATIC AORTIC (VALVE) STENOSIS Active [facility] ENCNTR FOR GENERAL ADULT MEDICAL EXAM W/ Active [facility] HEART FAILURE, UNSPECIFIED Active [facility] ABNORMAL COAGULATION PROFILE Active [facility] FLU DUE TO UNIDENTIFIED INFLUENZA VIRUS Active [facility] Medications Medication Details Route Status Patient Instructions Ordering Provider Order Date Source temazepam 15 mg oral capsule 15 mg=1 cap, PO, Bedtime, 0 Refill(s) Active 05/08/2018 [facility] potassium chloride 20 mEq oral tablet, extended release 20 mEq=1 tab, PO, BID, 0 Refill(s) Active 05/08/2018 [facility] Furosemide 40 MG Oral Tablet 40 mg=1 tab, PO, TID, 0 Refill(s) Active 05/08/2018 [facility] apixaban 5 MG Oral Tablet [Eliquis] 5 mg, PO, Q12H, 0 Refill(s) Active 05/08/2018 [facility] torsemide 20 mg oral tablet See Instructions, Take two tabs in the morning and one tab in the evening., # 90 tab, 1 Refill(s), Pharmacy: [facility] #[id number] Active 02/22/2018 [facility] metoprolol 25 mg oral tablet, extended release 25 mg=1 tab, PO, Daily, # 30 tab, 3 Refill(s), Pharmacy: [facility] #[id number] Active 02/19/2018 [facility] Symbicort 160/4.5 inhalation aerosol with adapter 2 puff, INHALER, BID, rinse mouth and throat after use, # 1 ea, 11 Refill(s), Pharmacy: [facility] #[id number] Active 12/26/2017 [facility] ferrous gluconate 325 mg oral tablet 325 mg=1 tab, PO, BID, # 60 tab, 5 Refill(s), Pharmacy: [facility] #[id number] Active 12/24/2017 [facility] torsemide 20 mg oral tablet See Instructions, Take two tabs in the morning and one tab in the evening., # 90 tab, 1 Refill(s), Pharmacy: [facility] #[id number] No Longer Active 12/22/2017 [facility] budesonide-formoterol 80 mcg-4.5 mcg/inh inhalation aerosol with adapter 2 inhalation, Route: INHALATION, Drug Form: AERO/A, RBID, Start date: 11/17/17 18:14:00 [employer], Duration: 30 day, Stop date: 12/17/17 8:00:00 CSTNotes: (Same as: Symbicort) WASTE: Aerosol - Return to Pharmacy Inactive 11/18/2017 [facility] Fluticasone propionate 0.1 MG/ACTUAT / salmeterol 0.05 MG/ACTUAT Dry Powder Inhaler 1 inhalation, INHALER, RBID, # 60 ea, 1 Refill(s) Active 11/18/2017 [facility] Fluticasone propionate 0.1 MG/ACTUAT / salmeterol 0.05 MG/ACTUAT Dry Powder Inhaler 1 inhalation, INHALER, RBID, # 28 ea, 1 Refill(s) Inactive 11/18/2017 [facility] Fluticasone propionate 0.1 MG/ACTUAT / salmeterol 0.05 MG/ACTUAT Dry Powder Inhaler 1 inhalation, Route: INHALER, Dosing Weight 53.818, kg, RBID, Start date: 11/17/17 18:01:00 [employer], Duration: 30 day, Stop date: 12/17/17 8:00:00 [employer] Inactive 11/18/2017 [facility] Warfarin 4 mg, Route: PO, Drug form: TAB, Q5PM, Dosing Weight 53.818, kg, Start date: 11/15/17 17:00:00 [employer], Duration: 1 doses or times, Stop date: 11/15/17 17:00:00 [employer] Inactive 11/15/2017 [facility] Dextromethorphan Hydrobromide 2 MG/ML / Guaifenesin 20 MG/ML Oral Solution 10 mL, PO, Q6H, X 7 day, # 280 mL, 0 Refill(s) Active 11/15/2017 [facility] Acetaminophen 325 MG / Hydrocodone Bitartrate 5 MG Oral Tablet [Jasper 5/325] 1 tab, Route: PO, Drug Form: TAB, Dosing Weight 53.818, kg, ONCE, Start date: 11/14/17 22:12:00 [employer], Stop date: 11/14/17 22:12:00 CSTNotes: (Same as: Jasper 325/5) Do not exceed 4gm/day of acetaminophen. Inactive 11/15/2017 [facility] Acetaminophen 325 MG / Oxycodone Hydrochloride 5 MG Oral Tablet 1 tab, Route: PO, Drug Form: TAB, Dosing Weight 53.818, kg, ONCE, PRN Pain Score 1-3, Start date: 11/13/17 22:46:00 CSTNotes: Do not exceed 4gm/day of acetaminophen. (Same as: Percocet-5/325) Inactive 11/14/2017 [facility] Warfarin 3 mg, 1 tab, Route: PO, Drug form: TAB, Q5PM, Dosing Weight 53.818, kg, Start date: 11/13/17 17:00:00 [employer], Duration: 1 doses or times, Stop date: 11/13/17 17:00:00 CSTNotes: Nurse to ensure documentation of patient education per anticoagulation policy. Avoid large intake of vitamin-K containing foods diet. (Same As: Coumadin) WASTE: F/P - P Waste Black; E - P Waste Black Inactive 11/13/2017 [facility] Ciprofloxacin 500 mg, Route: PO, Daily, Dosing Weight 53.818, kg, Start date: 11/13/17 9:00:00 [employer], Duration: 3 day, Stop date: 11/15/17 9:00:00 [employer], ABX Indication: Urinary Tract Infection No Longer Active 11/13/2017 [facility] Benadryl 25 mg, 1 cap, Route: PO, Drug form: CAP, ONCE, Dosing Weight 53.818, kg, Start date: 11/13/17 0:53:00 [employer], Stop date: 11/13/17 0:53:00 CSTNotes: (Same as: Benadryl) Inactive 11/13/2017 [facility] dextromethorphan extended release 60 mg, Route: PO, Drug form: ER Suspension, Q12H, Dosing Weight 53.818, kg, Start date: 11/12/17 21:00:00 [employer], Duration: 30 day, Stop date: 12/12/17 9:00:00 [employer] Inactive 11/13/2017 [facility] Mucinex 600 mg, 1 tab, Route: PO, Drug form: ERTAB, Q12H, Dosing Weight 53.818, kg, Start date: 11/12/17 21:00:00 [employer], Duration: 30 day, Stop date: 12/12/17 9:00:00 CSTNotes: (Same as: Guaifenesin LA, Humibid LA, Mucinex) "Do Not Crush" Take medication with plenty of water. Inactive 11/13/2017 [facility] Acetaminophen 325 MG / Hydrocodone Bitartrate 5 MG Oral Tablet [Jasper 5/325] 1 tab, Route: PO, Drug Form: TAB, Dosing Weight 53.818, kg, ONCE, Start date: 11/12/17 20:57:00 [employer], Stop date: 11/12/17 20:57:00 CSTNotes: (Same as: Jasper 325/5) Do not exceed 4gm/day of acetaminophen. Inactive 11/13/2017 [facility] Robitussin DM 10 ml, Route: PO, Drug Form: SYRP, Dosing Weight 53.818, kg, Q6H, Start date: 11/12/17 20:00:00 [employer], Duration: 30 day, Stop date: 12/12/17 18:00:00 CSTNotes: (dextromethorphan-guaifenesin 10-100mg/5m l 10 ml oral SOLN ud) (Same as: Robitussin DM) No Longer Active 11/13/2017 [facility] Budesonide 0.25 mg, 2 mL, Route: NEB, Drug form: SUSP, RBID, Dosing Weight 53.818, kg, Start date: 11/12/17 17:22:00 [employer], Duration: 30 day, Stop date: 12/12/17 8:00:00 CSTNotes: (Same As: Pulmicort respule). No Longer Active 11/12/2017 [facility] Warfarin 3 mg, 1 tab, Route: PO, Drug form: TAB, Q5PM, Dosing Weight 53.818, kg, Start date: 11/12/17 17:00:00 [employer], Duration: 1 doses or times, Stop date: 11/12/17 17:00:00 CSTNotes: Nurse to ensure documentation of patient education per anticoagulation policy. Avoid large intake of vitamin-K containing foods diet. (Same As: Coumadin) WASTE: F/P - P Waste Black; E - P Waste Black Inactive 11/12/2017 [facility] Tamiflu 75 mg, 1 cap, Route: PO, Drug form: CAP, BID, Dosing Weight 53.818, kg, Start date: 11/12/17 17:00:00 [employer], Duration: 3 day, Stop date: 11/15/17 9:00:00 CSTNotes: Take with food. Same as: Tamiflu) No Longer Active 11/12/2017 [facility] Tylenol 325 mg, 1 tab, Route: PO, Drug form: TAB, Q6H, Dosing Weight 53.818, kg, PRN Pain Score 1-3, Start date: 11/12/17 13:39:00 [employer], Duration: 30 day, Stop date: 12/12/17 13:38:00 CSTNotes: Do not exceed 4 gm/day. (Same as: Tylenol) No Longer Active 11/12/2017 [facility] Cipro 250 mg, 1 tab, Route: PO, Drug form: TAB, [id number], Start date: 11/12/17 12:00:00 [employer], Duration: 3 day, Stop date: 11/15/17 0:00:00 [employer], ABX Indication: Urinary Tract InfectionNotes: May interfere w/enteral feedings - Take 1 hr before or 2 hrs after antacids, dairy pdt & minerals. On empty stomach. No Longer Active 11/12/2017 [facility] Albuterol 0.833 MG/ML / Ipratropium Waldron 0.167 MG/ML Inhalant Solution [DuoNeb] 3 ml, Route: NEB, Drug Form: SOLN, Dosing Weight 53.818, kg, RQ6H, PRN Respiratory Protocol, Start date: 11/12/17 11:32:00 [employer], Duration: 30 day, Stop date: 12/12/17 11:31:00 CSTNotes: (Same as: Duoneb) No Longer Active 11/12/2017 [facility] Acetaminophen 325 MG / Hydrocodone Bitartrate 5 MG Oral Tablet [Jasper 5/325] 1 tab, Route: PO, Drug Form: TAB, Dosing Weight 53.818, kg, ONCE, PRN Pain Score 1-3, Start date: 11/11/17 22:59:00 CSTNotes: (Same as: Jasper 325/5) Do not exceed 4gm/day of acetaminophen. Inactive 11/12/2017 [facility] Warfarin 2 mg, 1 tab, Route: PO, Drug form: TAB, Q5PM, Dosing Weight 53.818, kg, Start date: 11/11/17 17:00:00 [employer], Duration: 1 doses or times, Stop date: 11/11/17 17:00:00 CSTNotes: Nurse to ensure documentation of patient education per anticoagulation policy. Avoid large intake of vitamin-K containing foods diet. (Same As: Coumadin) WASTE: F/P - P Waste Black; E - P Waste Black Inactive 11/11/2017 [facility] Prednisone 5 mg, 1 tab, Route: PO, Drug form: TAB, Daily, Dosing Weight 54.545, kg, Start date: 11/11/17 9:00:00 [employer], Duration: 30 day, Stop date: 12/10/17 9:00:00 CSTNotes: Take with food. No Longer Active 11/11/2017 [facility] potassium chloride 20 mEq oral tablet, extended release 20 mEq, 1 tab, Route: PO, Drug form: ERTAB, Daily, Dosing Weight 54.545, kg, Start date: 11/11/17 9:00:00 [employer], Duration: 30 day, Stop date: 12/10/17 9:00:00 CSTNotes: (Same as: K-Dur 20) "Do Not Crush" With food and full glass of water No Longer Active 11/11/2017 [facility] pantoprazole 40 mg, 1 tab, Route: PO, Drug form: ECTAB, Daily, Dosing Weight 54.545, kg, Start date: 11/11/17 9:00:00 [employer], Duration: 30 day, Stop date: 12/10/17 9:00:00 CSTNotes: Tablet should not be chewed or cr ushed. (Same as: Protonix) No Longer Active 11/11/2017 [facility] Azithromycin 500 mg, 2 tab, Route: PO, Drug form: TAB, Daily, Dosing Weight 54.545, kg, Start date: 11/11/17 9:00:00 [employer], Stop date: 11/14/17 9:00:00 [employer], ABX Indication: BacteremiaNotes: Take 1 hour before or 2 hours after meals. (Same As: Zithromax) No Longer Active 11/11/2017 [facility] 24 HR Metoprolol Tartrate 25 MG Extended Release Tablet [Toprol] 25 mg, 1 tab, Route: PO, Drug form: ERTAB, Daily, Start date: 11/11/17 9:00:00 [employer], Duration: 30 day, Stop date: 12/10/17 9:00:00 CSTNotes: (Same as: Toprol XL) Do Not Crush No Longer Active 11/11/2017 [facility] Thyroxine 25 microgram, 1 tab, Route: PO, Drug form: TAB, Daily, Dosing Weight 54.545, kg, Start date: 11/11/17 9:00:00 [employer], Duration: 30 day, Stop date: 12/10/17 9:00:00 CSTNotes: Take 1 hour before or 2 hours after meal; Enteral feeds may interefere with the absorption of this medication. (Same as:Levothroid) No Longer Active 11/11/2017 [facility] Folic Acid 1 mg, 1 tab, Route: PO, Drug form: TAB, Daily, Dosing Weight 54.545, kg, Start date: 11/11/17 9:00:00 [employer], Duration: 30 day, Stop date: 12/10/17 9:00:00 CSTNotes: (Same as: Folvite) No Longer Active 11/11/2017 [facility] Citalopram 10 mg, 1 tab, Route: PO, Drug form: TAB, Daily, Dosing Weight 54.545, kg, Start date: 11/11/17 9:00:00 [employer], Duration: 30 day, Stop date: 12/10/17 9:00:00 [employer] No Longer Active 11/11/2017 [facility] calcium-vitamin D 500 mg-200 intl units oral tablet 1 tab, Route: PO, Drug Form: TAB, Dosing Weight 54.545, kg, BID, Start date: 11/11/17 9:00:00 [employer], Duration: 30 day, Stop date: 12/10/17 17:00:00 CSTNotes: (Same As: Ana-D, OsCal-D, Oyster Calcium) No Longer Active 11/11/2017 [facility] aspirin 81 mg tablet, enteric coated 81 mg, 1 tab, Route: PO, Drug form: ECTAB, Daily, Dosing Weight 54.545, kg, Start date: 11/11/17 9:00:00 [employer], Duration: 30 day, Stop date: 12/10/17 9:00:00 CSTNotes: Do not crush or chew. (Same As: Ecotrin) No Longer Active 11/11/2017 [facility] Amiodarone 200 mg, 1 tab, Route: PO, Drug form: TAB, Daily, Dosing Weight 54.545, kg, Start date: 11/11/17 9:00:00 [employer], Duration: 30 day, Stop date: 12/10/17 9:00:00 CSTNotes: (Same as: Cordarone) No Longer Active 11/11/2017 [facility] Acetaminophen 325 MG / Hydrocodone Bitartrate 5 MG Oral Tablet [Jasper 5/325] 1 tab, Route: PO, Drug Form: TAB, Dosing Weight 53.818, kg, ONCE, PRN Pain Score 1-3, Start date: 11/11/17 2:15:00 CSTNotes: (Same as: Jasper 325/5) Do not exceed 4gm/day of acetaminophen. Inactive 11/11/2017 [facility] Acetaminophen 325 MG / Hydrocodone Bitartrate 5 MG Oral Tablet [Jasper 5/325] 1 tab, Route: PO, Drug Form: TAB, Dosing Weight 53.818, kg, ONCE, Start date: 11/11/17 1:43:00 [employer], Stop date: 11/11/17 1:43:00 CSTNotes: (Same as: Jasper 325/5) Do not exceed 4gm/day of acetaminophen. Inactive 11/11/2017 [facility] Tamiflu 30 mg, 1 cap, Route: PO, Drug form: CAP, Daily, Dosing Weight 54.545, kg, CrCl > 30 to 60 ml/hr, Start date: 11/10/17 18:30:00 [employer], Duration: 5 day, Stop date: 11/15/17 9:00:00 CSTNotes: Same as: Tamilfu Take with Food No Longer Active 11/11/2017 [facility] azithromycin 500 mg oral tablet 500 mg, 2 tab, Route: PO, Drug form: TAB, ONCE, Dosing Weight 54.545, kg, Start date: 11/10/17 18:09:00 [employer], Stop date: 11/10/17 18:09:00 [employer], ABX Indication: ED - Suspected SepsisNotes: Take 1 hour before or 2 hours after meals. (Same As: Zithromax) Inactive 11/11/2017 [facility] Coumadin 2 mg, 1 tab, Route: PO, Drug form: TAB, ONCE, Dosing Weight 54.545, kg, Start date: 11/10/17 17:59:00 [employer], Stop date: 11/10/17 17:59:00 CSTNotes: Nurse to ensure documentation of patient education per a nticoagulation policy. Avoid large intake of vitamin-K containing foods diet. (Same As: Coumadin) WASTE: F/P - P Waste Black; E - P Waste Black Inactive 11/10/2017 [facility] Levofloxacin 750 mg, 150 mL, Route: IVPB, Drug form: SOLN, ONCE, Dosing Weight 54.545, kg, Start date: 11/10/17 16:52:00 [employer], Stop date: 11/10/17 16:52:00 [employer], ABX Indication: PneumoniaNotes: (Same as:Levaquin) Inactive 11/10/2017 [facility] Calcium Chloride 0.0014 MEQ/ML / Potassium Chloride 0.004 MEQ/ML / Sodium Chloride 0.103 MEQ/ML / Sodium Lactate 0.028 MEQ/ML Injectable Solution 500 mL, 500 ml/hr, Infuse Over: 1 hr, Route: IV, 500, Drug form: INJ, ONCE, Priority: STAT, Dosing Weight 54.545 kg, Start date: 11/10/17 16:52:00 [employer], Stop date: 11/10/17 16:52:00 [employer] Inactive 11/10/2017 [facility] Saline Flush 0.9% 10 mL, Route: IVP, Drug Form: INJ, Dosing Weight 54.545, kg, PRN, PRN Line Flush, Start date: 11/10/17 15:56:00 [employer], Duration: 30 day, Stop date: 12/10/17 15:55:00 CSTNotes: (Same as: BD Posiflush) No Longer Active 11/10/2017 [facility] metoprolol 25 mg oral tablet, extended release 25 mg=1 tab, PO, Daily, X 30 day, # 30 tab, 3 Refill(s), Pharmacy: [facility] #[id number] No Longer Active 10/25/2017 [facility] warfarin 2 mg oral tablet 1 tab ud pharmacy clinic; use dosing paper, PO, Daily, # 30 tab, 2 Refill(s), Pharmacy: [facility][id number] Active 10/25/2017 [facility] potassium chloride 20 mEq oral tablet, extended release 20 mEq=1 tab, PO, Daily, # 30 tab, 3 Refill(s), other Active 07/10/2017 [facility] metoprolol 25 mg oral tablet, extended release 25 mg=1 tab, PO, Daily, # 30 tab, 3 Refill(s) Active 07/10/2017 [facility] warfarin 2 mg oral tablet 2 mg=1 tab, PO, Daily, # 30 tab, 3 Refill(s) Active 07/10/2017 [facility] Acetaminophen 325 MG / Hydrocodone Bitartrate 5 MG Oral Tablet [Jasper 5/325] 1 tab, Route: PO, Drug Form: TAB, Dosing Weight 55.409, kg, Q6H, PRN Pain Score 1-3, Start date: 07/09/17 17:13:00 CDT, Duration: 30 day, Stop date: 08/08/17 17:12:00 CDTNotes: (Same as: Jasper 325/5) Do not exceed 4gm/day of acetaminophen. No Longer Active 07/09/2017 [facility] Demadex 10 mg, 1 tab, Route: PO, Drug form: TAB, QPM, Start date: 07/09/17 17:00:00 CDT, Duration: 30 day, Stop date: 08/07/17 17:00:00 CDTNotes: (Same As: Demadex) No Longer Active 07/09/2017 [facility] Demadex 20 mg, 2 tab, Route: PO, Drug form: TAB, QAM, Start date: 07/09/17 9:00:00 CDT, Duration: 30 day, Stop date: 08/07/17 9:00:00 CDTNotes: (Same As: Demadex) No Longer Active 07/09/2017 [facility] torsemide Route: PO, Drug form: TAB, BID, Dosing Weight 56.364, kg, Start date: 07/09/17 9:00:00 CDT, Duration: 30 day, Stop date: 08/07/17 17:00:00 CDT No Longer Active 07/09/2017 [facility] Prednisone 5 mg, 1 tab, Route: PO, Drug form: TAB, Daily, Dosing Weight 56.364, kg, Start date: 07/09/17 9:00:00 CDT, Duration: 30 day, Stop date: 08/07/17 9:00:00 CDTNotes: Take with food. No Longer Active 07/09/2017 [facility] potassium chloride 20 mEq oral tablet, extended release 20 mEq, 1 tab, Route: PO, Drug form: ERTAB, BID, Dosing Weight 56.364, kg, Start date: 07/09/17 9:00:00 CDT, Duration: 30 day, Stop date: 08/07/17 17:00:00 CDTNotes: (Same as: K-Dur 20) "Do Not Crush" With food and full glass of water No Longer Active 07/09/2017 [facility] pantoprazole 40 mg, 1 tab, Route: PO, Drug form: ECTAB, Daily, Dosing Weight 56.364, kg, Start date: 07/09/17 9:00:00 CDT, Duration: 30 day, Stop date: 08/07/17 9:00:00 CDTNotes: Tablet should not be chewed or cr ushed. (Same as: Protonix) No Longer Active 07/09/2017 [facility] 24 HR Metoprolol Tartrate 25 MG Extended Release Tablet [Toprol] 25 mg, 1 tab, Route: PO, Drug form: ERTAB, Daily, Start date: 07/09/17 9:00:00 CDT, Duration: 30 day, Stop date: 08/07/17 9:00:00 CDTNotes: (Same as: Toprol XL) Do Not Crush No Longer Active 07/09/2017 [facility] Folic Acid 1 mg, 1 tab, Route: PO, Drug form: TAB, Daily, Dosing Weight 56.364, kg, Start date: 07/09/17 9:00:00 CDT, Duration: 30 day, Stop date: 08/07/17 9:00:00 CDTNotes: (Same as: Folvite) No Longer Active 07/09/2017 [facility] Citalopram 10 mg, 1 tab, Route: PO, Drug form: TAB, Daily, Dosing Weight 56.364, kg, Start date: 07/09/17 9:00:00 CDT, Duration: 30 day, Stop date: 08/07/17 9:00:00 CDT No Longer Active 07/09/2017 [facility] Amiodarone 200 mg, 1 tab, Route: PO, Drug form: TAB, Daily, Dosing Weight 56.364, kg, Start date: 07/09/17 9:00:00 CDT, Duration: 30 day, Stop date: 08/07/17 9:00:00 CDTNotes: (Same as: Cordarone) No Longer Active 07/09/2017 [facility] calcium (as carbonate)-vitamin D 500 mg-400 intl units oral tablet 1 tab, Route: PO, Drug Form: TAB, Dosing Weight 56.364, kg, BID-Meals, Start date: 07/09/17 8:00:00 CDT, Duration: 30 day, Stop date: 08/07/17 17:00:00 CDTNotes: (calcium carbonate-vit D 500mg-400unit TAB) Same as: Oyster- D, OsCal-D No Longer Active 07/09/2017 [facility] Thyroxine 25 microgram, 1 tab, Route: PO, Drug form: TAB, Q630AM, Dosing Weight 56.364, kg, Start date: 07/09/17 6:30:00 CDT, Duration: 30 day, Stop date: 08/07/17 6:30:00 CDTNotes: Take 1 hour before or 2 hours after meal; Enteral feeds may interefere with the absorption of this medication. (Same as:Levothroid) No Longer Active 07/09/2017 [facility] magic mouth wash 15 mL, Route: PO, Drug Form: SUSP, Dosing Weight 55.256, kg, BID, PRN Mouth Pain, Start date: 07/08/17 22:54:00 CDT, Duration: 30 day, Stop date: 08/07/17 22:53:00 CDTNotes: diphen elix/mag-al liq/lido visc 1:1:1 90ml susp No Longer Active 07/09/2017 [facility] Blistex Lip [place] 1 appl, Route: TOP, Drug Form: STIC, Dosing Weight 55.256, kg, BID, PRN Mouth Pain, Start date: 07/08/17 22:53:00 CDT, Duration: 30 day, Stop date: 08/07/17 22:52:00 CDT No Longer Active 07/09/2017 [facility] Ambien 5 mg, 1 tab, Route: PO, Drug form: TAB, Bedtime, Dosing Weight 55.256, kg, PRN Insomnia, Start date: 07/08/17 21:26:00 CDT, Duration: 30 day, Stop date: 08/07/17 21:25:00 CDTNotes: (Same As: Ambien) No Longer Active 07/09/2017 [facility] melatonin 5 mg tablet 5 mg, 1 tab, Route: PO, Drug Form: TAB, Dosing Weight 56.364, kg, Bedtime, Start date: 07/08/17 21:00:00 CDT, Duration: 30 day, Stop date: 08/06/17 21:00:00 CDTNotes: (Same as: Melatonin) Inactive 07/09/2017 [facility] Calcium Gluconate 3 gm, 30 mL, Route: IVPB, PRN, Dosing Weight 56.364, kg, PRN Abnormal Lab Result, For NON-ICU Patients Only., Start date: 07/08/17 20:38:00 CDT, Duration: 30 day, Stop date: 08/07/17 20:37:00 CDTNotes: WASTE: F/P - Sink; E - Municipal Trash Bin No Longer Active 07/09/2017 [facility] Magnesium Sulfate 2 gm, 50 mL, Route: IVPB, Drug form: INJ, PRN, Dosing Weight 56.364, kg, PRN Abnormal Lab Result, For NON-ICU Patients Only., Start date: 07/08/17 20:38:00 CDT, Duration: 30 day, Stop date: 08/07/17 20:37:00 CDTNotes: WASTE: F/P - Sink; E - Municipal Trash Bin No Longer Active 07/09/2017 [facility] sodium phosphate 30 mmol, 10 mL, Route: IVPB, PRN, Dosing Weight 56.364, kg, PRN Abnormal Lab Result, For NON-ICU Patients Only., Start date: 07/08/17 20:38:00 CDT, Duration: 30 day, Stop date: 08/07/17 20:37:00 CDT No Longer Active 07/09/2017 [facility] Magnesium Oxide 800 mg, 2 tab, Route: PO, Drug form: TAB, PRN, Dosing Weight 56.364, kg, PRN Abnormal Lab Result, For NON-ICU Patients Only., Start date: 07/08/17 20:38:00 CDT, Duration: 30 day, Stop date: 08/07/17 20:37:00 CDTNotes: (Same as: Mag-Ox 400) Magnesium oxide [id number] elemental magnesium Dose=____mg magnesium oxide (___mg elemental magnesium) No Longer Active 07/09/2017 [facility] potassium phosphate 15 mmol, 5 mL, Route: IVPB, PRN, Dosing Weight 56.364, kg, PRN Abnormal Lab Result, For NON-ICU Patients Only., Start date: 07/08/17 20:38:00 CDT, Duration: 30 day, Stop date: 08/07/17 20:37:00 CDTNotes: (Same as: K Phosphate.) 1 mMol phoshate has 1.47 mEq potassium Infuse over 4 hours No Longer Active 07/09/2017 [facility] potassium phosphate-sodium phosphate 250 mg-280 [...] water and stir. No Longer Active 07/09/2017 [facility] Potassium Chloride 10 mEq, 50 mL, Route: IVPB, Drug form: INJ, PRN, Dosing Weight 56.364, kg, PRN Abnormal Lab Result, For NON-ICU Patients Only, Start date: 07/08/17 20:38:00 CDT, Duration: 30 day, Stop date: 08/07/17 20:37:00 CDTNotes: (Same as: KCL) Infuse over 2 hours. No Longer Active 07/09/2017 [facility] Acetaminophen 325 MG / Hydrocodone Bitartrate 5 MG Oral Tablet [Jasper 5/325] 1 tab, Route: PO, Drug Form: TAB, Dosing Weight 56.364, kg, ONCE, Start date: 07/08/17 18:01:00 CDT, Stop date: 07/08/17 18:01:00 CDT Inactive 07/08/2017 [facility] Vitamin K1 1 mg, 1 mL, Route: PO, Drug form: SUSP, ONCE, Dosing Weight 56.364, kg, Start date: 07/08/17 15:26:00 CDT, Duration: 1 doses or times, Stop date: 07/08/17 15:26:00 CDTNotes: Same as: Vitamin K, [place] Combine FILTERED phytonadione injection (total 50 mg/5 mL)with Simple Syrup (45mL) in roc bottle. Shake well prior to dispensing. Expiration: 90 days at [facility] Inactive 07/08/2017 [facility] metoprolol 25 mg oral tablet, extended release 25 mg=1 tab, PO, Daily, # 30 tab, 3 Refill(s), Pharmacy: [id number] Active 06/27/2017 [facility] torsemide 10 mg, 1 tab, Route: PO, Drug form: TAB, Q5PM, Dosing Weight 56.989, kg, Start date: 06/12/17 17:00:00 CDT, Duration: 30 day, Stop date: 07/11/17 17:00:00 CDTNotes: (Same As: Demadex) Inactive 06/12/2017 [facility] Coumadin 4 mg, 2 tab, [...] E - P Waste Black Inactive 06/12/2017 [facility] AMIODarone 200 mg oral tablet 200 mg=1 tab, PO, BID, # 60 tab, 3 Refill(s) Active 06/12/2017 [facility] potassium chloride 20 mEq oral tablet, extended release 20 mEq=1 tab, PO, BID, # 60 tab, 2 Refill(s) Active 06/12/2017 [facility] predniSONE 5 mg oral tablet 5 mg=1 tab, PO, Daily, 0 Refill(s) Active 06/12/2017 [facility] torsemide 10 mg oral tablet See Instructions, 2 tab (20mg QAM) 1 tab (10mg PO QPM), # 90 tab, 2 Refill(s) Active 06/12/2017 [facility] Warfarin Sodium 4 MG Oral Tablet [Coumadin] 4 mg, PO, Q5PM, # 60 tab, 1 Refill(s) Active 06/12/2017 [facility] torsemide 20 mg, 1 tab, Route: PO, Drug form: TAB, Daily, Dosing Weight 56.989, kg, Start date: 06/12/17 9:00:00 CDT, Duration: 30 day, Stop date: 07/11/17 9:00:00 CDTNotes: (Same As: Demadex) Inactive 06/12/2017 [facility] magic mouth wash 15 mL, Route: S&SPIT, Drug Form: SUSP, Dosing Weight 56.989, kg, Q6H, PRN Mouth Pain, Start date: 06/12/17 8:34:00 CDT, Duration: 30 day, Stop date: 07/12/17 8:33:00 CDTNotes: diphen elix/mag-al liq/lido visc 1:1:1 90ml susp Inactive 06/12/2017 [facility] Diphenhydramine 25 mg, 0.5 mL, Route: IVP, Drug form: INJ, ONCE, Dosing Weight 56.989, kg, PRN Itching, Start date: 06/11/17 23:58:00 CDTNotes: (Same as: Benadryl) No Longer Active 06/12/2017 [facility] Warfarin 4 mg, 2 tab, [...] E - P Waste Black Inactive 06/11/2017 [facility] Amiodarone 200 mg, 1 tab, Route: PO, Drug form: TAB, BID, Dosing Weight 56.989, kg, Start date: 06/11/17 17:00:00 CDT, Duration: 30 day, Stop date: 07/11/17 9:00:00 CDTNotes: (Same as: Cordarone) No Longer Active 06/11/2017 [facility] Furosemide 60 mg, 6 mL, Route: IVP, Drug form: INJ, BID, Dosing Weight 56.989, kg, Start date: 06/11/17 9:00:00 CDT, Duration: 30 day, Stop date: 07/10/17 17:00:00 CDTNotes: (Same as: Lasix) Inactive 06/11/2017 [facility] Warfarin 2.5 mg, 1 tab, [...] E - P Waste Black Inactive 06/11/2017 [facility] AMIODarone INJ 900 mg + [...] Wasted: ___ mg No Longer Active 06/10/2017 [facility] Amiodarone 150 mg, 3 mL, [...] mg Product Wasted: ___ mg Inactive 06/10/2017 [facility] Docusate 100 mg, 1 cap, Route: PO, Drug form: CAP, BID, Dosing Weight 56.989, kg, Start date: 06/09/17 17:00:00 CDT, Duration: 30 day, Stop date: 07/09/17 9:00:00 CDTNotes: (Same as: Colace) (Do Not Crush) No Longer Active 06/09/2017 [facility] Thyroxine 25 microgram, 1 tab, Route: PO, Drug form: TAB, Q630AM, Dosing Weight 56.989, kg, Start date: 06/09/17 16:30:00 CDT, Duration: 30 day, Stop date: 07/09/17 6:30:00 CDTNotes: Take 1 hour before or 2 hours after meal; Enteral feeds may interefere with the absorption of this medication. (Same as:Levothroid) No Longer Active 06/09/2017 [facility] Folic Acid 1 mg, 1 tab, Route: PO, Drug form: TAB, Daily, Dosing Weight 56.989, kg, Start date: 06/09/17 16:30:00 CDT, Duration: 30 day, Stop date: 07/09/17 9:00:00 CDTNotes: (Same as: Folvite) No Longer Active 06/09/2017 [facility] pantoprazole 40 mg, 1 tab, Route: PO, Drug form: ECTAB, Before Breakfast, Dosing Weight 56.989, kg, Start date: 06/09/17 16:30:00 CDT, Duration: 30 day, Stop date: 07/09/17 7:30:00 CDTNotes: Tablet should not be chewed or crushed. (Same as: Protonix) No Longer Active 06/09/2017 [facility] sennosides, PRISON 17.2 mg, 2 tab, Route: PO, Drug Form: TAB, Dosing Weight 56.989, kg, Daily, Start date: 06/09/17 13:00:00 CDT, Duration: 30 day, Stop date: 07/09/17 9:00:00 CDTNotes: (Same as: Senokot) No Longer Active 06/09/2017 [facility] Bisacodyl 10 mg, 1 supp, Route: ND, Drug form: SUPP, Daily, Dosing Weight 56.989, kg, PRN Constipation, Start date: 06/09/17 10:38:00 CDT, Duration: 30 day, Stop date: 07/09/17 10:37:00 CDTNotes: (Same As: Dulcolax, Bisco-Lax) No Longer Active 06/09/2017 [facility] Streptococcus pneumoniae serotype 1 capsular antigen diphtheria [id number] protein conjugate vaccine / Streptococcus pneumoniae serotype 14 capsular antigen diphtheria [id number] protein conjugate vaccine / Streptococcus pneumoniae serotype 18C capsular antigen d 0.5 mL, Route: IM, Drug Form: INJ, Daily, Start date: 06/09/17 9:00:00 CDT, Duration: 1 doses or times, Stop date: 06/09/17 9:00:00 CDTNotes: Shake well prior to use (Same as: Prevnar 13) Inactive 06/09/2017 [facility] Prednisone 5 mg, 1 tab, Route: PO, Drug form: TAB, Daily, Dosing Weight 58.182, kg, Start date: 06/09/17 9:00:00 CDT, Duration: 30 day, Stop date: 07/08/17 9:00:00 CDTNotes: Take with food. No Longer Active 06/09/2017 [facility] aspirin 81 mg tablet, enteric coated 81 mg, 1 tab, Route: PO, Drug form: ECTAB, Daily, Dosing Weight 58.182, kg, Start date: 06/09/17 9:00:00 CDT, Duration: 30 day, Stop date: 07/08/17 9:00:00 CDTNotes: Do not crush or chew. (Same As: Ecotrin) No Longer Active 06/09/2017 [facility] Atenolol 25 mg, Route: PO, Daily, Dosing Weight 58.182, kg, Start date: 06/09/17 9:00:00 CDT, Duration: 30 day, Stop date: 07/08/17 9:00:00 CDT No Longer Active 06/09/2017 [facility] Acetaminophen 325 MG / Hydrocodone Bitartrate 5 MG Oral Tablet [Jasper 5/325] 1 tab, Route: PO, Drug Form: TAB, Dosing Weight 56.989, kg, Q6H, PRN Pain Score 1-3, Start date: 06/09/17 1:09:00 CDT, Duration: 30 day, Stop date: 07/09/17 1:08:00 CDTNotes: (Same as: Jasper 325/5) Do not exceed 4gm/day of acetaminophen. No Longer Active 06/09/2017 [facility] Eliquis 5 mg, 1 tab, Route: PO, Drug form: TAB, BID, Dosing Weight 58.182, kg, Start date: 06/08/17 21:00:00 CDT, Duration: 30 day, Stop date: 07/08/17 9:00:00 CDTNotes: Same as: Eliquis No Longer Active 06/09/2017 [facility] Lasix 60 mg, 6 mL, Route: IV, Drug form: INJ, TID, Dosing Weight 58.182, kg, Start date: 06/08/17 17:00:00 CDT, Duration: 30 day, Stop date: 07/08/17 13:00:00 CDTNotes: (Same as: Lasix) MEDICATION WASTE Product Size: 40 mg Product Wasted: ___ mg No Longer Active 06/08/2017 [facility] Magnesium Sulfate 1 gm, 100 mL, Route: IVPB, Drug form: INJ, PRN, Dosing Weight 58.182, kg, PRN Abnormal Lab Result, For NON-ICU Patients Only., Start date: 06/08/17 16:01:00 CDT, Duration: 30 day, Stop date: 07/08/17 16:00:00 CDTNotes: WASTE: F/P - Sink; E - Municipal Trash Bin No Longer Active 06/08/2017 [facility] potassium phosphate 15 mmol, 5 mL, Route: IVPB, PRN, Dosing Weight 58.182, kg, PRN Abnormal Lab Result, For NON-ICU Patients Only., Start date: 06/08/17 16:01:00 CDT, Duration: 30 day, Stop date: 07/08/17 16:00:00 CDTNotes: (Same as: K Phosphate.) 1 mMol phoshate has 1.47 mEq potassium Infuse over 4 hours No Longer Active 06/08/2017 [facility] sodium phosphate 15 mmol, 5 mL, Route: IVPB, PRN, Dosing Weight 58.182, kg, PRN Abnormal Lab Result, For NON-ICU Patients Only., Start date: 06/08/17 16:01:00 CDT, Duration: 30 day, Stop date: 07/08/17 16:00:00 CDT No Longer Active 06/08/2017 [facility] potassium phosphate-sodium phosphate 250 mg-280 [...] water and stir. No Longer Active 06/08/2017 [facility] Potassium Chloride 20 mEq, 1 tab, Route: PO, Drug form: ERTAB, PRN, Dosing Weight 58.182, kg, PRN Abnormal Lab Result, For NON-ICU Patients Only, Start date: 06/08/17 16:01:00 CDT, Duration: 30 day, Stop date: 07/08/17 16:00:00 CDTNotes: (Same as: K-Dur 20) "Do Not Crush" With food and full glass of water No Longer Active 06/08/2017 [facility] Magnesium Oxide 800 mg, 2 tab, Route: PO, Drug form: TAB, PRN, Dosing Weight 58.182, kg, PRN Abnormal Lab Result, For NON-ICU Patients Only., Start date: 06/08/17 16:01:00 CDT, Duration: 30 day, Stop date: 07/08/17 16:00:00 CDTNotes: (Same as: Mag-Ox 400) Magnesium oxide [id number] elemental magnesium Dose=____mg magnesium oxide (___mg elemental magnesium) No Longer Active 06/08/2017 [facility] Calcium Gluconate 2 gm, 20 mL, Route: IVPB, PRN, Dosing Weight 58.182, kg, PRN Abnormal Lab Result, For NON-ICU Patients Only., Start date: 06/08/17 16:01:00 CDT, Duration: 30 day, Stop date: 07/08/17 16:00:00 CDTNotes: WASTE: F/P - Sink; E - Municipal Trash Bin No Longer Active 06/08/2017 [facility] Lasix 40 mg, 4 mL, Route: IVP, Drug form: INJ, ONCE, Dosing Weight 58.182, kg, Priority: STAT, Start date: 06/08/17 14:38:00 CDT, Stop date: 06/08/17 14:38:00 CDTNotes: (Same as: Lasix) MEDICATION WASTE Product Size: 40 mg Product Wasted: _0__ mg Inactive 06/08/2017 [facility] melatonin 5 mg tablet 5 mg, 1 tab, Route: PO, Drug Form: TAB, Dosing Weight 57.727, kg, Bedtime, Start date: 04/08/17 21:00:00 CDT, Duration: 30 day, Stop date: 05/07/17 21:00:00 CDTNotes: (Same as: Melatonin) Inactive 04/09/2017 [facility] apixaban 5 MG Oral Tablet [Eliquis] 5 mg=1 tab, PO, BID, # 60 tab, 3 Refill(s) Active 04/08/2017 [facility] clopidogrel 75 mg oral tablet 75 mg=1 tab, PO, Daily, # 30 tab, 2 Refill(s) Inactive 04/08/2017 [facility] aspirin 81 mg tablet, enteric coated 81 mg=1 tab, PO, Daily, # 30 tab, 3 Refill(s) Active 04/08/2017 [facility] heparin 5,000 unit, 1 mL, Route: SUB-Q, Drug form: INJ, BID, Dosing Weight 57.727, kg, Start date: 04/08/17 9:00:00 CDT, Duration: 30 day, Stop date: 05/07/17 17:00:00 CDTNotes: porcine heparin Inactive 04/08/2017 [facility] Folic Acid 1 mg, 1 tab, Route: PO, Drug form: TAB, Daily, Dosing Weight 57.727, kg, Start date: 04/08/17 9:00:00 CDT, Stop date: 05/07/17 9:00:00 CDTNotes: (Same as: Folvite) Inactive 04/08/2017 [facility] Citalopram 10 mg, 1 tab, Route: PO, Drug form: TAB, Daily, Dosing Weight 57.727, kg, Start date: 04/08/17 9:00:00 CDT, Stop date: 05/07/17 9:00:00 CDT Inactive 04/08/2017 [facility] Atenolol 25 mg, 1 tab, Route: PO, Drug form: TAB, Daily, Dosing Weight 57.727, kg, Start date: 04/08/17 9:00:00 CDT, Stop date: 05/07/17 9:00:00 CDTNotes: (Same As:Tenormin) Inactive 04/08/2017 [facility] Prednisone 5 mg, 1 tab, Route: PO, Drug form: TAB, Daily, Dosing Weight 57.727, kg, Start date: 04/08/17 9:00:00 CDT, Stop date: 05/07/17 9:00:00 CDTNotes: Take with food. Inactive 04/08/2017 [facility] aspirin 81 mg tablet, enteric coated 81 mg, 1 tab, Route: PO, Drug form: ECTAB, Daily, Dosing Weight 57.727, kg, Start date: 04/08/17 9:00:00 CDT, Duration: 30 day, Stop date: 05/07/17 9:00:00 CDTNotes: Do not crush or chew. (Same As: Ecotrin) Inactive 04/08/2017 [facility] clopidogrel 75 mg, 1 tab, Route: PO, Drug form: TAB, Daily, Dosing Weight 57.727, kg, Start date: 04/08/17 9:00:00 CDT, Duration: 30 day, Stop date: 05/07/17 9:00:00 CDTNotes: (Same As: Plavix) Inactive 04/08/2017 [facility] Lisinopril 2.5 mg, 1 tab, Route: PO, Drug form: TAB, Daily, Dosing Weight 57.727, kg, Start date: 04/08/17 9:00:00 CDT, Stop date: 05/07/17 9:00:00 CDTNotes: (Same as: Prinivil) Inactive 04/08/2017 [facility] pantoprazole 40 mg, 1 tab, Route: PO, Drug form: ECTAB, Before Breakfast, Dosing Weight 57.727, kg, Start date: 04/08/17 7:30:00 CDT, Stop date: 05/07/17 7:30:00 CDTNotes: Tablet should not be chewed or crushed. (Same as: Protonix) Inactive 04/08/2017 [facility] Thyroxine 25 microgram, 1 tab, Route: PO, Drug form: TAB, Q630AM, Dosing Weight 57.727, kg, Start date: 04/08/17 6:30:00 CDT, Stop date: 05/07/17 6:30:00 CDTNotes: Take 1 hour before or 2 hours after meal; Enteral feeds may interefere with the absorption of this medication. (Same as:Levothroid) Inactive 04/08/2017 [facility] Nicardipine 40 mg, 200 mL, Rate: Titrate, Start Dose: 5 mg/hr, Titration: 2mg every 15 minutes PRN, Goal(s): maintain SBP 90 - 150 mmHg, Max Dose: 15mg/hr, Route: IV, Dosing Weight 57.727 kg, Total Volume: 200, Start date: 04/07/17 19:38:00 CDT, Duration: 30 day,...Notes: Same as: Cardene Concentration: (0.2 mg /1 ml ) No Longer Active 04/08/2017 [facility] Acetaminophen 325 mg, 1 tab, Route: PO, Drug form: TAB, Q4H, Dosing Weight 57.727, kg, PRN Pain 1-3/Temp > 100.4 F, Start date: 04/07/17 19:38:00 CDT, Duration: 30 day, Stop date: 05/07/17 19:37:00 CDTNotes: Do not exceed 4 gm/day. (Same as: Tylenol) No Longer Active 04/08/2017 [facility] Acetaminophen 325 MG / Hydrocodone Bitartrate 5 MG Oral Tablet 2 tab, Route: PO, Drug Form: TAB, Dosing Weight 57.727, kg, Q4H, PRN Pain Score 7-10, Start date: 04/07/17 19:38:00 CDT, Duration: 30 day, Stop date: 05/07/17 19:37:00 CDTNotes: (Same as: Jasper 325/5) Do not exceed 4gm/day of acetaminophen. No Longer Active 04/08/2017 [facility] Sodium Chloride 0.154 MEQ/ML Injectable Solution 250 mL, 250 ml/hr, Infuse Over: 1 hr, Route: IV, 250, Drug form: INJ, ONCE, Dosing Weight 57.727 kg, Start date: 04/07/17 19:38:00 CDT, Duration: 1 doses or times, Stop date: 04/07/17 19:38:00 CDT Inactive 04/08/2017 [facility] Ondansetron 4 mg, 2 mL, Route: IVP, Drug form: INJ, ONCE, Dosing Weight 57.727, kg, PRN Nausea & Vomiting, Start date: 04/07/17 19:05:00 CDTNotes: (Same as: Zofran) MEDICATION WASTE Product Size: 4 mg Product Wasted: _0__ mg Inactive 04/08/2017 [facility] Naloxone 0.4 mg, 1 mL, Route: IVP, Drug form: INJ, Q2MIN, Dosing Weight 57.727, kg, PRN Narcotic Reversal, Start date: 04/07/17 19:05:00 CDT, Duration: 8 doses or times, Stop date: Limited # of timesNotes: Same as Narcan Inactive 04/08/2017 [facility] Flumazenil 0.2 mg, 2 mL, Route: IVP, Drug form: INJ, PRN, Dosing Weight 57.727, kg, PRN Benzodiazepine Reversal, Initial dose, Start date: 04/07/17 19:05:00 CDT, Duration: 30 day, Stop date: 05/07/17 19:04:00 C DTNotes: (Same as: Romazicon) Inactive 04/08/2017 [facility] Acetaminophen 1,000 mg, 100 mL, Route: IV, Drug form: INJ, ONCE, Dosing Weight 57.727, kg, PRN Pain Score 1-3, Start date: 04/07/17 19:05:00 CDT, Duration: 1 doses or times, Stop date: Limited # of timesNotes: Infuse over 15 minutes Do not exceed 4gm/day of acetaminophen MEDICATION WASTE Product Size: 1000 mg Product Wasted: _0__ mg Inactive 04/08/2017 [facility] sodium chloride 0.9% 1000 ml INJ 1,000 mL 1,000 mL, Rate: 75 ml/hr, Infuse over: 13.3 hr, Route: IV, Dosing Weight 57.727 kg, Total Volume: 1,000, Start date: 04/07/17 11:11:00 CDT, Duration: 30 day, Stop date: 05/07/17 11:10:00 CDT No Longer Active 04/07/2017 [facility] predniSONE 5 mg oral tablet 5 mg=1 tab, PO, Daily, Give with food., # 7 tab, 0 Refill(s) Active 03/21/2017 [facility] pantoprazole 40 mg oral enteric coated tablet 40 mg=1 tab, PO, Daily, # 30 tab, 0 Refill(s) Active 03/21/2017 [facility] Melatonin 5 mg oral capsule 5 mg=1 cap, PO, Bedtime, 0 Refill(s) Active 03/21/2017 [facility] Calcium 600 +D oral tablet 1 tab, PO, BID, # 90 tab, 0 Refill(s) Active 03/21/2017 [facility] Hydroco/Apap Hydroco/Apap, 5/325 mg, PRN, Refill(s) 0 Active 03/21/2017 [facility] levothyroxine 25 mcg (0.025 mg) oral tablet 25 microgram=1 tab, PO, Daily, # 30 tab, 0 Refill(s) Active 03/21/2017 [facility] potassium chloride 20 mEq oral tablet, extended release 20 mEq=1 tab, PO, Daily, # 30 tab, 3 Refill(s) Active 03/21/2017 [facility] Furosemide 20 MG Oral Tablet 20 mg=1 tab, PO, Daily, # 30 tab, 0 Refill(s) Active 03/21/2017 [facility] lisinopril 2.5 mg oral tablet 2.5 mg=1 tab, PO, PRN, # 30 tab, 0 Refill(s) Active 03/21/2017 [facility] Citalopram 10 mg oral tablet 10 mg=1 tab, PO, Daily, 0 Refill(s) Active 03/21/2017 [facility] Atenolol 25 mg, PO, Daily, 0 Refill(s) Active 03/21/2017 [facility] Folic Acid 1 MG Oral Tablet 1 mg=1 tab, PO, Daily, # 30 tab, 0 Refill(s) Active 03/21/2017 [facility] Allergies, Adverse Reactions, Alerts Substance Category Reaction Severity Reaction type Status Date Reported Comments Source penicillins Assertion Drug allergy Active [facility] Immunizations Immunization Date Given Site Status Last Updated Comments Source influenza virus vaccine, inactivated 09/03/2017 completed [facility] Donahue,[facility] pneumococcal 13-valent vaccine 06/12/[address] [facility], [place] Donahue,[facility] Heart Failure Results Order Name Results Value Reference Range Date Interpretation Comments Source Chest 2 views DX Chest 2 views DX EXAM: XR CHEST 2 VIEWS DATE: 12/26/2017 1:40 PM [employer] INDICATION: - I50.32 Chronic diastolic (congestive) heart [...] CHEST 2 VIEWS DATE: 12/22/2017 5:38 PM [employer] INDICATION: - I50.32 Chronic diastolic (congestive) heart [...] CHEST 1 VIEW DATE: 11/17/2017 9:39 AM [employer] INDICATION: - destaturation, COPD TECHNIQUE: AP chest [...] Phu Myles MD 11/17/17 13:[address] [facility] CHEM PANEL Phosphorus 2.5 mg/dL 2.5 - 4.5 11/17/2017 [facility] CHEM PANEL Magnesium Lvl 2.1 mg/dL 1.8 - 2.4 11/17/2017 [facility] ELECTROLYTES AGAP 9.8 meq/L 10.0 - 20.0 11/17/2017 [facility] ELECTROLYTES eGFR 87 mL/min/1.73m2 11/17/2017 [...] should be multiplied by the estimated BMI. [facility] ELECTROLYTES CO2 30 meq/L 24 - 32 11/17/2017 [facility] ELECTROLYTES Calcium Lvl 8.2 mg/dL 8.5 - 10.5 11/17/2017 [facility] ELECTROLYTES Glucose Lvl 81 mg/dL 70 - 99 11/17/2017 [facility] ELECTROLYTES BUN 16 mg/dL 7 - 22 11/17/2017 [facility] ELECTROLYTES Creatinine Lvl 0.60 mg/dL 0.50 - 1.40 11/17/2017 [facility] ELECTROLYTES Sodium Lvl 139 meq/L 135 - 145 11/17/2017 [facility] ELECTROLYTES Potassium Lvl 3.8 meq/L 3.5 - 5.1 11/17/2017 [facility] ELECTROLYTES Chloride Lvl 103 meq/L 95 - 109 11/17/2017 [facility] HEMATOLOGY MPV 8.7 fL 7.4 - 10.4 11/17/2017 [facility] HEMATOLOGY Platelet 193 K/CMM 133 - 450 11/17/2017 [facility] HEMATOLOGY WBC 3.6 K/CMM 3.7 - 10.4 11/17/2017 [facility] HEMATOLOGY RBC 4.35 M/CMM 4.20 - 5.40 11/17/2017 [facility] HEMATOLOGY Hgb 10.1 g/dL 12.0 - 16.0 11/17/2017 [facility] HEMATOLOGY Hct 32.1 % 36.0 - 48.0 11/17/2017 [facility] HEMATOLOGY MCH 23.1 pg 27.0 - 31.0 11/17/2017 [facility] HEMATOLOGY MCV 73.8 fL 80.0 - 98.0 11/17/2017 [facility] HEMATOLOGY RDW 21.2 % 11.5 - 14.5 11/17/2017 [facility] HEMATOLOGY MCHC 31.3 g/dL 32.0 - 36.0 11/17/2017 [facility] HEMATOLOGY Microcyte 2+ *ABN* (11/17/17 2:26 AM) None Seen 11/17/2017 [facility] HEMATOLOGY Monocytes # 0.4 K/CMM 0.0 - 0.8 11/17/2017 [facility] HEMATOLOGY Anisocyte 1+ *ABN* (11/17/17 2:26 AM) None Seen 11/17/2017 [facility] HEMATOLOGY Lymphocytes # 0.5 K/CMM 1.0 - 5.5 11/17/2017 [facility] HEMATOLOGY Segs-Bands # 2.7 K/CMM 1.5 - 8.1 11/17/2017 [facility] HEMATOLOGY Basophils 0.6 % 0.0 - 1.0 11/17/2017 [facility] HEMATOLOGY Eosinophils 1.1 % 0.0 - 4.0 11/17/2017 [facility] HEMATOLOGY Segs 75.0 % 45.0 - 75.0 11/17/2017 [facility] HEMATOLOGY Lymphocytes 13.5 % 20.0 - 40.0 11/17/2017 [facility] HEMATOLOGY Monocytes 9.8 % 2.0 - 12.0 11/17/2017 [facility] HEMATOLOGY PTT 57.9 s 22.9 - 35.8 11/16/2017 [facility] HEMATOLOGY INR 3.03 0.85 - 1.17 11/16/2017 [facility] HEMATOLOGY PT 31.8 s 12.0 - 14.7 11/16/2017 [facility] ELECTROLYTES AGAP 9.1 meq/L 10.0 - 20.0 11/16/2017 [facility] ELECTROLYTES eGFR 88 mL/min/1.73m2 11/16/2017 [...] should be multiplied by the estimated BMI. [facility] ELECTROLYTES Calcium Lvl 8.3 mg/dL 8.5 - 10.5 11/16/2017 [facility] ELECTROLYTES CO2 33 meq/L 24 - 32 11/16/2017 [facility] ELECTROLYTES Chloride Lvl 102 meq/L 95 - 109 11/16/2017 [facility] ELECTROLYTES Glucose Lvl 72 mg/dL 70 - 99 11/16/2017 [facility] ELECTROLYTES Creatinine Lvl 0.58 mg/dL 0.50 - 1.40 11/16/2017 [facility] ELECTROLYTES BUN 14 mg/dL 7 - 22 11/16/2017 [facility] ELECTROLYTES Potassium Lvl 4.1 meq/L 3.5 - 5.1 11/16/2017 [facility] ELECTROLYTES Sodium Lvl 140 meq/L 135 - 145 11/16/2017 [facility] HEMATOLOGY RDW 21.1 % 11.5 - 14.5 11/16/2017 [facility] HEMATOLOGY MCH 23.1 pg 27.0 - 31.0 11/16/2017 [facility] HEMATOLOGY MCHC 31.4 g/dL 32.0 - 36.0 11/16/2017 [facility] HEMATOLOGY Platelet 150 K/CMM 133 - 450 11/16/2017 [facility] HEMATOLOGY MPV 8.7 fL 7.4 - 10.4 11/16/2017 [facility] HEMATOLOGY RBC 4.51 M/CMM 4.20 - 5.40 11/16/2017 [facility] HEMATOLOGY Hgb 10.4 g/dL 12.0 - 16.0 11/16/2017 [facility] HEMATOLOGY WBC 2.9 K/CMM 3.7 - 10.4 11/16/2017 [facility] HEMATOLOGY MCV 73.7 fL 80.0 - 98.0 11/16/2017 [facility] HEMATOLOGY Hct 33.2 % 36.0 - 48.0 11/16/2017 [facility] HEMATOLOGY Anisocyte 1+ *ABN* (11/16/17 3:29 AM) None Seen 11/16/2017 [facility] HEMATOLOGY Microcyte 2+ *ABN* (11/16/17 3:29 AM) None Seen 11/16/2017 [facility] HEMATOLOGY Lymphocytes # 0.4 K/CMM 1.0 - 5.5 11/16/2017 [facility] HEMATOLOGY Monocytes # 0.3 K/CMM 0.0 - 0.8 11/16/2017 [facility] HEMATOLOGY Segs-Bands # 2.1 K/CMM 1.5 - 8.1 11/16/2017 [facility] HEMATOLOGY Monocytes 10.7 % 2.0 - 12.0 11/16/2017 [facility] HEMATOLOGY Eosinophils 0.7 % 0.0 - 4.0 11/16/2017 [facility] HEMATOLOGY Basophils 0.6 % 0.0 - 1.0 11/16/2017 [facility] HEMATOLOGY Lymphocytes 14.3 % 20.0 - 40.0 11/16/2017 [facility] HEMATOLOGY Segs 73.7 % 45.0 - 75.0 11/16/2017 [facility] HEMATOLOGY INR 3.03 0.85 - 1.17 11/15/2017 [facility] HEMATOLOGY PT 31.8 s 12.0 - 14.7 11/15/2017 [facility] CHEM PANEL Magnesium Lvl 2.0 mg/dL 1.8 - 2.4 11/15/2017 [facility] CHEM PANEL eGFR 87 mL/min/1.73m2 [...] should be multiplied by the estimated BMI. [facility] CHEM PANEL Calcium Lvl 8.0 mg/dL 8.5 - 10.5 11/15/2017 [facility] CHEM PANEL CO2 31 meq/L 24 - 32 11/15/2017 [facility] CHEM PANEL Creatinine Lvl 0.60 mg/dL 0.50 - 1.40 11/15/2017 [facility] CHEM PANEL Sodium Lvl 138 meq/L 135 - 145 11/15/2017 [facility] CHEM PANEL Glucose Lvl 76 mg/dL 70 - 99 11/15/2017 [facility] CHEM PANEL BUN 15 mg/dL 7 - 22 11/15/2017 [facility] CHEM PANEL Potassium Lvl 4.3 meq/L 3.5 - 5.1 11/15/2017 [facility] CHEM PANEL Chloride Lvl 101 meq/L 95 - 109 11/15/2017 [facility] CHEM PANEL AGAP 10.3 meq/L 10.0 - 20.0 11/15/2017 [facility] CHEM PANEL Phosphorus 2.4 mg/dL 2.5 - 4.5 11/15/2017 [facility] HEMATOLOGY MCH 23.0 pg 27.0 - 31.0 11/15/2017 [facility] HEMATOLOGY MCV 74.3 fL 80.0 - 98.0 11/15/2017 [facility] HEMATOLOGY MCHC 30.9 g/dL 32.0 - 36.0 11/15/2017 [facility] HEMATOLOGY Hct 33.7 % 36.0 - 48.0 11/15/2017 [facility] HEMATOLOGY RBC 4.54 M/CMM 4.20 - 5.40 11/15/2017 [facility] HEMATOLOGY WBC 3.2 K/CMM 3.7 - 10.4 11/15/2017 [facility] HEMATOLOGY MPV 8.7 fL 7.4 - 10.4 11/15/2017 [facility] HEMATOLOGY Platelet 138 K/CMM 133 - 450 11/15/2017 [facility] HEMATOLOGY RDW 21.0 % 11.5 - 14.5 11/15/2017 [facility] HEMATOLOGY Hgb 10.4 g/dL 12.0 - 16.0 11/15/2017 [facility] HEMATOLOGY Microcyte 1+ *ABN* (11/15/17 4:58 AM) None Seen 11/15/2017 [facility] HEMATOLOGY Monocytes # 0.4 K/CMM 0.0 - 0.8 11/15/2017 [facility] HEMATOLOGY Basophils 0.7 % 0.0 - 1.0 11/15/2017 [facility] HEMATOLOGY Lymphocytes # 0.4 K/CMM 1.0 - 5.5 11/15/2017 [facility] HEMATOLOGY Segs-Bands # 2.4 K/CMM 1.5 - 8.1 11/15/2017 [facility] HEMATOLOGY Segs 75.0 % 45.0 - 75.0 11/15/2017 [facility] HEMATOLOGY Monocytes 11.7 % 2.0 - 12.0 11/15/2017 [facility] HEMATOLOGY Lymphocytes 12.2 % 20.0 - 40.0 11/15/2017 [facility] HEMATOLOGY Eosinophils 0.4 % 0.0 - 4.0 11/15/2017 [facility] Chest 1view DX Chest 1view DX EXAM: XR CHEST 1 VIEW DATE: 11/15/2017 4:55 AM [employer] INDICATION: - shortness of breath COMPARISON: 11/10/2017 [...] Mike Rojo MD 11/15/17 11:[address] [facility] CHEM PANEL Phosphorus 2.6 mg/dL 2.5 - 4.5 11/13/2017 [facility] CHEM PANEL Magnesium Lvl 2.3 mg/dL 1.8 - 2.4 11/13/2017 [facility] HEMATOLOGY Anisocyte 1+ *ABN* (11/13/17 1:05 AM) None Seen 11/13/2017 [facility] HEMATOLOGY INR 2.00 0.85 - 1.17 11/13/2017 [facility] HEMATOLOGY PT 22.9 s 12.0 - 14.7 11/13/2017 [facility] PARATHYROID PROFILE Ca Ion WB 1.12 mMol/L 1.05 - 1.25 11/13/2017 [facility] PARATHYROID PROFILE Ca Norm WB 1.06 mMol/L 1.05 - 1.25 11/13/2017 [facility] HEMATOLOGY PTT 52.7 s 22.9 - 35.8 11/11/2017 [facility] VIRAL - SEROLOGY Influ A Positive 1 *ABN* (11/10/17 6:02 PM) Negative 11/11/2017 Result Comment: "Significant Findings called to JUAN FISCHER_ at 11/10/2017 19:13_ by VN_. Read Back OK." [facility] VIRAL - SEROLOGY Influ B Negative (11/10/17 6:02 PM) Negative 11/11/2017 [facility] URINE AND STOOL UA Bacteria Many /HPF None Seen /HPF 11/10/2017 [facility] URINE AND STOOL UA Mucus Rare /LPF None Seen /LPF 11/10/2017 [facility] URINE AND STOOL UA RBC 6-10 /HPF 0 - 2 11/10/2017 [facility] URINE AND STOOL UA WBC 21-50 /HPF None Seen /HPF 11/10/2017 [facility] URINE AND STOOL UA Sq Epi Rare /LPF Few /LPF 11/10/2017 [facility] URINE AND STOOL UA Urobilinogen 0.2 EU/dL 0.1 - 1.0 11/10/2017 [facility] URINE AND STOOL UA Nitrite Negative (11/10/17 5:48 PM) Negative 11/10/2017 [facility] URINE AND STOOL UA Ketones Negative *NA* (11/10/17 5:48 PM) Negative 11/10/2017 [facility] URINE AND STOOL UA Bili Negative *NA* (11/10/17 5:48 PM) Negative 11/10/2017 [facility] URINE AND STOOL UA Blood Large *ABN* (11/10/17 5:48 PM) Negative 11/10/2017 [facility] URINE AND STOOL UA Leuk Est Large *ABN* (11/10/17 5:48 PM) Negative 11/10/2017 [facility] URINE AND STOOL UA Turbidity Slight Cloudy (11/10/17 5:48 PM) Clear 11/10/2017 [facility] URINE AND STOOL UA Protein Negative (11/10/17 5:48 PM) Negative 11/10/2017 [facility] URINE AND STOOL UA Glucose Negative (11/10/17 5:48 PM) Negative 11/10/2017 [facility] URINE AND STOOL UA Color Yellow *NA* (11/10/17 5:48 PM) Yellow 11/10/2017 [facility] URINE AND STOOL UA Spec Grav 1.020 <=1.030 11/10/2017 [facility] URINE AND STOOL UA pH 6.0 5.0 - 8.0 11/10/2017 [facility] CARDIAC ENZYMES Total CK 56 unit/L 12 - 191 11/10/2017 [facility] CARDIAC ENZYMES Troponin-I null 0.00 - 0.40 11/10/2017 [facility] CHEM PANEL Lactic Acid Lvl 1.3 mMol/L 0.5 - 2.2 11/10/2017 [facility] CHEM PANEL Bili Total 0.6 mg/dL 0.2 - 1.3 11/10/2017 [facility] CHEM PANEL AST 81 unit/L 0 - 37 11/10/2017 [facility] CHEM PANEL ALT 47 unit/L 0 - 65 11/10/2017 [facility] CHEM PANEL Alk Phos 172 unit/L 39 - 136 11/10/2017 [facility] CHEM PANEL Albumin Lvl 2.6 g/dL 3.5 - 5.0 11/10/2017 [facility] CHEM PANEL Total Protein 8.0 g/dL 6.4 - 8.4 11/10/2017 [facility] CHEM PANEL Globulin 5.4 g/dL 2.7 - 4.2 11/10/2017 [facility] CHEM PANEL A/G Ratio 0.5 0.7 - 1.6 11/10/2017 [facility] CHEM PANEL B/C Ratio 23 6 - 25 11/10/2017 [facility] CHEM PANEL Procalcitonin Lvl 0.66 ng/mL 0.00 - 0.10 11/10/2017 [facility] HEMATOLOGY Hypochrom 1+ (11/10/17 4:09 PM) None Seen 11/10/2017 [facility] HEMATOLOGY Target Cell Moderate *ABN* (11/10/17 4:09 PM) None Seen 11/10/2017 [facility] HEMATOLOGY Plt Morph Normal (11/10/17 4:09 PM) 11/10/2017 [facility] HEMATOLOGY PTT 50.7 s 22.9 - 35.8 11/10/2017 [facility] Chest 1view DX Chest 1view DX EXAM: XR CHEST 1 VIEW DATE: 11/10/2017 3:56 PM [employer] INDICATION: Shortness of breath COMPARISON: CXR 1 [...] - This report was dictated by a Investment Specialist/Fellow. I have personally reviewed the images as well as the Resident's interpretation and agree with the findings. Read by: David Granda MD Resident: David Granda MD Dictated Date/time: 11/10/17 16:36 Electronically Signed by: David Tesfaye MD 11/10/17 17:[address] [facility] CHEM PANEL Magnesium Lvl 2.5 mg/dL 1.8 - 2.4 07/10/2017 [facility] CHEM PANEL eGFR 45 mL/min/1.73m2 [...] should be multiplied by the estimated BMI. [facility] CHEM PANEL Bili Total 0.5 mg/dL 0.2 - 1.3 07/10/2017 [facility] CHEM PANEL Albumin Lvl 2.3 g/dL 3.5 - 5.0 07/10/2017 [facility] CHEM PANEL Total Protein 7.1 g/dL 6.4 - 8.4 07/10/2017 [facility] CHEM PANEL Calcium Lvl 8.8 mg/dL 8.5 - 10.5 07/10/2017 [facility] CHEM PANEL Alk Phos 62 unit/L 39 - 136 07/10/2017 [facility] CHEM PANEL AST 20 unit/L 0 - 37 07/10/2017 [facility] CHEM PANEL ALT 13 unit/L 0 - 65 07/10/2017 [facility] CHEM PANEL Potassium Lvl 4.5 meq/L 3.5 - 5.1 07/10/2017 [facility] CHEM PANEL CO2 30 meq/L 24 - 32 07/10/2017 [facility] CHEM PANEL Chloride Lvl 104 meq/L 95 - 109 07/10/2017 [facility] CHEM PANEL Sodium Lvl 140 meq/L 135 - 145 07/10/2017 [facility] CHEM PANEL Creatinine Lvl 1.16 mg/dL 0.50 - 1.40 07/10/2017 [facility] CHEM PANEL BUN 25 mg/dL 7 - 22 07/10/2017 [facility] CHEM PANEL Glucose Lvl 81 mg/dL 70 - 99 07/10/2017 [facility] CHEM PANEL B/C Ratio 22 6 - 25 07/10/2017 [facility] CHEM PANEL AGAP 10.5 meq/L 10.0 - 20.0 07/10/2017 [facility] CHEM PANEL A/G Ratio 0.5 0.7 - 1.6 07/10/2017 [facility] CHEM PANEL Globulin 4.8 g/dL 2.7 - 4.2 07/10/2017 [facility] CHEM PANEL Phosphorus 2.6 mg/dL 2.5 - 4.5 07/10/2017 [facility] HEMATOLOGY RBC 4.03 M/CMM 4.20 - 5.40 07/10/2017 [facility] HEMATOLOGY MCV 73.3 fL 80.0 - 98.0 07/10/2017 [facility] HEMATOLOGY Hct 29.5 % 36.0 - 48.0 07/10/2017 [facility] HEMATOLOGY Hgb 9.5 g/dL 12.0 - 16.0 07/10/2017 [facility] HEMATOLOGY WBC 5.0 K/CMM 3.7 - 10.4 07/10/2017 [facility] HEMATOLOGY RDW 19.3 % 11.5 - 14.5 07/10/2017 [facility] HEMATOLOGY MCHC 32.2 g/dL 32.0 - 36.0 07/10/2017 [facility] HEMATOLOGY MPV 7.4 fL 7.4 - 10.4 07/10/2017 [facility] HEMATOLOGY Platelet 185 K/CMM 133 - 450 07/10/2017 [facility] HEMATOLOGY MCH 23.6 pg 27.0 - 31.0 07/10/2017 [facility] HEMATOLOGY PT 28.8 s 12.0 - 14.7 07/10/2017 [facility] HEMATOLOGY INR 2.66 0.85 - 1.17 07/10/2017 [facility] HEMATOLOGY PTT 52.7 s 22.9 - 35.8 07/10/2017 [facility] HEMATOLOGY Monocytes # 0.6 K/CMM 0.0 - 0.8 07/10/2017 [facility] HEMATOLOGY Eosinophils # 0.1 K/CMM 0.0 - 0.5 07/10/2017 [facility] HEMATOLOGY Lymphocytes # 0.6 K/CMM 1.0 - 5.5 07/10/2017 [facility] HEMATOLOGY Segs-Bands # 3.7 K/CMM 1.5 - 8.1 07/10/2017 [facility] HEMATOLOGY Basophils 0.6 % 0.0 - 1.0 07/10/2017 [facility] HEMATOLOGY Microcyte 2+ *ABN* (07/10/17 4:07 AM) None Seen 07/10/2017 [facility] HEMATOLOGY Eosinophils 2.3 % 0.0 - 4.0 07/10/2017 [facility] HEMATOLOGY Monocytes 11.9 % 2.0 - 12.0 07/10/2017 [facility] HEMATOLOGY Lymphocytes 11.0 % 20.0 - 40.0 07/10/2017 [facility] HEMATOLOGY Segs 74.2 % 45.0 - 75.0 07/10/2017 [facility] ANEMIA STUDY Ferritin Lvl 36 ng/mL 5 - 204 07/09/2017 [facility] ANEMIA STUDY UIBC 224 ug/dl 110 - 370 07/09/2017 [facility] ANEMIA STUDY % Satur Fe 12 % 12 - 57 07/09/2017 [facility] ANEMIA STUDY TIBC 254 ug/dl 228 - 428 07/09/2017 [facility] ANEMIA STUDY Iron 30 ug/dl 30 - 160 07/09/2017 [facility] CHEM PANEL Phosphorus 2.8 mg/dL 2.5 - 4.5 07/09/2017 [facility] CHEM PANEL Magnesium Lvl 2.3 mg/dL 1.8 - 2.4 07/09/2017 [facility] CHEM PANEL eGFR 58 mL/min/1.73m2 [...] should be multiplied by the estimated BMI. [facility] CHEM PANEL AST 23 unit/L 0 - 37 07/09/2017 [facility] CHEM PANEL ALT 16 unit/L 0 - 65 07/09/2017 [facility] CHEM PANEL Sodium Lvl 138 meq/L 135 - 145 07/09/2017 [facility] CHEM PANEL Potassium Lvl 4.1 meq/L 3.5 - 5.1 07/09/2017 [facility] CHEM PANEL Total Protein 7.2 g/dL 6.4 - 8.4 07/09/2017 [facility] CHEM PANEL Albumin Lvl 2.3 g/dL 3.5 - 5.0 07/09/2017 [facility] CHEM PANEL Calcium Lvl 8.7 mg/dL 8.5 - 10.5 07/09/2017 [facility] CHEM PANEL B/C Ratio 28 6 - 25 07/09/2017 [facility] CHEM PANEL AGAP 11.1 meq/L 10.0 - 20.0 07/09/2017 [facility] CHEM PANEL Alk Phos 66 unit/L 39 - 136 07/09/2017 [facility] CHEM PANEL Bili Total 0.5 mg/dL 0.2 - 1.3 07/09/2017 [facility] CHEM PANEL Globulin 4.9 g/dL 2.7 - 4.2 07/09/2017 [facility] CHEM PANEL A/G Ratio 0.5 0.7 - 1.6 07/09/2017 [facility] CHEM PANEL BUN 26 mg/dL 7 - 22 07/09/2017 [facility] CHEM PANEL Creatinine Lvl 0.94 mg/dL 0.50 - 1.40 07/09/2017 [facility] CHEM PANEL Glucose Lvl 76 mg/dL 70 - 99 07/09/2017 [facility] CHEM PANEL Chloride Lvl 101 meq/L 95 - 109 07/09/2017 [facility] CHEM PANEL CO2 30 meq/L 24 - 32 07/09/2017 [facility] HEMATOLOGY Microcyte 2+ *ABN* (07/09/17 5:09 AM) None Seen 07/09/2017 [facility] HEMATOLOGY Lymphocytes # 0.6 K/CMM 1.0 - 5.5 07/09/2017 [facility] HEMATOLOGY Eosinophils # 0.1 K/CMM 0.0 - 0.5 07/09/2017 [facility] HEMATOLOGY Basophils 0.4 % 0.0 - 1.0 07/09/2017 [facility] HEMATOLOGY Eosinophils 2.0 % 0.0 - 4.0 07/09/2017 [facility] HEMATOLOGY Segs-Bands # 4.0 K/CMM 1.5 - 8.1 07/09/2017 [facility] HEMATOLOGY Monocytes # 0.5 K/CMM 0.0 - 0.8 07/09/2017 [facility] HEMATOLOGY Lymphocytes 11.5 % 20.0 - 40.0 07/09/2017 [facility] HEMATOLOGY Segs 76.3 % 45.0 - 75.0 07/09/2017 [facility] HEMATOLOGY Monocytes 9.8 % 2.0 - 12.0 07/09/2017 [facility] HEMATOLOGY PTT 72.1 s 22.9 - 35.8 07/09/2017 [facility] HEMATOLOGY INR 4.81 0.85 - 1.17 07/09/2017 Result Comment: Critical Result(s) called to wilberbry geiger at 07/09/2017 06:46 bysss. Read back OK. [facility] HEMATOLOGY PT 45.7 s 12.0 - 14.7 07/09/2017 [facility] HEMATOLOGY MPV 7.5 fL 7.4 - 10.4 07/09/2017 [facility] HEMATOLOGY Platelet 200 K/CMM 133 - 450 07/09/2017 [facility] HEMATOLOGY WBC 5.2 K/CMM 3.7 - 10.4 07/09/2017 [facility] HEMATOLOGY MCV 73.5 fL 80.0 - 98.0 07/09/2017 [facility] HEMATOLOGY RDW 19.1 % 11.5 - 14.5 07/09/2017 [facility] HEMATOLOGY MCHC 31.4 g/dL 32.0 - 36.0 07/09/2017 [facility] HEMATOLOGY Hgb 9.7 g/dL 12.0 - 16.0 07/09/2017 [facility] HEMATOLOGY Hct 31.0 % 36.0 - 48.0 07/09/2017 [facility] HEMATOLOGY RBC 4.22 M/CMM 4.20 - 5.40 07/09/2017 [facility] HEMATOLOGY MCH 23.1 pg 27.0 - 31.0 07/09/2017 [facility] CARDIAC ENZYMES BNP 215 pg/mL <=100 pg/mL 07/09/2017 [facility] CHEM PANEL eGFR 37 mL/min/1.73m2 [...] should be multiplied by the estimated BMI. [facility] CHEM PANEL CO2 32 meq/L 24 - 32 07/08/2017 [facility] CHEM PANEL Calcium Lvl 9.3 mg/dL 8.5 - 10.5 07/08/2017 [facility] CHEM PANEL Chloride Lvl 98 meq/L 95 - 109 07/08/2017 [facility] CHEM PANEL Potassium Lvl 4.7 meq/L 3.5 - 5.1 07/08/2017 Result Comment: Specimen Slightly Hemolyzed. [facility] CHEM PANEL Creatinine Lvl 1.35 mg/dL 0.50 - 1.40 07/08/2017 [facility] CHEM PANEL Sodium Lvl 137 meq/L 135 - 145 07/08/2017 [facility] CHEM PANEL BUN 33 mg/dL 7 - 22 07/08/2017 [facility] CHEM PANEL Glucose Lvl 101 mg/dL 70 - 99 07/08/2017 [facility] CHEM PANEL AGAP 11.7 meq/L 10.0 - 20.0 07/08/2017 [facility] HEMATOLOGY PTT 84.9 s 22.9 - 35.8 07/08/2017 [facility] HEMATOLOGY INR 7.25 0.85 - 1.17 07/08/2017 Result Comment: Rechecked, Critical Result(s) called to Floyd Sanon at 07/08/2017 14:05_ by TC_. Read back OK. [facility] HEMATOLOGY PT 63.0 s 12.0 - 14.7 07/08/2017 [facility] HEMATOLOGY MCV 73.1 fL 80.0 - 98.0 07/08/2017 [facility] HEMATOLOGY Hct 33.5 % 36.0 - 48.0 07/08/2017 [facility] HEMATOLOGY Hgb 10.3 g/dL 12.0 - 16.0 07/08/2017 [facility] HEMATOLOGY MPV 7.5 fL 7.4 - 10.4 07/08/2017 [facility] HEMATOLOGY Platelet 210 K/CMM 133 - 450 07/08/2017 [facility] HEMATOLOGY RDW 18.9 % 11.5 - 14.5 07/08/2017 [facility] HEMATOLOGY RBC 4.58 M/CMM 4.20 - 5.40 07/08/2017 [facility] HEMATOLOGY MCHC 30.9 g/dL 32.0 - 36.0 07/08/2017 [facility] HEMATOLOGY MCH 22.6 pg 27.0 - 31.0 07/08/2017 [facility] HEMATOLOGY WBC 7.2 K/CMM 3.7 - 10.4 07/08/2017 [facility] HEMATOLOGY Microcyte 2+ *ABN* (07/08/17 1:34 PM) None Seen 07/08/2017 [facility] HEMATOLOGY Target Cell See Note 2 (07/08/17 1:34 PM) None Seen 07/08/2017 Result Comment: Few [facility] HEMATOLOGY Hypochrom See Note 1 (07/08/17 1:34 PM) None Seen 07/08/2017 Result Comment: Slight [facility] HEMATOLOGY Plt Morph Normal (07/08/17 1:34 PM) 07/08/2017 [facility] HEMATOLOGY Lymphocytes 6.0 % 20.0 - 40.0 07/08/2017 [facility] HEMATOLOGY Segs 83.0 % 45.0 - 75.0 07/08/2017 [facility] HEMATOLOGY Lymphocytes # 0.4 K/CMM 1.0 - 5.5 07/08/2017 [facility] HEMATOLOGY Segs-Bands # 6.0 K/CMM 1.5 - 8.1 07/08/2017 [facility] HEMATOLOGY Eosinophils # 0.1 K/CMM 0.0 - 0.5 07/08/2017 [facility] HEMATOLOGY Monocytes # 0.7 K/CMM 0.0 - 0.8 07/08/2017 [facility] HEMATOLOGY Anisocyte 1+ *ABN* (07/08/17 1:34 PM) None Seen 07/08/2017 [facility] HEMATOLOGY Monocytes 9.5 % 2.0 - 12.0 07/08/2017 [facility] HEMATOLOGY Eosinophils 0.9 % 0.0 - 4.0 07/08/2017 [facility] HEMATOLOGY Basophils 0.6 % 0.0 - 1.0 07/08/2017 [facility] Wrist complete DX Wrist complete [...] Floyd Rahman MD 07/08/17 15:[address] [facility] Knee 3 views DX Knee [...] - This report was dictated by a Investment Specialist/Fellow. I have personally reviewed the images as well as the Resident's interpretation and agree with the findings. Read by: Tj Cox MD Resident: González Morales (Fellow Dictated Date/time: 07/08/17 14:33 Electronically Signed by: James Anthony MD 07/08/17 15:[address] [facility] Chest 1view DX Chest 1view [...] - This report was dictated by a Investment Specialist/Fellow. I have personally reviewed the images as well as the Resident's interpretation and agree with the findings. Read by: Tj Cox MD Resident: Tj Cox MD Dictated Date/time: 07/08/17 14:05 Electronically Signed by: James Anthony MD 07/08/17 14:[address] [facility] ELECTROLYTES AGAP 10.8 meq/L 10.0 - 20.0 06/12/2017 [facility] ELECTROLYTES Creatinine Lvl 0.99 mg/dL 0.50 - 1.40 06/12/2017 [facility] ELECTROLYTES Chloride Lvl 95 meq/L 95 - 109 06/12/2017 [facility] ELECTROLYTES Potassium Lvl 3.8 meq/L 3.5 - 5.1 06/12/2017 [facility] ELECTROLYTES Glucose Lvl 82 mg/dL 70 - 99 06/12/2017 [facility] ELECTROLYTES BUN 37 mg/dL 7 - 22 06/12/2017 [facility] ELECTROLYTES eGFR 54 mL/min/1.73m2 06/12/2017 [...] should be multiplied by the estimated BMI. [facility] ELECTROLYTES Sodium Lvl 136 meq/L 135 - 145 06/12/2017 [facility] ELECTROLYTES Calcium Lvl 8.9 mg/dL 8.5 - 10.5 06/12/2017 [facility] ELECTROLYTES CO2 34 meq/L 24 - 32 06/12/2017 [facility] HEMATOLOGY Eosinophils 2.6 % 0.0 - 4.0 06/12/2017 [facility] HEMATOLOGY Basophils 0.5 % 0.0 - 1.0 06/12/2017 [facility] HEMATOLOGY Eosinophils # 0.1 K/CMM 0.0 - 0.5 06/12/2017 [facility] HEMATOLOGY Monocytes # 0.7 K/CMM 0.0 - 0.8 06/12/2017 [facility] HEMATOLOGY Lymphocytes # 0.6 K/CMM 1.0 - 5.5 06/12/2017 [facility] HEMATOLOGY Monocytes 14.5 % 2.0 - 12.0 06/12/2017 [facility] HEMATOLOGY Segs-Bands # 3.2 K/CMM 1.5 - 8.1 06/12/2017 [facility] HEMATOLOGY Lymphocytes 12.3 % 20.0 - 40.0 06/12/2017 [facility] HEMATOLOGY Microcyte 1+ *ABN* (06/12/17 5:14 AM) None Seen 06/12/2017 [facility] HEMATOLOGY Segs 70.1 % 45.0 - 75.0 06/12/2017 [facility] HEMATOLOGY MPV 7.3 fL 7.4 - 10.4 06/12/2017 [facility] HEMATOLOGY Platelet 153 K/CMM 133 - 450 06/12/2017 [facility] HEMATOLOGY RDW 19.4 % 11.5 - 14.5 06/12/2017 [facility] HEMATOLOGY Hgb 10.4 g/dL 12.0 - 16.0 06/12/2017 [facility] HEMATOLOGY RBC 4.36 M/CMM 4.20 - 5.40 06/12/2017 [facility] HEMATOLOGY MCH 23.8 pg 27.0 - 31.0 06/12/2017 [facility] HEMATOLOGY MCV 75.2 fL 80.0 - 98.0 06/12/2017 [facility] HEMATOLOGY MCHC 31.6 g/dL 32.0 - 36.0 06/12/2017 [facility] HEMATOLOGY Hct 32.8 % 36.0 - 48.0 06/12/2017 [facility] HEMATOLOGY WBC 4.6 K/CMM 3.7 - 10.4 06/12/2017 [facility] HEMATOLOGY PTT 32.7 s 22.9 - 35.8 06/12/2017 [facility] HEMATOLOGY PT 15.1 s 12.0 - 14.7 06/12/2017 [facility] HEMATOLOGY INR 1.17 0.85 - 1.17 06/12/2017 [facility] CHEM PANEL eGFR 53 mL/min/1.73m2 [...] should be multiplied by the estimated BMI. [facility] CHEM PANEL Creatinine Lvl 1.01 mg/dL 0.50 - 1.40 06/11/2017 [facility] CHEM PANEL CO2 35 meq/L 24 - 32 06/11/2017 [facility] CHEM PANEL Chloride Lvl 89 meq/L 95 - 109 06/11/2017 [facility] CHEM PANEL Potassium Lvl 3.6 meq/L 3.5 - 5.1 06/11/2017 [facility] CHEM PANEL BUN 38 mg/dL 7 - 22 06/11/2017 [facility] CHEM PANEL Glucose Lvl 88 mg/dL 70 - 99 06/11/2017 [facility] CHEM PANEL Sodium Lvl 130 meq/L 135 - 145 06/11/2017 [facility] CHEM PANEL Albumin Lvl 2.6 g/dL 3.5 - 5.0 06/11/2017 [facility] CHEM PANEL Total Protein 7.8 g/dL 6.4 - 8.4 06/11/2017 [facility] CHEM PANEL Calcium Lvl 8.9 mg/dL 8.5 - 10.5 06/11/2017 [facility] CHEM PANEL Bili Total 0.6 mg/dL 0.2 - 1.3 06/11/2017 [facility] CHEM PANEL Alk Phos 87 unit/L 39 - 136 06/11/2017 [facility] CHEM PANEL AST 29 unit/L 0 - 37 06/11/2017 [facility] CHEM PANEL ALT 17 unit/L 0 - 65 06/11/2017 [facility] CHEM PANEL A/G Ratio 0.5 0.7 - 1.6 06/11/2017 [facility] CHEM PANEL Globulin 5.2 g/dL 2.7 - 4.2 06/11/2017 [facility] CHEM PANEL B/C Ratio 38 6 - 25 06/11/2017 [facility] CHEM PANEL AGAP 9.6 meq/L 10.0 - 20.0 06/11/2017 [facility] CHEM PANEL Magnesium Lvl 2.4 mg/dL 1.8 - 2.4 06/11/2017 [facility] CHEM PANEL Phosphorus 3.3 mg/dL 2.5 - 4.5 06/11/2017 [facility] HEMATOLOGY Monocytes 12.4 % 2.0 - 12.0 06/11/2017 [facility] HEMATOLOGY Eosinophils 2.0 % 0.0 - 4.0 06/11/2017 [facility] HEMATOLOGY Segs 72.6 % 45.0 - 75.0 06/11/2017 [facility] HEMATOLOGY Lymphocytes 12.4 % 20.0 - 40.0 06/11/2017 [facility] HEMATOLOGY Lymphocytes # 0.6 K/CMM 1.0 - 5.5 06/11/2017 [facility] HEMATOLOGY Basophils 0.6 % 0.0 - 1.0 06/11/2017 [facility] HEMATOLOGY Eosinophils # 0.1 K/CMM 0.0 - 0.5 06/11/2017 [facility] HEMATOLOGY Segs-Bands # 3.7 K/CMM 1.5 - 8.1 06/11/2017 [facility] HEMATOLOGY Microcyte 1+ *ABN* (06/11/17 4:30 AM) None Seen 06/11/2017 [facility] HEMATOLOGY Monocytes # 0.6 K/CMM 0.0 - 0.8 06/11/2017 [facility] HEMATOLOGY PTT 29.8 s 22.9 - 35.8 06/11/2017 [facility] HEMATOLOGY PT 18.2 s 12.0 - 14.7 06/11/2017 [facility] HEMATOLOGY INR 1.48 0.85 - 1.17 06/11/2017 [facility] HEMATOLOGY MPV 7.5 fL 7.4 - 10.4 06/11/2017 [facility] HEMATOLOGY Platelet 144 K/CMM 133 - 450 06/11/2017 [facility] HEMATOLOGY MCHC 32.4 g/dL 32.0 - 36.0 06/11/2017 [facility] HEMATOLOGY RDW 19.4 % 11.5 - 14.5 06/11/2017 [facility] HEMATOLOGY MCV 74.9 fL 80.0 - 98.0 06/11/2017 [facility] HEMATOLOGY MCH 24.3 pg 27.0 - 31.0 06/11/2017 [facility] HEMATOLOGY Hct 33.4 % 36.0 - 48.0 06/11/2017 [facility] HEMATOLOGY RBC 4.46 M/CMM 4.20 - 5.40 06/11/2017 [facility] HEMATOLOGY Hgb 10.8 g/dL 12.0 - 16.0 06/11/2017 [facility] HEMATOLOGY WBC 5.1 K/CMM 3.7 - 10.4 06/11/2017 [facility] CHEM PANEL Magnesium Lvl 2.3 mg/dL 1.8 - 2.4 06/10/2017 [facility] CHEM PANEL Phosphorus 3.4 mg/dL 2.5 - 4.5 06/10/2017 [facility] ELECTROLYTES AGAP 11.0 meq/L 10.0 - 20.0 06/10/2017 [facility] ELECTROLYTES Globulin 5.4 g/dL 2.7 - 4.2 06/10/2017 [facility] ELECTROLYTES A/G Ratio 0.5 0.7 - 1.6 06/10/2017 [facility] ELECTROLYTES B/C Ratio 37 6 - 25 06/10/2017 [facility] ELECTROLYTES eGFR 53 mL/min/1.73m2 06/10/2017 [...] should be multiplied by the estimated BMI. [facility] ELECTROLYTES Bili Total 0.6 mg/dL 0.2 - 1.3 06/10/2017 [facility] ELECTROLYTES Potassium Lvl 4.0 meq/L 3.5 - 5.1 06/10/2017 [facility] ELECTROLYTES Calcium Lvl 9.0 mg/dL 8.5 - 10.5 06/10/2017 [facility] ELECTROLYTES Chloride Lvl 94 meq/L 95 - 109 06/10/2017 [facility] ELECTROLYTES CO2 34 meq/L 24 - 32 06/10/2017 [facility] ELECTROLYTES Sodium Lvl 135 meq/L 135 - 145 06/10/2017 [facility] ELECTROLYTES Glucose Lvl 75 mg/dL 70 - 99 06/10/2017 [facility] ELECTROLYTES Creatinine Lvl 1.01 mg/dL 0.50 - 1.40 06/10/2017 [facility] ELECTROLYTES BUN 37 mg/dL 7 - 22 06/10/2017 [facility] ELECTROLYTES Alk Phos 94 unit/L 39 - 136 06/10/2017 [facility] ELECTROLYTES Total Protein 8.0 g/dL 6.4 - 8.4 06/10/2017 [facility] ELECTROLYTES Albumin Lvl 2.6 g/dL 3.5 - 5.0 06/10/2017 [facility] ELECTROLYTES ALT 20 unit/L 0 - 65 06/10/2017 [facility] ELECTROLYTES AST 35 unit/L 0 - 37 06/10/2017 [facility] HEMATOLOGY MPV 7.3 fL 7.4 - 10.4 06/10/2017 [facility] HEMATOLOGY MCHC 32.8 g/dL 32.0 - 36.0 06/10/2017 [facility] HEMATOLOGY Platelet 164 K/CMM 133 - 450 06/10/2017 [facility] HEMATOLOGY RDW 19.6 % 11.5 - 14.5 06/10/2017 [facility] HEMATOLOGY WBC 5.4 K/CMM 3.7 - 10.4 06/10/2017 [facility] HEMATOLOGY Hct 33.5 % 36.0 - 48.0 06/10/2017 [facility] HEMATOLOGY Hgb 11.0 g/dL 12.0 - 16.0 06/10/2017 [facility] HEMATOLOGY MCV 74.7 fL 80.0 - 98.0 06/10/2017 [facility] HEMATOLOGY MCH 24.5 pg 27.0 - 31.0 06/10/2017 [facility] HEMATOLOGY RBC 4.49 M/CMM 4.20 - 5.40 06/10/2017 [facility] HEMATOLOGY PTT 34.9 s 22.9 - 35.8 06/10/2017 [facility] HEMATOLOGY PT 21.7 s 12.0 - 14.7 06/10/2017 [facility] HEMATOLOGY INR 1.85 0.85 - 1.17 06/10/2017 [facility] HEMATOLOGY Segs 75.3 % 45.0 - 75.0 06/10/2017 [facility] HEMATOLOGY Microcyte 1+ *ABN* (06/10/17 4:17 AM) None Seen 06/10/2017 [facility] HEMATOLOGY Segs-Bands # 4.1 K/CMM 1.5 - 8.1 06/10/2017 [facility] HEMATOLOGY Monocytes # 0.6 K/CMM 0.0 - 0.8 06/10/2017 [facility] HEMATOLOGY Lymphocytes # 0.7 K/CMM 1.0 - 5.5 06/10/2017 [facility] HEMATOLOGY Eosinophils # 0.1 K/CMM 0.0 - 0.5 06/10/2017 [facility] HEMATOLOGY Monocytes 10.7 % 2.0 - 12.0 06/10/2017 [facility] HEMATOLOGY Lymphocytes 12.1 % 20.0 - 40.0 06/10/2017 [facility] HEMATOLOGY Eosinophils 1.6 % 0.0 - 4.0 06/10/2017 [facility] HEMATOLOGY Basophils 0.3 % 0.0 - 1.0 06/10/2017 [facility] Chest wo contrast CT Chest [...] Phu Myles MD 06/11/17 06:[address] [facility] CHEM PANEL ALT 18 unit/L 0 - 65 06/09/2017 [facility] CHEM PANEL Albumin Lvl 2.4 g/dL 3.5 - 5.0 06/09/2017 [facility] CHEM PANEL Alk Phos 83 unit/L 39 - 136 06/09/2017 [facility] CHEM PANEL AST 29 unit/L 0 - 37 06/09/2017 [facility] CHEM PANEL Total Protein 6.9 g/dL 6.4 - 8.4 06/09/2017 [facility] CHEM PANEL Bili Total 0.6 mg/dL 0.2 - 1.3 06/09/2017 [facility] CHEM PANEL B/C Ratio 36 6 - 25 06/09/2017 [facility] CHEM PANEL A/G Ratio 0.5 0.7 - 1.6 06/09/2017 [facility] CHEM PANEL Globulin 4.5 g/dL 2.7 - 4.2 06/09/2017 [facility] CHEM PANEL Magnesium Lvl 2.1 mg/dL 1.8 - 2.4 06/09/2017 [facility] CHEM PANEL Phosphorus 3.6 mg/dL 2.5 - 4.5 06/09/2017 [facility] CARDIAC ENZYMES BNP 367 pg/mL <=100 pg/mL 06/08/2017 [facility] CARDIAC ENZYMES Troponin-I null 0.00 - 0.40 06/08/2017 [facility] Chest 1view DX Chest 1view [...] - This report was dictated by a Investment Specialist/Fellow. I have personally reviewed the images as well as the Resident's interpretation and agree with the findings. Read by: Tarun Yap MD Resident: Tarun Yap MD Dictated Date/time: 06/08/17 14:27 Electronically Signed by: Chino Pederson MD 06/08/17 14:[address] [facility] Chest 2 views DX Chest [...] Gino Walls MD 05/16/17 10:37 [facility] 2 views DX Chest 2 views [...] ENZYMES BNP 440 pg/mL <=100 pg/mL 04/08/2017 [facility] CHEM PANEL Magnesium Lvl 2.1 mg/dL 1.8 - 2.4 04/08/2017 [facility] ELECTROLYTES AGAP 13.1 meq/L 10.0 - 20.0 04/08/2017 [facility] ELECTROLYTES eGFR 88 mL/min/1.73m2 04/08/2017 [...] should be multiplied by the estimated BMI. [facility] ELECTROLYTES Glucose Lvl 57 mg/dL 70 - 99 04/08/2017 [facility] ELECTROLYTES Calcium Lvl 7.6 mg/dL 8.5 - 10.5 04/08/2017 [facility] ELECTROLYTES Creatinine Lvl 0.59 mg/dL 0.50 - 1.40 04/08/2017 [facility] ELECTROLYTES Potassium Lvl 4.1 meq/L 3.5 - 5.1 04/08/2017 [facility] ELECTROLYTES Sodium Lvl 141 meq/L 135 - 145 04/08/2017 [facility] ELECTROLYTES CO2 24 meq/L 24 - 32 04/08/2017 [facility] ELECTROLYTES Chloride Lvl 108 meq/L 95 - 109 04/08/2017 [facility] ELECTROLYTES BUN 20 mg/dL 7 - 22 04/08/2017 [facility] HEMATOLOGY MPV 7.4 fL 7.4 - 10.4 04/08/2017 [facility] HEMATOLOGY Platelet 189 K/CMM 133 - 450 04/08/2017 [facility] HEMATOLOGY RDW 19.9 % 11.5 - 14.5 04/08/2017 [facility] HEMATOLOGY MCH 23.1 pg 27.0 - 31.0 04/08/2017 [facility] HEMATOLOGY MCHC 29.9 g/dL 32.0 - 36.0 04/08/2017 [facility] HEMATOLOGY MCV 77.4 fL 80.0 - 98.0 04/08/2017 [facility] HEMATOLOGY Hgb 9.4 g/dL 12.0 - 16.0 04/08/2017 [facility] HEMATOLOGY Hct 31.4 % 36.0 - 48.0 04/08/2017 [facility] HEMATOLOGY RBC 4.05 M/CMM 4.20 - 5.40 04/08/2017 [facility] HEMATOLOGY WBC 5.2 K/CMM 3.7 - 10.4 04/08/2017 [facility] HEMATOLOGY INR 1.13 0.85 - 1.17 04/08/2017 [facility] HEMATOLOGY PT 14.7 s 12.0 - 14.7 04/08/2017 [facility] HEMATOLOGY PTT 28.6 s 22.9 - 35.8 04/08/2017 [facility] HEMATOLOGY Basophils 0.6 % 0.0 - 1.0 04/08/2017 [facility] HEMATOLOGY Segs-Bands # 3.7 K/CMM 1.5 - 8.1 04/08/2017 [facility] HEMATOLOGY Microcyte 1+ *ABN* (04/08/17 5:13 AM) None Seen 04/08/2017 [facility] HEMATOLOGY Lymphocytes # 0.8 K/CMM 1.0 - 5.5 04/08/2017 [facility] HEMATOLOGY Monocytes # 0.6 K/CMM 0.0 - 0.8 04/08/2017 [facility] HEMATOLOGY Lymphocytes 14.6 % 20.0 - 40.0 04/08/2017 [facility] HEMATOLOGY Eosinophils 0.9 % 0.0 - 4.0 04/08/2017 [facility] HEMATOLOGY Monocytes 12.1 % 2.0 - 12.0 04/08/2017 [facility] HEMATOLOGY Segs 71.8 % 45.0 - 75.0 04/08/2017 [facility] CHEM PANEL Magnesium Lvl 2.1 mg/dL 1.8 - 2.4 04/08/2017 [facility] ELECTROLYTES AGAP 10.3 meq/L 10.0 - 20.0 04/08/2017 [facility] ELECTROLYTES eGFR 80 mL/min/1.73m2 04/08/2017 [...] should be multiplied by the estimated BMI. [facility] ELECTROLYTES CO2 28 meq/L 24 - 32 04/08/2017 [facility] ELECTROLYTES Calcium Lvl 7.7 mg/dL 8.5 - 10.5 04/08/2017 [facility] ELECTROLYTES Sodium Lvl 143 meq/L 135 - 145 04/08/2017 [facility] ELECTROLYTES BUN 23 mg/dL 7 - 22 04/08/2017 [facility] ELECTROLYTES Creatinine Lvl 0.72 mg/dL 0.50 - 1.40 04/08/2017 [facility] ELECTROLYTES Potassium Lvl 4.3 meq/L 3.5 - 5.1 04/08/2017 [facility] ELECTROLYTES Chloride Lvl 109 meq/L 95 - 109 04/08/2017 [facility] ELECTROLYTES Glucose Lvl 74 mg/dL 70 - 99 04/08/2017 [facility] HEMATOLOGY MCHC 31.3 g/dL 32.0 - 36.0 04/08/2017 [facility] HEMATOLOGY MCH 23.4 pg 27.0 - 31.0 04/08/2017 [facility] HEMATOLOGY MCV 74.8 fL 80.0 - 98.0 04/08/2017 [facility] HEMATOLOGY Hct 30.7 % 36.0 - 48.0 04/08/2017 [facility] HEMATOLOGY RDW 19.8 % 11.5 - 14.5 04/08/2017 [facility] HEMATOLOGY MPV 7.0 fL 7.4 - 10.4 04/08/2017 [facility] HEMATOLOGY Platelet 205 K/CMM 133 - 450 04/08/2017 [facility] HEMATOLOGY WBC 5.9 K/CMM 3.7 - 10.4 04/08/2017 [facility] HEMATOLOGY RBC 4.11 M/CMM 4.20 - 5.40 04/08/2017 [facility] HEMATOLOGY Hgb 9.6 g/dL 12.0 - 16.0 04/08/2017 [facility] HEMATOLOGY PTT 31.3 s 22.9 - 35.8 04/08/2017 [facility] HEMATOLOGY PT 15.5 s 12.0 - 14.7 04/08/2017 [facility] HEMATOLOGY INR 1.20 0.85 - 1.17 04/08/2017 [facility] HEMATOLOGY Segs 73.3 % 45.0 - 75.0 04/08/2017 [facility] HEMATOLOGY Monocytes 11.7 % 2.0 - 12.0 04/08/2017 [facility] HEMATOLOGY Lymphocytes 13.4 % 20.0 - 40.0 04/08/2017 [facility] HEMATOLOGY Eosinophils 1.0 % 0.0 - 4.0 04/08/2017 [facility] HEMATOLOGY Segs-Bands # 4.4 K/CMM 1.5 - 8.1 04/08/2017 [facility] HEMATOLOGY Basophils 0.6 % 0.0 - 1.0 04/08/2017 [facility] HEMATOLOGY Microcyte 1+ *ABN* (04/07/17 8:43 PM) None Seen 04/08/2017 [facility] [facility] Eosinophils # 0.1 K/CMM 0.0 - 0.5 04/08/2017 [facility] HEMATOLOGY Lymphocytes # 0.8 K/CMM 1.0 - 5.5 04/08/2017 [facility] HEMATOLOGY Monocytes # 0.7 K/CMM 0.0 - 0.8 04/08/2017 [facility] Chest 1view DX Chest 1view [...] Anabel Davis MD 04/08/17 11:[address] [facility] BLOOD BANK RESULTS RBC product Product available (04/07/17 11:29 AM) 04/07/2017 [facility] BLOOD BANK RESULTS FFP product Product available (04/07/17 11:29 AM) 04/07/2017 [facility] BLOOD BANK RESULTS Antibody Scrn Negative (04/07/17 11:29 AM) 04/07/2017 [facility] BLOOD BANK RESULTS ABO/Rh A POS 04/07/2017 [facility] CHEM PANEL eGFR 61 mL/min/1.73m2 [...] should be multiplied by the estimated BMI. [facility] CHEM PANEL CO2 33 meq/L 24 - 32 04/07/2017 [facility] CHEM PANEL Calcium Lvl 9.0 mg/dL 8.5 - 10.5 04/07/2017 [facility] CHEM PANEL Potassium Lvl 4.7 meq/L 3.5 - 5.1 04/07/2017 [facility] CHEM PANEL Chloride Lvl 103 meq/L 95 - 109 04/07/2017 [facility] CHEM PANEL Sodium Lvl 141 meq/L 135 - 145 04/07/2017 [facility] CHEM PANEL BUN 28 mg/dL 7 - 22 04/07/2017 [facility] CHEM PANEL Creatinine Lvl 0.91 mg/dL 0.50 - 1.40 04/07/2017 [facility] CHEM PANEL Glucose Lvl 99 mg/dL 70 - 99 04/07/2017 [facility] CHEM PANEL AST 23 unit/L 0 - 37 04/07/2017 [facility] CHEM PANEL Total Protein 8.0 g/dL 6.4 - 8.4 04/07/2017 [facility] CHEM PANEL Bili Total 0.5 mg/dL 0.2 - 1.3 04/07/2017 [facility] CHEM PANEL Alk Phos 81 unit/L 39 - 136 04/07/2017 [facility] CHEM PANEL Albumin Lvl 3.4 g/dL 3.5 - 5.0 04/07/2017 [facility] CHEM PANEL ALT 21 unit/L 0 - 65 04/07/2017 [facility] CHEM PANEL B/C Ratio 31 6 - 25 04/07/2017 [facility] CHEM PANEL AGAP 9.7 meq/L 10.0 - 20.0 04/07/2017 [facility] CHEM PANEL A/G Ratio 0.7 0.7 - 1.6 04/07/2017 [facility] CHEM PANEL Globulin 4.6 g/dL 2.7 - 4.2 04/07/2017 [facility] HEMATOLOGY Microcyte 1+ *ABN* (04/07/17 11:29 AM) None Seen 04/07/2017 [facility] HEMATOLOGY Lymphocytes # 0.8 K/CMM 1.0 - 5.5 04/07/2017 [facility] HEMATOLOGY Monocytes # 0.4 K/CMM 0.0 - 0.8 04/07/2017 [facility] HEMATOLOGY Segs-Bands # 3.5 K/CMM 1.5 - 8.1 04/07/2017 [facility] HEMATOLOGY Lymphocytes 17.0 % 20.0 - 40.0 04/07/2017 [facility] HEMATOLOGY Segs 73.3 % 45.0 - 75.0 04/07/2017 [facility] HEMATOLOGY Basophils 0.8 % 0.0 - 1.0 04/07/2017 [facility] HEMATOLOGY Monocytes 8.5 % 2.0 - 12.0 04/07/2017 [facility] HEMATOLOGY Eosinophils 0.4 % 0.0 - 4.0 04/07/2017 [facility] HEMATOLOGY Platelet 290 K/CMM 133 - 450 04/07/2017 [facility] HEMATOLOGY MPV 6.8 fL 7.4 - 10.4 04/07/2017 [facility] HEMATOLOGY RDW 20.0 % 11.5 - 14.5 04/07/2017 [facility] HEMATOLOGY MCH 23.4 pg 27.0 - 31.0 04/07/2017 [facility] HEMATOLOGY MCHC 31.3 g/dL 32.0 - 36.0 04/07/2017 [facility] HEMATOLOGY MCV 74.7 fL 80.0 - 98.0 04/07/2017 [facility] HEMATOLOGY Hgb 11.2 g/dL 12.0 - 16.0 04/07/2017 [facility] HEMATOLOGY Hct 35.9 % 36.0 - 48.0 04/07/2017 [facility] HEMATOLOGY WBC 4.8 K/CMM 3.7 - 10.4 04/07/2017 [facility] HEMATOLOGY RBC 4.81 M/CMM 4.20 - 5.40 04/07/2017 [facility] HEMATOLOGY PT 14.1 s 12.0 - 14.7 04/07/2017 [facility] HEMATOLOGY PTT 27.7 s 22.9 - 35.8 04/07/2017 [facility] HEMATOLOGY INR 1.07 0.85 - 1.17 04/07/2017 [facility] Chest/Abd/Pelvis TAVR CTA Chest/Abd/Pelvis TAVR [...] Susan Concepcion MD 03/29/17 11:[address] [facility] Heart/coronary art TAVR CTA Heart/coronary art TAVR CTA EXAM: CARDIAC COMPUTED TOMOGRAPHY ANGIOGRAPHY DATE: March 29, 2017 INDICATION: Aortic stenosis. COMPARISON: None TECHNIQUE: Contrast imaging was performed on a [employer] [address] scanner utilizing a [...] impairment of systolic function. Ejection Fraction: 35% FYF=232 cc KJQ=117 cc SV=78 cc Lung snow to the extent visualized in limited study: Please see radiologist interpretation for extra cardiac findings. IMPRESSION: Aortic valve disease. Nonobstructive coronary artery disease. 03/29/2017 - - Read by: Dre Oleary MD Dictated Date/time: 03/29/17 18:33 Electronically Signed by: Dre Oleary MD 03/29/17 18:[address] [facility] Vital Signs Vital Sign Value Date Comments Source Height 152.4 cm 05/08/2018 [facility] BMI Calculated 24.74 05/08/2018 [facility] Weight 57.472 05/08/2018 [facility] Temperature Oral (F) 98.0 F 05/08/2018 [facility] Heart Rate 18 05/08/2018 [facility] Respitory Rate 67 05/08/2018 [facility] Height 58 cm 12/26/2017 [facility] BMI Calculated 164.31 12/26/2017 [facility] Weight 55.273 12/26/2017 [facility] Respitory Rate 18 12/26/2017 [facility] Temperature Oral (F) 97.8 F 12/26/2017 [facility] Heart Rate 72 12/26/2017 [facility] Systolic (mm Hg) 106 12/26/2017 [facility] Diastolic (mm Hg) 72 12/26/2017 [facility] Weight 56.364 12/22/2017 [facility] Height 152.4 cm 12/22/2017 [facility] BMI Calculated 24.27 12/22/2017 [facility] Systolic (mm Hg) 103 12/22/2017 [facility] Diastolic (mm Hg) 63 12/22/2017 [facility] Temperature Oral (F) 98.1 F 12/22/2017 [facility] Respitory Rate 17 12/22/2017 [facility] Heart Rate 71 12/22/2017 [facility] Systolic (mm Hg) 126 11/18/2017 [facility] Diastolic (mm Hg) 74 11/18/2017 [facility] Center Respitory Rate 18 11/18/2017 [facility] Temperature Oral (F) 97.3 F 11/17/2017 [facility] Systolic (mm Hg) 125 11/17/2017 [facility] Center Diastolic (mm Hg) 74 11/17/2017 [facility] Respitory Rate 20 11/17/2017 [facility] Systolic (mm Hg) 110 11/17/2017 [facility] Center Diastolic (mm Hg) 67 11/17/2017 [facility] Respitory Rate 18 11/17/2017 [facility] Temperature Oral (F) 98.7 F 11/17/2017 [facility] Temperature Oral (F) 97.8 F 11/17/2017 [facility] BMI Calculated 23.17 11/11/2017 [facility] Weight 53.818 11/11/2017 [facility] Height 152.4 cm 11/11/2017 [facility] BMI Calculated 21.99 11/10/2017 [facility] Weight 54.545 11/10/2017 [facility] Height 157.48 cm 11/10/2017 [facility] Heart Rate 59 11/10/2017 [facility] BMI Calculated 22.95 09/11/2017 [facility] Height 152.4 cm 09/11/2017 [facility] Weight 53.295 09/11/2017 [facility] Systolic (mm Hg) 123 09/11/2017 [facility] Diastolic (mm Hg) 74 09/11/2017 [facility] Temperature Oral (F) 97.1 F 09/11/2017 [facility] Respitory Rate 16 09/11/2017 [facility] Heart Rate 78 09/11/2017 [facility] Respitory Rate 31 07/10/2017 [facility] Systolic (mm Hg) 135 07/10/2017 [facility] Diastolic (mm Hg) 65 07/10/2017 [facility] Systolic (mm Hg) 135 07/10/2017 [facility] Diastolic (mm Hg) 65 07/10/2017 [facility] Respitory Rate 30 07/10/2017 [facility] Systolic (mm Hg) 121 07/10/2017 [facility] Diastolic (mm Hg) 50 07/10/2017 [facility] Respitory Rate 33 07/10/2017 [facility] Temperature Oral (F) 97.3 F 07/10/2017 [facility] Temperature Oral (F) 97.1 F 07/10/2017 [facility] Temperature Oral (F) 97.4 F 07/10/2017 [facility] BMI Calculated 23.86 07/09/2017 [facility] Height 152.4 cm 07/09/2017 [facility] Weight 55.409 07/09/2017 [facility] BMI Calculated 23.79 07/09/2017 [facility] Height 152.4 cm 07/09/2017 [facility] Weight 55.256 07/09/2017 [facility] Heart Rate 67 07/08/2017 [facility] Height 152.4 cm 06/27/2017 [facility] BMI Calculated 24.27 06/27/2017 [facility] Weight 56.364 06/27/2017 [facility] Heart Rate 76 06/27/2017 [facility] Respitory Rate 16 06/27/2017 [facility] Temperature Oral (F) 98 F 06/27/2017 [facility] Center Systolic (mm Hg) 115 06/27/2017 [facility] Diastolic (mm Hg) 61 06/27/2017 [facility] Respitory Rate 20 06/12/2017 [facility] Systolic (mm Hg) 117 06/12/2017 [facility] Diastolic (mm Hg) 58 06/12/2017 [facility] Systolic (mm Hg) 96 06/12/2017 [facility] Diastolic (mm Hg) 64 06/12/2017 [facility] Respitory Rate 18 06/12/2017 [facility] Systolic (mm Hg) 108 06/12/2017 [facility] Diastolic (mm Hg) 65 06/12/2017 [facility] Temperature Oral (F) 98.1 F 06/12/2017 [facility] Respitory Rate 16 06/12/2017 [facility] Temperature Oral (F) 98.7 F 06/12/2017 [facility] Temperature Oral (F) 97.8 F 06/12/2017 [facility] BMI Calculated 24.54 06/08/2017 [facility] Weight 56.989 06/08/2017 [facility] Height 152.4 cm 06/08/2017 [facility] BMI Calculated 25.05 06/08/2017 [facility] Weight 58.182 06/08/2017 [facility] Height 152.4 cm 06/08/2017 [facility] Heart Rate 92 06/08/2017 [facility] Height 152.91 cm 05/16/2017 [facility] Weight 60.045 05/16/2017 [facility] BMI Calculated 25.68 05/16/2017 [facility] Temperature Oral (F) 98.3 F 05/16/2017 [facility] Respitory Rate 18 05/16/2017 [facility] Heart Rate 88 05/16/2017 [facility] Systolic (mm Hg) 111 05/16/2017 [facility] Diastolic (mm Hg) 77 05/16/2017 [facility] Systolic (mm Hg) 108 04/25/2017 [facility] Diastolic (mm Hg) 65 04/25/2017 [facility] Respitory Rate 16 04/25/2017 [facility] Temperature Oral (F) 97.9 F 04/25/2017 [facility] Heart Rate 82 04/25/2017 [facility] BMI Calculated 25.55 04/25/2017 [facility] Weight 59.347 04/25/2017 [facility] Height 152.4 cm 04/25/2017 [facility] Systolic (mm Hg) 108 04/08/2017 [facility] Diastolic (mm Hg) 60 04/08/2017 [facility] Respitory Rate 21 04/08/2017 [facility] Systolic (mm Hg) 93 04/08/2017 [facility] Diastolic (mm Hg) 61 04/08/2017 [facility] Respitory Rate 22 04/08/2017 [facility] Temperature Oral (F) 98.3 F 04/08/2017 [facility] Respitory Rate 17 04/08/2017 [facility] Systolic (mm Hg) 97 04/08/2017 [facility] Diastolic (mm Hg) 52 04/08/2017 [facility] Temperature Oral (F) 97.1 F 04/08/2017 [facility] Temperature Oral (F) 97.6 F 04/08/2017 [facility] Height 152.4 cm 04/07/2017 [facility] Weight 57.727 04/07/2017 [facility] BMI Calculated 24.85 04/07/2017 [facility] Weight 56.818 04/04/2017 [facility] BMI Calculated 24.46 04/04/2017 [facility] Height 152.4 cm 04/04/2017 [facility] Systolic (mm Hg) 120 04/04/2017 [facility] Diastolic (mm Hg) 71 04/04/2017 [facility] Respitory Rate 19 04/04/2017 [facility] Heart Rate 95 04/04/2017 [facility] Temperature Oral (F) 97.8 F 04/04/2017 [facility] Systolic (mm Hg) 88 03/21/2017 [facility] Diastolic (mm Hg) 55 03/21/2017 [facility] Heart Rate 75 03/21/2017 [facility] Respitory Rate 16 03/21/2017 [facility] Temperature Oral (F) 96.8 F 03/21/2017 [facility] Height 152.4 cm 03/21/2017 [facility] BMI Calculated 25.44 03/21/2017 [facility] Weight 59.091 03/21/2017 [facility] Encounters Location Location Details Encounter Type Encounter Number Reason For Visit Attending Provider ADM Date DC Date Status Source [facility] Outpatient [id number] Fabianowajigustavo Damian 03/21/2017 03/22/2017 [facility] Outpatient [id number] Esperanza James 04/04/2017 04/05/2017 [facility] Inpatient [id number] Fabianowaalexei Damian 04/07/2017 04/08/2017 [facility] [id number] Esperanza James 04/25/2017 04/26/2017 [facility] Outpatient [id number] Fabianowajigustavo Damian 04/25/2017 04/26/2017 [facility] [id number] Esperanza James 05/16/2017 05/17/2017 [facility] Outpatient [id number] Fabianowajigustavo Damian 05/16/2017 05/17/2017 [facility] Inpatient [id number] Bradford Butler 06/08/2017 06/13/2017 [facility] Outpatient [id number] Biswajit Rickie 06/27/2017 06/28/2017 [facility] Inpatient [id number] Biswajit Rickie 07/08/2017 07/11/2017 [facility] Outpatient [id number] Biswajit Rickie 09/11/2017 09/12/2017 [facility] Phone Message [id number] 10/25/2017 10/27/2017 [facility] Inpatient [id number] Bradford Luke 11/10/2017 11/18/2017 [facility] Outpatient [id number] Bradford Luke 12/22/2017 12/23/2017 [facility] [id number] Sissy Villalba 12/22/2017 12/23/2017 [facility] [id number] Sissy Villalba 12/26/2017 12/27/2017 [facility] Outpatient [id number] Esperanza Aknti 12/26/2017 12/27/2017 [facility] Outpatient [id number] Esperanza [facility] 05/08/2018 05/09/2018 [facility] Procedures Procedure Code Date Perfomer Comments Source Cardiac catheterisation, left heart [id number] [facility] Cardiac catheterisation, right heart [id number] [facility] Cardiac catheterisation, left heart [id number] [facility] Cardiac catheterisation, right heart [id number] [facility] Abdominal hysterectomy [id number] [facility] AVR - Aortic valve replacement [id number] [facility] Bilateral mastectomy [id number] [facility] Abdominal hysterectomy [id number] [facility] AVR - Aortic valve replacement [id number] [facility] Bilateral mastectomy [id number] [facility] Abdominal hyste[facility] [id number] [facility] AVR - Aortic valve replacement [id number] [facility] Bilateral mastectomy [id number] [facility] Cardiac catheterisation, left heart [id number] [facility] Cardiac catheterisation, right heart 85658406 [facility]
--- NOTE | 2018-11-02 15:31 | NUR ---
REC'D PT IN [facility] WITH [facility] FOR C/O SHORTNESS OF BREATH. PLACED ON THE MONITOR AND IN A GOWN. BED LOW/LOCKED AND PLACED ON 2L OF OXYGEN
[2018-11-02 15:43] LABS: BASOPHILS % 0.7 % (0.0-1.0); EOSINOPHILS % 0.5 % (0.0-6.0); HEMATOCRIT 32.4 % (34.2-44.1); HEMOGLOBIN 9.6 g/dL (12.0-16.0); LYMPHOCYTES # (AUTO) 0.4 (1.0-3.2); LYMPHOCYTES % 6.8 % (18.0-39.1); MEAN CORPUSCULAR HEMOGLOBIN 26.8 pg (28-32); MEAN CORPUSCULAR HGB CONC 29.6 g/dL (31-35); MEAN CORPUSCULAR VOLUME 90.5 fL (81-99); MONOCYTES # (AUTO) 0.4 (0.2-0.8); MONOCYTES % 7.7 % (4.4-11.3); NEUTROPHILS # (AUTO) 4.7 (2.1-6.9); NEUTROPHILS % 82.9 % (38.7-80.0); PLATELET COUNT 214 x10e3/uL (140-360); RED BLOOD COUNT 3.58 x10e6/uL (3.6-5.1); RED CELL DISTRIBUTION WIDTH 17.4 % (11.7-14.4)
[2018-11-02 15:55] LABS: INR 1.2; PROTHROMBIN TIME 16.3 seconds (11.9-14.5)
[2018-11-02 15:56] LABS: PARTIAL THROMBOPLASTIN TIME 37.2 seconds (23.8-35.5)
[2018-11-02 15:57] LABS: ALBUMIN 2.4 g/dL (3.5-5.0); ALBUMIN/GLOBULIN RATIO 0.5 (0.8-2.0); ANION GAP 13.2 mmol/L (8-16); CALCIUM 8.8 mg/dL (8.4-10.2); CREATININE, SERUM 0.97 mg/dL (0.57-1.11); POTASSIUM 4.2 mmol/L (3.5-5.1)
[2018-11-02 16:03] LABS: CREATINE KINASE MB 1.8 ng/mL (0-5.0)
--- NOTE | 2018-11-02 16:43 | Diagnostic Imaging Report ---
EXAM: CHEST SINGLE (PORTABLE), AP Portable DATE: 11/02/2018 3:30 PM Time stamp on exam: 4:10 PM INDICATION: Shortness of breath COMPARISON: None FINDINGS: LINES/TUBES: Stent overlies the lower heart shadow/mediastinum. LUNGS: Worsening pulmonary edema. PLEURA: No effusions or pneumothorax. HEART AND MEDIASTINUM: Heart remains enlarged. There is tortuosity of the aorta. BONES AND SOFT TISSUES: No acute findings. IMPRESSION: Worsening pulmonary edema. Signed by: Dr. Socrates Branham DO on 11/02/2018 4:40 PM
[2018-11-02] MEDS ORDERED: FUROSEMIDE INJ 10 MG/ML 4 ML VIAL IV ONE (16:45)
--- NOTE | 2018-11-02 17:40 | NUR ---
ARZATE PLACED WITH NO PROBLEMS. 80 MG IV LASIX GIVEN PER DR'S ORDERS.
[2018-11-02] MEDS ORDERED: SODIUM CHLORIDE FLUSH 10 ML SYR INJ PRN (17:45)
[2018-11-02 21:14] VITALS: BP 128/60
--- NOTE | 2018-11-02 21:47 | NUR ---
History and PHysical cc: sob/leg edema HPI: 78yoF, admitted last month for acute exa CHF and HAP, now with worsening SOB and leg swelling. No cp. PAST MEDICAL HISTORY: Hypertension, systolic congestive heart failure, left ventricular ejection fraction 25% to 30% in February 2017, rheumatoid arthritis, scoliosis, hypothyroidism, atrial fibrillation, atrial flutter, cigarette use--quit in 1975, breast cancer status post bilateral mastectomy, Sjogren's syndrome., Pulmonary edema, Acute respiratory failure, HAP. PAST SURGICAL HISTORY: Bilateral mastectomy. ALLERGIES: PER ELECTRONIC MEDICAL RECORD. FAMILY HISTORY/SOCIAL HISTORY: The patient is a resident at [facility]. She is . She has 3 children. Quit cigarettes in 1975. MEDICATIONS: Per electronic medical record. REVIEW OF SYSTEMS: Denies any dizziness or chest pain. Denies any fever, chills, sweats, nausea, vomiting, diarrhea. Denies any headache or vision changes. Denies any leg pain. PHYSICAL EXAMINATION VITAL SIGNS: Reviewed. GENERAL: A tired-appearing woman resting in bed. HEENT: Anicteric. Pupils are responsive to light. No oral lesions. CARDIOVASCULAR: Normal S1 and S2. LUNGS: REDUCED BS THROUGHOUT; no w bases. ABDOMEN: Soft, nontender, nondistended. EXTREMITIES: 1+ leg edema B/L SKIN: Dry. PSYCHIATRIC: Flat affect. NEUROLOGIC: Alert, oriented times 3, moving all extremities. LABS: Reviewed. MEDICATIONS: Reviewed. ASSESSMENT: This is an 78-year-old woman. AECHF- systolic- diurese; strict I/O; last LVEF 25-30% in February 2017 Pulmonary edema- diurese; low salt diet; Peripheral edema- diuresis HTN- cont meds RA- prn pain meds Hypothyroidism- synthroid Chr A.fibrillation- rate controlled Sjogren's syndrome- steroids Physical deconditioning- PT Prop: eliquis; ppi Dispo: strict I/O; Tom Warren MD, PhD.
[2018-11-02] MEDS ORDERED: ACETAMINOPHEN 325 MG TAB PO PRN (22:45)
[2018-11-02] MEDS ORDERED: ONDANSETRON HCL 4 MG ORAL DISINTEGRATING TAB SL PRN (23:00)
[2018-11-02] MEDS ORDERED: BISACODYL 5 MG TAB EC PO PRN (23:00)
[2018-11-02 23:45] VITALS: BP 123/56
[2018-11-03] VITALS (8 sets, daily range): BP systolic 104–139; BP diastolic 56–61
[2018-11-03] MEDS: ACETAMINOPHEN/CODEINE 300MG - 30MG TAB PO PRN ×2 (00:10→21:15)
[2018-11-03] MEDS: TEMAZEPAM 15 MG CAP PO SCH ×2 (01:00→22:08)
--- NOTE | 2018-11-03 03:24 | NUR ---
PT IS TRANSFERRED FROM ER .PT IS AOX3 .RESPIRATIONS ARE EVEN AND UNLABORED .LRT FA 20 G S/L STAGE 2 SACRUM STAGE 1 LEFT HEEL REDNEESS TO THE RT HEEL .APPLIED FOAM PADS TO THE SACRUM ,AND HEEL PROTECTORS TO THE HEELS C/O PAIN AND INSOMNIA GIVEN ORDERED PAIN MEDICATION PT HAS F/C DRAINING CLEAR YELLOW URINE .DR ROMO HAVE SEEN THE PT .KAILEE LIGHT WITH IN REACH .CONTINUE TO MONITOR
[2018-11-03 04:48] LABS: BASOPHILS % 0.7 % (0.0-1.0); EOSINOPHILS # (AUTO) 0.2 (0.0-0.4); EOSINOPHILS % 3.2 % (0.0-6.0); HEMATOCRIT 30.7 % (34.2-44.1); HEMOGLOBIN 9.2 g/dL (12.0-16.0); LYMPHOCYTES # (AUTO) 0.7 (1.0-3.2); LYMPHOCYTES % 11.6 % (18.0-39.1); MEAN CORPUSCULAR HEMOGLOBIN 26.7 pg (28-32); MEAN CORPUSCULAR VOLUME 89.2 fL (81-99); MONOCYTES # (AUTO) 0.7 (0.2-0.8); NEUTROPHILS # (AUTO) 3.9 (2.1-6.9); NEUTROPHILS % 69.9 % (38.7-80.0); PLATELET COUNT 196 x10e3/uL (140-360); RED BLOOD COUNT 3.44 x10e6/uL (3.6-5.1); RED CELL DISTRIBUTION WIDTH 17.6 % (11.7-14.4)
[2018-11-03 05:05] LABS: ANION GAP 13.9 mmol/L (8-16); BLOOD UREA NITROGEN 19 mg/dL (7-26); BUN/CREATININE RATIO 22 (6-25); CALCIUM 8.3 mg/dL (8.4-10.2); CARBON DIOXIDE 37 mmol/L (22-29); CHLORIDE 96 mmol/L (98-107); CREATININE, SERUM 0.87 mg/dL (0.57-1.11); EST GLOMERULAR FILTRATION RATE > 60 ML/MIN (60-); GLUCOSE 76 mg/dL (74-118); POTASSIUM 3.9 mmol/L (3.5-5.1); SODIUM 143 mmol/L (136-145)
--- NOTE | 2018-11-03 06:20 | NUR ---
PT RESTING AND NO ACUTE DISTRESS NOTED .CALL LIGHT WITH IN REACH .CONTINUE TO MONITOR
--- NOTE | 2018-11-03 06:21 | Diagnostic Imaging Report ---
EXAM: CHEST SINGLE (PORTABLE), AP Portable DATE: 11/03/2018 7:00 AM Time stamp on exam: 5:36 AM INDICATION: CHF, shortness of breath COMPARISON: 11/02/2018 FINDINGS: LINES/TUBES: Stent overlies the lower heart shadow/mediastinum. LUNGS: Stable pulmonary edema. PLEURA: Small pleural effusions. No pneumothorax. HEART AND MEDIASTINUM: Heart remains enlarged. There is tortuosity of the aorta. BONES AND SOFT TISSUES: No acute findings. IMPRESSION: Stable pulmonary edema. Signed by: DR. Terrell Landers MD on 11/03/2018 6:18 AM
[2018-11-03 06:23] LABS: CREATINE KINASE MB 1.2 ng/mL (0-5.0)
--- NOTE | 2018-11-03 07:12 | NUR ---
IM- Progress note o/N; no events REVIEW OF SYSTEMS: Denies any dizziness or chest pain. Denies any fever, chills, sweats, nausea, vomiting, diarrhea. Denies any headache or vision changes. Denies any leg pain. PHYSICAL EXAMINATION VITAL SIGNS: Reviewed. GENERAL: A tired-appearing woman resting in bed. HEENT: Anicteric. Pupils are responsive to light. No oral lesions. CARDIOVASCULAR: Normal S1 and S2. LUNGS: REDUCED BS THROUGHOUT; no w bases. ABDOMEN: Soft, nontender, nondistended. EXTREMITIES: 1+ leg edema B/L SKIN: Dry. PSYCHIATRIC: Flat affect. NEUROLOGIC: Alert, oriented times 3, moving all extremities. LABS: Reviewed. MEDICATIONS: Reviewed. ASSESSMENT: This is an 78-year-old woman. AECHF- systolic- diurese; strict I/O; last LVEF 25-30% in February 2017 Pulmonary edema- diurese; low salt diet; Peripheral edema- diuresis HTN- cont meds RA- prn pain meds Hypothyroidism- synthroid Chr A.fibrillation- rate controlled Sjogren's syndrome- steroids Physical deconditioning- PT Prop: eliquis; ppi Dispo: strict I/O; 11/03 JAG improving; TSH normal; I/O 120/2650; respiratory improving; Tom Warren MD, PhD.
--- NOTE | 2018-11-03 07:16 | NUR ---
REPORT GIVEN TO THE ONCOMING NURSE.
[2018-11-03] MEDS: CITALOPRAM HYDROBROMIDE 20 MG TAB PO SCH (09:16)
[2018-11-03] MEDS: LORATADINE 10 MG TAB PO SCH (09:16)
[2018-11-03] MEDS: ASPIRIN 81 MG CHEW TAB PO SCH (09:16)
[2018-11-03] MEDS: METHYLPREDNISOLONE SOD SUCC 40 MG/ML VIAL IV SCH ×2 (09:16→21:15)
[2018-11-03] MEDS: AMIODARONE HCL 200 MG TAB PO SCH (09:16)
[2018-11-03] MEDS: APIXAB 2.5 MG TABLET PO SCH (09:17)
[2018-11-03] MEDS: POTASSIUM CHLORIDE 20 MEQ TAB CR PO SCH ×2 (09:17→17:01)
[2018-11-03] MEDS: FOLIC ACID 1 MG TAB PO SCH (09:17)
[2018-11-03] MEDS: FERROUS SULFATE 325 MG TAB PO SCH (09:17)
[2018-11-03] MEDS: METOPROLOL SUCCINATE 25 MG TAB XL PO SCH (09:18)
[2018-11-03] MEDS: LEVOTHYROXINE SODIUM 50 MCG TAB PO SCH (09:18)
[2018-11-03] MEDS: PANTOPRAZOLE SOD 40 MG TABEC PO SCH (09:18)
[2018-11-03] MEDS: FUROSEMIDE INJ 10 MG/ML 4 ML VIAL IV SCH ×2 (09:18→17:00)
[2018-11-03 14:36] LABS: CREATINE KINASE MB 1.3 ng/mL (0-5.0)
[2018-11-03] MEDS: MONTELUKAST SODIUM 10 MG TAB PO SCH (21:15)
[2018-11-03] MEDS: MELATONIN 3 MG TAB PO SCH (21:15)
[2018-11-04] VITALS (7 sets, daily range): BP systolic 105–130; BP diastolic 54–63
[2018-11-04 07:38] LABS: ANION GAP 13.8 mmol/L (8-16); CALCIUM 8.6 mg/dL (8.4-10.2); CREATININE, SERUM 0.91 mg/dL (0.57-1.11)
[2018-11-04 07:40] LABS: POTASSIUM 4.8 mmol/L (3.5-5.1)
[2018-11-04] MEDS: FUROSEMIDE INJ 10 MG/ML 4 ML VIAL IV SCH ×2 (09:32→17:34)
[2018-11-04] MEDS: LORATADINE 10 MG TAB PO SCH (09:32)
[2018-11-04] MEDS: ASPIRIN 81 MG CHEW TAB PO SCH (09:32)
[2018-11-04] MEDS: LEVOTHYROXINE SODIUM 50 MCG TAB PO SCH (09:32)
[2018-11-04] MEDS: FERROUS SULFATE 325 MG TAB PO SCH (09:32)
[2018-11-04] MEDS: CITALOPRAM HYDROBROMIDE 20 MG TAB PO SCH (09:32)
[2018-11-04] MEDS: PANTOPRAZOLE SOD 40 MG TABEC PO SCH (09:32)
[2018-11-04] MEDS: METHYLPREDNISOLONE SOD SUCC 40 MG/ML VIAL IV SCH ×2 (09:32→20:33)
[2018-11-04] MEDS: FOLIC ACID 1 MG TAB PO SCH (09:32)
[2018-11-04] MEDS: APIXAB 2.5 MG TABLET PO SCH (09:32)
[2018-11-04] MEDS: AMIODARONE HCL 200 MG TAB PO SCH (09:32)
[2018-11-04] MEDS: POTASSIUM CHLORIDE 20 MEQ TAB CR PO SCH ×2 (09:33→17:35)
[2018-11-04] MEDS: METOPROLOL SUCCINATE 25 MG TAB XL PO SCH (09:33)
[2018-11-04] MEDS: MELATONIN 3 MG TAB PO SCH (20:33)
[2018-11-04] MEDS: MONTELUKAST SODIUM 10 MG TAB PO SCH (20:33)
[2018-11-04] MEDS: ACETAMINOPHEN/CODEINE 300MG - 30MG TAB PO PRN (20:33)
[2018-11-04] MEDS: TEMAZEPAM 15 MG CAP PO SCH (21:24)
[2018-11-05] VITALS (10 sets, daily range): BP systolic 118–144; BP diastolic 58–65
--- NOTE | 2018-11-05 07:24 | NUR ---
IM- Progress note o/N; no events REVIEW OF SYSTEMS: Denies any dizziness or chest pain. Denies any fever, chills, sweats, nausea, vomiting, diarrhea. Denies any headache or vision changes. Denies any leg pain. PHYSICAL EXAMINATION VITAL SIGNS: Reviewed. GENERAL: A tired-appearing woman resting in bed. HEENT: Anicteric. Pupils are responsive to light. No oral lesions. CARDIOVASCULAR: Normal S1 and S2. LUNGS: REDUCED BS THROUGHOUT; no w bases. ABDOMEN: Soft, nontender, nondistended. EXTREMITIES: 1+ leg edema B/L SKIN: Dry. PSYCHIATRIC: Flat affect. NEUROLOGIC: Alert, oriented times 3, moving all extremities. LABS: Reviewed. MEDICATIONS: Reviewed. ASSESSMENT: This is an 78-year-old woman. AECHF- systolic- diurese; strict I/O; last LVEF 25-30% in February 2017 Pulmonary edema- diurese; low salt diet; Peripheral edema- diuresis HTN- cont meds RA- prn pain meds Hypothyroidism- synthroid Chr A.fibrillation- rate controlled Sjogren's syndrome- steroids Physical deconditioning- PT Prop: eliquis; ppi Dispo: strict I/O; 11/03 JAG improving; TSH normal; I/O 120/2650; respiratory improving; 11/04 doing well; cont care; Output 2500; check renal fn I/O 1160/1600; d/c planning; Tom Warren MD, PhD.
[2018-11-05] MEDS: METHYLPREDNISOLONE SOD SUCC 40 MG/ML VIAL IV SCH ×2 (09:35→20:50)
[2018-11-05] MEDS: FUROSEMIDE INJ 10 MG/ML 4 ML VIAL IV SCH ×2 (09:35→17:07)
[2018-11-05] MEDS: AMIODARONE HCL 200 MG TAB PO SCH (09:35)
[2018-11-05] MEDS: FERROUS SULFATE 325 MG TAB PO SCH (09:35)
[2018-11-05] MEDS: ASPIRIN 81 MG CHEW TAB PO SCH (09:35)
[2018-11-05] MEDS: METOPROLOL SUCCINATE 25 MG TAB XL PO SCH (09:35)
[2018-11-05] MEDS: FOLIC ACID 1 MG TAB PO SCH (09:35)
[2018-11-05] MEDS: PANTOPRAZOLE SOD 40 MG TABEC PO SCH (09:35)
[2018-11-05] MEDS: LORATADINE 10 MG TAB PO SCH (09:35)
[2018-11-05] MEDS: LEVOTHYROXINE SODIUM 50 MCG TAB PO SCH (09:35)
[2018-11-05] MEDS: APIXAB 2.5 MG TABLET PO SCH (09:35)
[2018-11-05] MEDS: CITALOPRAM HYDROBROMIDE 20 MG TAB PO SCH (09:35)
[2018-11-05] MEDS: POTASSIUM CHLORIDE 20 MEQ TAB CR PO SCH ×2 (09:36→17:07)
--- NOTE | 2018-11-05 13:44 | NUR ---
Soft Drink Powder Mixer to bedside to discuss plan of care with patient/family. CM/SW role and care transitions discussed. Anticipated discharge plan discussed along with duration of care. CM/SW discussed patients right to make decisions in care. CM/SW work hours given. Patient lives: in Assisted Living at [facility] Admit/Transfer: from [facility] POA/Emergency contact: daughter Nicolasa Herrera [phone], son-in-law Mitch Herrera [phone] Current/Previous Home Health: none PCP/Follow-up Care: does not remember name, but states MD comes to assisted living facility Current/Previous DME: [employer]von Other Services: none Employment Status: retired Areas of Concerns: n/a Referral Needs: may need to return to snf for therapy Education Needs: n/a IMM/MCLEOD given and signed (if applicable): IMM Goal for discharge: would like to go back to [facility], but states will go back to [facility] for therapy. Choice letter signed and placed in chart. Copy to pt. CM/SW left business card at the bedside with contact information. Name and number was also written on the patients whiteboard. Patient verbalized understanding of discussion. CM will follow-up with ongoing discharge and transition of care needs.
--- NOTE | 2018-11-05 14:43 | NUR ---
WOUND CARE CONSULTATION: THIS IS AN 78 YEAR OLD FEMALE PATIENT ADMITTED TO [facility] FOR ANEMIA, CHRONIC A FIB, AND ACUTE DYSPNEA. HEAD TO TOE SKIN ASSESSMENT PERFORMED. PATIENT HAS A LEFT HEEL AREA OF BLANCHABLE REDNESS MEASURING 1X1CM. PATIENT HAS A RIGHT HEEL AREA OF BLANCHABLE REDNESS MEASURING 1X1CM. PATIENT HAS BRUISING NOTED TO THE LEFT AXILLA AREA; SKIN INTACT. PATIENT HAS AN AREA OF BLANCHABLE REDNESS TO THE SACRUM MEASURING 4X2CM. LABS: WBC5.62 ALB2.4 RECOMMENDATION: -CONTINUE ALTERNATING PRESSURE RELIEF MATTRESS. -CONTINUE BILATERAL HEEL PROTECTORS WITH PILLOW SUSPENSION. -TURN EVERY 2 HOURS AND PRN. -NURSING TO APPLY VENELEX THEN ALLEVYN HEEL FOAM DRESSING TO LEFT AND RIGHT HEEL AREAS OF BLANCHABLE REDNESS; CHANGE DRESSING DAILY AND PRN. -NURSING TO APPLY VENELEX THEN ALLEVYN FOAM DRESSING TO AREA OF BLANCHABLE REDNESS TO SACRUM; CHANGE DAILY AND PRN. THANK YOU FOR THIS WOUND CARE CONSULT. Addendum: 11/05/18 at 1502 by Arely Fields RN Amended: Links added.
--- NOTE | 2018-11-05 19:15 | NUR ---
Received patient awake, with o2 support via nasal cannula, rae in place. No complaints of pain at this time, no distress noted. Call light within reached, advised to call for assistance when needed. Bed alarm on, will continue to monitor
[2018-11-05] MEDS: MELATONIN 3 MG TAB PO SCH (20:50)
[2018-11-05] MEDS: MONTELUKAST SODIUM 10 MG TAB PO SCH (20:50)
[2018-11-05] MEDS: ACETAMINOPHEN/CODEINE 300MG - 30MG TAB PO PRN (20:55)
[2018-11-06] VITALS (8 sets, daily range): BP systolic 114–128; BP diastolic 55–62
--- NOTE | 2018-11-06 07:02 | NUR ---
IM- Progress note o/N; no events REVIEW OF SYSTEMS: Denies any dizziness or chest pain. Denies any fever, chills, sweats, nausea, vomiting, diarrhea. Denies any headache or vision changes. Denies any leg pain. PHYSICAL EXAMINATION VITAL SIGNS: Reviewed. GENERAL: A tired-appearing woman resting in bed. HEENT: Anicteric. Pupils are responsive to light. No oral lesions. CARDIOVASCULAR: Normal S1 and S2. LUNGS: REDUCED BS THROUGHOUT; no w bases. ABDOMEN: Soft, nontender, nondistended. EXTREMITIES: 1+ leg edema B/L SKIN: Dry. PSYCHIATRIC: Flat affect. NEUROLOGIC: Alert, oriented times 3, moving all extremities. LABS: Reviewed. MEDICATIONS: Reviewed. ASSESSMENT: This is an 78-year-old woman. AECHF- systolic- diurese; strict I/O; last LVEF 25-30% in February 2017 Pulmonary edema- diurese; low salt diet; Peripheral edema- diuresis HTN- cont meds RA- prn pain meds Hypothyroidism- synthroid Chr A.fibrillation- rate controlled Sjogren's syndrome- steroids Physical deconditioning- PT Prop: eliquis; ppi Dispo: strict I/O; 11/03 JAG improving; TSH normal; I/O 120/2650; respiratory improving; 11/04 doing well; cont care; Output 2500; check renal fn 11/05 I/O 1160/1600; d/c planning; 11/06 I/O 2280/3100. continue diuresis; check labs; Tom Warren MD, PhD.
[2018-11-06 07:44] LABS: HEMATOCRIT 36.4 % (34.2-44.1); HEMOGLOBIN 10.7 g/dL (12.0-16.0); LYMPHOCYTES # (AUTO) 0.3 (1.0-3.2); LYMPHOCYTES % 3.4 % (18.0-39.1); MEAN CORPUSCULAR HEMOGLOBIN 26.8 pg (28-32); MEAN CORPUSCULAR HGB CONC 29.4 g/dL (31-35); MEAN CORPUSCULAR VOLUME 91.2 fL (81-99); MONOCYTES # (AUTO) 0.3 (0.2-0.8); MONOCYTES % 3.6 % (4.4-11.3); NEUTROPHILS # (AUTO) 7.2 (2.1-6.9); NEUTROPHILS % 91.9 % (38.7-80.0); PLATELET COUNT 267 x10e3/uL (140-360); RED BLOOD COUNT 3.99 x10e6/uL (3.6-5.1); RED CELL DISTRIBUTION WIDTH 16.9 % (11.7-14.4)
--- NOTE | 2018-11-06 07:55 | NUR ---
Pt received in bed with eyes closed. Easily arouses with verbal stimuli. Aox4 and able to verbalize needs. Pt did get up and walk with therapy this morning. Received new order for miralax 17g daily. Physician states pt might discharged tomorrow to rehab.
[2018-11-06 08:06] LABS: ANION GAP 10.9 mmol/L (8-16); CALCIUM 8.6 mg/dL (8.4-10.2); CREATININE, SERUM 1.12 mg/dL (0.57-1.11); MAGNESIUM 2.5 MG/DL (1.3-2.1); POTASSIUM 4.9 mmol/L (3.5-5.1)
[2018-11-06] MEDS: CITALOPRAM HYDROBROMIDE 20 MG TAB PO SCH (08:46)
[2018-11-06] MEDS: ASPIRIN 81 MG CHEW TAB PO SCH (08:46)
[2018-11-06] MEDS: FUROSEMIDE INJ 10 MG/ML 4 ML VIAL IV SCH (08:46)
[2018-11-06] MEDS: LORATADINE 10 MG TAB PO SCH (08:46)
[2018-11-06] MEDS: APIXAB 2.5 MG TABLET PO SCH (08:46)
[2018-11-06] MEDS: AMIODARONE HCL 200 MG TAB PO SCH (08:46)
[2018-11-06] MEDS: METHYLPREDNISOLONE SOD SUCC 40 MG/ML VIAL IV SCH ×2 (08:46→20:54)
[2018-11-06] MEDS: POLYETHYLENE GLYCOL 3350 17 GM PACK PO SCH (08:47)
[2018-11-06] MEDS: BALSAM PERU/CASTOR OIL 5 GM OINT...G. TP SCH (08:47)
[2018-11-06] MEDS: LEVOTHYROXINE SODIUM 50 MCG TAB PO SCH (08:47)
[2018-11-06] MEDS: PANTOPRAZOLE SOD 40 MG TABEC PO SCH (08:47)
[2018-11-06] MEDS: FERROUS SULFATE 325 MG TAB PO SCH (08:47)
[2018-11-06] MEDS: METOPROLOL SUCCINATE 25 MG TAB XL PO SCH (08:47)
[2018-11-06] MEDS: FOLIC ACID 1 MG TAB PO SCH (08:47)
[2018-11-06] MEDS: POTASSIUM CHLORIDE 20 MEQ TAB CR PO SCH ×2 (09:20→17:39)
--- NOTE | 2018-11-06 10:00 | NUR ---
Spoke to Dr. Warren this morning to report abnormal labs and received new orders to decrease lasix to daily and repeat BMP in the morning.
[2018-11-06] MEDS: ACETAMINOPHEN/CODEINE 300MG - 30MG TAB PO PRN ×2 (14:00→20:54)
--- NOTE | 2018-11-06 15:04 | NUR ---
SPOKE WITH FAMILY PT WILL RETURN TO [facility], FAXED CLINICALS TO [phone]. SPOKE WITH JESÚS, SHE WILL REVIEW WITH A PLAN FOR DC TOMORROW.
--- NOTE | 2018-11-06 19:17 | NUR ---
Received patient awake, not in distress, no complaints of pain at this time. Call light within reached, advised to call for assistance. Bed alarm on, will continue to monitor
[2018-11-06] MEDS: MONTELUKAST SODIUM 10 MG TAB PO SCH (20:54)
[2018-11-06] MEDS: TEMAZEPAM 15 MG CAP PO SCH (20:54)
[2018-11-06] MEDS: MELATONIN 3 MG TAB PO SCH (20:54)
[2018-11-07] VITALS (7 sets, daily range): BP systolic 121–144; BP diastolic 58–69
[2018-11-07 05:46] LABS: ANION GAP 12.2 mmol/L (8-16); CALCIUM 8.6 mg/dL (8.4-10.2); CREATININE, SERUM 1.14 mg/dL (0.57-1.11); POTASSIUM 5.2 mmol/L (3.5-5.1)
--- NOTE | 2018-11-07 07:00 | NUR ---
SHIFT REPORT RECEIVED FROM NIGHT RN. PT DENIES NEEDS AT THIS TIME.
--- NOTE | 2018-11-07 07:30 | NUR ---
IM- Progress note o/N; no events REVIEW OF SYSTEMS: Denies any dizziness or chest pain. Denies any fever, chills, sweats, nausea, vomiting, diarrhea. Denies any headache or vision changes. Denies any leg pain. PHYSICAL EXAMINATION VITAL SIGNS: Reviewed. GENERAL: A tired-appearing woman resting in bed. HEENT: Anicteric. Pupils are responsive to light. No oral lesions. CARDIOVASCULAR: Normal S1 and S2. LUNGS: REDUCED BS THROUGHOUT; no w bases. ABDOMEN: Soft, nontender, nondistended. EXTREMITIES: 1+ leg edema B/L SKIN: Dry. PSYCHIATRIC: Flat affect. NEUROLOGIC: Alert, oriented times 3, moving all extremities. LABS: Reviewed. MEDICATIONS: Reviewed. ASSESSMENT: This is an 78-year-old woman. AECHF- systolic- diurese; strict I/O; last LVEF 25-30% in February 2017 Pulmonary edema- diurese; low salt diet; Peripheral edema- diuresis HTN- cont meds RA- prn pain meds Hypothyroidism- synthroid Chr A.fibrillation- rate controlled Sjogren's syndrome- steroids Physical deconditioning- PT Prop: eliquis; ppi Dispo: strict I/O; 11/03 JAG improving; TSH normal; I/O 120/2650; respiratory improving; 11/04 doing well; cont care; Output 2500; check renal fn 11/05 I/O 1160/1600; d/c planning; 11/06 I/O 2280/3100. continue diuresis; check labs; 11/07 monitor renal fn; reduce lasix further; I/O zero Tom Warren MD, PhD.
[2018-11-07] MEDS: METHYLPREDNISOLONE SOD SUCC 40 MG/ML VIAL IV SCH ×2 (08:34→21:11)
[2018-11-07] MEDS: POTASSIUM CHLORIDE 20 MEQ TAB CR PO SCH ×2 (08:34→17:00)
[2018-11-07] MEDS: AMIODARONE HCL 200 MG TAB PO SCH (08:34)
[2018-11-07] MEDS: APIXAB 2.5 MG TABLET PO SCH (08:34)
[2018-11-07] MEDS: CITALOPRAM HYDROBROMIDE 20 MG TAB PO SCH (08:34)
[2018-11-07] MEDS: LORATADINE 10 MG TAB PO SCH (08:34)
[2018-11-07] MEDS: FERROUS SULFATE 325 MG TAB PO SCH (08:34)
[2018-11-07] MEDS: ASPIRIN 81 MG CHEW TAB PO SCH (08:34)
[2018-11-07] MEDS: FOLIC ACID 1 MG TAB PO SCH (08:34)
[2018-11-07] MEDS: FUROSEMIDE INJ 10 MG/ML 4 ML VIAL IV SCH (08:34)
[2018-11-07] MEDS: BALSAM PERU/CASTOR OIL 5 GM OINT...G. TP SCH (08:35)
[2018-11-07] MEDS: POLYETHYLENE GLYCOL 3350 17 GM PACK PO SCH (08:35)
[2018-11-07] MEDS: LEVOTHYROXINE SODIUM 50 MCG TAB PO SCH (08:35)
[2018-11-07] MEDS: PANTOPRAZOLE SOD 40 MG TABEC PO SCH (08:35)
[2018-11-07] MEDS: METOPROLOL SUCCINATE 25 MG TAB XL PO SCH (08:35)
[2018-11-07] MEDS ORDERED: FUROSEMIDE INJ 10 MG/ML 4 ML VIAL IV SCH (09:00)
--- NOTE | 2018-11-07 14:21 | NUR ---
RTF PASRR COMPLETED GIVEN TO NURSE AND FILED IN CHART, PT IS GOING TO [facility] [address], CALL REPORT TO [phone]
[2018-11-07 14:47] LABS: ANION GAP 13.1 mmol/L (8-16); CALCIUM 8.9 mg/dL (8.4-10.2); CREATININE, SERUM 1.17 mg/dL (0.57-1.11); POTASSIUM 5.1 mmol/L (3.5-5.1)
--- NOTE | 2018-11-07 15:45 | NUR ---
SPOKE TO DR. ROMO FOR TRANSFER ORDER. DR. ROMO STATED TO KEEP PT FOR CLOSER KIDNEY MONITORING UNTIL TRANSFER CLARIFIED FOR PROPER CARE.
--- NOTE | 2018-11-07 16:30 | NUR ---
IMM letter delivered and explained to pt. She verbalized understanding. Signed copy placed in chart. Copy to pt.
[2018-11-07] MEDS: TEMAZEPAM 15 MG CAP PO SCH (21:11)
[2018-11-07] MEDS: MELATONIN 3 MG TAB PO SCH (21:11)
[2018-11-07] MEDS: ACETAMINOPHEN/CODEINE 300MG - 30MG TAB PO PRN (21:12)
[2018-11-07] MEDS: MONTELUKAST SODIUM 10 MG TAB PO SCH (21:12)
[2018-11-08 00:05] VITALS: BP 130/58
[2018-11-08] MEDS ORDERED: LEVOTHYROXINE SODIUM 50 MCG TAB PO SCH (06:00)
[2018-11-08 06:02] VITALS: BP 127/64
[2018-11-08] MEDS ORDERED: MIRALAX17 GM PO (06:40)
[2018-11-08] MEDS ORDERED: FUROSEMIDE40 MG PO (06:40)
[2018-11-08] MEDS ORDERED: Methylprednisolone Sod Succ IV (06:40)
--- NOTE | 2018-11-08 06:43 | NUR ---
Discharge summary Principal dx: ASSESSMENT: This is an 78-year-old woman. AECHF- systolic- diurese; strict I/O; last LVEF 25-30% in February 2017 Pulmonary edema- diurese; low salt diet; Peripheral edema- diuresis HTN- cont meds RA- prn pain meds Hypothyroidism- synthroid Chr A.fibrillation- rate controlled Sjogren's syndrome- steroids Physical deconditioning- PT Prop: eliquis; ppi Dispo: strict I/O; Secondary dx: 1.A.fib cc and hpi; refer to [facility]; ASSESSMENT: This is an 78-year-old woman. AECHF- systolic- diurese; strict I/O; last LVEF 25-30% in February 2017 Pulmonary edema- diurese; low salt diet; Peripheral edema- diuresis HTN- cont meds RA- prn pain meds Hypothyroidism- synthroid Chr A.fibrillation- rate controlled Sjogren's syndrome- steroids Physical deconditioning- PT Prop: eliquis; ppi Dispo: strict I/O; 11/03 JAG improving; TSH normal; I/O 120/2650; respiratory improving; 11/04 doing well; cont care; Output 2500; check renal fn 11/05 I/O 1160/1600; d/c planning; 11/06 I/O 2280/3100. continue diuresis; check labs; 11/07 monitor renal fn; reduce lasix further; I/O zero 11/08 rev'd chart reveals that pt has CKD3. Currently at baseline; doing well on 3L NC, which is baseline; No real SOB; Use lasix 40 daily; Needs close f/u d/c time>35mins d/c location[facility] [place] d/c meds; see MAR D/c conditon: stable and improving; f/u pcp 1 week and cardiology 10 days; Instruction: AVOID salt; Reduce fluids; Tom Warren MD, PhD.
--- NOTE | 2018-11-08 07:00 | NUR ---
SHIFT REPORT RECEIVED FROM NIGHT RN. PT DENIES NEEDS AT THIS TIME.
[2018-11-08 08:00] VITALS: BP 145/71
[2018-11-08] MEDS: AMIODARONE HCL 200 MG TAB PO SCH (08:51)
[2018-11-08] MEDS: POTASSIUM CHLORIDE 20 MEQ TAB CR PO SCH (08:51)
[2018-11-08] MEDS: LORATADINE 10 MG TAB PO SCH (08:51)
[2018-11-08] MEDS: ASPIRIN 81 MG CHEW TAB PO SCH (08:51)
[2018-11-08] MEDS: APIXAB 2.5 MG TABLET PO SCH (08:51)
[2018-11-08] MEDS: FERROUS SULFATE 325 MG TAB PO SCH (08:51)
[2018-11-08] MEDS: FOLIC ACID 1 MG TAB PO SCH (08:51)
[2018-11-08] MEDS: FUROSEMIDE INJ 10 MG/ML 4 ML VIAL IV SCH (08:51)
[2018-11-08] MEDS: CITALOPRAM HYDROBROMIDE 20 MG TAB PO SCH (08:51)
[2018-11-08] MEDS: METHYLPREDNISOLONE SOD SUCC 40 MG/ML VIAL IV SCH (08:51)
[2018-11-08] MEDS: POLYETHYLENE GLYCOL 3350 17 GM PACK PO SCH (08:52)
[2018-11-08] MEDS: BALSAM PERU/CASTOR OIL 5 GM OINT...G. TP SCH (08:53)
[2018-11-08] MEDS: PANTOPRAZOLE SOD 40 MG TABEC PO SCH (08:53)
[2018-11-08] MEDS: METOPROLOL SUCCINATE 25 MG TAB XL PO SCH (08:53)
[2018-11-08 09:00] VITALS: BP 145/71
--- NOTE | 2018-11-08 10:30 | NUR ---
PT HAS VOIDED TWICE SINCE ARZATE REMOVED. PT WAS CONTINENT OF BOWEL AND BLADDER.
--- NOTE | 2018-11-08 11:24 | NUR ---
CALLED PT'S SON PARAS TO INFORM OF THE TRANSFER. HE ACKNOWLEDGED.
== END 2018-11-08 11:01 | DRG 292 ==
LOC: ER 15:04 → ERHOLD 18:48 → MED/SURG2 20:29
PROVIDERS: ADMIT Internal Medicine; ATTEND Internal Medicine
DX: I11.0 Hypertensive heart disease with heart failure (principal); N17.9 Acute kidney failure, unspecified; I50.23 Acute on chronic systolic (congestive) heart failure; I48.2 Chronic atrial fibrillation; Z79.01 Long term (current) use of anticoagulants; I25.10 Atherosclerotic heart disease of native coronary artery without angina pectoris; M06.9 Rheumatoid arthritis, unspecified; M35.00 Sjogren syndrome, unspecified; R60.0 Localized edema; E03.9 Hypothyroidism, unspecified
CPT/HCPCS: 36415; 51700; 71045; 80048; 80053; 82550; 82553; 83735; 83880; 84100; 84443; 84484; 85025; 85610; 85730; 93005; 97139; 99284; J1940; J2920